=== PATIENT | male | born 1950 | race Caucasian/White ===

== ENCOUNTER → 2024-01-28 | Emergency (ER) | payer OTHER ==
[~2024-01-28] MED LIST: NA CHLORIDE 0.9% 1,000 ML ONE; ONDANSETRON 4 MG/2 ML VIAL ONE
[2024-01-28 07:55] LABS: Absolute Basophils 0.1 K/uL (0-0.5); Absolute Eosinophils 0.1 K/uL (0-0.5); Absolute Lymphocytes (CBC) 1.6 K/uL (0.7-4.9); Absolute Monocytes 0.5 K/uL (0.1-1.3); Absolute Neutrophil 7.7 K/uL (1.8-8.0); Basophils % 0.5 % (0-1.3); Eosinophils % 0.6 % (0-4.4); Hematocrit 38.4 % (39.6-49.0); Hemoglobin 12.9 g/dL (13.6-17.9); Lymphocytes % 16.4 % (15.3-44.8); MCHC 33.5 g/dL (32.0-36.0); MCV 80.6 fL (80-100); MPV 9.4 fL (7.6-11.3); Monocytes % 4.8 % (3.3-12.3); Neutrophils % 77.7 % (41.7-73.7); Nucleated Red Blood Cells % 0.1 % (0-0); Platelets 303 thou/uL (152-406); RBC Red Blood Cell Count 4.77 M/uL (4.33-5.43); Red Cell Distribution Width 14.8 % (12.1-15.2)
[2024-01-28 08:08] LABS: Specific Gravity 1.016 (1.005-1.030); Sqamous Epithelial None Seen /HPF (None Seen); Urine Bacteria None Seen /HPF (<20); Urine Bilirubin NEGATIVE (Negative); Urine Blood Negative (Negative); Urine Clarity Turbid (Clear); Urine Color Light-Yellow (Yellow); Urine Glucose 3+ (Negative); Urine Ketones TRACE (Negative); Urine Microscopic Reflex YN ORDER UMIC; Urine Nitrite NEGATIVE (Negative); Urine Protein NEGATIVE (Negative); Urine Urobilinogen Normal (Normal); Urine WBC <5 /HPF (<5)
[2024-01-28 08:09] LABS: Urine Culture Reflex Order NOT NEEDED; Urine Yeast (Budding) Trace /HPF (None Seen)
[2024-01-28 08:13] LABS: Albumin 3.6 g/dL (3.4-5.0); Albumin/Globulin Ratio 1.1 (1.1-1.8); Anion Gap 8.2 mEq/L (5.0-15.0); Bilirubin Total 0.6 mg/dL (0.2-1.0); Globulin 3.2 g/dL (2.3-3.5); Potassium 4.2 mEq/L (3.5-5.1); Protein, Total 6.8 g/dL (6.4-8.2)
--- NOTE | 2024-01-28 08:21 | EDPHYS ---
Physician Documentation [facility] Name: Aakash Pascual Age: 73 yrs Sex: Male : 1950 Arrival Date: 01/28/2024 Time: 07:14 Bed 16 Private MD: ED Physician Tika Pate HPI: 01/27 07:30 This 73 yrs old Male presents to ER via Unassigned with complaints of Cataract surgery sp3 on 01/27/24, Vomiting, Dizziness. 07:30 73-year-old male who had cataract surgery yesterday now presents to the ED with chief sp3 complaint nausea and vomiting since late last night. He denies any abdominal pain. Last bowel movement was yesterday. Patient also took an edible gummy yesterday about [id number]. He is also on tramadol. He denies any other symptoms including fever, cough, headache, neck pain, chest pain, shortness of breath, diarrhea, rash, syncope, near syncope, focal neurological deficit, or any other signs or symptoms on ROS at this time.. Historical: - Allergies: 07:25 No Known Allergies; ld1 - Immunization history:: Adult Immunizations up to date. - Social history:: Smoking status: Patient denies any tobacco usage or history of. Patient/guardian denies using alcohol. ROS: 07:31 Constitutional: Negative for fever, chills, and weight loss, Eyes: Negative for injury, sp3 pain, redness, and discharge, ENT: Negative for injury, pain, and discharge, Neck: Negative for injury, pain, and swelling, Cardiovascular: Negative for chest pain, palpitations, and edema, Respiratory: Negative for shortness of breath, cough, wheezing, and pleuritic chest pain, Back: Negative for injury and pain, MS/Extremity: Negative for injury and deformity, Skin: Negative for injury, rash, and discoloration, Neuro: Negative for headache, weakness, numbness, tingling, and seizure, Psych: Negative for depression, anxiety, suicide ideation, homicidal ideation, and hallucinations, Allergy/Immunology: Negative for hives, rash, and allergies, Endocrine: Negative for neck swelling, polydipsia, polyuria, polyphagia, and marked weight changes, Hematologic/Lymphatic: Negative for swollen nodes, abnormal bleeding, and unusual bruising, 07:31 All other systems are negative, Exam: 07:31 Constitutional: This is a well developed, well nourished patient who is awake, alert, sp3 and in no acute distress. Head/Face: Normocephalic, atraumatic. Eyes: Pupils equal round and reactive to light, extra-ocular motions intact. Lids and lashes normal. Conjunctiva and sclera are non-icteric and not injected. Cornea within normal limits. Periorbital areas with no swelling, redness, or edema. ENT: Nares patent. No nasal discharge, no septal abnormalities noted. External auditory canals are clear. Oropharynx with no redness, swelling, or masses, exudates, or evidence of obstruction, uvula midline. Mucous membranes moist. Neck: Trachea midline, no thyromegaly or masses palpated, and no cervical lymphadenopathy. Supple, full range of motion without nuchal rigidity, or vertebral point tenderness. No Meningismus. Chest/axilla: Normal chest wall appearance and motion. Nontender with no deformity. No lesions are appreciated. Cardiovascular: Regular rate and rhythm with a normal S1 and S2. No gallops, murmurs, or rubs. Normal PMI, no JVD. No pulse deficits. Respiratory: Lungs have equal breath sounds bilaterally, clear to auscultation and percussion. No rales, rhonchi or wheezes noted. No increased work of breathing, no retractions or nasal flaring. Abdomen/GI: Soft, non-tender, with normal bowel sounds. No distension or tympany. No guarding or rebound. No evidence of tenderness throughout. Back: No spinal tenderness. No costovertebral tenderness. Full range of motion. Skin: Warm, dry with normal turgor. Normal color with no rashes, no lesions, and no evidence of cellulitis. 07:31 Eyes: Eye shield on left eye. No anterior chamber hyphema or any other abnormality.. Vital Signs: 07:28 BP 156 / 96; Pulse 72; Resp 18; Temp 97.9(TE); Pulse Ox 100% on R/A; Weight 86.64 kg; ld1 Height 6 ft. 0 in. ; Pain 0/10; 08:20 BP 167 / 90; Pulse 84; Resp 18; Pulse Ox 100% on R/A; ld1 08:55 BP 156 / 88; Pulse 75; Resp 18; Pulse Ox 100% on R/A; ld1 07:28 Body Mass Index 25.90 (86.64 kg, 182.88 cm) ld1 07:28 Pain Scale: Adult ld1 MDM: 07:21 Patient medically screened. sp3 07:31 Data reviewed: vital signs, nurses notes, lab test result(s). ED course: 73-year-old sp3 male with PMH above now with nausea and vomiting postop day 1 for cataract surgery of the left eye. Differential diagnosis includes vomiting induced by postanesthesia, OTC edible THC gummy, or the tramadol itself. I met highly suspicious for biliary, gallbladder or pancreatic pathology. Patient does have gastritis and is on Nexium. I am not highly suspicious for gastritis, ruptured peptic ulcer, sepsis, shock or any other critical pathology at this time. Vital signs are normal and patient is in no acute distress. Once patient feels better, discharge will probably be his disposition.. 08:18 ED course: Patient is markedly improved. Will attempt p.o. challenge and if he passes, sp3 discharge him home on oral ondansetron. Patient is having no chest pain, shortness of breath or other anginal equivalents. I am not highly suspicious for acute coronary syndrome on reevaluation either.. 01/27 07:29 Order name: CBC with Diff; Complete Time: 08:18 sp3 01/27 07:29 Order name: CMP; Complete Time: 08:18 sp3 01/27 07:29 Order name: Lipase; Complete Time: 08:18 sp3 01/27 07:29 Order name: Urinalysis w/ reflexes; Complete Time: 08:18 sp3 01/27 07:29 Order name: IV Saline Lock; Complete Time: 07:51 sp3 01/27 07:29 Order name: Labs collected and sent; Complete Time: 07:51 sp3 01/27 08:19 Order name: PO challenge; Complete Time: 08:20 sp3 Administered Medications: 07:51 Drug: Ondansetron IVP 4 mg IVP once; over 2 minutes Route: IVP; Site: left antecubital; ld1 07:52 Drug: NS 0.9% IV 1000 ml IV at 1 bolus Per protocol; 1000 mL bolus Route: IV; Rate: 1 ld1 bolus; Site: left antecubital; Disposition Summary: 01/28/24 08:20 Discharge Ordered Notes: Location: Home sp3 Condition: Stable sp3 Diagnosis - Vomiting sp3 Followup: sp3 - With: Private Physician - When: Upon discharge from the Emergency Department - Reason: Continuance of care Discharge Instructions: - Discharge Summary Sheet sp3 - Vomiting, Adult sp3 Forms: - Medication Reconciliation Form sp3 - Thank You Letter sp3 - Antibiotic Education sp3 - Prescription Opioid Use sp3 - Patient Portal Instructions sp3 - Leadership Thank You Letter sp3 Prescriptions: - ondansetron 8 mg Oral Tablet,disintegrating - take 1 tablet ORAL route every 12 hours; 20 tablet; Refills: 0, Product sp3 Selection Permitted Signatures: Dispatcher [employer] Katrina Hernández RN RN ld1 Tika Pate MD MD sp3
--- NOTE | 2024-01-28 08:21 | ER ---
Nurse's Notes [facility] Name: Aakash Pascual Age: 73 yrs Sex: Male : 1950 Arrival Date: 01/28/2024 Time: 07:14 Bed 16 Private MD: Diagnosis: Vomiting Presentation: 01/27 07:28 Chief complaint: Patient states: brought patient in due to N/V since last night. ld1 Pt is post cataract surgery, reports taking edible. Coronavirus screen: At this time, the client does not indicate any symptoms associated with coronavirus-19. Ebola Screen: No symptoms or risks identified at this time. Initial Sepsis Screen: Does the patient meet any 2 criteria? No. Patient's initial sepsis screen is negative. Does the patient have a suspected source of infection? No. Patient's initial sepsis screen is negative. Risk Assessment: Do you want to hurt yourself or someone else? Patient reports no desire to harm self or others. Onset of symptoms was January 28, 2024 at 07:30. 07:28 Method Of Arrival: Ambulatory ld1 07:28 Acuity: ROOSEVELT 3 ld1 Triage Assessment: 07:28 General: Appears in no apparent distress. comfortable, Behavior is calm, cooperative, ld1 appropriate for age. Pain: Denies pain. EENT: No signs and/or symptoms were reported regarding the EENT system. Neuro: Level of Consciousness is awake, alert, obeys commands, Oriented to person, place, time, situation. Cardiovascular: Capillary refill < 3 seconds Patient's skin is warm and dry. Respiratory: Airway is patent Respiratory effort is even, unlabored. GI: Abdomen is round non-distended, Reports nausea, vomiting, Patient currently denies abdominal pain. : No signs and/or symptoms were reported regarding the genitourinary system. Derm: No signs and/or symptoms reported regarding the dermatologic system. Musculoskeletal: No signs and/or symptoms reported regarding the musculoskeletal system. Historical: - Allergies: 07:25 No Known Allergies; ld1 - Immunization history:: Adult Immunizations up to date. - Social history:: Smoking status: Patient denies any tobacco usage or history of. Patient/guardian denies using alcohol. Screenin:31 [facility] ED Fall Risk Assessment (Adult) History of falling in the last 3 months, ld1 including since admission No falls in past 3 months (0 pts). Abuse screen: Denies threats or abuse. Denies injuries from another. Nutritional screening: No deficits noted. Tuberculosis screening: No symptoms or risk factors identified. Assessment: 07:31 Reassessment: See triage assessment. GI: Abdomen is round non-distended. ld1 08:21 Reassessment: Patient appears in no apparent distress at this time. No changes from ld1 previously documented assessment. Patient and/or family updated on plan of care and expected duration. Pain level reassessed. D/C ordered. Pt waiting for fluids to complete. 08:55 Reassessment: Patient appears in no apparent distress at this time. No changes from ld1 previously documented assessment. Patient and/or family updated on plan of care and expected duration. Pain level reassessed. Vital Signs: 07:28 BP 156 / 96; Pulse 72; Resp 18; Temp 97.9(TE); Pulse Ox 100% on R/A; Weight 86.64 kg; ld1 Height 6 ft. 0 in. ; Pain 0/10; 08:20 BP 167 / 90; Pulse 84; Resp 18; Pulse Ox 100% on R/A; ld1 08:55 BP 156 / 88; Pulse 75; Resp 18; Pulse Ox 100% on R/A; ld1 07:28 Body Mass Index 25.90 (86.64 kg, 182.88 cm) ld1 07:28 Pain Scale: Adult ld1 ED Course: 07:18 Patient arrived in ED. im 07:21 Tika Pate MD is Attending Physician. sp3 07:25 Arm band placed on Patient placed in an exam room, on a stretcher. ld1 07:27 Katrina Heart, JASMINA is Primary Nurse. ld1 07:30 Triage completed. ld1 07:31 Patient has correct armband on for positive identification. Placed in gown. Bed in low ld1 position. Call light in reach. Side rails up X2. hall monitor on. Pulse ox on. NIBP on. Door closed. Noise minimized. Warm blanket given. 07:31 No provider procedures requiring assistance completed. ld1 07:51 Urinalysis w/ reflexes Sent. ld1 07:52 CBC with Diff Sent. ld1 07:52 CMP Sent. ld1 07:52 Lipase Sent. ld1 07:52 Inserted saline lock: 20 gauge in left antecubital area, using aseptic technique. Blood ld1 collected. 08:56 Provided Education on: medication usage. ld1 08:56 IV discontinued. ld1 Administered Medications: 07:51 Drug: Ondansetron IVP 4 mg IVP once; over 2 minutes Route: IVP; Site: left antecubital; ld1 07:52 Drug: NS 0.9% IV 1000 ml IV at 1 bolus Per protocol; 1000 mL bolus Route: IV; Rate: 1 ld1 bolus; Site: left antecubital; Medication: 07:31 VIS not applicable for this client. ld1 Outcome: 08:20 Discharge ordered by . sp3 08:55 Discharged to home ambulatory, with family, ld1 08:55 Condition: stable 08:55 Discharge instructions given to patient, Instructed on discharge instructions, follow up and referral plans. medication usage, Demonstrated understanding of instructions, follow-up care, medications, Prescriptions given X 1, 08:56 Patient left the ED. ld1 Signatures: Katrina Heart RN RN ld1 Tika Pate MD MD sp3 Sabine Larkin
[2024-01-28 09:13] VITALS: BP 156/88; TEMP 97.9; O2SAT 100
== END ==
LOC: ER 07:14
DX: R11.10 Vomiting, unspecified (principal); Z98.42 Cataract extraction status, left eye
CPT/HCPCS: 85025; 81001; 36415; 83690; 80053; J2405; J7030

== ENCOUNTER 2024-02-11 22:05 | Emergency (ER) | payer OTHER ==
--- NOTE | 2024-02-11 22:58 | ER ---
Nurse's Notes [facility] Name: Aakash Pascual Age: 73 yrs Sex: Male : 1950 Arrival Date: 02/11/2024 Time: 22:05 Bed IW2 Private MD: Diagnosis: Radiculopathy, cervical region Presentation: 02/10 22:27 Chief complaint: Patient states: Left sided shoulder pain and left sided neck pain that cm10 has been going on for 6 months. Pt states that today he had a massage and when he woke up from a nap the pain was worse. Coronavirus screen: Client denies travel out of the [place] in the last 14 days. At this time, the client does not indicate any symptoms associated with coronavirus-19. Ebola Screen: Patient denies travel to an Ebola-affected area in the 21 days before illness onset. No symptoms or risks identified at this time. Initial Sepsis Screen: Does the patient meet any 2 criteria? No. Patient's initial sepsis screen is negative. Does the patient have a suspected source of infection? No. Patient's initial sepsis screen is negative. Risk Assessment: Do you want to hurt yourself or someone else? Patient reports no desire to harm self or others. Onset of symptoms was February 11, 2024. 22:27 Method Of Arrival: Wheelchair cm10 22:27 Acuity: ROOSEVELT 3 cm10 Triage Assessment: 22:29 General: Appears in no apparent distress. comfortable, Behavior is calm, cooperative. cm10 Pain: Complains of pain in Left side of neck and left shoulder. Neuro: No deficits noted. Level of Consciousness is awake, alert, obeys commands, Oriented to person, place, time, situation. Historical: - Allergies: 22:29 No Known Allergies; cm10 - PMHx: 22:29 Diabetes mellitus; Enlarged Prostate; Scoliosis; cm10 - Immunization history:: Adult Immunizations up to date. - Infectious Disease History:: Denies. - Social history:: Smoking status: Patient denies any tobacco usage or history of. Screenin:09 [facility] ED Fall Risk Assessment (Adult) History of falling in the last 3 months, cm10 including since admission No falls in past 3 months (0 pts) Confusion or Disorientation No (0 pts) Intoxicated or Sedated No (0 pts) Impaired Gait No (0 pts) Mobility Assist Device Used No (0 pt) Altered Elimination No (0 pt) Score/Fall Risk Level 0 - 2 = Low Risk Oriented to surroundings, Maintained a safe environment, Hourly rounding (assess needs \T\ fall precautionary measures) done. Abuse screen: Denies threats or abuse. Denies injuries from another. Nutritional screening: No deficits noted. Tuberculosis screening: No symptoms or risk factors identified. Vital Signs: 22:27 BP 136 / 77; Pulse 70; Resp 18; Temp 98.2; Pulse Ox 100% on R/A; Weight 89.36 kg (R); cm10 Height 6 ft. 5 in. ; Pain 10/10; 22:27 Body Mass Index 23.36 (89.36 kg, 195.58 cm) cm10 22:27 Pain Scale: Adult cm10 ED Course: 22:09 Patient arrived in ED. im 22:29 Triage completed. cm10 22:29 Arm band placed on Patient placed in waiting room. cm10 22:41 Shelby Johnston FNP-C is PHCP. kb 22:41 Roney Chinchilla MD is Attending Physician. kb 23:09 Patient has correct armband on for positive identification. Provided Education on: cm10 Follow-up instructions. 23:09 No provider procedures requiring assistance completed. Patient did not have IV access cm10 during this emergency room visit. Administered Medications: No medications were administered Medication: 23:09 VIS not applicable for this client. cm10 Outcome: 22:58 Discharge ordered by . kb 23:10 Discharged to home cm10 23:10 Condition: good 23:10 Discharge instructions given to Pt left prior to receiving discharge paperwork. 23:10 Patient left the ED. cm10 Signatures: Shelby Johnston FNP-C FNP-Sabine Mathews Clarissa, RN RN cm10
--- NOTE | 2024-02-11 22:58 | EDPHYS ---
Physician Documentation [facility] Name: Aakash Pascual Age: 73 yrs Sex: Male : 1950 Arrival Date: 02/11/2024 Time: 22:05 Bed IW2 Private MD: ED Physician Roney Chinchilla HPI: 02/10 22:59 This 73 yrs old Male presents to ER via Wheelchair with complaints of Neck and Upper kb Back Pain, Shoulder Pain, Back Pain. 22:59 Pt is a 73 year old male who presents for left neck pain that radiates down left arm. kb States pain started 6 months ago and got worse today after a massage. States he has been to his PCP and was given tramadol for the pain but he has been taking it for a month and it isn't working as well as it had at first. 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 States he decided he doesn't want any treatment here. . Historical: - Allergies: 22:29 No Known Allergies; cm10 - PMHx: 22:29 Diabetes mellitus; Enlarged Prostate; Scoliosis; cm10 - Immunization history:: Adult Immunizations up to date. - Infectious Disease History:: Denies. - Social history:: Smoking status: Patient denies any tobacco usage or history of. ROS: 22:58 Constitutional: As per HPI kb Exam: 22:58 Constitutional: This is a well developed, well nourished patient who is awake, alert, kb and in no acute distress. Head/Face: Normocephalic, atraumatic. ENT: Moist Mucous membranes Neck: Trachea midline, no thyromegaly or masses palpated, and no cervical lymphadenopathy. Supple, full range of motion without nuchal rigidity, or vertebral point tenderness. No Meningismus. Cardiovascular: Regular rate Respiratory: Respirations even and unlabored. No increased work of breathing. Talking in full sentences Skin: Warm, dry with normal turgor. Normal color. MS/ Extremity: Pulses equal, no cyanosis. Neurovascular intact. Full, normal range of motion. Neuro: Awake and alert, GCS 15, oriented to person, place, time, and situation. Moves all extremities. Normal gait. Vital Signs: 22:27 BP 136 / 77; Pulse 70; Resp 18; Temp 98.2; Pulse Ox 100% on R/A; Weight 89.36 kg (R); cm10 Height 6 ft. 5 in. ; Pain 10/10; 22:27 Body Mass Index 23.36 (89.36 kg, 195.58 cm) cm10 22:27 Pain Scale: Adult cm10 MDM: 22:47 Patient medically screened. kb 22:58 Differential diagnosis: radiculopathy, muscle strain. Data reviewed: vital signs, kb nurses notes. Counseling: I had a detailed discussion with the patient and/or guardian regarding the historical points, exam findings, and any diagnostic results supporting the discharge/admit diagnosis, the need for outpatient follow up, a family practitioner, to return to the emergency department if symptoms worsen or persist or if there are any questions or concerns that arise at home. Administered Medications: No medications were administered Disposition: 23:43 Co-signature as Attending Physician, Roney Chinchilla MD I agree with the assessment sp4 and plan of care. I reviewed the patient's care provided by the Advanced Practice Provider and agree with the diagnosis and treatment plan. Disposition Summary: 02/11/24 22:58 Discharge Ordered Notes: Location: Home kb Condition: Stable kb Diagnosis - Radiculopathy, cervical region kb Followup: kb - With: Emergency Department - When: As needed - Reason: Worsening of condition Followup: kb - With: Private Physician - When: 2 - 3 days - Reason: Recheck today's complaints, Continuance of care, Re-evaluation by your physician Discharge Instructions: - Discharge Summary Sheet kb - Cervical Radiculopathy, [id number] kb Forms: - Medication Reconciliation Form kb - Thank You Letter kb - Antibiotic Education kb - Prescription Opioid Use kb - Patient Portal Instructions kb - Leadership Thank You Letter kb Signatures: Shelby Johnston, FADI KELLY-Roney Dodge MD MD sp4 Raquel Pak RN RN cm10
[2024-02-11 23:41] VITALS: BP 136/77; TEMP 98.2; O2SAT 100
== END 2024-02-11 23:10 | disposition home or self-care (01) ==
LOC: ER 22:05
DX: M54.12 Radiculopathy, cervical region (principal)

== ENCOUNTER 2025-08-10 17:45 | Inpatient (IN) | payer OTHER ==
--- OUTSIDE RECORDS SUMMARY | 2025-08-10 18:07 | XMS REPORT | Continuity of Care Document ---
Author Name Unknown Address [address] [facility] [place] [address] Organization [facility] [place] Address [address] [facility] [place] [address] Care Team Providers Care Business Consultant Name Role Phone NOLBERTO MORIN Primary Care Physician UnavailBARBARA Edwards Attending Clinician Unavailable NOLBERTO MORIN Attending Clinician Unavailable NOLBERTO MORIN Attending Clinician Unavailable LYLY ROBISON Attending Clinician Unavaila LYLY Cisneros Attending Clinician Unavaila jacinto UNKNOWN, ATTENDING Attending Clinician Unavailab MARIANGEL Mauro Attending Clinician Unavailable Mariangel Canada Attending Clinician [phone] Rosa Isela Lugo Attending Clinician [phone] Isabel Cain LMSW Attending Clinician UnaNolberto Goodman MD Attending Clinician [phone] DINA HARRIS Attending Clinician UnavailJOSEP Dahl Attending Clinician Unavail able JOSEP MENDOZA Attending Clinician Unavail able Lyly Robison MD Attending Clinician Kelly Person MD Attending Clinician [phone] Pcp-Lab Attending Clinician Unavailable Reji MILLER, Josep Weathers Attending Clinician [phone] KELLY PERSON Attending Clinician Unavailable DAISY KAY Attending Clinician Unavailable Daisy Kay MD Attending Clinician [phone] Elías Cuellar Attending Clinician [phone] JERRY ESPINAL Attending Clinician Unavailable ELÍAS FLOYD Attending Clinician Unavailable AMPARO RUDD Attending Clinician Unavailable AMPARO RUDD Attending Clinician Unavailable Nallely Zhang LVN Attending Clinician Unavailmey stoddard Doctor Unassigned, [place] Attending Clinician U navailba BHATT, Miguelina Attending Clinician [phone] MIGUELINA FAUSTIN Attending Clinician Unavailable MIGUELINA FAUSTIN Attending Clinician Unavailable CARIDAD MCDANIEL Attending Clinician Unavailable CARIDAD MCDANIEL Attending Clinician Unavailable Samantha Arellano Attending Clinician [phone] SAMANTHA TINSLEY Attending Clinician Unavailable ROSSY THURMAN Attending Clinician UnavailROSSY Chong Attending Clinician Unavailmey Frey PT, Erendira Attending Clinician UnavailRossy Chong MD Attending Clinician [phone] MARINA PURCELL Attending Clinician Unavailable Magno Gonzalez RN, Britta Attending Clinician Unavailable LINUS MARK Attending Clinician UnaMaricel Florence RN Attending Clinician UnavailRosa Isela Copeland MD Attending Clinician ROSA ISELA CASTAÑEDA Attending Clinician Ines salvatore Soriano, Adc Lab Main Attending Clinician UnavailGisselle Rogers MD Attending Clinician [phone] GISSELLE PATEL Attending Clinician UnavailRosa Isela Copeland MD Attending Clinician Lisset Sarabia MD Attending Clinician [phone] Cris Silva Attending Clinician UnaMINISTERIO Koehler Attending Clinician Unavailable Addie Junior MD Attending Clinician [phone] Garland Romero MD Attending Clinician Carlos Ibraihm DO Attending Clinician [phone] Pacheco MILLER, Linwood Attending Clinician [phone] Ministerio Thompson MD Attending Clinician [phone] Leif MILLER, Sherri Pisano Attending Clinician Ijeoma MILLER, Carlton Attending Clinician [phone] Mateus WHITMORE, Garland Lam Attending Clinician Unavaila jacinto Lab, Ang - Db Attending Clinician Unavailable Nwarufus AGPCDEMI, Elías Attending Clinician [phone] Mohini WHITMORE, Magdalena Small Attending Clinician Unacristina Thurman MD, Rossy Arreola Attending Clinician [phone] Mateus WHITMORE, Garland Lam Attending Clinician Unavaila jacinto Frey PT, Erendira Attending Clinician Unavailmey YADAV, SHERRI PISANO Attending Clinician Ines vaflorinda Jfafe PT, Ruby Attending Clinician Un available Pob, Adc Lab Main Attending Clinician Unavailabl CARLTON Martin Attending Clinician Unavailable Mariangel Canada Attending Clinician [phone] Margie Luna PT Attending Clinician Unavailab Roberto Sotelo DNP Attending Clinician + [phone] Flakita MILLER, Marah Terry Attending Clinician + [phone] MARAH CARSON Attending Clinician Parrish Mitchell RN, Apryl Rabago Attending Clinician Unavailable Doctor Unassigned, [place] Attending Clinician U inez Walters RN, Angie Attending Clinician Unavailabl Samantha Caballero Attending Clinician +[phone] Rahul MILLER, Daisy Attending Clinician [phone] ADDIE JUNIOR Attending Clinician Unavailable Vishal Richards Attending Clinician [phone] ROBERTO COLE Attending Clinician Unavailab LISSET Mckenzie Attending Clinician Unavailable Barbara Miranda MD Attending Clinician [phone] Rm2, Adc Surg Proc Attending Clinician Unavailab Geovani Butler Attending Clinician BRANDIE LOWERY Attending Clinician Unavailable JOSEPH WELDONATOSIN Staci Attending Clinician Unava ilable DEION BELTRAN Attending Clinician Unacristina novoa Nurse, Reyes Surgery Attending Clinician UnavaMARSHA Cash Attending Clinician Unavailable GEOVANI MCINTOSH Attending Clinician UnavailMARYSOL Welch Attending Clinician UnavailMarysol Cheek MD Attending Clinician [phone] Marsha Pulliam Attending Clinician [phone] Boy Salmeron MD Attending Clinician [phone] Omar Miner MD Attending Clinician [phone] KIRIT ALDANA Attending Clinician Unavailable KIRIT ALDANA Attending Clinician Unavailable BOY SALMERON Attending Clinician Unavailab cris 2, Adc Lab Attending Clinician Unavailable OMAR MINER Attending Clinician Unavailable Octaviano Heaton NP Attending Clinician [phone] OCTAVIANO HEATON Attending Clinician Unavailab cris King MD, Dank Attending Clinician [phone] RADIOLOGY Attending Clinician Unavailable Radiology Attending Clinician Unavailable CRISS CABALLERO Attending Clinician UnavailSTACY Cohn Attending Clinician Unavailab Stacy Prado Attending Clinician [phone] ANNA HUANG Attending Clinician Unava ilable Michelle Wilson MD Attending Clinician [phone] MICHELLE WILSON Attending Clinician Unavailable Sherita MILLER, Miguel Terrell Attending Clinician [phone] Only, Mickey Matthews Test Attending Clinician UnavailMurali Villa Attending Clinician [phone] MURALI CEDEÑO Attending Clinician Unavailabl richi Nurse, [facility] Attending Clinician Unava ilable Jeimy FREEDMAN, Christina Duncan Attending Clinician Unavailab cris Gallardo, Mickey [facility] Attending Clinician Unavailable Laura Lee MD Attending Clinician [phone] Ayah Martínez Attending Clinician [phone] Anthony FREEDMAN, Marsha Lyons Attending Clinician Unavailstaci Murphy RN, Fatou Toth Attending Clinician UnavailAYAH Zuluaga Attending Clinician Unavailable Ajibade_O_AH Attending Clinician Unavailable Lore Soliz MD Attending Clinician [phone] LORE SOLIZ Attending Clinician Unavailable Víctor Hahn DO Attending Clinician [phone] VÍCTOR HAHN Attending Clinician Unavailable Ige-Odunuga_J_AH Attending Clinician Unavailable BARBARA MIRANDA Admitting Clinician Unavailable KELLY PERSON Admitting Clinician Unavailable MIGUELINA FAUSTIN Admitting Clinician Unavailable CARLOS IBRAHIM Admitting Clinician Unavailable SHERRI YADAV Admitting Clinician Ines salvatore Yadav MD, Sherri Pisano Admitting Clinician HITESH-BOY LOZADA Admitting Clinician Unavailab MANINDER Devine Admitting Clinician Unavail able STACY URIAS Admitting Clinician Unavailab le Robertoibade_O_AH Admitting Clinician Unavailable LORE SOLIZ Admitting Clinician Unavailable Ige-Odunuga_J_AH Admitting Clinician Unavailable Payers Payer Name Policy Type Policy Number Effective Date Expirati on Date Source [id number] 2021 00:00:00 [employer] MEDICARE ADVANTAGE HMO [id number] 2024 00:00:00 [employer] [place] CLASSIC/VALUE [id number] 2020 00:00:00 2021 00:00:00 [employer] [facility] [place] (MEDICARE REPLACEMENT/ADVAN TAGE - HMO) [id number] 0055-01-01 00:00:00 Problems Condition Name Condition Details Condition Category Status Onset Date Resolution Date Last Treatment Date Treating Clinician Comments Source Discogenic thoracic pain Discogenic thoracic pain Disease Active 08-02 00:00: 00 [facility] Cervical radiculopa thy Cervical radiculopa thy Disease Active 08-02 00:00: 00 [facility] Self-ortiz terizes urinary bladder Self-ortiz terizes urinary bladder Disease Active 9-23 00:00: 00 [facility] Abnormal EKG Abnormal EKG Disease Active 6-13 00:00: 00 [facility] Sinus bradycardi a Sinus bradycardi a Disease Active 6-13 00:00: 00 [facility] Bilateral impacted cerumen Bilateral impacted cerumen Disease Active 1-06 00:00: 00 [facility] Unresponsi ve Unresponsi ve Disease Active 6-16 00:00: 00 [facility] Type 2 diabetes mellitus with hyperglyce robert, with long-term current use of insulin Type 2 diabetes mellitus with hyperglyce robert, with long-term current use of insulin Disease Active 6-04 00:00: 00 [facility] Type 2 diabetes mellitus with hyperglyce robert, with long-term current use of insulin Type 2 diabetes mellitus with hyperglyce robert, with long-term current use of insulin Disease Active 604 00:00: 00 [facility] 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 d cataract of left eye Disease Active 2-21 00:00: 00 [facility] Chronic neck pain Chronic neck pain Disease Active 2-05 00:00: 00 [facility] Degenerati ve spinal arthritis Degenerati ve spinal arthritis Disease Active 2-05 00:00: 00 [facility] Encounter for screening colonoscop y Encounter for screening colonoscop y Disease Active 2022-11 0-02 00:00: 00 [facility] Type 2 diabetes mellitus without complicati on, with long-term current use of insulin Type 2 diabetes mellitus without complicati on, with long-term current use of insulin Disease Active 2021-11 00:00: 00 [facility] Anxiety Anxiety Disease Active 2021-11- 00:00: 00 [facility] Mild major depression Mild major depression Disease Active 2021-11- 00:00: 00 [facility] Primary insomnia Primary insomnia Disease Active 2021-11 00:00: 00 [facility] Schizoaffe ctive disorder, depressive type Schizoaffe ctive disorder, depressive type Disease Active 2021-11 00:00: 00 [facility] Dyslipidem ia Dyslipidem ia Disease Active 2021-11 00:00: 00 [facility] Type 2 diabetes mellitus without complicati on, with long-term current use of insulin Type 2 diabetes mellitus without complicati on, with long-term current use of insulin Disease Active 2021-11 00:00: 00 [facility] 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 Disease Active 2021-11 00:00: 00 [facility] Overactive bladder Overactive bladder Disease Active 2021-11 00:00: 00 [facility] Gastroesop hageal reflux disease without esophagiti s Gastroesop hageal reflux disease without esophagiti s Disease Active 2021-11 00:00: 00 [facility] Essential hypertensi on Essential hypertensi on Disease Active 2021-11 00:00: 00 [facility] Iron deficiency anemia Iron Deficiency Anemia Problem Active 04-04 00:00: 00 [facility] Poor short-term memory Poor Short-term Memory Problem Active 11-30 00:00: 00 [facility] Long-term current use of insulin Long-term Current Use of Insulin Problem Active 11-30 00:00: 00 [facility] Type 2 diabetes mellitus with peripheral angiopathy Type 2 Diabetes Mellitus with Peripheral Angiopathy Problem Active 11-30 00:00: 00 [facility] Schizoaffe ctive disorder Schizoaffe ctive Disorder Problem Active 2019-11 00:00: 00 [facility] Type II diabetes mellitus uncontroll ed Type II Diabetes Mellitus Uncontroll ed Problem Active 07-25 00:00: 00 [facility] Diabetes mellitus Diabetes Mellitus Problem Active 05-25 00:00: 00 [facility] Moderate major depression , single episode Moderate Major Depression , Single Episode Problem Active 05-25 00:00: 00 [facility] Anxiety Anxiety Problem Active 05-25 00:00: 00 [facility] Neuropathy Neuropathy Problem Active 05-25 00:00: 00 [facility] Essential hypertensi on Essential Hypertensi on Problem Active 05-25 00:00: 00 [facility] Gastroesop hageal reflux disease Gastroesop hageal Reflux Disease Problem Active 05-25 00:00: 00 [facility] [id number] Balanitis Problem Commo n [facility] [id number] Acquired penile adhesion Problem [facility] [id number] History of urinary retention Problem [facility] No known active problems No known active problems Disease [facility] [id number] Intermitte nt self-ortiz terization of bladder Problem [facility] [id number] Enlarged prostate Problem [facility] [id number] Benign prostatic hyperplasi a with lower urinary tract symptoms Problem [facility] [id number] Other obstructiv e and reflux uropathy Problem [facility] [id number] Neuropathi c bladder Problem [facility] [id number] Asperger syndrome Problem [facility] Allergies, Adverse Reactions, Alerts Allergy Name Allergy Type Status Severity Reaction(s) Onset Date Inactive Date Treating Clinician Comments Source SUGAR-NC OTEIN-ST ARCH DRUG Active Anxiety 08-02 00:00: 00 [facility] Sugar-Pr otein-St arch Propensi ty to adverse reaction s Active Other - See comments 08-02 00:00: 00 [facility] WHEAT DRUG INGREDI Active SOB 04-28 00:00: 00 [facility] DAIRY DIGESTAN T DRUG Active Unknown-Cmnt 04-28 00:00: 00 [facility] CORN DRUG INGREDI Active Unknown-Cmnt 04-28 00:00: 00 [facility] Crum Propensi ty to adverse reaction s Active Unknown - See comments 04-28 00:00: 00 [facility] Dairy Digestan t Propensi ty to adverse reaction s Active Unknown - See comments 04-28 00:00: 00 [facility] Wheat Propensi ty to adverse reaction s Active Shortness of Breath 04-28 00:00: 00 [facility] NO KNOWN ALLERGIE S Drug Class Active [facility] Social History Social Habit Start Date Stop Date Quantity Comments Source Sex Assigned At [facility] History of Tobacco Use [facility] Gender identity [facility] Sexual orientation U [facility] [place] [place] Alcoholic beverage intake 2025-08-02 00:00:00 2025-08-02 00:00:00 Ex-drinker (finding) [facility] History of Social function 2024-11-15 00:00:00 2024-11-15 00:00:00 [facility] Alcohol intake 2024-02-10 00:00:00 2024-02-10 00:00:00 Ex-drinker (finding) [facility] Tobacco use and exposure 2023-11-14 00:00:00 2023-11-14 00:00:00 Smokeless tobacco non-user [facility] Exposure to SARS-CoV-2 (event) 2023-03-08 00:00:00 2023-03-18 14:58:00 Not sure [facility] Smoking Status Start Date Stop Date Source Ex-smoker 2023-11-14 00:00:00 2023-11-14 00:00:[address] [facility] [place] [place] Never smoked tobacco [facility] Medications Ordered Medication Name Filled Medication Name Start Date Stop Date Current Medication? Ordering Clinician Indication Dosage Frequency Signature (SIG) Comments Components Source FLUoxetine 40 mg capsule 05-09 00:00: 00 Yes [id number] 40mg Take 1 capsule by mouth in the morning. [facility] sulfamethox azole-trime thoprim (BACTRIM DS) 800-160 mg per tablet 04-24 00:00: 00 05-02 04:59 :00 No [id number] 1{tbl} Take 1 tablet by mouth in the morning and 1 tablet in the evening. Do all this for 7 days. [facility] blood sugar diagnostic (FREESTYLE LITE STRIPS) strip 0 - 00:00: 00 Yes [id number] Use to check bs BID E11.8 [facility] blood sugar diagnostic (FREESTYLE LITE STRIPS) strip 0 5-20 00:00: 00 20203-31 00:00 :00 No [id number] Use to check bs [facility] blood sugar diagnostic (ACCU-CHEK GUIDE TEST STRIPS) strip 0 -14 00:00: 00 Yes [id number] 9109 USE TO CHECK BLOOD SUGARS TWO TIMES A DAY FOR DX E11.9 [facility] Blood-Gluco se Meter (ACCU-CHEK GUIDE GLUCOSE METER) [facility] 5-12 00:00: 00 Yes [id number] 9109 Use as directed for dx e11.9 [facility] blood sugar diagnostic (ACCU-CHEK GUIDE TEST STRIPS) strip 0 12 00:00: 00 03-23 00:00 :00 No [id number] 9109 USE TO CHECK BLOOD SUGARS TWO TIMES A DAY FOR DX E11.9 [facility] insulin degludec (TRESIBA FLEXTOUCH U-100) 100 unit/mL (3 mL) InPn 03-01 00:00: 00 Yes [id number] 9109 55U inject 55 Units under the skin at bedtime. Please take HALF dose if blood glucose 80 - 120 mg/dL, HOLD if less than 80. [facility] lancets 33 gauge Misc 5-0 3-10 00:00: 00 Yes [id number] 9109 Use as directed for DX E11.65 [facility] blood sugar diagnostic (ACCU-CHEK GUIDE TEST STRIPS) strip 0 3-10 00:00: 00 Yes [id number] 9109 USE TO CHECK BOLLD SUGARS TWO TIMES A DAY for dx e11.9 [facility] lancets 33 gauge Misc 5-0 3-10 00:00: 00 Yes [id number] 9109 Use as directed for DX E11.65 [facility] Blood-Gluco se Meter (ACCU-CHEK GUIDE GLUCOSE METER) [facility] 01-17 00:00: 00 03-21 00:00 :00 No [id number] 9109 Use as directed for dx e11.9 [facility] blood sugar diagnostic (ACCU-CHEK GUIDE TEST STRIPS) strip 01-17 00:00: 00 03-21 00:00 :00 No [id number] 9109 USE TO CHECK BOLLD SUGARS TWO TIMES A DAY for dx e11.9 [facility] gadoteridol (PROHANCE-2 0 mL) injection 0.2 mL/kg 12-15 22:30: 00 12-15 22:23 :00 No [id number] .2mL/kg 0.2 mL/kg, Intravenou s, ONCE, 1 dose, On Fri12/15/24 at 1630, Routine [facility] Insulin [place], Disposable, (PEN NEEDLE) 31 gauge x 5/16" Ndle 2023-11 00:00: 00 Yes [id number] Use to check blood glucose TID [facility] Blood-Gluco se Meter,Sierra nuous (FREESTYLE KELLIE 3 READER) [facility] 2023-11 00:00: 00 Yes [id number] 9109 Use as directed [facility] Blood-Gluco se Sensor (FREESTYLE KELLIE 3 PLUS SENSOR) Kristie 2023-11 00:00: 00 Yes [id number] 9109 Change Q15 days. Use as directed. [facility] Blood-Gluco se Meter,Sierra nuous (FREESTYLE KELLIE 3 READER) [facility] 2023-11 00:00: 00 Yes [id number] 9109 Use as directed [facility] Blood-Gluco se Sensor (FREESTYLE KELLIE 3 PLUS SENSOR) Kristie 2023-11 00:00: 00 Yes [id number] 9109 Change Q15 days. Use as directed. [facility] insulin degludec (TRESIBA FLEXTOUCH U-100) 100 unit/mL (3 mL) InPn 2023-11 2- 00:00: 00 03-01 00:00 :00 No [id number] 9109 55U inject 55 Units under the skin at bedtime. Please take HALF dose if blood glucose 80 - 120 mg/dL, HOLD if less than 80. [facility] Insulin [place], Disposable, (PEN NEEDLE) 31 gauge x 5/16" Ndle 2023-11 00:00: 00 10-21 00:00 :00 No [id number] Use as directed [facility] lamoTRIgine 100 mg tablet 2023-11 00:00: 00 Yes 100mg Take 1 tablet by mouth. 1.5 tablet in the evening [facility] FLUoxetine 10 mg capsule 2023-11 00:00: 00 05-09 00:00 :00 No 10mg Take 1 capsule by mouth in the morning. [facility] benztropine 0.5 mg tablet 2023-11 0 00:00: 00 Yes .5mg Take 1 tablet by mouth in the morning. [facility] haloperidoL 2 mg tablet 2023-11 0 00:00: 00 Yes 2mg Take 1 tablet by mouth in the morning. [facility] haloperidoL 0.5 mg tablet 2023-11 0 00:00: 00 Yes .5mg Take 1 tablet by mouth in the morning. [facility] traZODone 50 mg tablet 06-17 08:20: 06 Yes 50mg Take 1 tablet by mouth at bedtime as needed for Insomnia. [facility] lamoTRIgine 25 mg tablet 8 08:20: 06 Yes 25mg Take 1 tablet by mouth in the morning. [facility] PROZAC 20 mg capsule 06-17 08:20: 06 05-09 00:00 :00 No 20mg Take 1 capsule by mouth in the morning. [facility] OLANZapine 10 mg tablet 8 00:00: 00 09-24 00:00 :00 No 10mg Take 1 tablet by mouth in the morning. [facility] nystatin-tr iamcinolone ointment 06-09 00:00: 00 Yes 1{appli cation} Apply 1 Applicatio n to area(s) 2 (two) times daily as needed. [facility] Insulin [place], Disposable, (PEN NEEDLE) 31 gauge x 5/16" Ndle 05-27 00:00: 00 10-19 00:00 :00 No [id number] Use as directed [facility] LORazepam (ATIVAN) tablet 0.5 mg 04-28 21:14: 18 Yes .5mg 0.5 mg, Oral, TIDPRN, Starting on Fri04/28/24 at 1614, Until Discontinu ed, Routine, Anxiety, Agitation [facility] acetaminoph en 325 mg Cap 04-28 16:30: 01 Yes 1{tbl} Take 1 tablet by mouth in the morning. [facility] [place]-3 Fatty Acids-Vitam in E 2,000-650-1 2 mg/2.5 gram ElPk 04-28 16:30: 01 Yes 1mg Take 1 mg by mouth in the morning and 1 mg at noon and 1 mg in the evening. [facility] Magnesium 250 mg Tab 04-28 13:41: 29 04-28 00:00 :00 No 2500mg Take 2,500 mg by mouth in the morning and 2,500 mg at noon and 2,500 mg in the evening. [facility] Apple Cider Vinegar 300 mg Tab 04-28 13:41: 28 04-28 00:00 :00 No 3{tbl} Take 3 tablets by mouth in the morning. [facility] HAWTHORN SNYDER ORAL 04-28 13:41: 28 04-28 00:00 :00 No 1{capsu le} Take 1 capsule by mouth in the morning. [facility] Lactobacill us acidophilus (PROBIOTIC) 10 billion cell capsule 04-28 13:41: 28 04-28 00:00 :00 No 1{capsu le} Take 1 capsule by mouth in the morning. [facility] ashwagandha extract 120 mg Cap 04-28 13:41: 28 04-28 00:00 :00 No 480mg Take 480 mg by mouth in the morning. [facility] amoxicillin -clavulanat e (AUGMENTIN) 875-125 mg per tablet 1 tablet 04-28 13:00: 00 05-01 12:59 :00 No 1{tbl} 1 tablet, Oral, Q12H, 6 doses, First dose on Fri04/28/24 at 0800, Last dose on Fri04/30/24 at 1999, Routine, Reason for Anti-Infec tive: Documented Infection, Documented Infection Site: Respirator y, Duration of Therapy: 7 days [facility] hydrOXYzine (ATARAX) tablet 25 mg 04-28 11:00: 00 04-28 10:17 :00 No 25mg 25 mg, Oral, ONCE, 1 dose, On Fri04/28/24 at 0600, Routine [facility] ramelteon (ROZEREM) tablet 8 mg 04-28 06:00: 00 04-28 05:24 :00 No 8mg 8 mg, Oral, ONCE, 1 dose, On Fri04/28/24 at 0100, Routine [facility] pantoprazol e (PROTONIX) injection 40 mg 04-28 01:00: 00 04-28 12:02 :42 No 40mg 40 mg, Slow IV Push, Q24H, First dose (after last modificati on) on Fri04/27/24 at 2000, Until Discontinu ed [facility] amoxicillin -clavulanat e 875-125 mg per tablet 04-28 00:00: 00 09-24 00:00 :00 No [id number] 1{tbl} Take 1 tablet by mouth every 12 (twelve) hours. [facility] enoxaparin (LOVENOX) injection 40 mg 04-27 21:45: 00 Yes 40mg 40 mg, Subcutaneo us, Q24H, First dose on Fri04/27/24 at 1645, Until Discontinu ed, Routine [facility] lactated ringers IV infusion 1,000 mL 04-27 07:15: 00 04-27 07:42 :00 No 1000mL at 999 mL/hr, 1,000 mL, Intravenou s, ONCE, 1 dose, On Fri04/27/24 at 0215, Routine [facility] acetaminoph en (OFIRMEV) IV piggyback 1,000 mg 04-27 04:15: 00 04-27 03:55 :00 No 1000mg 1,000 mg, IV Piggyback, at 400 mL/hr Administer over 15 Minutes, ONCE, 1 dose, On Fri04/26/24 at 2315, Routine, Is the patient strict NPO and unable to tolerate oral medication s? Yes [facility] acetaminoph en (TYLENOL) tablet 500 mg 04-27 03:16: 28 Yes 500mg 500 mg, Oral, Q6HPRN, Starting on Fri04/26/24 at 2216, Until Discontinu ed, Routine, Temp > 38 C [facility] ampicillin- sulbactam (UNASYN) 3 g in NaCl 0.9% (NS) 100 mL VIAL-MATE 04-26 02:30: 00 04-28 12:02 :22 No 3g 3 g, IV Piggyback, Q6H ABX, 20 doses, First dose on Fri04/25/24 at 2130, Last dose on Fri04/30/24 at 1530, Administer over 30 Minutes, 100 mL, Reason for Anti-Infec tive: Empiric Therapy for Suspected Infection, Empiric Therapy Site: Respirator y, Duration of therapy: 5 days [facility] pantoprazol e (PROTONIX) injection 40 mg 04-26 01:00: 00 04-27 05:04 :23 No 40mg 40 mg, Slow IV Push, Q12H, First dose on Fri04/25/24 at 2000, Until Discontinu ed [facility] gadobenate dimeglumine (MULTIHANCE -20 mL) injection 17.42 mL 04-25 22:15: 00 04-25 22:15 :00 No [id number] .2mL/kg 17.42 mL (0.2 mL/kg ?87.1 kg), Intravenou s, ONCE, 1 dose, On Fri04/25/24 at 1715, Routine [facility] dexMEDEtomi dine 200 mcg in 0.9 % NaCl 50 mL (PRECEDEX) RTU IV infusion 04-25 20:30: 36 04-28 12:02 :42 No .2ug/kg /h 0.2-1.5 mcg/kg/hr ?87.1 kg (4.355-32. 6625 mL/hr, rounded to 4.36-32.66 mL/hr), IV Infusion, TITRATE, Sedation-R ASS score (0 to -1), Starting on Fri04/25/24 at 1530, Initiate infusion at 0.2 mcg/kg/hr and titrate by 0.1 mcg/kg/hr every 30 minutes to goal sedation score. Maximum dose = 1.5 mcg/kg/hr. If goal not maintained at maximum allowed dose, contact prescriber . [facility] foLIC acid (FOLATE) 5 mg in NaCl 0.9% (NS) piggyback 04-25 19:30: 00 04-28 12:02 :42 No 5mg IV Piggyback, DAILY, First dose on Fri04/25/24 at 1430, Until Discontinu ed, 50 mL [facility] thiamine (VITAMIN B1) 200 mg in NaCl 0.9% (NS) piggyback 04-25 19:30: 00 04-28 12:02 :42 No 200mg IV Piggyback, TID, 9 doses, First dose on Fri04/25/24 at 1430, Last dose on Fri04/28/24 at 0800, 50 mL [facility] Sliding Scale Insulin - Lispro (HumaLOG) 04-25 17:00: 00 Yes Subcutaneo us, TID MEALS+HS, First dose on Fri04/25/24 at 1200, Until Discontinu ed, Routine [facility] glucagon (GLUCAGEN DIAGNOSTIC KIT) injection 1 mg 04-25 16:08: 01 Yes 1mg 1 mg, Intramuscu lar, PRN, Starting on Fri04/25/24 at 1108, Until Discontinu ed, JERMAINE, Blood Glucose < or = 70 mg/dL and patient is NPO, unable to swallow or has mental changes. [facility] dextrose 50 % in water (D50W) injection 25 mL 04-25 16:08: 00 Yes 25mL 25 mL, Slow IV Push, PRN, Starting on Fri04/25/24 at 1108, Until Discontinu ed, JERMAINE, Blood Glucose < or = 70 mg/dL and patient is NPO, unable to swallow or has mental status changes. [facility] chlorhexidi ne (PERIDEX) 0.12 % mouthwash 15 mL 04-25 13:00: 00 04-28 12:02 :42 No 15mL 15 mL, Oral (Swish And Spit Out), BID, First dose on Fri04/25/24 at 0800, Until Discontinu ed, Routine [facility] pantoprazol e (PROTONIX) 80 mg in NaCl 0.9% (NS) 500 mL infusion 04-25 12:30: 00 04-26 00:46 :41 No 8mg/h 8 mg/hr (50 mL/hr), IV Infusion, CONTINUOUS , Starting on Fri04/25/24 at 0730 [facility] rocuronium (ZEMURON) injection 100 mg 04-25 12:30: 00 04-25 11:32 :00 No 100mg 100 mg, IV Push, ONCE, 1 dose, On Fri04/25/24 at 0730, Routine [facility] midazolam (VERSED) injection 4 mg 04-25 12:30: 00 04-25 11:31 :00 No 4mg 4 mg, IV Push, ONCE, 1 dose, On Fri04/25/24 at 0730, Routine [facility] succinylcho line (QUELICIN) injection 100 mg 04-25 12:30: 00 04-25 11:17 :00 No 100mg 100 mg, IV Push, ONCE, 1 dose, On Fri04/25/24 at 0730, Routine [facility] etomidate (AMIDATE) injection 20 mg 04-25 12:30: 00 04-25 11:17 :00 No 20mg 20 mg, Slow IV Push, ONCE, 1 dose, On Fri04/25/24 at 0730, Routine [facility] ondansetron (ZOFRAN (PF)) injection 4 mg 04-25 12:30: 00 04-25 12:11 :00 No 4mg 4 mg, Slow IV Push, ONCE, 1 dose, On Fri04/25/24 at 0730, JERMAINE [facility] propofoL IV infusion 04-25 12:22: 35 04-27 05:09 :22 No 5ug/kg/ min 5-50 mcg/kg/min ?87.1 kg (2.613-26. 13 mL/hr, rounded to 2.61-26.13 mL/hr), IV Infusion, TITRATE, Sedation-R ASS score (-4 to -5), Starting on Fri04/25/24 at 0722, Initiate infusion at 5 mcg/kg/min and titrate by 5 mcg/kg/min every 30 seconds to 10 minutes to goal sedation score. Maximum dose = 50 mcg/kg/min . If goal not maintained at maximum allowed dose, contact prescriber . Tubing and unused portions of vials should be discarded after 12 hours. [facility] iopamidol (ISOVUE 370-500 mL) injection 120 mL 04-25 12:15: 00 04-25 12:30 :00 No [id number] 120mL 120 mL, Intravenou s, ONCE, 1 dose, On Fri04/25/24 at 0730, Routine [facility] pantoprazol e (PROTONIX) 80 mg in NaCl 0.9% (NS) 20 mL syringe 04-25 12:15: 00 04-25 12:12 :00 No 80mg 80 mg, IV Push, ONCE, 1 dose, On Fri04/25/24 at 0715, Administer over 2 Minutes, 20 mL [facility] NaCl 0.9% (NS) injection 5 mL 04-25 11:17: 47 Yes 5mL 5 mL, Slow IV Push, PRN - SEE INSTRUCTIO NS, Starting on Fri04/25/24 at 0617, Until Discontinu ed, 10 mL [facility] Nitrofurant oin&Nit. Macrocryst (MACROBID) 100 mg capsule 04-23 00:00: 00 04-28 00:00 :00 No 100mg Take 1 capsule by mouth in the morning and 1 capsule in the evening. For UTI, patient self caths at home [facility] sulfamethox azole-trime thoprim (BACTRIM DS) 800-160 mg per tablet 04-16 00:00: 00 04-24 04:59 :00 No [id number] 1{tbl} Take 1 tablet by mouth in the morning and 1 tablet in the evening. Do all this for 7 days. [facility] Insulin Detemir (LEVEMIR FLEXTOUCH U100 INSULIN) 100 unit/mL (3 mL) injection 04-13 15:26: 30 04-13 00:00 :00 No inject under the skin 2 (two) times daily. Sliding scale [facility] insulin degludec (TRESIBA FLEXTOUCH U-100) 100 unit/mL (3 mL) InPn 04-13 00:00: 00 10-19 00:00 :00 No [id number] 55U inject 55 Units under the skin at bedtime. Please take HALF dose if blood glucose 80 - 120 mg/dL, HOLD if less than 80. [facility] blood sugar diagnostic (ACCU-CHEK GUIDE TEST STRIPS) strip 530 00:00: 00 01-17 00:00 :00 No [id number] USE TO CHECK BOLLD SUGARS TWO TIMES A DAY [facility] baclofen 10 mg tablet 03-24 00:00: 00 04-19 00:00 :00 No [id number] 10mg Take 1 tablet by mouth in the morning and 1 tablet at noon and 1 tablet in the evening. [facility] prednisoLON E acetate 1 % ophthalmic suspension drops 03-12 00:00: 00 03-20 04:59 :00 No [id number] 1[drp] Place 1 Drop in right eye 4 (four) times daily for 7 days. [facility] Nitrofurant oin&Nit. Macrocryst (MACROBID) 100 mg capsule 02-26 00:00: 00 03-24 00:00 :00 No [id number] 100mg Take 1 capsule by mouth in the morning and 1 capsule in the evening. [facility] Nitrofurant oin&Nit. Macrocryst (MACROBID) 100 mg capsule 02-25 00:00: 00 02-26 00:00 :00 No [id number] 100mg Take 1 capsule by mouth in the morning and 1 capsule in the evening. Do all this for 7 days. [facility] ondansetron 8 mg disintegrat ing tablet 02-12 00:00: 00 04-19 00:00 :00 No 8mg Take 1 tablet by mouth every 8 hours as needed for Nausea and Vomiting (N/V). [facility] Nitrofurant oin&Nit. Macrocryst 100 mg capsule 02-11 00:00: 00 02-19 04:59 :00 No [id number] 100mg Take 1 capsule by mouth in the morning and 1 capsule in the evening. Do all this for 7 days. [facility] naproxen 500 mg tablet 02-10 00:00: 00 03-24 00:00 :00 No [id number] 500mg Take 1 tablet by mouth in the morning and 1 tablet in the evening. Take with meals. [facility] Magnesium 250 mg Tab 02-09 16:20: 27 Yes 2500mg Take 2,500 mg by mouth in the morning and 2,500 mg at noon and 2,500 mg in the evening. [facility] CBD oil ([employer]) 20:1 with safflower 02-09 16:20: 27 Yes [facility] CBD oil ([facility]) 20:1 with safflower 02-09 16:19: 48 Yes 500mg Take 500 mg by mouth in the morning. [facility] cholecalcif luciana, vitD3,/vit K2 (VITAMIN D3-VITAMIN K2 ORAL) 02-09 16:19: 48 Yes 1{tbl} Take 1 tablet by mouth in the morning. [facility] VALERIAN ORAL 02-09 16:19: 48 Yes 2400mg Take 2,400 mg by mouth in the morning and 2,400 mg at noon and 2,400 mg in the evening. [facility] ubidecareno ne (COQ-10 ORAL) 02-09 16:19: 48 Yes 2{capsu le} Take 2 capsules by mouth in the morning. [facility] Lactobacill us acidophilus (PROBIOTIC) 10 billion cell capsule 02-09 16:15: 59 Yes 1{capsu le} Take 1 capsule by mouth in the morning. [facility] ARIPiprazol e 10 mg tbsp 02-09 16:14: 56 02-09 00:00 :00 No Take by mouth. [facility] Apple Cider Vinegar 300 mg Tab 02-09 16:14: 54 Yes 3{tbl} Take 3 tablets by mouth in the morning. [facility] Magnesium 250 mg Tab 02-04 10:18: 11 Yes 2500mg Take 2,500 mg by mouth in the morning. [facility] ashwagandha extract 120 mg Cap 02-04 10:18: 11 Yes 480mg Take 480 mg by mouth in the morning. [facility] CBD oil ([facility]) 20:1 with safflower 02-04 10:18: 11 Yes [facility] acetaminoph en 325 mg Cap 02-04 10:18: 11 Yes 1{tbl} Take 1 tablet by mouth in the morning. [facility] [place]-3 Fatty Acids-Vitam in E 2,000-650-1 2 mg/2.5 gram ElPk 02-04 10:18: 11 Yes 1mg Take 1 mg by mouth in the morning and 1 mg at noon and 1 mg in the evening. [facility] Insulin Detemir (LEVEMIR FLEXTOUCH U100 INSULIN) 100 unit/mL (3 mL) injection 02-04 10:18: 11 Yes inject under the skin 2 (two) times daily. Sliding scale [facility] ampicillin 500 mg capsule 02-02 00:00: 00 03-24 00:00 :00 No [id number] 1000mg Take 2 capsules by mouth every 12 (twelve) hours. [facility] traMADoL 50 mg tablet 02-02 00:00: 00 03-24 00:00 :00 No [id number] 50mg Take 1 tablet by mouth every 6 (six) hours as needed for Pain (scale 4-6). Indication s: acute pain [facility] methocarbam oL 500 mg tablet 02-02 00:00: 00 02-09 00:00 :00 No [id number] 500mg Take 1 tablet by mouth 4 (four) times daily. [facility] ampicillin 500 mg capsule 01-29 00:00: 00 02-02 00:00 :00 No [id number] 1000mg Take 2 capsules by mouth every 12 (twelve) hours. [facility] Magnesium 250 mg Tab 01-27 14:39: 50 Yes 2500mg Take 2,500 mg by mouth in the morning. [facility] Apple Cider Vinegar 300 mg Tab 01-27 14:39: 50 Yes 3{tbl} Take 3 tablets by mouth in the morning. [facility] pumpkin seed oil/saw palmetto (SAW PALMETTO-PU MPKIN SEED OIL ORAL) 01-27 14:39: 50 Yes 500mg Take 500 mg by mouth in the morning. [facility] Lactobacill us acidophilus (PROBIOTIC) 10 billion cell capsule 01-27 14:39: 50 Yes 1{capsu le} Take 1 capsule by mouth in the morning. [facility] pumpkin seed extract (AZO MEN ORAL) 01-27 14:39: 50 Yes 1{tbl} Take 1 tablet by mouth as needed. [facility] ashwagandha extract 120 mg Cap 01-27 14:39: 50 Yes 480mg Take 480 mg by mouth in the morning. [facility] VALERIAN ORAL 01-27 14:39: 50 Yes 2400mg Take 2,400 mg by mouth in the morning and 2,400 mg at noon and 2,400 mg in the evening. [facility] acetaminoph en 325 mg Cap 01-27 14:39: 50 Yes 1{tbl} Take 1 tablet by mouth in the morning. [facility] NON-FORMULA RY MEDICATION 01-27 14:39: 50 Yes 4{tbl} Take 4 tablets by mouth in the morning. Antronex [facility] [place]-3 Fatty Acids-Vitam in E 2,000-650-1 2 mg/2.5 gram ElPk 01-27 14:39: 50 Yes 1mg Take 1 mg by mouth in the morning and 1 mg at noon and 1 mg in the evening. [facility] Insulin Detemir (LEVEMIR FLEXTOUCH U100 INSULIN) 100 unit/mL (3 mL) injection 01-27 14:39: 50 Yes inject under the skin 2 (two) times daily. Sliding scale [facility] sodium chloride (ROGER 128) 5 % ophthalmic drops 01-27 00:00: 00 04-13 00:00 :00 No [id number] 1[drp] Place 1 Drop in left eye 4 (four) times daily. [facility] HYDROcodone -acetaminop hen (NORCO 5) 5-325 mg tablet 1 tablet 01-26 15:58: 44 Yes 1{tbl} 1 tablet, Oral, PRN, 1 dose, Starting on Fri01/27/24 at 1058, Until Discontinu ed, Routine, Pain (scale 7-10), DSU Recovery [facility] ibuprofen (MOTRIN IB) tablet 200 mg 01-26 15:58: 44 Yes 200mg 200 mg, Oral, PRN, 1 dose, Starting on Fri01/27/24 at 1058, Until Discontinu ed, Routine, Pain (scale 4-6), DSU Recovery [facility] acetaminoph en (TYLENOL) tablet 500 mg 01-26 15:58: 44 Yes 500mg 500 mg, Oral, PRN, 1 dose, Starting on Fri01/27/24 at 1058, Until Discontinu ed, Routine, Pain (scale 1-3), DSU Recovery [facility] timolol (TIMOPTIC) 0.5 % ophthalmic solution 01-26 15:20: 00 01-26 15:46 :16 No PRN, Starting on Fri01/27/24 at 1020, Until Fri01/27/24 at 1046, Routine, Intra-op [facility] tetracaine (PONTOCAINE ) 0.5 % ophthalmic drops 01-26 15:20: 00 01-26 15:46 :16 No PRN, Starting on Fri01/27/24 at 1020, Until Fri01/27/24 at 1046, Routine, Intra-op [facility] prednisoLON E acetate (PRED-FORTE ) 1 % ophthalmic suspension drops 01-26 15:20: 00 01-26 15:46 :16 No PRN, Starting on Fri01/27/24 at 1020, Until Fri01/27/24 at 1046, Routine, Intra-op [facility] povidone-io dine (BETADINE) 5 % ophthalmic drops 01-26 15:20: 00 01-26 15:46 :16 No PRN, Starting on Fri01/27/24 at 1020, Until Fri01/27/24 at 1046, Routine, Intra-op [facility] moxifloxaci n (VIGAMOX) 0.5 % ophthalmic drops 01-26 15:20: 00 01-26 15:46 :16 No PRN, Starting on Fri01/27/24 at 1020, Until Fri01/27/24 at 1046, Routine, Intra-op [facility] lidocaine 1% (PF) (XYLOCAINE) injection 01-26 15:20: 00 01-26 15:46 :16 No PRN, Starting on Fri01/27/24 at 1020, Until Fri01/27/24 at 1046, Routine, Intra-op [facility] lidocaine (XYLOCAINE) 2 % jelly URO-JET 01-26 15:20: 00 01-26 15:46 :16 No PRN, Starting on Fri01/27/24 at 1020, Until Fri01/27/24 at 1046, Routine, Intra-op [facility] EPINEPHrine (PF) 1:1,000 (1 mg/mL) (ADRENALIN (PF)) injection 01-26 15:20: 00 01-26 15:46 :16 No PRN, Starting on Fri01/27/24 at 1020, Until Fri01/27/24 at 1046, Routine, Intra-op [facility] chondroitin sulf-sod hyaluronate (DUOVISC VISCO ELASTIC) intraocular injection 01-26 15:20: 00 01-26 15:46 :16 No PRN, Starting on Fri01/27/24 at 1020, Until Fri01/27/24 at 1046, Routine, Intra-op [facility] balanced salt irrig soln comb1 (BSS PLUS) ophthalmic solution 500 mL bag 01-26 15:20: 00 01-26 15:46 :16 No PRN, Starting on Fri01/27/24 at 1020, Until Fri01/27/24 at 1046, Routine, Intra-op [facility] lactated ringers IV infusion 1,000 mL 01-26 13:45: 00 01-26 14:17 :00 No 1000mL at 42 mL/hr, 1,000 mL, IV Infusion, ONCE, 1 dose, On Fri01/27/24 at 0845, Routine, DSU Pre-op [facility] tetracaine (PONTOCAINE ) 0.5 % ophthalmic drops 1 Drop 01-26 13:41: 28 01-26 15:04 :47 No 1[drp] 1 Drop, Left Eye, PRN - SEE INSTRUCTIO NS, Starting on Fri01/27/24 at 0841, Until Fri01/27/24 at 1004, Routine, Surgery/Pr ocedure, DSU Pre-op [facility] cyclopent 1%-tropic 1%-phenyl 2.5%-ketor 0.5% (MYDRIATIC #5) ophthalmic solution syringe 0.25 mL 01-26 13:41: 28 01-26 14:24 :00 No .25mL 0.25 mL, Left Eye, PRN - SEE INSTRUCTIO NS, 2 doses, Starting on Fri01/27/24 at 0841, Until Discontinu ed, Routine, Surgery/Pr ocedure, DSU Pre-op [facility] Magnesium 250 mg Tab 01-26 11:53: 19 Yes 2500mg Take 2,500 mg by mouth in the morning. [facility] it[facility] Apple Cider Vinegar 300 mg Tab 01-26 11:53: 19 Yes 3{tbl} Take 3 tablets by mouth in the morning. [facility] pumpkin seed oil/saw palmetto (SAW PALMETTO-PU MPKIN SEED OIL ORAL) 01-26 11:53: 19 Yes 500mg Take 500 mg by mouth in the morning. [facility] Lactobacill us acidophilus (PROBIOTIC) 10 billion cell capsule 01-26 11:53: 19 Yes 1{capsu le} Take 1 capsule by mouth in the morning. [facility] pumpkin seed extract (AZO MEN ORAL) 01-26 11:53: 19 Yes 1{tbl} Take 1 tablet by mouth as needed. [facility] ashwagandha extract 120 mg Cap 01-26 11:53: 19 Yes 480mg Take 480 mg by mouth in the morning. [facility] VALERIAN ORAL 01-26 11:53: 19 Yes 2400mg Take 2,400 mg by mouth in the morning and 2,400 mg at noon and 2,400 mg in the evening. [facility] ARIPiprazol e 10 mg tbsp 01-26 11:53: 19 Yes Take by mouth. [facility] acetaminoph en 325 mg Cap 01-26 11:53: 19 Yes 1{tbl} Take 1 tablet by mouth in the morning. [facility] [place]-3 Fatty Acids-Vitam in E 2,000-650-1 2 mg/2.5 gram ElPk 01-26 11:53: 19 Yes 1mg Take 1 mg by mouth in the morning and 1 mg at noon and 1 mg in the evening. [facility] Insulin Detemir (LEVEMIR FLEXTOUCH U100 INSULIN) 100 unit/mL (3 mL) injection 01-26 11:53: 19 Yes inject under the skin 2 (two) times daily. Sliding scale [facility] RAINA SNYDER ORAL 01-26 10:38: 24 01-26 00:00 :00 No 8000mg Take 8,000 mg by mouth in the morning. [facility] [place]-3 Fatty Acids-Vitam in E 2,000-650-1 2 mg/2.5 gram ElPk 01-26 08:34: 11 Yes 1mg Take 1 mg by mouth in the morning and 1 mg at noon and 1 mg in the evening. [facility] Insulin Detemir (LEVEMIR FLEXTOUCH U100 INSULIN) 100 unit/mL (3 mL) injection 01-26 08:34: 11 Yes inject under the skin 2 (two) times daily. Sliding scale [facility] ampicillin 500 mg capsule 01-24 00:00: 00 01-29 00:00 :00 No [id number] 1000mg Take 2 capsules by mouth every 12 (twelve) hours for 5 days. [facility] [place]-3 Fatty Acids-Vitam in E 2,000-650-1 2 mg/2.5 gram ElPk 01-21 13:35: 58 Yes 1mg Take 1 mg by mouth in the morning and 1 mg at noon and 1 mg in the evening. [facility] Insulin Detemir (LEVEMIR FLEXTOUCH U100 INSULIN) 100 unit/mL (3 mL) injection 01-21 13:35: 58 Yes inject under the skin 2 (two) times daily. Sliding scale [facility] Magnesium 250 mg Tab 01-21 13:27: 56 Yes 2500mg Take 2,500 mg by mouth in the morning. [facility] Apple Cider Vinegar 300 mg Tab 01-21 13:27: 56 Yes 3{tbl} Take 3 tablets by mouth in the morning. [facility] pumpkin seed oil/saw palmetto (SAW PALMETTO-PU MPKIN SEED OIL ORAL) 01-21 13:27: 56 Yes 500mg Take 500 mg by mouth in the morning. [facility] Lactobacill us acidophilus (PROBIOTIC) 10 billion cell capsule 01-21 13:27: 56 Yes 1{capsu le} Take 1 capsule by mouth in the morning. [facility] pumpkin seed extract (AZO MEN ORAL) 01-21 13:27: 56 Yes 1{tbl} Take 1 tablet by mouth as needed. [facility] ashwagandha extract 120 mg Cap 01-21 13:27: 56 Yes 480mg Take 480 mg by mouth in the morning. [facility] HAWTHORN SNYDER ORAL 01-21 13:27: 56 Yes 8000mg Take 8,000 mg by mouth in the morning. [facility] VALERIAN ORAL 01-21 13:27: 56 Yes 2400mg Take 2,400 mg by mouth in the morning and 2,400 mg at noon and 2,400 mg in the evening. [facility] acetaminoph en 325 mg Cap 01-21 13:27: 56 Yes 1{tbl} Take 1 tablet by mouth in the morning. [facility] naproxen 500 mg tablet 01-20 00:00: 00 02-10 00:00 :00 No [id number] 500mg Take 1 tablet by mouth in the morning and 1 tablet in the evening. Take with meals. [facility] methocarbam oL 500 mg tablet 01-20 00:00: 00 02-02 00:00 :00 No [id number] 500mg Take 1 tablet by mouth 4 (four) times daily. [facility] traMADoL 50 mg tablet 01-20 00:00: 00 02-02 00:00 :00 No [id number] 50mg Take 1 tablet by mouth every 6 (six) hours as needed for Pain (scale 4-6). Indication s: acute pain [facility] ARIPiprazol e 10 mg tbsp 01-19 13:21: 54 Yes Take by mouth. [facility] traMADoL 50 mg tablet 01-11 00:00: 00 01-20 00:00 :00 No [id number] 50mg Take 1 tablet by mouth every 6 (six) hours as needed for Pain (scale 4-6). Indication s: acute pain [facility] naproxen 500 mg tablet 01-11 00:00: 00 01-20 00:00 :00 No [id number] 500mg Take 1 tablet by mouth in the morning and 1 tablet in the evening. Take with meals. [facility] methocarbam oL 500 mg tablet 01-11 00:00: 00 01-20 00:00 :00 No [id number] 500mg Take 1 tablet by mouth 4 (four) times daily. [facility] sulfamethox azole-trime thoprim (BACTRIM DS) 800-160 mg per tablet 01-10 00:00: 00 01-16 05:59 :00 No [id number] 1{tbl} Take 1 tablet by mouth in the morning and 1 tablet in the evening. Do all this for 5 days. [facility] TRAMADOL 50 mg tablet 01-04 00:00: 00 01-11 00:00 :00 No [id number] 50mg Take 1 tablet by mouth every 6 (six) hours as needed for Pain (scale 4-6). Indication s: acute pain [facility] naproxen 500 mg tablet 01-04 00:00: 00 01-11 00:00 :00 No [id number] 500mg Take 1 tablet by mouth in the morning and 1 tablet in the evening. Take with meals. Do all this for 10 days. [facility] methocarbam oL 500 mg tablet 01-04 00:00: 00 01-11 00:00 :00 No [id number] 500mg Take 1 tablet by mouth 4 (four) times daily. [facility] mirtazapine 15 mg tablet 01-01 00:00: 00 03-24 00:00 :00 No 15mg Take 1 tablet by mouth at bedtime as needed. [facility] ketorolac (ACULAR) 0.5 % ophthalmic solution 12-31 00:00: 00 03-24 00:00 :00 No [id number] 1[drp] Place 1 Drop in left eye 4 (four) times daily. [facility] moxifloxaci n (VIGAMOX) 0.5 % ophthalmic drops 12-31 00:00: 00 03-24 00:00 :00 No [id number] 1[drp] Place 1 Drop in left eye 4 (four) times daily. [facility] prednisoLON E acetate 1 % ophthalmic suspension drops 12-31 00:00: 00 03-12 00:00 :00 No [id number] 1[drp] Place 1 Drop in left eye 4 (four) times daily. [facility] Magnesium 250 mg Tab 12-26 14:30: 28 Yes 2500mg Take 2,500 mg by mouth in the morning. [facility] Apple Cider Vinegar 300 mg Tab 12-26 14:30: 28 Yes 3{tbl} Take 3 tablets by mouth in the morning. [facility] pumpkin seed oil/saw palmetto (SAW PALMETTO-PU MPKIN SEED OIL ORAL) 12-26 14:30: 28 Yes 500mg Take 500 mg by mouth in the morning. [facility] Lactobacill us acidophilus (PROBIOTIC) 10 billion cell capsule 12-26 14:30: 28 Yes 1{capsu le} Take 1 capsule by mouth in the morning. [facility] pumpkin seed extract (AZO MEN ORAL) 12-26 14:30: 28 Yes 1{tbl} Take 1 tablet by mouth as needed. [facility] ashwagandha extract 120 mg Cap 12-26 14:30: 28 Yes 480mg Take 480 mg by mouth in the morning. [facility] HAWTHORN SNYDER ORAL 12-26 14:30: 28 Yes 8000mg Take 8,000 mg by mouth in the morning. [facility] VALERIAN ORAL 12-26 14:30: 28 Yes 2400mg Take 2,400 mg by mouth in the morning and 2,400 mg at noon and 2,400 mg in the evening. [facility] ARIPiprazol e 10 mg tbsp 12-26 14:30: 28 Yes Take by mouth. [facility] acetaminoph en 325 mg Cap 12-26 14:30: 28 Yes 1{tbl} Take 1 tablet by mouth in the morning. [facility] [facility] peg-electro lyte soln 236-22.74-6 .74 -5.86 gram solution 12-26 00:00: 00 04-28 00:00 :00 No [id number] Take as directed before colonoscop y [facility] Nitrofurant oin&Nit. Macrocryst (MACROBID) 100 mg capsule 12-26 00:00: 00 01-03 05:59 :00 No [id number] 100mg Take 1 capsule by mouth in the morning and 1 capsule in the evening. Do all this for 7 days. [facility] lidocaine 5 % (700 mg/patch) patch 12-15 00:00: 00 04-28 00:00 :00 No [id number] 1{patch } Apply 1 Patch to area(s) in the morning. [facility] tiZANidine 2 mg tablet 12-15 00:00: 00 03-24 00:00 :00 No [id number] 07 2mg Take 1 tablet by mouth every 6 (six) hours as needed for Pain (scale 4-6). [facility] NON-FORMULA RY MEDICATION 12-01 12:23: 46 Yes 4{tbl} Take 4 tablets by mouth in the morning. [facility] acetaminoph en 325 mg Cap 12-01 12:13: 46 Yes 1{tbl} Take 1 tablet by mouth in the morning. [facility] Magnesium 250 mg Tab 12-01 12:09: 30 Yes 2500mg Take 2,500 mg by mouth in the morning and 2,500 mg at noon and 2,500 mg in the evening. [facility] ARIPiprazol e 10 mg tbsp 12-01 12:09: 30 Yes Take by mouth. [facility] ARIPiprazol e 10 mg tbsp 11-26 10:17: 19 Yes Take by mouth. [facility] amoxicillin -pot clavulanate 500 mg (AUGMENTIN) 500-125 mg tablet 11-25 00:00: 00 12-01 05:59 :00 No [id number] 500mg Take 1 tablet by mouth in the morning and 1 tablet at noon and 1 tablet in the evening. Do all this for 5 days. [facility] ampicillin 500 mg capsule 11-17 00:00: 00 11-23 05:59 :00 No [id number] 500mg Take 1 capsule by mouth every 6 (six) hours for 5 days. [facility] ubidecareno ne (COQ-10 ORAL) 11-14 15:57: 24 Yes 2{capsu le} Take 2 capsules by mouth in the morning. [facility] Magnesium 250 mg Tab 2022-11 16:19: 28 Yes 500mg Take 500 mg by mouth in the morning and 500 mg at noon and 500 mg in the evening. [facility] Docusate Sodium 100 mg tablet 2022-11 16:15: 56 10-10 00:00 :00 No 200mg Take 2 tablets by mouth in the morning and 2 tablets in the evening. [facility] FLUoxetine (PROZAC) 40 mg capsule 2022-11 16:15: 14 10-10 00:00 :00 No 40mg Take 1 capsule by mouth in the morning. [facility] glipiZIDE 10 mg tablet 2022-11 16:14: 31 10-10 00:00 :00 No 10mg Take 1 tablet by mouth 2 (two) times daily before breakfast and dinner. [facility] glipiZIDE 10 mg tablet 2022-11 00:00: 00 04-13 00:00 :00 No 10mg Take 1 tablet by mouth 2 (two) times daily before breakfast and dinner. [facility] FLUoxetine 40 mg capsule 2022-11 00:00: 00 03-24 00:00 :00 No 40mg Take 1 capsule by mouth weekly. [facility] ampicillin 500 mg capsule 2022-11 00:00: 00 10-12 05:59 :00 No [id number] 500mg Take 1 capsule by mouth every 6 (six) hours for 5 days. [facility] cholecalcif luciana, vitD3,/vit K2 (VITAMIN D3-VITAMIN K2 ORAL) 2022-11 11:21: 58 Yes 1{tbl} Take 1 tablet by mouth in the morning. [facility] ashwagandha extract 120 mg Cap 2022-11 11:21: 58 Yes 480mg Take 480 mg by mouth in the morning. [facility] HAWTHORN SNYDER ORAL 2022-11 11:21: 58 Yes 8000mg Take 8,000 mg by mouth in the morning. [facility] VALERIAN ORAL 2022-11 11:21: 58 Yes 2400mg Take 2,400 mg by mouth in the morning and 2,400 mg at noon and 2,400 mg in the evening. [facility] glipiZIDE 10 mg tablet 2022-11 11:21: 58 Yes 10mg Take 1 tablet by mouth 2 (two) times daily before breakfast and dinner. [facility] Docusate Sodium 100 mg tablet 2022-11 11:21: 58 Yes 200mg Take 2 tablets by mouth in the morning and 2 tablets in the evening. [facility] Lactobacill us acidophilus (PROBIOTIC) 10 billion cell capsule 2022-11 10:41: 39 Yes 1{capsu le} Take 1 capsule by mouth in the morning. [facility] FLUoxetine (PROZAC) 40 mg capsule 2022-11 10:29: 03 Yes 40mg Take 1 capsule by mouth in the morning. [facility] Magnesium 250 mg Tab 2022-11 10:29: 03 Yes 500mg Take 500 mg by mouth in the morning and 500 mg at noon and 500 mg in the evening. [facility] Apple Cider Vinegar 300 mg Tab 2022-11 10:29: 03 Yes 3{tbl} Take 3 tablets by mouth in the morning. [facility] CBD oil (BRIE'S HOPE) 20:1 with safflower 2022-11 10:29: 03 Yes 500mg Take 500 mg by mouth in the morning. [facility] glimepiride 4 mg tablet 2022-11 00:00: 00 10-10 00:00 :00 No [id number] 4mg TAKE ONE TABLET BY MOUTH DAILY WITH BREAKFAST [facility] FLUoxetine (PROZAC) 40 mg capsule 2022-11 15:24: 25 Yes 40mg Take 1 capsule by mouth in the morning. [facility] Magnesium 250 mg Tab 2022-11 15:24: 25 Yes 250mg Take 250 mg by mouth daily. [facility] Apple Cider Vinegar 300 mg Tab 2022-11 15:24: 25 Yes 3{tbl} Take 3 tablets by mouth in the morning. [facility] saw palmetto 160 mg capsule 2022-11 15:24: 25 Yes 160mg Take 1 capsule by mouth in the morning. [facility] oxyBUTYnin chloride 5 mg tablet 2022-11 00:00: 00 11-26 00:00 :00 No [id number] TAKE ONE TABLET BY MOUTH EVERY MORNING AND TAKE ONE TABLET BY MOUTH EVERY EVENING [facility] valsartan 320 mg tablet 2022-11 00:00: 00 11-26 00:00 :00 No [id number] 320mg Take 1 tablet by mouth every morning. [facility] simvastatin 5 mg tablet 2022-11 00:00: 00 10-10 00:00 :00 No [id number] 5mg Take 1 tablet by mouth at bedtime. [facility] ondansetron 4 mg disintegrat ing tablet 2022-11 00:00: 00 10-10 00:00 :00 No [id number] 4mg Take 1 tablet by mouth every 12 (twelve) hours as needed (Nausea). [facility] glipiZIDE 10 mg tablet 2022-11 00:00: 00 09-12 00:00 :00 No [id number] 10mg Take 1 tablet by mouth 2 (two) times daily before breakfast and dinner. [facility] FLUoxetine (PROZAC) 40 mg capsule 2022-11 13:48: 29 Yes 40mg Take 1 capsule by mouth in the morning. [facility] Magnesium 250 mg Tab 2022-11 13:48: 29 Yes 250mg Take 250 mg by mouth daily. [facility] betamethaso ne dipropionat e 0.05 % ointment 2022-11 00:00: 00 11-26 00:00 :00 No [id number] Apply to area(s) 2 (two) times daily. [facility] ofloxacin 0.3 % otic drops 2022-11 0 00:00: 00 03-24 00:00 :00 No 1[drp] Place 1 Drop in right ear in the morning and 1 Drop in the evening. [facility] nystatin 100,000 unit/gram cream 2022-11 0-03 00:00: 00 02-09 00:00 :00 No [id number] Apply to area(s) 2 (two) times daily. [facility] peg-electro lyte soln 236-22.74-6 .74 -5.86 gram solution 2022-11 0- 00:00: 00 08-14 04:59 :00 No 4000mL Take 4,000 mL by mouth in the morning for 2 days. [facility] metFORMIN 1,000 mg tablet 9-11 00:00: 00 04-13 00:00 :00 No TAKE ONE TABLET BY MOUTH EVERY MORNING AND TAKE ONE TABLET BY MOUTH EVERY EVENING WITH MEALS [facility] Insulin Detemir (LEVEMIR FLEXPEN) 100 unit/mL (3 mL) injection 06-30 00:00: 00 10-10 00:00 :00 No [id number] INJECT 58 UNITS UNDER THE SKIN EVERY MORNING AND EVERY EVENING. [facility] loxapine (LOXITANE) 25 mg capsule 06-24 11:01: 38 06-24 00:00 :00 No 25mg Take 25 mg by mouth 2 (two) times daily. [facility] empaglifloz in 10 mg 06-24 11:01: 38 06-24 00:00 :00 No 10mg Take 1 tablet by mouth in the morning. [facility] Magnesium 250 mg Tab 06-24 11:00: 16 Yes 250mg Take 250 mg by mouth daily. [facility] FLUoxetine (PROZAC) 40 mg capsule 06-24 11:00: 05 Yes 40mg Take 40 mg by mouth daily. [facility] loxapine 25 mg capsule 06-24 00:00: 00 11-26 00:00 :00 No 25mg Take 1 capsule by mouth in the morning and 1 capsule at noon and 1 capsule in the evening. [facility] empaglifloz in 10 mg 06-24 00:00: 00 10-10 00:00 :00 No [id number] 10mg Take 1 tablet by mouth in the morning. [facility] Insulin Detemir (LEVEMIR FLEXPEN) 100 unit/mL (3 mL) injection 06-24 00:00: 00 06-30 00:00 :00 No [id number] INJECT 58 UNITS UNDER THE SKIN EVERY MORNING AND EVERY EVENING. [facility] SIMVASTATIN 20 mg tablet 06-03 00:00: 00 08-27 00:00 :00 No [id number] TAKE ONE TABLET BY MOUTH AT BEDTIME [facility] Insulin Detemir (LEVEMIR FLEXPEN) 100 unit/mL (3 mL) injection 05-28 00:00: 00 06-24 00:00 :00 No INJECT 50 UNITS UNDER THE SKIN EVERY MORNING AND INJECT 50 UNITS UNDER THE SKIN EVERY EVENING [facility] ARIPiprazol e 20 mg tablet 05-20 00:00: 00 10-10 00:00 :00 No 20mg Take 1 tablet by mouth in the morning. [facility] BENZTROPINE 0.5 mg tablet 05-12 00:00: 00 11-26 00:00 :00 No [id number] TAKE ONE TABLET BY MOUTH EVERY MORNING AND TAKE ONE TABLET BY MOUTH EVERY EVENING [facility] diclofenac 75 mg EC tablet 14 00:00: 00 11-26 00:00 :00 No [id number] 75mg Take 1 tablet by mouth in the morning and 1 tablet in the evening. Take with meals. [facility] carbamide peroxide (DEBROX) 6.5 % otic solution 04-22 00:00: 00 02-09 00:00 :00 No [id number] 5[drp] Place 5 Drops in both ears in the morning and 5 Drops in the evening. [facility] OXYBUTYNIN CHLORIDE 5 mg tablet 04-21 00:00: 00 08-27 00:00 :00 No [id number] TAKE ONE TABLET BY MOUTH EVERY MORNING AND TAKE ONE TABLET BY MOUTH EVERY EVENING [facility] metFORMIN 1,000 mg tablet 04-21 00:00: 00 07-21 00:00 :00 No TAKE ONE TABLET BY MOUTH EVERY MORNING AND TAKE ONE TABLET BY MOUTH EVERY EVENING WITH MEALS [facility] VALSARTAN 320 mg tablet 04-15 00:00: 00 08-27 00:00 :00 No [id number] TAKE ONE TABLET BY MOUTH EVERY MORNING [facility] Insulin Detemir (LEVEMIR FLEXPEN) 100 unit/mL (3 mL) injection 04-12 00:00: 00 05-28 00:00 :00 No INJECT 50 UNITS UNDER THE SKIN EVERY MORNING AND INJECT 50 UNITS UNDER THE SKIN EVERY EVENING [facility] meclizine 12.5 mg tablet 04-11 00:00: 00 05-12 04:59 :00 No [id number] 25mg Take 2 tablets by mouth 3 (three) times daily as needed for Dizziness for up to 30 days. [facility] carbamide peroxide (DEBROX) 6.5 % otic solution 04-11 00:00: 00 04-22 00:00 :00 No [id number] 5[drp] Place 5 Drops in both ears in the morning and 5 Drops in the evening. [facility] empaglifloz in 10 mg 03-18 15:24: 02 Yes 10mg Take 1 tablet by mouth in the morning. [facility] Insulin Detemir (LEVEMIR FLEXTOUCH U-100 INSULN) 100 unit/mL (3 mL) injection 03-06 00:00: 00 04-12 00:00 :00 No 50U inject 50 Units under the skin in the morning and 50 Units in the evening. [facility] GLIMEPIRIDE 4 mg tablet -18 00:00: 00 06-30 00:00 :00 No [id number] TAKE ONE TABLET BY MOUTH DAILY WITH BREAKFAST [facility] blood sugar diagnostic (ACCU-CHEK GUIDE TEST STRIPS) strip 4-14 00:00: 00 04-08 00:00 :00 No [id number] Check blood sugar twice daily E11.9 [facility] Insulin Detemir (LEVEMIR FLEXTOUCH U-100 INSULN) 100 unit/mL (3 mL) injection 3-28 00:00: 00 03-06 00:00 :00 No 50U inject 50 Units under the skin in the morning and 50 Units in the evening. [facility] pantoprazol e (PROTONIX) 40 mg EC tablet 2021-11 15:: 10-18 00:00 :00 No 40mg Take 40 mg by mouth daily. [facility] simvastatin (ZOCOR) 20 mg tablet 2021-11 15:: 10-18 00:00 :00 No 20mg Take 20 mg by mouth at bedtime. [facility] oxybutynin chloride (DITROPAN) 5 mg tablet 2021-11 15:: 10-18 00:00 :00 No 5mg Take 5 mg by mouth 2 (two) times daily. [facility] lisinopril (PRINIVIL,Z ESTRIL) 20 mg tablet 2021-11 15:01: 16 10-18 00:00 :00 No 20mg Take 20 mg by mouth daily. [facility] hydrOXYzine (ATARAX) 25 mg tablet 2021-11 14:59: 08 10-18 00:00 :00 No 25mg Take 25 mg by mouth every 6 (six) hours. [facility] QUEtiapine (SEROQUEL) 25 mg tablet 2021-11 14:52: 28 10-18 00:00 :00 No 25mg Take 25 mg by mouth 2 (two) times daily. [facility] Magnesium 250 mg Tab 2021-11 14:26: 26 Yes 250mg Take 250 mg by mouth daily. [facility] Magnesium 250 mg Tab 2021-11 14:26: 26 Yes 250mg Take 250 mg by mouth daily. [facility] pantoprazol e 40 mg EC tablet 2021-11 00:00: 00 08-12 00:00 :00 No [id number] 40mg Take 1 tablet by mouth in the morning. [facility] simvastatin 20 mg tablet 2021-11 00:00: 00 06-03 00:00 :00 No [id number] 20mg Take 1 tablet by mouth at bedtime. [facility] benztropine 0.5 mg tablet 2021-11 00:00: 00 05-12 00:00 :00 No [id number] .5mg Take 1 tablet by mouth in the morning and 1 tablet in the evening. [facility] oxybutynin chloride 5 mg tablet 2021-11 00:00: 00 04-21 00:00 :00 No [id number] 5mg Take 1 tablet by mouth in the morning and 1 tablet in the evening. [facility] valsartan 320 mg tablet 2021-11 00:00: 00 04-15 00:00 :00 No [id number] 320mg Take 1 tablet by mouth in the morning. [facility] glimepiride 4 mg tablet 2021-11 00:00: 00 02-25 00:00 :00 No [id number] 4mg Take 1 tablet by mouth daily with breakfast. [facility] lithium 150 mg capsule 2021-11 00:00: 00 03-24 00:00 :00 No 150mg Take 1 capsule by mouth in the morning. [facility] mirtazapine 15 mg tablet 2021-11 00:00: 00 11-26 00:00 :00 No 15mg Take 1 tablet by mouth at bedtime. [facility] benztropine 0.5 mg tablet 2021-11 00:00: 00 10-18 00:00 :00 No [facility] ARIPiprazol e 10 mg tablet 2021-11 00:00: 00 06-24 00:00 :00 No [facility] metFORMIN (GLUCOPHAGE ) 1,000 mg tablet 2021-11 15:39: 23 10-10 00:00 :00 No 1000mg Take 1,000 mg by mouth 2 (two) times daily with meals. [facility] Insulin Detemir (LEVEMIR FLEXTOUCH U100 INSULIN) 100 unit/mL (3 mL) injection 2021-11 00:00: 00 Yes 45U inject under the skin 2 (two) times daily. Sliding scale [facility] glipiZIDE 10 mg tablet 2021-11 00:00: 00 08-27 00:00 :00 No [id number] 10mg Take 1 tablet by mouth 2 (two) times daily before breakfast and dinner. [facility] metFORMIN 1,000 mg tablet 2021-11 00:00: 00 04-21 00:00 :00 No 1000mg Take 1 tablet by mouth in the morning and 1 tablet in the evening. Take with meals. [facility] galantamine 4 mg tablet 2021-11 00:00: 00 11-26 00:00 :00 No [facility] valsartan 320 mg tablet 2021-11 0-31 00:00: 00 10-18 00:00 :00 No [facility] glimepiride (AMARYL) 1 mg tablet 2021-11 030 15:32: 30 09-08 00:00 :00 No 1mg Take 1 mg by mouth daily with breakfast. [facility] glipiZIDE 10 mg tablet 2021-11 030 00:00: 00 10-10 00:00 :00 No [id number] 10mg Take 1 tablet by mouth 2 (two) times daily before breakfast and dinner. [facility] glimepiride 4 mg tablet 915 00:00: 00 10-18 00:00 :00 No [facility] empaglifloz in (JARDIANCE) 10 mg 08 00:00: 00 10-18 00:00 :00 No [id number] 10mg Take 1 tablet by mouth in the morning. [facility] loxapine (LOXITANE) 25 mg capsule 07-11 13:13: 29 Yes 25mg Take 25 mg by mouth 2 (two) times daily. [facility] FLUoxetine (PROZAC) 40 mg capsule 07-11 13:13: 29 Yes 40mg Take 40 mg by mouth daily. [facility] pantoprazol e (PROTONIX) 40 mg EC tablet 07-11 13:13: 29 Yes 40mg Take 40 mg by mouth daily. [facility] lisinopril (PRINIVIL,Z ESTRIL) 20 mg tablet 07-11 13:13: 29 Yes 20mg Take 20 mg by mouth daily. [facility] hydrOXYzine (ATARAX) 25 mg tablet 07-11 13:13: 29 Yes 25mg Take 25 mg by mouth every 6 (six) hours. [facility] simvastatin (ZOCOR) 20 mg tablet 07-11 13:13: 29 Yes 20mg Take 20 mg by mouth at bedtime. [facility] metFORMIN (GLUCOPHAGE ) 1,000 mg tablet 07-11 13:13: 29 Yes 1000mg Take 1,000 mg by mouth 2 (two) times daily with meals. [facility] oxybutynin chloride (DITROPAN) 5 mg tablet 07-11 13:13: 29 Yes 5mg Take 5 mg by mouth 2 (two) times daily. [facility] QUEtiapine (SEROQUEL) 25 mg tablet 07-11 13:13: 29 Yes 25mg Take 25 mg by mouth 2 (two) times daily. [facility] glimepiride (AMARYL) 1 mg tablet 07-11 13:13: 29 Yes 1mg Take 1 mg by mouth daily with breakfast. [facility] Magnesium 250 mg Tab 07-11 13:13: 29 Yes 250mg Take 250 mg by mouth daily. [facility] mupirocin 2 % ointment 06-22 00:00: 00 02-09 00:00 :00 No [id number] Apply to area(s) 3 (three) times daily. [facility] albuterol 90 mcg/actuati on inhaler 06-22 00:00: 00 03-18 00:00 :00 No [id number] 2{puff} Inhale 2 Puffs every 6 (six) hours as needed for Wheezing or Shortness of Breath. [facility] cephALEXin (KEFLEX) 500 mg capsule 04-06 00:00: 00 10-18 00:00 :00 No [id number] 500mg Take 1 capsule by mouth 4 (four) times daily. [facility] traMADoL (ULTRAM) 50 mg tablet 04-06 00:00: 00 10-18 00:00 :00 No [id number] 50mg Take 1 tablet by mouth every 6 (six) hours as needed for Pain (scale 7-10). Indication s: acute pain [facility] meclizine 25 mg tablet 03-11 00:00: 00 10-18 00:00 :00 No [id number] 25mg Take 1 tablet by mouth every 6 (six) hours. [facility] ofloxacin 0.3 % otic drops 08-05 00:00: 00 10-18 00:00 :00 No [id number] 5[drp] Place 5 Drops in left ear 2 (two) times daily. [facility] traMADOL (ULTRAM) 50 mg tablet 2014-11 00:00: 00 10-18 00:00 :00 No 50mg Take 1 Tab by mouth every 6 (six) hours as needed for Pain (scale 4-6). Arnold Finnegan PA-C / Garland Romero MD LOIR# [id number] DPS# [id number] Lic.# [id number] NPI# [id number] [facility] gabapentin 300 mg capsule Take 1 capsule twice a day by oral route for 30 days. gabapentin 300 mg capsule Take 1 capsule twice a day by oral route for 30 days. No gabapentin 300 mg capsule Take 1 capsule twice a day by oral route for 30 days. [facility] metformin 500 mg tablet Take 1 tablet 3 times a day by oral route for 90 days. metformin 500 mg tablet Take 1 tablet 3 times a day by oral route for 90 days. No 1 TID metformin 500 mg tablet Take 1 tablet 3 times a day by oral route for 90 days. [facility] mirtazapine 15 mg disintegrat ing tablet Place 1 tablet every day by translingua l route. mirtazapine 15 mg disintegrat ing tablet Place 1 tablet every day by translingua l route. No 1 Q1D mirtazapin e 15 mg disinte[address] ting tablet Place 1 tablet every day by translingu al route. [facility] OneTouch Verio test strips OneTouch Verio test strips No OneTouch Verio test strips [facility] paliperidon e ER 9 mg tablet,exte nded release 24 hr paliperidon e ER 9 mg tablet,exte nded release 24 hr No paliperido ne ER 9 mg tablet,ext ended release 24 hr [facility] pen needle, diabetic 32 gauge x 5/32" pen needle, diabetic 32 gauge x 5/32" No pen needle, diabetic 32 gauge x 5/32" [facility] pen needle, diabetic 33 gauge x 5/32" pen needle, diabetic 33 gauge x 5/32" No pen needle, diabetic 33 gauge x 5/32" [facility] prazosin 1 mg capsule prazosin 1 mg capsule No prazosin 1 mg capsule [facility] propranolol 10 mg tablet Take 1 tablet twice a day by oral route. propranolol 10 mg tablet Take 1 tablet twice a day by oral route. No propranolo l 10 mg tablet Take 1 tablet twice a day by oral route. [facility] Tresiba FlexTouch U-100 insulin 100 unit/mL (3 mL) subcutaneou s pen Inject 40 units by subcutaneou s route. Tresiba FlexTouch U-100 insulin 100 unit/mL (3 mL) subcutaneou s pen Inject 40 units by subcutaneou s route. No Tresiba FlexTouch U-100 insulin 100 unit/mL (3 mL) subcutaneo us pen Inject 40 units by subcutaneo us route. [facility] [place] Tresiba 100 UNIT/ML Tresiba 100 UNIT/ML No Tresiba 100 UNIT/ML PROzac 20 MG PROzac 20 MG No 1{capsu le} QD PROzac 20 MG lamoTRIgine 25 MG lamoTRIgine 25 MG No 1{table t} lamoTRIgin e 25 MG traZODone HCl 50 MG traZODone HCl 50 MG No 1{table t_at_be dtime_a s_neede d} QD traZODone HCl 50 MG OLANZapine 5 MG OLANZapine 5 MG No 1{table t} BID OLANZapine 5 MG Immunizations Ordered Immunization Name Filled Immunization Name Date Status Comments Source Influenza Virus Vaccine,quad Im,preserve Free 2022-10-18 00:00:00 Completed [facility] Pneumococcal Polysaccharide, PPSV23 (PNEUMOVAX) 2022-10-18 00:00:00 Completed [facility] Influenza Virus Vaccine,quad Im,preserve Free 2022-10-18 00:00:00 Completed [facility] Pneumococcal Polysaccharide, PPSV23 (PNEUMOVAX) 2022-10-18 00:00:00 Completed [facility] Influenza Virus Vaccine,quad Im,preserve Free 2022-10-18 00:00:00 Completed [facility] Pneumococcal Polysaccharide, PPSV23 (PNEUMOVAX) 2022-10-18 00:00:00 Completed [facility] Influenza Virus Vaccine,quad Im,preserve Free + 2022-10-18 00:00:00 Completed [facility] Pneumococcal Polysaccharide, PPSV23 (PNEUMOVAX) 2022-10-18 00:00:00 Completed [facility] Influenza Virus Vaccine,quad Im,preserve Free + 2022-10-18 00:00:00 Completed [facility] Pneumococcal Polysaccharide, PPSV23 (PNEUMOVAX) 2022-10-18 00:00:00 Completed [facility] Influenza Virus Vaccine,quad Im,preserve Free 2022-10-18 00:00:00 Completed [facility] Pneumococcal Polysaccharide, PPSV23 (PNEUMOVAX) 2022-10-18 00:00:00 Completed [facility] Influenza Virus Vaccine,quad Im,preserve Free 2022-10-18 00:00:00 Completed [facility] Pneumococcal Polysaccharide, PPSV23 (PNEUMOVAX) 2022-10-18 00:00:00 Completed [facility] Influenza Virus Vaccine,quad Im,preserve Free 2022-10-18 00:00:00 Completed [facility] Pneumococcal Polysaccharide, PPSV23 (PNEUMOVAX) 2022-10-18 00:00:00 Completed [facility] Influenza Virus Vaccine,quad Im,preserve Free 2022-10-18 00:00:00 Completed [facility] Pneumococcal Polysaccharide, PPSV23 (PNEUMOVAX) 2022-10-18 00:00:00 Completed [facility] Influenza Virus Vaccine,quad Im,preserve Free + 2022-10-18 00:00:00 Completed [facility] Pneumococcal Polysaccharide, PPSV23 (PNEUMOVAX) 2022-10-18 00:00:00 Completed [facility] Influenza Virus Vaccine,quad Im,preserve Free 2022-10-18 00:00:00 Completed [facility] Pneumococcal Polysaccharide, PPSV23 (PNEUMOVAX) 2022-10-18 00:00:00 Completed [facility] Influenza Virus Vaccine,quad Im,preserve Free 2022-10-18 00:00:00 Completed [facility] Pneumococcal Polysaccharide, PPSV23 (PNEUMOVAX) 2022-10-18 00:00:00 Completed [facility] Influenza Virus Vaccine,quad Im,preserve Free + 2022-10-18 00:00:00 Completed [facility] Pneumococcal Polysaccharide, PPSV23 (PNEUMOVAX) 2022-10-18 00:00:00 [facility] [facility] Influenza Virus Vaccine,quad Im,preserve Free 65+ 2022-10-18 00:00:00 Completed [facility] Pneumococcal Polysaccharide, PPSV23 (PNEUMOVAX) 2022-10-18 00:00:00 Completed [facility] Influenza Virus Vaccine,quad Im,preserve Free + 2022-10-18 00:00:00 Completed [facility] Pneumococcal Polysaccharide, PPSV23 (PNEUMOVAX) 2022-10-18 00:00:00 Completed [facility] Influenza Virus Vaccine,quad Im,preserve Free 2022-10-18 00:00:00 Completed [facility] Pneumococcal Polysaccharide, PPSV23 (PNEUMOVAX) 2022-10-18 00:00:00 Completed [facility] Influenza Virus Vaccine,quad Im,preserve Free 2022-10-18 00:00:00 Completed [facility] Pneumococcal Polysaccharide, PPSV23 (PNEUMOVAX) 2022-10-18 00:00:00 Completed [facility] Influenza Virus Vaccine,quad Im,preserve Free 2022-10-18 00:00:00 Completed [facility] Pneumococcal Polysaccharide, PPSV23 (PNEUMOVAX) 2022-10-18 00:00:00 Completed [facility] Influenza Virus Vaccine,quad Im,preserve Free 2022-10-18 00:00:00 Completed [facility] Pneumococcal Polysaccharide, PPSV23 (PNEUMOVAX) 2022-10-18 00:00:00 Completed [facility] Influenza Virus Vaccine,quad Im,preserve Free 2022-10-18 00:00:00 Completed [facility] Pneumococcal Polysaccharide, PPSV23 (PNEUMOVAX) 2022-10-18 00:00:00 Completed [facility] Influenza Virus Vaccine,quad Im,preserve Free 2022-10-18 00:00:00 Completed [facility] Pneumococcal Polysaccharide, PPSV23 (PNEUMOVAX) 2022-10-18 00:00:00 Completed [facility] Influenza Virus Vaccine,quad Im,preserve Free 65+ 2022-10-18 00:00:00 Completed [facility] Pneumococcal Polysaccharide, PPSV23 (PNEUMOVAX) 2022-10-18 00:00:00 Completed [facility] Influenza Virus Vaccine,quad Im,preserve Free 65+ 2022-10-18 00:00:00 Completed [facility] Pneumococcal Polysaccharide, PPSV23 (PNEUMOVAX) 2022-10-18 00:00:00 Completed [facility] Influenza Virus Vaccine,quad Im,preserve Free + 2022-10-18 00:00:00 Completed [facility] Pneumococcal Polysaccharide, PPSV23 (PNEUMOVAX) 2022-10-18 00:00:00 Completed [facility] Influenza Virus Vaccine,quad Im,preserve Free + 2022-10-18 00:00:00 Completed [facility] Pneumococcal Polysaccharide, PPSV23 (PNEUMOVAX) 2022-10-18 00:00:00 Completed [facility] Influenza Virus Vaccine,quad Im,preserve Free 2022-10-18 00:00:00 Completed [facility] Pneumococcal Polysaccharide, PPSV23 (PNEUMOVAX) 2022-10-18 00:00:00 Completed [facility] Influenza Virus Vaccine,quad Im,preserve Free + 2022-10-18 00:00:00 Completed [facility] Pneumococcal Polysaccharide, PPSV23 (PNEUMOVAX) 2022-10-18 00:00:00 Completed [facility] Influenza Virus Vaccine,quad Im,preserve Free 65+ 2022-10-18 00:00:00 Completed [facility] Pneumococcal Polysaccharide, PPSV23 (PNEUMOVAX) 2022-10-18 00:00:00 Completed [facility] Influenza Virus Vaccine,quad Im,preserve Free 65+ 2022-10-18 00:00:00 Completed [facility] Pneumococcal Polysaccharide, PPSV23 (PNEUMOVAX) 2022-10-18 00:00:00 Completed [facility] Influenza Virus Vaccine,quad Im,preserve Free 65+ 2022-10-18 00:00:00 Completed [facility] Pneumococcal Polysaccharide, PPSV23 (PNEUMOVAX) 2022-10-18 00:00:00 Completed [facility] Influenza Virus Vaccine,quad Im,preserve Free 65+ 2022-10-18 00:00:00 Completed [facility] Pneumococcal Polysaccharide, PPSV23 (PNEUMOVAX) 2022-10-18 00:00:00 Completed [facility] Influenza Virus Vaccine,quad Im,preserve Free 65+ 2022-10-18 00:00:00 Completed [facility] Pneumococcal Polysaccharide, PPSV23 (PNEUMOVAX) 2022-10-18 00:00:00 Completed [facility] Influenza Virus Vaccine,quad Im,preserve Free 65+ 2022-10-18 00:00:00 Completed [facility] Pneumococcal Polysaccharide, PPSV23 (PNEUMOVAX) 2022-10-18 00:00:00 Completed [facility] Influenza Virus Vaccine,quad Im,preserve Free 65+ 2022-10-18 00:00:00 Completed [facility] Pneumococcal Polysaccharide, PPSV23 (PNEUMOVAX) 2022-10-18 00:00:00 Completed [facility] Influenza Virus Vaccine,quad Im,preserve Free 65+ (FLUAD) 2022-10-18 00:00:00 Completed [facility] Pneumococcal Polysaccharide, PPSV23 (PNEUMOVAX) 2022-10-18 00:00:00 Completed [facility] Influenza Virus Vaccine,quad Im,preserve Free 65+ (FLUAD) 2022-10-18 00:00:00 Completed [facility] Pneumococcal Polysaccharide, PPSV23 (PNEUMOVAX) 2022-10-18 00:00:00 Completed [facility] Influenza Virus Vaccine,quad Im,preserve Free 65+ (FLUAD) 2022-10-18 00:00:00 Completed [facility] Pneumococcal Polysaccharide, PPSV23 (PNEUMOVAX) 2022-10-18 00:00:00 Completed [facility] Influenza Virus Vaccine,quad Im,preserve Free 65+ (FLUAD) 2022-10-18 00:00:00 Completed Pneumococcal Polysaccharide, PPSV23 (PNEUMOVAX) 2022-10-18 00:00:00 Completed Pneumococcal 20 Conjugate, PCV20 (Prevnar 20) 2022-02-18 00:00:00 Completed [facility] Zoster Vaccine Recombinant 2022-02-18 00:00:00 Completed [facility] Pneumococcal 20 Conjugate, PCV20 (Prevnar 20) 2022-02-18 00:00:00 Completed [facility] Zoster Vaccine Recombinant 2022-02-18 00:00:00 Completed [facility] Pneumococcal 20 Conjugate, PCV20 (Prevnar 20) 2022-02-18 00:00:00 Completed [facility] Zoster Vaccine Recombinant 2022-02-18 00:00:00 Completed [facility] Pneumococcal 20 Conjugate, PCV20 (Prevnar 20) 2022-02-18 00:00:00 Completed [facility] Zoster Vaccine Recombinant 2022-02-18 00:00:00 Completed [facility] Pneumococcal 20 Conjugate, PCV20 (Prevnar 20) 2022-02-18 00:00:00 Completed [facility] Zoster Vaccine Recombinant 2022-02-18 00:00:00 Completed [facility] Pneumococcal 20 Conjugate, PCV20 (Prevnar 20) 2022-02-18 00:00:00 Completed [facility] Zoster Vaccine Recombinant 2022-02-18 00:00:00 Completed [facility] Pneumococcal 20 Conjugate, PCV20 (Prevnar 20) 2022-02-18 00:00:00 Completed [facility] Zoster Vaccine Recombinant 2022-02-18 00:00:00 Completed [facility] Pneumococcal 20 Conjugate, PCV20 (Prevnar 20) 2022-02-18 00:00:00 Completed [facility] Zoster Vaccine Recombinant 2022-02-18 00:00:00 Completed [facility] Pneumococcal 20 Conjugate, PCV20 (Prevnar 20) 2022-02-18 00:00:00 Completed [facility] Zoster Vaccine Recombinant 2022-02-18 00:00:00 Completed [facility] Pneumococcal 20 Conjugate, PCV20 (Prevnar 20) 2022-02-18 00:00:00 Completed [facility] Zoster Vaccine Recombinant 2022-02-18 00:00:00 Completed [facility] Pneumococcal 20 Conjugate, PCV20 (Prevnar 20) 2022-02-18 00:00:00 Completed [facility] Zoster Vaccine Recombinant 2022-02-18 00:00:00 Completed [facility] Pneumococcal 20 Conjugate, PCV20 (Prevnar 20) 2022-02-18 00:00:00 Completed [facility] Zoster Vaccine Recombinant 2022-02-18 00:00:00 Completed [facility] Pneumococcal 20 Conjugate, PCV20 (Prevnar 20) 2022-02-18 00:00:00 Completed [facility] Zoster Vaccine Recombinant 2022-02-18 00:00:00 Completed [facility] Pneumococcal 20 Conjugate, PCV20 (Prevnar 20) 2022-02-18 00:00:00 Completed [facility] Zoster Vaccine Recombinant 2022-02-18 00:00:00 Completed [facility] Pneumococcal 20 Conjugate, PCV20 (Prevnar 20) 2022-02-18 00:00:00 Completed [facility] Zoster Vaccine Recombinant 2022-02-18 00:00:00 Completed [facility] Pneumococcal 20 Conjugate, PCV20 (Prevnar 20) 2022-02-18 00:00:00 Completed [facility] Zoster Vaccine Recombinant 2022-02-18 00:00:00 Completed [facility] Pneumococcal 20 Conjugate, PCV20 (Prevnar 20) 2022-02-18 00:00:00 Completed [facility] Zoster Vaccine Recombinant 2022-02-18 00:00:00 Completed [facility] Pneumococcal 20 Conjugate, PCV20 (Prevnar 20) 2022-02-18 00:00:00 Completed [facility] Zoster Vaccine Recombinant 2022-02-18 00:00:00 Completed [facility] Pneumococcal 20 Conjugate, PCV20 (Prevnar 20) 2022-02-18 00:00:00 Completed [facility] Zoster Vaccine Recombinant 2022-02-18 00:00:00 Completed [facility] Pneumococcal 20 Conjugate, PCV20 (Prevnar 20) 2022-02-18 00:00:00 Completed [facility] Zoster Vaccine Recombinant 2022-02-18 00:00:00 Completed [facility] Pneumococcal 20 Conjugate, PCV20 (Prevnar 20) 2022-02-18 00:00:00 Completed [facility] Zoster Vaccine Recombinant 2022-02-18 00:00:00 Completed [facility] Pneumococcal 20 Conjugate, PCV20 (Prevnar 20) 2022-02-18 00:00:00 Completed [facility] Zoster Vaccine Recombinant 2022-02-18 00:00:00 Completed [facility] Pneumococcal 20 Conjugate, PCV20 (Prevnar 20) 2022-02-18 00:00:00 Completed [facility] Zoster Vaccine Recombinant 2022-02-18 00:00:00 Completed [facility] Pneumococcal 20 Conjugate, PCV20 (Prevnar 20) 2022-02-18 00:00:00 Completed [facility] Zoster Vaccine Recombinant 2022-02-18 00:00:00 Completed [facility] Pneumococcal 20 Conjugate, PCV20 (Prevnar 20) 2022-02-18 00:00:00 Completed [facility] Zoster Vaccine Recombinant 2022-02-18 00:00:00 Completed [facility] Pneumococcal 20 Conjugate, PCV20 (Prevnar 20) 2022-02-18 00:00:00 Completed [facility] Zoster Vaccine Recombinant 2022-02-18 00:00:00 Completed [facility] Pneumococcal 20 Conjugate, PCV20 (Prevnar 20) 2022-02-18 00:00:00 Completed [facility] Zoster Vaccine Recombinant 2022-02-18 00:00:00 Completed [facility] Pneumococcal 20 Conjugate, PCV20 (Prevnar 20) 2022-02-18 00:00:00 Completed [facility] Zoster Vaccine Recombinant 2022-02-18 00:00:00 Completed [facility] Pneumococcal 20 Conjugate, PCV20 (Prevnar 20) 2022-02-18 00:00:00 Completed [facility] Zoster Vaccine Recombinant 2022-02-18 00:00:00 Completed [facility] Pneumococcal 20 Conjugate, PCV20 (Prevnar 20) 2022-02-18 00:00:00 Completed [facility] Zoster Vaccine Recombinant 2022-02-18 00:00:00 Completed [facility] Pneumococcal 20 Conjugate, PCV20 (Prevnar 20) 2022-02-18 00:00:00 Completed [facility] Zoster Vaccine Recombinant 2022-02-18 00:00:00 Completed [facility] Pneumococcal 20 Conjugate, PCV20 (Prevnar 20) 2022-02-18 00:00:00 Completed [facility] Zoster Vaccine Recombinant 2022-02-18 00:00:00 Completed [facility] Pneumococcal 20 Conjugate, PCV20 (Prevnar 20) 2022-02-18 00:00:00 Completed [facility] Zoster Vaccine Recombinant 2022-02-18 00:00:00 Completed [facility] Pneumococcal 20 Conjugate, PCV20 (Prevnar 20) 2022-02-18 00:00:00 Completed [facility] Zoster Vaccine Recombinant 2022-02-18 00:00:00 Completed [facility] Pneumococcal 20 Conjugate, PCV20 (Prevnar 20) 2022-02-18 00:00:00 Completed [facility] Zoster Vaccine Recombinant 2022-02-18 00:00:00 Completed [facility] Pneumococcal 20 Conjugate, PCV20 (Prevnar 20) 2022-02-18 00:00:00 Completed [facility] Zoster Vaccine Recombinant 2022-02-18 00:00:00 Completed [facility] Pneumococcal 20 Conjugate, PCV20 (Prevnar 20) 2022-02-18 00:00:00 Completed [facility] Zoster Vaccine Recombinant 2022-02-18 00:00:00 Completed [facility] Pneumococcal 20 Conjugate, PCV20 (Prevnar 20) 2022-02-18 00:00:00 Completed [facility] Zoster Vaccine Recombinant 2022-02-18 00:00:00 Completed [facility] Pneumococcal 20 Conjugate, PCV20 (Prevnar 20) 2022-02-18 00:00:00 Completed Zoster Vaccine Recombinant 2022-02-18 00:00:00 Completed SARS-COV-2 COVID-19 PFIZER VACCINE 2021-09-07 00:00:00 Completed [facility] SARS-COV-2 COVID-19 PFIZER VACCINE 2021-09-07 00:00:00 Completed [facility] SARS-COV-2 COVID-19 PFIZER VACCINE 2021-09-07 00:00:00 Completed [facility] SARS-COV-2 COVID-19 PFIZER VACCINE 2021-09-07 00:00:00 Completed [facility] SARS-COV-2 COVID-19 PFIZER VACCINE 2021-09-07 00:00:00 Completed [facility] SARS-COV-2 COVID-19 PFIZER VACCINE 2021-09-07 00:00:00 Completed [facility] SARS-COV-2 COVID-19 PFIZER VACCINE 2021-09-07 00:00:00 Completed [facility] SARS-COV-2 COVID-19 PFIZER VACCINE 2021-09-07 00:00:00 Completed [facility] SARS-COV-2 COVID-19 PFIZER VACCINE 2021-09-07 00:00:00 Completed [facility] SARS-COV-2 COVID-19 PFIZER VACCINE 2021-09-07 00:00:00 Completed [facility] SARS-COV-2 COVID-19 PFIZER VACCINE 2021-09-07 00:00:00 Completed [facility] SARS-COV-2 COVID-19 PFIZER VACCINE 2021-09-07 00:00:00 Completed [facility] SARS-COV-2 COVID-19 PFIZER VACCINE 2021-09-07 00:00:00 Completed [facility] SARS-COV-2 COVID-19 PFIZER VACCINE 2021-09-07 00:00:00 Completed [facility] SARS-COV-2 COVID-19 PFIZER VACCINE 2021-09-07 00:00:00 Completed [facility] SARS-COV-2 COVID-19 PFIZER VACCINE 2021-09-07 00:00:00 Completed [facility] SARS-COV-2 COVID-19 PFIZER VACCINE 2021-09-07 00:00:00 Completed [facility] SARS-COV-2 COVID-19 PFIZER VACCINE 2021-09-07 00:00:00 Completed [facility] SARS-COV-2 COVID-19 PFIZER VACCINE 2021-09-07 00:00:00 Completed [facility] SARS-COV-2 COVID-19 PFIZER VACCINE 2021-09-07 00:00:00 Completed [facility] SARS-COV-2 COVID-19 PFIZER VACCINE 2021-09-07 00:00:00 Completed [facility] SARS-COV-2 COVID-19 PFIZER VACCINE 2021-09-07 00:00:00 Completed [facility] SARS-COV-2 COVID-19 PFIZER VACCINE 2021-09-07 00:00:00 Completed [facility] SARS-COV-2 COVID-19 PFIZER VACCINE 2021-09-07 00:00:00 Completed [facility] SARS-COV-2 COVID-19 PFIZER VACCINE 2021-09-07 00:00:00 Completed [facility] SARS-COV-2 COVID-19 PFIZER VACCINE 2021-09-07 00:00:00 Completed [facility] SARS-COV-2 COVID-19 PFIZER VACCINE 2021-09-07 00:00:00 Completed [facility] SARS-COV-2 COVID-19 PFIZER VACCINE 2021-09-07 00:00:00 Completed [facility] SARS-COV-2 COVID-19 PFIZER VACCINE 2021-09-07 00:00:00 Completed [facility] SARS-COV-2 COVID-19 PFIZER VACCINE 2021-09-07 00:00:00 Completed [facility] SARS-COV-2 COVID-19 PFIZER VACCINE 2021-09-07 00:00:00 Completed [facility] SARS-COV-2 COVID-19 PFIZER VACCINE 2021-09-07 00:00:00 Completed [facility] SARS-COV-2 COVID-19 PFIZER VACCINE 2021-09-07 00:00:00 Completed [facility] SARS-COV-2 COVID-19 PFIZER VACCINE 2021-09-07 00:00:00 Completed [facility] SARS-COV-2 COVID-19 PFIZER VACCINE 2021-09-07 00:00:00 Completed [facility] SARS-COV-2 COVID-19 PFIZER VACCINE 2021-09-07 00:00:00 Completed [facility] SARS-COV-2 COVID-19 PFIZER VACCINE 2021-09-07 00:00:00 Completed [facility] SARS-COV-2 COVID-19 PFIZER VACCINE 2021-09-07 00:00:00 Completed [facility] SARS-COV-2 COVID-19 PFIZER VACCINE 2021-09-07 00:00:00 Completed SARS-COV-2 COVID-19 PFIZER VACCINE 2021-02-14 00:00:00 Completed [facility] SARS-COV-2 COVID-19 PFIZER VACCINE 2021-02-14 00:00:00 Completed [facility] SARS-COV-2 COVID-19 PFIZER VACCINE 2021-02-14 00:00:00 Completed [facility] SARS-COV-2 COVID-19 PFIZER VACCINE 2021-02-14 00:00:00 Completed [facility] SARS-COV-2 COVID-19 PFIZER VACCINE 2021-02-14 00:00:00 Completed [facility] SARS-COV-2 COVID-19 PFIZER VACCINE 2021-02-14 00:00:00 Completed [facility] SARS-COV-2 COVID-19 PFIZER VACCINE 2021-02-14 00:00:00 Completed [facility] SARS-COV-2 COVID-19 PFIZER VACCINE 2021-02-14 00:00:00 Completed [facility] SARS-COV-2 COVID-19 PFIZER VACCINE 2021-02-14 00:00:00 Completed [facility] SARS-COV-2 COVID-19 PFIZER VACCINE 2021-02-14 00:00:00 Completed [facility] SARS-COV-2 COVID-19 PFIZER VACCINE 2021-02-14 00:00:00 Completed [facility] SARS-COV-2 COVID-19 PFIZER VACCINE 2021-02-14 00:00:00 Completed [facility] SARS-COV-2 COVID-19 PFIZER VACCINE 2021-02-14 00:00:00 Completed [facility] SARS-COV-2 COVID-19 PFIZER VACCINE 2021-02-14 00:00:00 Completed [facility] SARS-COV-2 COVID-19 PFIZER VACCINE 2021-02-14 00:00:00 Completed [facility] SARS-COV-2 COVID-19 PFIZER VACCINE 2021-02-14 00:00:00 Completed [facility] SARS-COV-2 COVID-19 PFIZER VACCINE 2021-02-14 00:00:00 Completed [facility] SARS-COV-2 COVID-19 PFIZER VACCINE 2021-02-14 00:00:00 Completed [facility] SARS-COV-2 COVID-19 PFIZER VACCINE 2021-02-14 00:00:00 Completed [facility] SARS-COV-2 COVID-19 PFIZER VACCINE 2021-02-14 00:00:00 Completed [facility] SARS-COV-2 COVID-19 PFIZER VACCINE 2021-02-14 00:00:00 Completed [facility] SARS-COV-2 COVID-19 PFIZER VACCINE 2021-02-14 00:00:00 Completed [facility] SARS-COV-2 COVID-19 PFIZER VACCINE 2021-02-14 00:00:00 Completed [facility] SARS-COV-2 COVID-19 PFIZER VACCINE 2021-02-14 00:00:00 Completed [facility] SARS-COV-2 COVID-19 PFIZER VACCINE 2021-02-14 00:00:00 Completed [facility] SARS-COV-2 COVID-19 PFIZER VACCINE 2021-02-14 00:00:00 Completed [facility] SARS-COV-2 COVID-19 PFIZER VACCINE 2021-02-14 00:00:00 Completed [facility] SARS-COV-2 COVID-19 PFIZER VACCINE 2021-02-14 00:00:00 Completed [facility] SARS-COV-2 COVID-19 PFIZER VACCINE 2021-02-14 00:00:00 Completed [facility] SARS-COV-2 COVID-19 PFIZER VACCINE 2021-02-14 00:00:00 Completed [facility] SARS-COV-2 COVID-19 PFIZER VACCINE 2021-02-14 00:00:00 Completed [facility] SARS-COV-2 COVID-19 PFIZER VACCINE 2021-02-14 00:00:00 Completed [facility] SARS-COV-2 COVID-19 PFIZER VACCINE 2021-02-14 00:00:00 Completed [facility] SARS-COV-2 COVID-19 PFIZER VACCINE 2021-02-14 00:00:00 Completed [facility] SARS-COV-2 COVID-19 PFIZER VACCINE 2021-02-14 00:00:00 Completed [facility] SARS-COV-2 COVID-19 PFIZER VACCINE 2021-02-14 00:00:00 Completed [facility] SARS-COV-2 COVID-19 PFIZER VACCINE 2021-02-14 00:00:00 Completed [facility] SARS-COV-2 COVID-19 PFIZER VACCINE 2021-02-14 00:00:00 Completed [facility] SARS-COV-2 COVID-19 PFIZER VACCINE 2021-02-14 00:00:00 Completed [facility] SARS-COV-2 COVID-19 PFIZER VACCINE 2021-01-23 00:00:00 Completed [facility] SARS-COV-2 COVID-19 PFIZER VACCINE 2021-01-23 00:00:00 Completed [facility] SARS-COV-2 COVID-19 PFIZER VACCINE 2021-01-23 00:00:00 Completed [facility] SARS-COV-2 COVID-19 PFIZER VACCINE 2021-01-23 00:00:00 Completed [facility] SARS-COV-2 COVID-19 PFIZER VACCINE 2021-01-23 00:00:00 Completed [facility] SARS-COV-2 COVID-19 PFIZER VACCINE 2021-01-23 00:00:00 Completed [facility] SARS-COV-2 COVID-19 PFIZER VACCINE 2021-01-23 00:00:00 Completed [facility] SARS-COV-2 COVID-19 PFIZER VACCINE 2021-01-23 00:00:00 Completed [facility] SARS-COV-2 COVID-19 PFIZER VACCINE 2021-01-23 00:00:00 Completed [facility] SARS-COV-2 COVID-19 PFIZER VACCINE 2021-01-23 00:00:00 Completed [facility] SARS-COV-2 COVID-19 PFIZER VACCINE 2021-01-23 00:00:00 Completed [facility] SARS-COV-2 COVID-19 PFIZER VACCINE 2021-01-23 00:00:00 Completed [facility] SARS-COV-2 COVID-19 PFIZER VACCINE 2021-01-23 00:00:00 Completed [facility] SARS-COV-2 COVID-19 PFIZER VACCINE 2021-01-23 00:00:00 Completed [facility] SARS-COV-2 COVID-19 PFIZER VACCINE 2021-01-23 00:00:00 Completed [facility] SARS-COV-2 COVID-19 PFIZER VACCINE 2021-01-23 00:00:00 Completed [facility] SARS-COV-2 COVID-19 PFIZER VACCINE 2021-01-23 00:00:00 Completed [facility] SARS-COV-2 COVID-19 PFIZER VACCINE 2021-01-23 00:00:00 Completed [facility] SARS-COV-2 COVID-19 PFIZER VACCINE 2021-01-23 00:00:00 Completed [facility] SARS-COV-2 COVID-19 PFIZER VACCINE 2021-01-23 00:00:00 Completed [facility] SARS-COV-2 COVID-19 PFIZER VACCINE 2021-01-23 00:00:00 Completed [facility] SARS-COV-2 COVID-19 PFIZER VACCINE 2021-01-23 00:00:00 Completed [facility] SARS-COV-2 COVID-19 PFIZER VACCINE 2021-01-23 00:00:00 Completed [facility] SARS-COV-2 COVID-19 PFIZER VACCINE 2021-01-23 00:00:00 Completed [facility] SARS-COV-2 COVID-19 PFIZER VACCINE 2021-01-23 00:00:00 Completed [facility] SARS-COV-2 COVID-19 PFIZER VACCINE 2021-01-23 00:00:00 Completed [facility] SARS-COV-2 COVID-19 PFIZER VACCINE 2021-01-23 00:00:00 Completed [facility] SARS-COV-2 COVID-19 PFIZER VACCINE 2021-01-23 00:00:00 Completed [facility] SARS-COV-2 COVID-19 PFIZER VACCINE 2021-01-23 00:00:00 Completed [facility] SARS-COV-2 COVID-19 PFIZER VACCINE 2021-01-23 00:00:00 Completed [facility] SARS-COV-2 COVID-19 PFIZER VACCINE 2021-01-23 00:00:00 Completed [facility] SARS-COV-2 COVID-19 PFIZER VACCINE 2021-01-23 00:00:00 Completed [facility] SARS-COV-2 COVID-19 PFIZER VACCINE 2021-01-23 00:00:00 Completed [facility] SARS-COV-2 COVID-19 PFIZER VACCINE 2021-01-23 00:00:00 Completed [facility] SARS-COV-2 COVID-19 PFIZER VACCINE 2021-01-23 00:00:00 Completed [facility] SARS-COV-2 COVID-19 PFIZER VACCINE 2021-01-23 00:00:00 Completed [facility] SARS-COV-2 COVID-19 PFIZER VACCINE 2021-01-23 00:00:00 Completed [facility] SARS-COV-2 COVID-19 PFIZER VACCINE 2021-01-23 00:00:00 Completed [facility] SARS-COV-2 COVID-19 PFIZER VACCINE 2021-01-23 00:00:00 Completed influenza, injectable, quadrivalent influenza, injectable, quadrivalent 2020-09-10 00:00:00 Completed [facility] SARS-COV-2 COVID-19 PFIZER VACCINE Unknown Completed [facility] Pneumococcal 20 Conjugate, PCV20 (Prevnar 20) Unknown Completed [facility] Zoster Vaccine Recombinant Unknown Completed [facility] Influenza Virus Vaccine,quad Im,preserve Free 65+ (FLUAD) Unknown Completed [facility] Pneumococcal Polysaccharide, PPSV23 (PNEUMOVAX) Unknown Completed [facility] SARS-COV-2 COVID-19 PFIZER VACCINE Unknown Completed [facility] Pneumococcal 20 Conjugate, PCV20 (Prevnar 20) Unknown Completed [facility] Zoster Vaccine Recombinant Unknown Completed [facility] Influenza Virus Vaccine,quad Im,preserve Free 65+ (FLUAD) Unknown Completed [facility] Pneumococcal Polysaccharide, PPSV23 (PNEUMOVAX) Unknown Completed [facility] SARS-COV-2 COVID-19 PFIZER VACCINE Unknown Completed [facility] Pneumococcal 20 Conjugate, PCV20 (Prevnar 20) Unknown Completed [facility] Zoster Vaccine Recombinant Unknown Completed [facility] Influenza Virus Vaccine,quad Im,preserve Free 65+ (FLUAD) Unknown Completed [facility] Pneumococcal Polysaccharide, PPSV23 (PNEUMOVAX) Unknown Completed [facility] SARS-COV-2 COVID-19 PFIZER VACCINE Unknown Completed [facility] Pneumococcal 20 Conjugate, PCV20 (Prevnar 20) Unknown Completed [facility] Zoster Vaccine Recombinant Unknown Completed [facility] Influenza Virus Vaccine,quad Im,preserve Free 65+ (FLUAD) Unknown Completed [facility] Pneumococcal Polysaccharide, PPSV23 (PNEUMOVAX) Unknown Completed [facility] SARS-COV-2 COVID-19 PFIZER VACCINE Unknown Completed [facility] Pneumococcal 20 Conjugate, PCV20 (Prevnar 20) Unknown Completed [facility] Zoster Vaccine Recombinant Unknown Completed [facility] Influenza Virus Vaccine,quad Im,preserve Free 65+ (FLUAD) Unknown Completed [facility] Pneumococcal Polysaccharide, PPSV23 (PNEUMOVAX) Unknown Completed [facility] SARS-COV-2 COVID-19 PFIZER VACCINE Unknown Completed [facility] Pneumococcal 20 Conjugate, PCV20 (Prevnar 20) Unknown Completed [facility] Zoster Vaccine Recombinant Unknown Completed [facility] Influenza Virus Vaccine,quad Im,preserve Free 65+ (FLUAD) Unknown Completed [facility] Pneumococcal Polysaccharide, PPSV23 (PNEUMOVAX) Unknown Completed [facility] SARS-COV-2 COVID-19 PFIZER VACCINE Unknown Completed [facility] Pneumococcal 20 Conjugate, PCV20 (Prevnar 20) Unknown Completed [facility] Zoster Vaccine Recombinant Unknown Completed [facility] Influenza Virus Vaccine,quad Im,preserve Free 65+ (FLUAD) Unknown Completed [facility] Pneumococcal Polysaccharide, PPSV23 (PNEUMOVAX) Unknown Completed [facility] SARS-COV-2 COVID-19 PFIZER VACCINE Unknown Completed [facility] Pneumococcal 20 Conjugate, PCV20 (Prevnar 20) Unknown Completed [facility] Zoster Vaccine Recombinant Unknown Completed [facility] Influenza Virus Vaccine,quad Im,preserve Free 65+ (FLUAD) Unknown Completed [facility] Pneumococcal Polysaccharide, PPSV23 (PNEUMOVAX) Unknown Completed [facility] SARS-COV-2 COVID-19 PFIZER VACCINE Unknown Completed [facility] Pneumococcal 20 Conjugate, PCV20 (Prevnar 20) Unknown Completed [facility] Zoster Vaccine Recombinant Unknown Completed [facility] Influenza Virus Vaccine,quad Im,preserve Free 65+ (FLUAD) Unknown Completed [facility] Pneumococcal Polysaccharide, PPSV23 (PNEUMOVAX) Unknown Completed [facility] SARS-COV-2 COVID-19 PFIZER VACCINE Unknown Completed [facility] Pneumococcal 20 Conjugate, PCV20 (Prevnar 20) Unknown Completed [facility] Zoster Vaccine Recombinant Unknown Completed [facility] Influenza Virus Vaccine,quad Im,preserve Free 65+ (FLUAD) Unknown Completed [facility] Pneumococcal Polysaccharide, PPSV23 (PNEUMOVAX) Unknown Completed [facility] SARS-COV-2 COVID-19 PFIZER VACCINE Unknown Completed [facility] Pneumococcal 20 Conjugate, PCV20 (Prevnar 20) Unknown Completed [facility] Zoster Vaccine Recombinant Unknown Completed [facility] Influenza Virus Vaccine,quad Im,preserve Free 65+ (FLUAD) Unknown Completed [facility] Pneumococcal Polysaccharide, PPSV23 (PNEUMOVAX) Unknown Completed [facility] SARS-COV-2 COVID-19 PFIZER VACCINE Unknown Completed [facility] Pneumococcal 20 Conjugate, PCV20 (Prevnar 20) Unknown Completed [facility] Zoster Vaccine Recombinant Unknown Completed [facility] Influenza Virus Vaccine,quad Im,preserve Free 65+ (FLUAD) Unknown Completed [facility] Pneumococcal Polysaccharide, PPSV23 (PNEUMOVAX) Unknown Completed [facility] SARS-COV-2 COVID-19 PFIZER VACCINE Unknown Completed [facility] Pneumococcal 20 Conjugate, PCV20 (Prevnar 20) Unknown Completed [facility] Zoster Vaccine Recombinant Unknown Completed [facility] Influenza Virus Vaccine,quad Im,preserve Free 65+ (FLUAD) Unknown Completed [facility] Pneumococcal Polysaccharide, PPSV23 (PNEUMOVAX) Unknown Completed [facility] SARS-COV-2 COVID-19 PFIZER VACCINE Unknown Completed [facility] Pneumococcal 20 Conjugate, PCV20 (Prevnar 20) Unknown Completed [facility] Zoster Vaccine Recombinant Unknown Completed [facility] Influenza Virus Vaccine,quad Im,preserve Free 65+ (FLUAD) Unknown Completed [facility] Pneumococcal Polysaccharide, PPSV23 (PNEUMOVAX) Unknown Completed [facility] Pneumococcal 20 Conjugate, PCV20 (Prevnar 20) Unknown Completed [facility] Zoster Vaccine Recombinant Unknown Completed [facility] Influenza Virus Vaccine,quad Im,preserve Free 65+ (FLUAD) Unknown Completed [facility] Pneumococcal Polysaccharide, PPSV23 (PNEUMOVAX) Unknown Completed [facility] SARS-COV-2 COVID-19 PFIZER VACCINE Unknown Completed [facility] SARS-COV-2 COVID-19 PFIZER VACCINE Unknown Completed [facility] Pneumococcal 20 Conjugate, PCV20 (Prevnar 20) Unknown Completed [facility] Zoster Vaccine Recombinant Unknown Completed [facility] Influenza Virus Vaccine,quad Im,preserve Free 65+ (FLUAD) Unknown Completed [facility] Pneumococcal Polysaccharide, PPSV23 (PNEUMOVAX) Unknown Completed [facility] SARS-COV-2 COVID-19 PFIZER VACCINE Unknown Completed [facility] Pneumococcal 20 Conjugate, PCV20 (Prevnar 20) Unknown Completed [facility] Zoster Vaccine Recombinant Unknown Completed [facility] Influenza Virus Vaccine,quad Im,preserve Free 65+ (FLUAD) Unknown Completed [facility] Pneumococcal Polysaccharide, PPSV23 (PNEUMOVAX) Unknown Completed [facility] SARS-COV-2 COVID-19 PFIZER VACCINE Unknown Completed [facility] Pneumococcal 20 Conjugate, PCV20 (Prevnar 20) Unknown Completed [facility] Zoster Vaccine Recombinant Unknown Completed [facility] Influenza Virus Vaccine,quad Im,preserve Free 65+ (FLUAD) Unknown Completed [facility] Pneumococcal Polysaccharide, PPSV23 (PNEUMOVAX) Unknown Completed [facility] SARS-COV-2 COVID-19 PFIZER VACCINE Unknown Completed [facility] Pneumococcal 20 Conjugate, PCV20 (Prevnar 20) Unknown Completed [facility] Zoster Vaccine Recombinant Unknown Completed [facility] Influenza Virus Vaccine,quad Im,preserve Free 65+ (FLUAD) Unknown Completed [facility] Pneumococcal Polysaccharide, PPSV23 (PNEUMOVAX) Unknown Completed [facility] SARS-COV-2 COVID-19 PFIZER VACCINE Unknown Completed [facility] Pneumococcal 20 Conjugate, PCV20 (Prevnar 20) Unknown Completed [facility] Zoster Vaccine Recombinant Unknown Completed [facility] Influenza Virus Vaccine,quad Im,preserve Free 65+ (FLUAD) Unknown Completed [facility] Pneumococcal Polysaccharide, PPSV23 (PNEUMOVAX) Unknown Completed [facility] SARS-COV-2 COVID-19 PFIZER VACCINE Unknown Completed [facility] Pneumococcal 20 Conjugate, PCV20 (Prevnar 20) Unknown Completed [facility] Zoster Vaccine Recombinant Unknown Completed [facility] Influenza Virus Vaccine,quad Im,preserve Free 65+ (FLUAD) Unknown Completed [facility] Pneumococcal Polysaccharide, PPSV23 (PNEUMOVAX) Unknown Completed [facility] SARS-COV-2 COVID-19 PFIZER VACCINE Unknown Completed [facility] Pneumococcal 20 Conjugate, PCV20 (Prevnar 20) Unknown Completed [facility] Zoster Vaccine Recombinant Unknown Completed [facility] Influenza Virus Vaccine,quad Im,preserve Free 65+ (FLUAD) Unknown Completed [facility] Pneumococcal Polysaccharide, PPSV23 (PNEUMOVAX) Unknown Completed [facility] Pneumococcal 20 Conjugate, PCV20 (Prevnar 20) Unknown Completed [facility] Zoster Vaccine Recombinant Unknown Completed [facility] Influenza Virus Vaccine,quad Im,preserve Free 65+ (FLUAD) Unknown Completed [facility] Pneumococcal Polysaccharide, PPSV23 (PNEUMOVAX) Unknown Completed [facility] SARS-COV-2 COVID-19 PFIZER VACCINE Unknown Completed [facility] SARS-COV-2 COVID-19 PFIZER VACCINE Unknown Completed [facility] Pneumococcal 20 Conjugate, PCV20 (Prevnar 20) Unknown Completed [facility] Zoster Vaccine Recombinant Unknown Completed [facility] Influenza Virus Vaccine,quad Im,preserve Free 65+ (FLUAD) Unknown Completed [facility] Pneumococcal Polysaccharide, PPSV23 (PNEUMOVAX) Unknown Completed [facility] SARS-COV-2 COVID-19 PFIZER VACCINE Unknown Completed [facility] Pneumococcal 20 Conjugate, PCV20 (Prevnar 20) Unknown Completed [facility] Zoster Vaccine Recombinant Unknown Completed [facility] Influenza Virus Vaccine,quad Im,preserve Free 65+ (FLUAD) Unknown Completed [facility] Pneumococcal Polysaccharide, PPSV23 (PNEUMOVAX) Unknown Completed [facility] SARS-COV-2 COVID-19 PFIZER VACCINE Unknown Completed [facility] Pneumococcal 20 Conjugate, PCV20 (Prevnar 20) Unknown Completed [facility] Zoster Vaccine Recombinant Unknown Completed [facility] Influenza Virus Vaccine,quad Im,preserve Free 65+ (FLUAD) Unknown Completed [facility] Pneumococcal Polysaccharide, PPSV23 (PNEUMOVAX) Unknown Completed [facility] Pneumococcal 20 Conjugate, PCV20 (Prevnar 20) Unknown Completed [facility] Zoster Vaccine Recombinant Unknown Completed [facility] Influenza Virus Vaccine,quad Im,preserve Free 65+ (FLUAD) Unknown Completed [facility] Pneumococcal Polysaccharide, PPSV23 (PNEUMOVAX) Unknown Completed [facility] SARS-COV-2 COVID-19 PFIZER VACCINE Unknown Completed [facility] SARS-COV-2 COVID-19 PFIZER VACCINE Unknown Completed [facility] Pneumococcal 20 Conjugate, PCV20 (Prevnar 20) Unknown Completed [facility] Zoster Vaccine Recombinant Unknown Completed [facility] Influenza Virus Vaccine,quad Im,preserve Free 65+ (FLUAD) Unknown Completed [facility] Pneumococcal Polysaccharide, PPSV23 (PNEUMOVAX) Unknown Completed [facility] SARS-COV-2 COVID-19 PFIZER VACCINE Unknown Completed [facility] Pneumococcal 20 Conjugate, PCV20 (Prevnar 20) Unknown Completed [facility] Zoster Vaccine Recombinant Unknown Completed [facility] Influenza Virus Vaccine,quad Im,preserve Free 65+ (FLUAD) Unknown Completed [facility] Pneumococcal Polysaccharide, PPSV23 (PNEUMOVAX) Unknown Completed [facility] SARS-COV-2 COVID-19 PFIZER VACCINE Unknown Completed [facility] Pneumococcal 20 Conjugate, PCV20 (Prevnar 20) Unknown Completed [facility] Zoster Vaccine Recombinant Unknown Completed [facility] Influenza Virus Vaccine,quad Im,preserve Free 65+ (FLUAD) Unknown Completed [facility] Pneumococcal Polysaccharide, PPSV23 (PNEUMOVAX) Unknown Completed [facility] SARS-COV-2 COVID-19 PFIZER VACCINE Unknown Completed [facility] Pneumococcal 20 Conjugate, PCV20 (Prevnar 20) Unknown Completed [facility] Zoster Vaccine Recombinant Unknown Completed [facility] Influenza Virus Vaccine,quad Im,preserve Free 65+ (FLUAD) Unknown Completed [facility] Pneumococcal Polysaccharide, PPSV23 (PNEUMOVAX) Unknown Completed [facility] Pneumococcal 20 Conjugate, PCV20 (Prevnar 20) Unknown Completed [facility] Zoster Vaccine Recombinant Unknown Completed [facility] Influenza Virus Vaccine,quad Im,preserve Free 65+ (FLUAD) Unknown Completed [facility] Pneumococcal Polysaccharide, PPSV23 (PNEUMOVAX) Unknown Completed [facility] SARS-COV-2 COVID-19 PFIZER VACCINE Unknown Completed [facility] Pneumococcal 20 Conjugate, PCV20 (Prevnar 20) Unknown Completed [facility] Zoster Vaccine Recombinant Unknown Completed [facility] Influenza Virus Vaccine,quad Im,preserve Free 65+ (FLUAD) Unknown Completed [facility] Pneumococcal Polysaccharide, PPSV23 (PNEUMOVAX) Unknown Completed [facility] SARS-COV-2 COVID-19 PFIZER VACCINE Unknown Completed [facility] SARS-COV-2 COVID-19 PFIZER VACCINE Unknown Completed [facility] Pneumococcal 20 Conjugate, PCV20 (Prevnar 20) Unknown Completed [facility] Zoster Vaccine Recombinant Unknown Completed [facility] Influenza Virus Vaccine,quad Im,preserve Free 65+ (FLUAD) Unknown Completed [facility] Pneumococcal Polysaccharide, PPSV23 (PNEUMOVAX) Unknown Completed [facility] SARS-COV-2 COVID-19 PFIZER VACCINE Unknown Completed [facility] Pneumococcal 20 Conjugate, PCV20 (Prevnar 20) Unknown Completed [facility] Zoster Vaccine Recombinant Unknown Completed [facility] Influenza Virus Vaccine,quad Im,preserve Free 65+ (FLUAD) Unknown Completed [facility] Pneumococcal Polysaccharide, PPSV23 (PNEUMOVAX) Unknown Completed [facility] SARS-COV-2 COVID-19 PFIZER VACCINE Unknown Completed [facility] Pneumococcal 20 Conjugate, PCV20 (Prevnar 20) Unknown Completed [facility] Zoster Vaccine Recombinant Unknown Completed [facility] Influenza Virus Vaccine,quad Im,preserve Free 65+ (FLUAD) Unknown Completed [facility] Pneumococcal Polysaccharide, PPSV23 (PNEUMOVAX) Unknown Completed [facility] Pneumococcal 20 Conjugate, PCV20 (Prevnar 20) Unknown Completed [facility] Zoster Vaccine Recombinant Unknown Completed [facility] Influenza Virus Vaccine,quad Im,preserve Free 65+ (FLUAD) Unknown Completed [facility] Pneumococcal Polysaccharide, PPSV23 (PNEUMOVAX) Unknown Completed [facility] SARS-COV-2 COVID-19 PFIZER VACCINE Unknown Completed [facility] SARS-COV-2 COVID-19 PFIZER VACCINE Unknown Completed [facility] Pneumococcal 20 Conjugate, PCV20 (Prevnar 20) Unknown Completed [facility] Zoster Vaccine Recombinant Unknown Completed [facility] Influenza Virus Vaccine,quad Im,preserve Free 65+ (FLUAD) Unknown Completed [facility] Pneumococcal Polysaccharide, PPSV23 (PNEUMOVAX) Unknown Completed [facility] SARS-COV-2 COVID-19 PFIZER VACCINE Unknown Completed [facility] Pneumococcal 20 Conjugate, PCV20 (Prevnar 20) Unknown Completed [facility] Zoster Vaccine Recombinant Unknown Completed [facility] Influenza Virus Vaccine,quad Im,preserve Free 65+ (FLUAD) Unknown Completed [facility] Pneumococcal Polysaccharide, PPSV23 (PNEUMOVAX) Unknown Completed [facility] Pneumococcal 20 Conjugate, PCV20 (Prevnar 20) Unknown Completed [facility] Zoster Vaccine Recombinant Unknown Completed [facility] Influenza Virus Vaccine,quad Im,preserve Free 65+ (FLUAD) Unknown Completed [facility] Pneumococcal Polysaccharide, PPSV23 (PNEUMOVAX) Unknown Completed [facility] SARS-COV-2 COVID-19 PFIZER VACCINE Unknown Completed [facility] Pneumococcal 20 Conjugate, PCV20 (Prevnar 20) Unknown Completed [facility] Zoster Vaccine Recombinant Unknown Completed [facility] Influenza Virus Vaccine,quad Im,preserve Free 65+ (FLUAD) Unknown Completed [facility] Pneumococcal Polysaccharide, PPSV23 (PNEUMOVAX) Unknown Completed [facility] SARS-COV-2 COVID-19 PFIZER VACCINE Unknown Completed [facility] Pneumococcal 20 Conjugate, PCV20 (Prevnar 20) Unknown Completed [facility] Zoster Vaccine Recombinant Unknown Completed [facility] Influenza Virus Vaccine,quad Im,preserve Free 65+ (FLUAD) Unknown Completed [facility] Pneumococcal Polysaccharide, PPSV23 (PNEUMOVAX) Unknown Completed [facility] Pneumococcal 20 Conjugate, PCV20 (Prevnar 20) Unknown Completed [facility] Zoster Vaccine Recombinant Unknown Completed [facility] Influenza Virus Vaccine,quad Im,preserve Free 65+ (FLUAD) Unknown Completed [facility] Pneumococcal Polysaccharide, PPSV23 (PNEUMOVAX) Unknown Completed [facility] SARS-COV-2 COVID-19 PFIZER VACCINE Unknown Completed [facility] SARS-COV-2 COVID-19 PFIZER VACCINE Unknown Completed [facility] SARS-COV-2 COVID-19 PFIZER VACCINE Unknown Completed [facility] Pneumococcal 20 Conjugate, PCV20 (Prevnar 20) Unknown Completed [facility] Zoster Vaccine Recombinant Unknown Completed [facility] Influenza Virus Vaccine,quad Im,preserve Free 65+ (FLUAD) Unknown Completed [facility] Pneumococcal Polysaccharide, PPSV23 (PNEUMOVAX) Unknown Completed [facility] Pneumococcal 20 Conjugate, PCV20 (Prevnar 20) Unknown Completed [facility] Zoster Vaccine Recombinant Unknown Completed [facility] Influenza Virus Vaccine,quad Im,preserve Free 65+ (FLUAD) Unknown Completed [facility] Pneumococcal Polysaccharide, PPSV23 (PNEUMOVAX) Unknown Completed [facility] SARS-COV-2 COVID-19 PFIZER VACCINE Unknown Completed [facility] SARS-COV-2 COVID-19 PFIZER VACCINE Unknown Completed [facility] Pneumococcal 20 Conjugate, PCV20 (Prevnar 20) Unknown Completed [facility] Zoster Vaccine Recombinant Unknown Completed [facility] Influenza Virus Vaccine,quad Im,preserve Free 65+ (FLUAD) Unknown Completed [facility] Pneumococcal Polysaccharide, PPSV23 (PNEUMOVAX) Unknown Completed [facility] SARS-COV-2 COVID-19 PFIZER VACCINE Unknown Completed [facility] Pneumococcal 20 Conjugate, PCV20 (Prevnar 20) Unknown Completed [facility] Zoster Vaccine Recombinant Unknown Completed [facility] Influenza Virus Vaccine,quad Im,preserve Free 65+ (FLUAD) Unknown Completed [facility] Pneumococcal Polysaccharide, PPSV23 (PNEUMOVAX) Unknown Completed [facility] Pneumococcal 20 Conjugate, PCV20 (Prevnar 20) Unknown Completed [facility] Zoster Vaccine Recombinant Unknown Completed [facility] Influenza Virus Vaccine,quad Im,preserve Free 65+ (FLUAD) Unknown Completed [facility] Pneumococcal Polysaccharide, PPSV23 (PNEUMOVAX) Unknown Completed [facility] SARS-COV-2 COVID-19 PFIZER VACCINE Unknown Completed [facility] SARS-COV-2 COVID-19 PFIZER VACCINE Unknown Completed [facility] Pneumococcal 20 Conjugate, PCV20 (Prevnar 20) Unknown Completed [facility] Zoster Vaccine Recombinant Unknown Completed [facility] Influenza Virus Vaccine,quad Im,preserve Free 65+ (FLUAD) Unknown Completed [facility] Pneumococcal Polysaccharide, PPSV23 (PNEUMOVAX) Unknown Completed [facility] SARS-COV-2 COVID-19 PFIZER VACCINE Unknown Completed [facility] Pneumococcal 20 Conjugate, PCV20 (Prevnar 20) Unknown Completed [facility] Zoster Vaccine Recombinant Unknown Completed [facility] Influenza Virus Vaccine,quad Im,preserve Free 65+ (FLUAD) Unknown Completed [facility] Pneumococcal Polysaccharide, PPSV23 (PNEUMOVAX) Unknown Completed [facility] SARS-COV-2 COVID-19 PFIZER VACCINE Unknown Completed [facility] Pneumococcal 20 Conjugate, PCV20 (Prevnar 20) Unknown Completed [facility] Zoster Vaccine Recombinant Unknown Completed [facility] Influenza Virus Vaccine,quad Im,preserve Free 65+ (FLUAD) Unknown Completed [facility] Pneumococcal Polysaccharide, PPSV23 (PNEUMOVAX) Unknown Completed [facility] Pneumococcal 20 Conjugate, PCV20 (Prevnar 20) Unknown Completed [facility] Zoster Vaccine Recombinant Unknown Completed [facility] Influenza Virus Vaccine,quad Im,preserve Free 65+ (FLUAD) Unknown Completed [facility] Pneumococcal Polysaccharide, PPSV23 (PNEUMOVAX) Unknown Completed [facility] SARS-COV-2 COVID-19 PFIZER VACCINE Unknown Completed [facility] Pneumococcal 20 Conjugate, PCV20 (Prevnar 20) Unknown Completed [facility] Zoster Vaccine Recombinant Unknown Completed [facility] Influenza Virus Vaccine,quad Im,preserve Free 65+ (FLUAD) Unknown Completed [facility] Pneumococcal Polysaccharide, PPSV23 (PNEUMOVAX) Unknown Completed [facility] SARS-COV-2 COVID-19 PFIZER VACCINE Unknown Completed [facility] Pneumococcal 20 Conjugate, PCV20 (Prevnar 20) Unknown Completed [facility] Zoster Vaccine Recombinant Unknown Completed [facility] Influenza Virus Vaccine,quad Im,preserve Free 65+ (FLUAD) Unknown Completed [facility] Pneumococcal Polysaccharide, PPSV23 (PNEUMOVAX) Unknown Completed [facility] SARS-COV-2 COVID-19 PFIZER VACCINE Unknown Completed [facility] Pneumococcal 20 Conjugate, PCV20 (Prevnar 20) Unknown Completed [facility] Zoster Vaccine Recombinant Unknown Completed [facility] Influenza Virus Vaccine,quad Im,preserve Free 65+ (FLUAD) Unknown Completed [facility] Pneumococcal Polysaccharide, PPSV23 (PNEUMOVAX) Unknown Completed [facility] SARS-COV-2 COVID-19 PFIZER VACCINE Unknown Completed [facility] Pneumococcal 20 Conjugate, PCV20 (Prevnar 20) Unknown Completed [facility] Zoster Vaccine Recombinant Unknown Completed [facility] Influenza Virus Vaccine,quad Im,preserve Free 65+ (FLUAD) Unknown Completed [facility] Pneumococcal Polysaccharide, PPSV23 (PNEUMOVAX) Unknown Completed [facility] SARS-COV-2 COVID-19 PFIZER VACCINE Unknown Completed [facility] SARS-COV-2 COVID-19 PFIZER VACCINE Unknown Completed [facility] Pneumococcal 20 Conjugate, PCV20 (Prevnar 20) Unknown Completed [facility] Zoster Vaccine Recombinant Unknown Completed [facility] Influenza Virus Vaccine,quad Im,preserve Free 65+ (FLUAD) Unknown Completed [facility] Pneumococcal Polysaccharide, PPSV23 (PNEUMOVAX) Unknown Completed [facility] SARS-COV-2 COVID-19 PFIZER VACCINE Unknown Completed [facility] Pneumococcal 20 Conjugate, PCV20 (Prevnar 20) Unknown Completed [facility] Zoster Vaccine Recombinant Unknown Completed [facility] Influenza Virus Vaccine,quad Im,preserve Free 65+ (FLUAD) Unknown Completed [facility] Pneumococcal Polysaccharide, PPSV23 (PNEUMOVAX) Unknown Completed [facility] SARS-COV-2 COVID-19 PFIZER VACCINE Unknown Completed [facility] Pneumococcal 20 Conjugate, PCV20 (Prevnar 20) Unknown Completed [facility] Zoster Vaccine Recombinant Unknown Completed [facility] Influenza Virus Vaccine,quad Im,preserve Free 65+ (FLUAD) Unknown Completed [facility] Pneumococcal Polysaccharide, PPSV23 (PNEUMOVAX) Unknown Completed [facility] SARS-COV-2 COVID-19 PFIZER VACCINE Unknown Completed [facility] Pneumococcal 20 Conjugate, PCV20 (Prevnar 20) Unknown Completed [facility] Zoster Vaccine Recombinant Unknown Completed [facility] Influenza Virus Vaccine,quad Im,preserve Free 65+ (FLUAD) Unknown Completed [facility] Pneumococcal Polysaccharide, PPSV23 (PNEUMOVAX) Unknown Completed [facility] SARS-COV-2 COVID-19 PFIZER VACCINE Unknown Completed [facility] Pneumococcal 20 Conjugate, PCV20 (Prevnar 20) Unknown Completed [facility] Zoster Vaccine Recombinant Unknown Completed [facility] Influenza Virus Vaccine,quad Im,preserve Free 65+ (FLUAD) Unknown Completed [facility] Pneumococcal Polysaccharide, PPSV23 (PNEUMOVAX) Unknown Completed [facility] SARS-COV-2 COVID-19 PFIZER VACCINE Unknown Completed [facility] Pneumococcal 20 Conjugate, PCV20 (Prevnar 20) Unknown Completed [facility] Zoster Vaccine Recombinant Unknown Completed [facility] Influenza Virus Vaccine,quad Im,preserve Free 65+ (FLUAD) Unknown Completed [facility] Pneumococcal Polysaccharide, PPSV23 (PNEUMOVAX) Unknown Completed [facility] Pneumococcal 20 Conjugate, PCV20 (Prevnar 20) Unknown Completed [facility] Zoster Vaccine Recombinant Unknown Completed [facility] Influenza Virus Vaccine,quad Im,preserve Free 65+ (FLUAD) Unknown Completed [facility] Pneumococcal Polysaccharide, PPSV23 (PNEUMOVAX) Unknown Completed [facility] SARS-COV-2 COVID-19 PFIZER VACCINE Unknown Completed [facility] SARS-COV-2 COVID-19 PFIZER VACCINE Unknown Completed [facility] Pneumococcal 20 Conjugate, PCV20 (Prevnar 20) Unknown Completed [facility] Zoster Vaccine Recombinant Unknown Completed [facility] Influenza Virus Vaccine,quad Im,preserve Free 65+ (FLUAD) Unknown Completed [facility] Pneumococcal Polysaccharide, PPSV23 (PNEUMOVAX) Unknown Completed [facility] SARS-COV-2 COVID-19 PFIZER VACCINE Unknown Completed [facility] Pneumococcal 20 Conjugate, PCV20 (Prevnar 20) Unknown Completed [facility] Zoster Vaccine Recombinant Unknown Completed [facility] Influenza Virus Vaccine,quad Im,preserve Free 65+ (FLUAD) Unknown Completed [facility] Pneumococcal Polysaccharide, PPSV23 (PNEUMOVAX) Unknown Completed [facility] SARS-COV-2 COVID-19 PFIZER VACCINE Unknown Completed [facility] Pneumococcal 20 Conjugate, PCV20 (Prevnar 20) Unknown Completed [facility] Zoster Vaccine Recombinant Unknown Completed [facility] Influenza Virus Vaccine,quad Im,preserve Free 65+ (FLUAD) Unknown Completed [facility] Pneumococcal Polysaccharide, PPSV23 (PNEUMOVAX) Unknown Completed [facility] SARS-COV-2 COVID-19 PFIZER VACCINE Unknown Completed [facility] Pneumococcal 20 Conjugate, PCV20 (Prevnar 20) Unknown Completed [facility] Zoster Vaccine Recombinant Unknown Completed [facility] Influenza Virus Vaccine,quad Im,preserve Free 65+ (FLUAD) Unknown Completed [facility] Pneumococcal Polysaccharide, PPSV23 (PNEUMOVAX) Unknown Completed [facility] SARS-COV-2 COVID-19 PFIZER VACCINE Unknown Completed [facility] Pneumococcal 20 Conjugate, PCV20 (Prevnar 20) Unknown Completed [facility] Zoster Vaccine Recombinant Unknown Completed [facility] Influenza Virus Vaccine,quad Im,preserve Free 65+ (FLUAD) Unknown Completed [facility] Pneumococcal Polysaccharide, PPSV23 (PNEUMOVAX) Unknown Completed [facility] SARS-COV-2 COVID-19 PFIZER VACCINE Unknown Completed [facility] Pneumococcal 20 Conjugate, PCV20 (Prevnar 20) Unknown Completed [facility] Zoster Vaccine Recombinant Unknown Completed [facility] Influenza Virus Vaccine,quad Im,preserve Free 65+ (FLUAD) Unknown Completed [facility] Pneumococcal Polysaccharide, PPSV23 (PNEUMOVAX) Unknown Completed [facility] Pneumococcal 20 Conjugate, PCV20 (Prevnar 20) Unknown Completed [facility] Zoster Vaccine Recombinant Unknown Completed [facility] Influenza Virus Vaccine,quad Im,preserve Free 65+ (FLUAD) Unknown Completed [facility] Pneumococcal Polysaccharide, PPSV23 (PNEUMOVAX) Unknown Completed [facility] SARS-COV-2 COVID-19 PFIZER VACCINE Unknown Completed [facility] SARS-COV-2 COVID-19 PFIZER VACCINE Unknown Completed [facility] Pneumococcal 20 Conjugate, PCV20 (Prevnar 20) Unknown Completed [facility] Zoster Vaccine Recombinant Unknown Completed [facility] Influenza Virus Vaccine,quad Im,preserve Free 65+ (FLUAD) Unknown Completed [facility] Pneumococcal Polysaccharide, PPSV23 (PNEUMOVAX) Unknown Completed [facility] SARS-COV-2 COVID-19 PFIZER VACCINE Unknown Completed [facility] Pneumococcal 20 Conjugate, PCV20 (Prevnar 20) Unknown Completed [facility] Zoster Vaccine Recombinant Unknown Completed [facility] Influenza Virus Vaccine,quad Im,preserve Free 65+ (FLUAD) Unknown Completed [facility] Pneumococcal Polysaccharide, PPSV23 (PNEUMOVAX) Unknown Completed [facility] SARS-COV-2 COVID-19 PFIZER VACCINE Unknown Completed [facility] Pneumococcal 20 Conjugate, PCV20 (Prevnar 20) Unknown Completed [facility] Zoster Vaccine Recombinant Unknown Completed [facility] Influenza Virus Vaccine,quad Im,preserve Free 65+ (FLUAD) Unknown Completed [facility] Pneumococcal Polysaccharide, PPSV23 (PNEUMOVAX) Unknown Completed [facility] Pneumococcal 20 Conjugate, PCV20 (Prevnar 20) Unknown Completed [facility] Zoster Vaccine Recombinant Unknown Completed [facility] Influenza Virus Vaccine,quad Im,preserve Free 65+ (FLUAD) Unknown Completed [facility] Pneumococcal Polysaccharide, PPSV23 (PNEUMOVAX) Unknown Completed [facility] SARS-COV-2 COVID-19 PFIZER VACCINE Unknown Completed [facility] SARS-COV-2 COVID-19 PFIZER VACCINE Unknown Completed [facility] Pneumococcal 20 Conjugate, PCV20 (Prevnar 20) Unknown Completed [facility] Zoster Vaccine Recombinant Unknown Completed [facility] Influenza Virus Vaccine,quad Im,preserve Free 65+ (FLUAD) Unknown Completed [facility] Pneumococcal Polysaccharide, PPSV23 (PNEUMOVAX) Unknown Completed [facility] Pneumococcal 20 Conjugate, PCV20 (Prevnar 20) Unknown Completed [facility] Zoster Vaccine Recombinant Unknown Completed [facility] Influenza Virus Vaccine,quad Im,preserve Free 65+ (FLUAD) Unknown Completed [facility] Pneumococcal Polysaccharide, PPSV23 (PNEUMOVAX) Unknown Completed [facility] SARS-COV-2 COVID-19 PFIZER VACCINE Unknown Completed [facility] SARS-COV-2 COVID-19 PFIZER VACCINE Unknown Completed [facility] Pneumococcal 20 Conjugate, PCV20 (Prevnar 20) Unknown Completed [facility] Zoster Vaccine Recombinant Unknown Completed [facility] Influenza Virus Vaccine,quad Im,preserve Free 65+ (FLUAD) Unknown Completed [facility] Pneumococcal Polysaccharide, PPSV23 (PNEUMOVAX) Unknown Completed [facility] SARS-COV-2 COVID-19 PFIZER VACCINE Unknown Completed [facility] Pneumococcal 20 Conjugate, PCV20 (Prevnar 20) Unknown Completed [facility] Zoster Vaccine Recombinant Unknown Completed [facility] Influenza Virus Vaccine,quad Im,preserve Free 65+ (FLUAD) Unknown Completed [facility] Pneumococcal Polysaccharide, PPSV23 (PNEUMOVAX) Unknown Completed [facility] SARS-COV-2 COVID-19 PFIZER VACCINE Unknown Completed [facility] Pneumococcal 20 Conjugate, PCV20 (Prevnar 20) Unknown Completed [facility] Zoster Vaccine Recombinant Unknown Completed [facility] Influenza Virus Vaccine,quad Im,preserve Free 65+ (FLUAD) Unknown Completed [facility] Pneumococcal Polysaccharide, PPSV23 (PNEUMOVAX) Unknown Completed [facility] SARS-COV-2 COVID-19 PFIZER VACCINE Unknown Completed [facility] Pneumococcal 20 Conjugate, PCV20 (Prevnar 20) Unknown Completed [facility] Zoster Vaccine Recombinant Unknown Completed [facility] Influenza Virus Vaccine,quad Im,preserve Free 65+ (FLUAD) Unknown Completed [facility] Pneumococcal Polysaccharide, PPSV23 (PNEUMOVAX) Unknown Completed [facility] Pneumococcal 20 Conjugate, PCV20 (Prevnar 20) Unknown Completed [facility] Zoster Vaccine Recombinant Unknown Completed [facility] Influenza Virus Vaccine,quad Im,preserve Free 65+ (FLUAD) Unknown Completed [facility] Pneumococcal Polysaccharide, PPSV23 (PNEUMOVAX) Unknown Completed [facility] SARS-COV-2 COVID-19 PFIZER VACCINE Unknown Completed [facility] SARS-COV-2 COVID-19 PFIZER VACCINE Unknown Completed [facility] Pneumococcal 20 Conjugate, PCV20 (Prevnar 20) Unknown Completed [facility] Zoster Vaccine Recombinant Unknown Completed [facility] Influenza Virus Vaccine,quad Im,preserve Free 65+ (FLUAD) Unknown Completed [facility] Pneumococcal Polysaccharide, PPSV23 (PNEUMOVAX) Unknown Completed [facility] SARS-COV-2 COVID-19 PFIZER VACCINE Unknown Completed [facility] Pneumococcal 20 Conjugate, PCV20 (Prevnar 20) Unknown Completed [facility] Zoster Vaccine Recombinant Unknown Completed [facility] Influenza Virus Vaccine,quad Im,preserve Free 65+ (FLUAD) Unknown Completed [facility] Pneumococcal Polysaccharide, PPSV23 (PNEUMOVAX) Unknown Completed [facility] SARS-COV-2 COVID-19 PFIZER VACCINE Unknown Completed [facility] Pneumococcal 20 Conjugate, PCV20 (Prevnar 20) Unknown Completed [facility] Zoster Vaccine Recombinant Unknown Completed [facility] Influenza Virus Vaccine,quad Im,preserve Free 65+ (FLUAD) Unknown Completed [facility] Pneumococcal Polysaccharide, PPSV23 (PNEUMOVAX) Unknown Completed [facility] SARS-COV-2 COVID-19 PFIZER VACCINE Unknown Completed [facility] Pneumococcal 20 Conjugate, PCV20 (Prevnar 20) Unknown Completed [facility] Zoster Vaccine Recombinant Unknown Completed [facility] Influenza Virus Vaccine,quad Im,preserve Free 65+ (FLUAD) Unknown Completed [facility] Pneumococcal Polysaccharide, PPSV23 (PNEUMOVAX) Unknown Completed [facility] SARS-COV-2 COVID-19 PFIZER VACCINE Unknown Completed [facility] Pneumococcal 20 Conjugate, PCV20 (Prevnar 20) Unknown Completed [facility] Zoster Vaccine Recombinant Unknown Completed [facility] Influenza Virus Vaccine,quad Im,preserve Free 65+ (FLUAD) Unknown Completed [facility] Pneumococcal Polysaccharide, PPSV23 (PNEUMOVAX) Unknown Completed [facility] SARS-COV-2 COVID-19 PFIZER VACCINE Unknown Completed [facility] Pneumococcal 20 Conjugate, PCV20 (Prevnar 20) Unknown Completed [facility] Zoster Vaccine Recombinant Unknown Completed [facility] Influenza Virus Vaccine,quad Im,preserve Free 65+ (FLUAD) Unknown Completed [facility] Pneumococcal Polysaccharide, PPSV23 (PNEUMOVAX) Unknown Completed [facility] SARS-COV-2 COVID-19 PFIZER VACCINE Unknown Completed [facility] Pneumococcal 20 Conjugate, PCV20 (Prevnar 20) Unknown Completed [facility] Zoster Vaccine Recombinant Unknown Completed [facility] Influenza Virus Vaccine,quad Im,preserve Free 65+ (FLUAD) Unknown Completed [facility] Pneumococcal Polysaccharide, PPSV23 (PNEUMOVAX) Unknown Completed [facility] SARS-COV-2 COVID-19 PFIZER VACCINE Unknown Completed [facility] Pneumococcal 20 Conjugate, PCV20 (Prevnar 20) Unknown Completed [facility] Zoster Vaccine Recombinant Unknown Completed [facility] Influenza Virus Vaccine,quad Im,preserve Free 65+ (FLUAD) Unknown Completed [facility] Pneumococcal Polysaccharide, PPSV23 (PNEUMOVAX) Unknown Completed [facility] SARS-COV-2 COVID-19 PFIZER VACCINE Unknown Completed [facility] Pneumococcal 20 Conjugate, PCV20 (Prevnar 20) Unknown Completed [facility] Zoster Vaccine Recombinant Unknown Completed [facility] Influenza Virus Vaccine,quad Im,preserve Free 65+ (FLUAD) Unknown Completed [facility] Pneumococcal Polysaccharide, PPSV23 (PNEUMOVAX) Unknown Completed [facility] SARS-COV-2 COVID-19 PFIZER VACCINE Unknown Completed [facility] Pneumococcal 20 Conjugate, PCV20 (Prevnar 20) Unknown Completed [facility] Zoster Vaccine Recombinant Unknown Completed [facility] Influenza Virus Vaccine,quad Im,preserve Free 65+ (FLUAD) Unknown Completed [facility] Pneumococcal Polysaccharide, PPSV23 (PNEUMOVAX) Unknown Completed [facility] SARS-COV-2 COVID-19 PFIZER VACCINE Unknown Completed [facility] Pneumococcal 20 Conjugate, PCV20 (Prevnar 20) Unknown Completed [facility] Zoster Vaccine Recombinant Unknown Completed [facility] Influenza Virus Vaccine,quad Im,preserve Free 65+ (FLUAD) Unknown Completed [facility] Pneumococcal Polysaccharide, PPSV23 (PNEUMOVAX) Unknown Completed [facility] SARS-COV-2 COVID-19 PFIZER VACCINE Unknown Completed [facility] Pneumococcal 20 Conjugate, PCV20 (Prevnar 20) Unknown Completed [facility] Zoster Vaccine Recombinant Unknown Completed [facility] Influenza Virus Vaccine,quad Im,preserve Free 65+ (FLUAD) Unknown Completed [facility] Pneumococcal Polysaccharide, PPSV23 (PNEUMOVAX) Unknown Completed [facility] SARS-COV-2 COVID-19 PFIZER VACCINE Unknown Completed [facility] Pneumococcal 20 Conjugate, PCV20 (Prevnar 20) Unknown Completed [facility] Zoster Vaccine Recombinant Unknown Completed [facility] Influenza Virus Vaccine,quad Im,preserve Free 65+ (FLUAD) Unknown Completed [facility] Pneumococcal Polysaccharide, PPSV23 (PNEUMOVAX) Unknown Completed [facility] SARS-COV-2 COVID-19 PFIZER VACCINE Unknown Completed [facility] Pneumococcal 20 Conjugate, PCV20 (Prevnar 20) Unknown Completed [facility] Zoster Vaccine Recombinant Unknown Completed [facility] Influenza Virus Vaccine,quad Im,preserve Free 65+ (FLUAD) Unknown Completed [facility] Pneumococcal Polysaccharide, PPSV23 (PNEUMOVAX) Unknown Completed [facility] SARS-COV-2 COVID-19 PFIZER VACCINE Unknown Completed [facility] Pneumococcal 20 Conjugate, PCV20 (Prevnar 20) Unknown Completed [facility] Zoster Vaccine Recombinant Unknown Completed [facility] Influenza Virus Vaccine,quad Im,preserve Free 65+ (FLUAD) Unknown Completed [facility] Pneumococcal Polysaccharide, PPSV23 (PNEUMOVAX) Unknown Completed [facility] SARS-COV-2 COVID-19 PFIZER VACCINE Unknown Completed [facility] Pneumococcal 20 Conjugate, PCV20 (Prevnar 20) Unknown Completed [facility] Zoster Vaccine Recombinant Unknown Completed [facility] Influenza Virus Vaccine,quad Im,preserve Free 65+ (FLUAD) Unknown Completed [facility] Pneumococcal Polysaccharide, PPSV23 (PNEUMOVAX) Unknown Completed [facility] SARS-COV-2 COVID-19 PFIZER VACCINE Unknown Completed [facility] Pneumococcal 20 Conjugate, PCV20 (Prevnar 20) Unknown Completed [facility] Zoster Vaccine Recombinant Unknown Completed [facility] Influenza Virus Vaccine,quad Im,preserve Free 65+ (FLUAD) Unknown Completed [facility] Pneumococcal Polysaccharide, PPSV23 (PNEUMOVAX) Unknown Completed [facility] Pneumococcal 20 Conjugate, PCV20 (Prevnar 20) Unknown Completed [facility] Zoster Vaccine Recombinant Unknown Completed [facility] Influenza Virus Vaccine,quad Im,preserve Free 65+ (FLUAD) Unknown Completed [facility] Pneumococcal Polysaccharide, PPSV23 (PNEUMOVAX) Unknown Completed [facility] SARS-COV-2 COVID-19 PFIZER VACCINE Unknown Completed [facility] Pneumococcal 20 Conjugate, PCV20 (Prevnar 20) Unknown Completed [facility] Zoster Vaccine Recombinant Unknown Completed [facility] Influenza Virus Vaccine,quad Im,preserve Free 65+ (FLUAD) Unknown Completed [facility] Pneumococcal Polysaccharide, PPSV23 (PNEUMOVAX) Unknown Completed [facility] SARS-COV-2 COVID-19 PFIZER VACCINE Unknown Completed [facility] Pneumococcal 20 Conjugate, PCV20 (Prevnar 20) Unknown Completed [facility] Zoster Vaccine Recombinant Unknown Completed [facility] Influenza Virus Vaccine,quad Im,preserve Free 65+ (FLUAD) Unknown Completed [facility] Pneumococcal Polysaccharide, PPSV23 (PNEUMOVAX) Unknown Completed [facility] SARS-COV-2 COVID-19 PFIZER VACCINE Unknown Completed [facility] Pneumococcal 20 Conjugate, PCV20 (Prevnar 20) Unknown Completed [facility] Zoster Vaccine Recombinant Unknown Completed [facility] Influenza Virus Vaccine,quad Im,preserve Free 65+ (FLUAD) Unknown Completed [facility] Pneumococcal Polysaccharide, PPSV23 (PNEUMOVAX) Unknown Completed [facility] SARS-COV-2 COVID-19 PFIZER VACCINE Unknown Completed [facility] SARS-COV-2 COVID-19 PFIZER VACCINE Unknown Completed [facility] Pneumococcal 20 Conjugate, PCV20 (Prevnar 20) Unknown Completed [facility] Zoster Vaccine Recombinant Unknown Completed [facility] Influenza Virus Vaccine,quad Im,preserve Free 65+ (FLUAD) Unknown Completed [facility] Pneumococcal Polysaccharide, PPSV23 (PNEUMOVAX) Unknown Completed [facility] SARS-COV-2 COVID-19 PFIZER VACCINE Unknown Completed [facility] Pneumococcal 20 Conjugate, PCV20 (Prevnar 20) Unknown Completed [facility] Zoster Vaccine Recombinant Unknown Completed [facility] Influenza Virus Vaccine,quad Im,preserve Free 65+ (FLUAD) Unknown Completed [facility] Pneumococcal Polysaccharide, PPSV23 (PNEUMOVAX) Unknown Completed [facility] SARS-COV-2 COVID-19 PFIZER VACCINE Unknown Completed [facility] Pneumococcal 20 Conjugate, PCV20 (Prevnar 20) Unknown Completed [facility] Zoster Vaccine Recombinant Unknown Completed [facility] Influenza Virus Vaccine,quad Im,preserve Free 65+ (FLUAD) Unknown Completed [facility] Pneumococcal Polysaccharide, PPSV23 (PNEUMOVAX) Unknown Completed [facility] SARS-COV-2 COVID-19 PFIZER VACCINE Unknown Completed [facility] Pneumococcal 20 Conjugate, PCV20 (Prevnar 20) Unknown Completed [facility] Zoster Vaccine Recombinant Unknown Completed [facility] Influenza Virus Vaccine,quad Im,preserve Free 65+ (FLUAD) Unknown Completed [facility] Pneumococcal Polysaccharide, PPSV23 (PNEUMOVAX) Unknown Completed [facility] SARS-COV-2 COVID-19 PFIZER VACCINE Unknown Completed [facility] Pneumococcal 20 Conjugate, PCV20 (Prevnar 20) Unknown Completed [facility] Zoster Vaccine Recombinant Unknown Completed [facility] Influenza Virus Vaccine,quad Im,preserve Free 65+ (FLUAD) Unknown Completed [facility] Pneumococcal Polysaccharide, PPSV23 (PNEUMOVAX) Unknown Completed [facility] SARS-COV-2 COVID-19 PFIZER VACCINE Unknown Completed [facility] Pneumococcal 20 Conjugate, PCV20 (Prevnar 20) Unknown Completed [facility] Zoster Vaccine Recombinant Unknown Completed [facility] Influenza Virus Vaccine,quad Im,preserve Free 65+ (FLUAD) Unknown Completed [facility] Pneumococcal Polysaccharide, PPSV23 (PNEUMOVAX) Unknown Completed [facility] SARS-COV-2 COVID-19 PFIZER VACCINE Unknown Completed [facility] Pneumococcal 20 Conjugate, PCV20 (Prevnar 20) Unknown Completed [facility] Zoster Vaccine Recombinant Unknown Completed [facility] Influenza Virus Vaccine,quad Im,preserve Free 65+ (FLUAD) Unknown Completed [facility] Pneumococcal Polysaccharide, PPSV23 (PNEUMOVAX) Unknown Completed [facility] Pneumococcal 20 Conjugate, PCV20 (Prevnar 20) Unknown Completed [facility] Zoster Vaccine Recombinant Unknown Completed [facility] Influenza Virus Vaccine,quad Im,preserve Free 65+ (FLUAD) Unknown Completed [facility] Pneumococcal Polysaccharide, PPSV23 (PNEUMOVAX) Unknown Completed [facility] SARS-COV-2 COVID-19 PFIZER VACCINE Unknown Completed [facility] SARS-COV-2 COVID-19 PFIZER VACCINE Unknown Completed [facility] Pneumococcal 20 Conjugate, PCV20 (Prevnar 20) Unknown Completed [facility] Zoster Vaccine Recombinant Unknown Completed [facility] Influenza Virus Vaccine,quad Im,preserve Free 65+ (FLUAD) Unknown Completed [facility] Pneumococcal Polysaccharide, PPSV23 (PNEUMOVAX) Unknown Completed [facility] SARS-COV-2 COVID-19 PFIZER VACCINE Unknown Completed [facility] Pneumococcal 20 Conjugate, PCV20 (Prevnar 20) Unknown Completed [facility] Zoster Vaccine Recombinant Unknown Completed [facility] Influenza Virus Vaccine,quad Im,preserve Free 65+ (FLUAD) Unknown Completed [facility] Pneumococcal Polysaccharide, PPSV23 (PNEUMOVAX) Unknown Completed [facility] SARS-COV-2 COVID-19 PFIZER VACCINE Unknown Completed [facility] Pneumococcal 20 Conjugate, PCV20 (Prevnar 20) Unknown Completed [facility] Zoster Vaccine Recombinant Unknown Completed [facility] Influenza Virus Vaccine,quad Im,preserve Free 65+ (FLUAD) Unknown Completed [facility] Pneumococcal Polysaccharide, PPSV23 (PNEUMOVAX) Unknown Completed [facility] SARS-COV-2 COVID-19 PFIZER VACCINE Unknown Completed [facility] Pneumococcal 20 Conjugate, PCV20 (Prevnar 20) Unknown Completed [facility] Zoster Vaccine Recombinant Unknown Completed [facility] Influenza Virus Vaccine,quad Im,preserve Free 65+ (FLUAD) Unknown Completed [facility] Pneumococcal Polysaccharide, PPSV23 (PNEUMOVAX) Unknown Completed [facility] SARS-COV-2 COVID-19 PFIZER VACCINE Unknown Completed [facility] Pneumococcal 20 Conjugate, PCV20 (Prevnar 20) Unknown Completed [facility] Zoster Vaccine Recombinant Unknown Completed [facility] Influenza Virus Vaccine,quad Im,preserve Free 65+ (FLUAD) Unknown Completed [facility] Pneumococcal Polysaccharide, PPSV23 (PNEUMOVAX) Unknown Completed [facility] SARS-COV-2 COVID-19 PFIZER VACCINE Unknown Completed [facility] Pneumococcal 20 Conjugate, PCV20 (Prevnar 20) Unknown Completed [facility] Zoster Vaccine Recombinant Unknown Completed [facility] Influenza Virus Vaccine,quad Im,preserve Free 65+ (FLUAD) Unknown Completed [facility] Pneumococcal Polysaccharide, PPSV23 (PNEUMOVAX) Unknown Completed [facility] SARS-COV-2 COVID-19 PFIZER VACCINE Unknown Completed [facility] Pneumococcal 20 Conjugate, PCV20 (Prevnar 20) Unknown Completed [facility] Zoster Vaccine Recombinant Unknown Completed [facility] Influenza Virus Vaccine,quad Im,preserve Free 65+ (FLUAD) Unknown Completed [facility] Pneumococcal Polysaccharide, PPSV23 (PNEUMOVAX) Unknown Completed [facility] SARS-COV-2 COVID-19 PFIZER VACCINE Unknown Completed [facility] Pneumococcal 20 Conjugate, PCV20 (Prevnar 20) Unknown Completed [facility] Zoster Vaccine Recombinant Unknown Completed [facility] Influenza Virus Vaccine,quad Im,preserve Free 65+ (FLUAD) Unknown Completed [facility] Pneumococcal Polysaccharide, PPSV23 (PNEUMOVAX) Unknown Completed [facility] SARS-COV-2 COVID-19 PFIZER VACCINE Unknown Completed [facility] Pneumococcal 20 Conjugate, PCV20 (Prevnar 20) Unknown Completed [facility] Zoster Vaccine Recombinant Unknown Completed [facility] Influenza Virus Vaccine,quad Im,preserve Free 65+ (FLUAD) Unknown Completed [facility] Pneumococcal Polysaccharide, PPSV23 (PNEUMOVAX) Unknown Completed [facility] SARS-COV-2 COVID-19 PFIZER VACCINE Unknown Completed [facility] Pneumococcal 20 Conjugate, PCV20 (Prevnar 20) Unknown Completed [facility] Zoster Vaccine Recombinant Unknown Completed [facility] Influenza Virus Vaccine,quad Im,preserve Free 65+ (FLUAD) Unknown Completed [facility] Pneumococcal Polysaccharide, PPSV23 (PNEUMOVAX) Unknown Completed [facility] SARS-COV-2 COVID-19 PFIZER VACCINE Unknown Completed [facility] Pneumococcal 20 Conjugate, PCV20 (Prevnar 20) Unknown Completed [facility] Zoster Vaccine Recombinant Unknown Completed [facility] Influenza Virus Vaccine,quad Im,preserve Free 65+ (FLUAD) Unknown Completed [facility] Pneumococcal Polysaccharide, PPSV23 (PNEUMOVAX) Unknown Completed [facility] SARS-COV-2 COVID-19 PFIZER VACCINE Unknown Completed [facility] Pneumococcal 20 Conjugate, PCV20 (Prevnar 20) Unknown Completed [facility] Zoster Vaccine Recombinant Unknown Completed [facility] Influenza Virus Vaccine,quad Im,preserve Free 65+ (FLUAD) Unknown Completed [facility] Pneumococcal Polysaccharide, PPSV23 (PNEUMOVAX) Unknown Completed [facility] SARS-COV-2 COVID-19 PFIZER VACCINE Unknown Completed [facility] Pneumococcal 20 Conjugate, PCV20 (Prevnar 20) Unknown Completed [facility] Zoster Vaccine Recombinant Unknown Completed [facility] Influenza Virus Vaccine,quad Im,preserve Free 65+ (FLUAD) Unknown Completed [facility] Pneumococcal Polysaccharide, PPSV23 (PNEUMOVAX) Unknown Completed [facility] SARS-COV-2 COVID-19 PFIZER VACCINE Unknown Completed [facility] Pneumococcal 20 Conjugate, PCV20 (Prevnar 20) Unknown Completed [facility] Zoster Vaccine Recombinant Unknown Completed [facility] Influenza Virus Vaccine,quad Im,preserve Free 65+ (FLUAD) Unknown Completed [facility] Pneumococcal Polysaccharide, PPSV23 (PNEUMOVAX) Unknown Completed [facility] SARS-COV-2 COVID-19 PFIZER VACCINE Unknown Completed [facility] Pneumococcal 20 Conjugate, PCV20 (Prevnar 20) Unknown Completed [facility] Zoster Vaccine Recombinant Unknown Completed [facility] Influenza Virus Vaccine,quad Im,preserve Free 65+ (FLUAD) Unknown Completed [facility] Pneumococcal Polysaccharide, PPSV23 (PNEUMOVAX) Unknown Completed [facility] SARS-COV-2 COVID-19 PFIZER VACCINE Unknown Completed [facility] Pneumococcal 20 Conjugate, PCV20 (Prevnar 20) Unknown Completed [facility] Zoster Vaccine Recombinant Unknown Completed [facility] Influenza Virus Vaccine,quad Im,preserve Free 65+ (FLUAD) Unknown Completed [facility] Pneumococcal Polysaccharide, PPSV23 (PNEUMOVAX) Unknown Completed [facility] SARS-COV-2 COVID-19 PFIZER VACCINE Unknown Completed [facility] Pneumococcal 20 Conjugate, PCV20 (Prevnar 20) Unknown Completed [facility] Zoster Vaccine Recombinant Unknown Completed [facility] Influenza Virus Vaccine,quad Im,preserve Free 65+ (FLUAD) Unknown Completed [facility] Pneumococcal Polysaccharide, PPSV23 (PNEUMOVAX) Unknown Completed [facility] SARS-COV-2 COVID-19 PFIZER VACCINE Unknown Completed [facility] Pneumococcal 20 Conjugate, PCV20 (Prevnar 20) Unknown Completed [facility] Zoster Vaccine Recombinant Unknown Completed [facility] Influenza Virus Vaccine,quad Im,preserve Free 65+ (FLUAD) Unknown Completed [facility] Pneumococcal Polysaccharide, PPSV23 (PNEUMOVAX) Unknown Completed [facility] SARS-COV-2 COVID-19 PFIZER VACCINE Unknown Completed [facility] Pneumococcal 20 Conjugate, PCV20 (Prevnar 20) Unknown Completed [facility] Zoster Vaccine Recombinant Unknown Completed [facility] Influenza Virus Vaccine,quad Im,preserve Free 65+ (FLUAD) Unknown Completed [facility] Pneumococcal Polysaccharide, PPSV23 (PNEUMOVAX) Unknown Completed [facility] SARS-COV-2 COVID-19 PFIZER VACCINE Unknown Completed [facility] Pneumococcal 20 Conjugate, PCV20 (Prevnar 20) Unknown Completed [facility] Zoster Vaccine Recombinant Unknown Completed [facility] Influenza Virus Vaccine,quad Im,preserve Free 65+ (FLUAD) Unknown Completed [facility] Pneumococcal Polysaccharide, PPSV23 (PNEUMOVAX) Unknown Completed [facility] SARS-COV-2 COVID-19 PFIZER VACCINE Unknown Completed [facility] Pneumococcal 20 Conjugate, PCV20 (Prevnar 20) Unknown Completed [facility] Zoster Vaccine Recombinant Unknown Completed [facility] Influenza Virus Vaccine,quad Im,preserve Free 65+ (FLUAD) Unknown Completed [facility] Pneumococcal Polysaccharide, PPSV23 (PNEUMOVAX) Unknown Completed [facility] SARS-COV-2 COVID-19 PFIZER VACCINE Unknown Completed [facility] Pneumococcal 20 Conjugate, PCV20 (Prevnar 20) Unknown Completed [facility] Zoster Vaccine Recombinant Unknown Completed [facility] Influenza Virus Vaccine,quad Im,preserve Free 65+ (FLUAD) Unknown Completed [facility] Pneumococcal Polysaccharide, PPSV23 (PNEUMOVAX) Unknown Completed [facility] SARS-COV-2 COVID-19 PFIZER VACCINE Unknown Completed [facility] Pneumococcal 20 Conjugate, PCV20 (Prevnar 20) Unknown Completed [facility] Zoster Vaccine Recombinant Unknown Completed [facility] Influenza Virus Vaccine,quad Im,preserve Free 65+ (FLUAD) Unknown Completed [facility] Pneumococcal Polysaccharide, PPSV23 (PNEUMOVAX) Unknown Completed [facility] SARS-COV-2 COVID-19 PFIZER VACCINE Unknown Completed [facility] Pneumococcal 20 Conjugate, PCV20 (Prevnar 20) Unknown Completed [facility] Zoster Vaccine Recombinant Unknown Completed [facility] Influenza Virus Vaccine,quad Im,preserve Free 65+ (FLUAD) Unknown Completed [facility] Pneumococcal Polysaccharide, PPSV23 (PNEUMOVAX) Unknown Completed [facility] SARS-COV-2 COVID-19 PFIZER VACCINE Unknown Completed [facility] Pneumococcal 20 Conjugate, PCV20 (Prevnar 20) Unknown Completed [facility] Zoster Vaccine Recombinant Unknown Completed [facility] Influenza Virus Vaccine,quad Im,preserve Free 65+ (FLUAD) Unknown Completed [facility] Pneumococcal Polysaccharide, PPSV23 (PNEUMOVAX) Unknown Completed [facility] SARS-COV-2 COVID-19 PFIZER VACCINE Unknown Completed [facility] Pneumococcal 20 Conjugate, PCV20 (Prevnar 20) Unknown Completed [facility] Zoster Vaccine Recombinant Unknown Completed [facility] Influenza Virus Vaccine,quad Im,preserve Free 65+ (FLUAD) Unknown Completed [facility] Pneumococcal Polysaccharide, PPSV23 (PNEUMOVAX) Unknown Completed [facility] Vital Signs Vital Name Observation Time Observation Value Comments S ource Systolic blood pressure 2025-08-02 13:38:00 134 mm[Hg] [facility] Diastolic blood pressure 2025-08-02 13:38:00 58 mm[Hg] [facility] Heart rate 2025-08-02 13:38:00 56 /min [facility] Body temperature 2025-08-02 13:38:00 36.5 Mayda [facility] Body height 2025-08-02 13:38:00 195.6 cm [facility] Body weight 2025-08-02 13:38:00 93.849 kg [facility] BMI 2025-08-02 13:38:00 24.53 kg/m2 [facility] Oxygen saturation in Arterial blood by Pulse oximetry 2025-08-02 13:38:00 96 /min [facility] Systolic blood pressure 2025-05-12 20:09:00 143 mm[Hg] [facility] Diastolic blood pressure 2025-05-12 20:09:00 88 mm[Hg] [facility] Heart rate 2025-05-12 20:08:00 72 /min [facility] Body temperature 2025-05-12 20:08:00 37.11 Mayda [facility] Respiratory rate 2025-05-12 20:08:00 24 /min [facility] Body height 2025-05-12 20:08:00 190.5 cm [facility] Body weight 2025-05-12 20:08:00 88.27 kg [facility] BMI 2025-05-12 20:08:00 24.32 kg/m2 [facility] Oxygen saturation in Arterial blood by Pulse oximetry 2025-05-12 20:08:00 98 /min [facility] Systolic blood pressure 2025-05-09 15:01:00 124 mm[Hg] [facility] Diastolic blood pressure 2025-05-09 15:01:00 96 mm[Hg] [facility] Heart rate 2025-05-09 15:01:00 64 /min [facility] Body height 2025-05-09 15:01:00 195.6 cm [facility] Body weight 2025-05-09 15:01:00 90.266 kg [facility] BMI 2025-05-09 15:01:00 23.60 kg/m2 [facility] Oxygen saturation in Arterial blood by Pulse oximetry 2025-05-09 15:01:00 99 /min [facility] Systolic blood pressure 2025-04-22 20:54:00 146 mm[Hg] [facility] Diastolic blood pressure 2025-04-22 20:54:00 85 mm[Hg] [facility] Heart rate 2025-04-22 20:54:00 56 /min [facility] Oxygen saturation in Arterial blood by Pulse oximetry 2025-04-22 20:54:00 97 /min [facility] Respiratory rate 2025-04-22 20:50:00 18 /min [facility] Body height 2025-04-22 20:50:00 195.6 cm [facility] Body weight 2025-04-22 20:50:00 92.443 kg [facility] BMI 2025-04-22 20:50:00 24.17 kg/m2 [facility] Systolic blood pressure 2025-04-19 13:34:00 155 mm[Hg] [facility] Diastolic blood pressure 2025-04-19 13:34:00 77 mm[Hg] [facility] Heart rate 2025-04-19 13:33:00 55 /min [facility] Body temperature 2025-04-19 13:33:00 36.78 Mayda [facility] Body height 2025-04-19 13:33:00 198.1 cm [facility] Body weight 2025-04-19 13:33:00 91.173 kg [facility] BMI 2025-04-19 13:33:00 23.23 kg/m2 [facility] Oxygen saturation in Arterial blood by Pulse oximetry 2025-04-19 13:33:00 99 /min [facility] Systolic blood pressure 2025-03-08 15:10:00 130 mm[Hg] [facility] Diastolic blood pressure 2025-03-08 15:10:00 80 mm[Hg] [facility] Heart rate 2025-03-08 15:10:00 75 /min [facility] Body height 2025-03-08 15:10:00 195.6 cm [facility] Body weight 2025-03-08 15:10:00 97.977 kg [facility] BMI 2025-03-08 15:10:00 25.61 kg/m2 [facility] Oxygen saturation in Arterial blood by Pulse oximetry 2025-03-08 15:10:00 98 /min [facility] Body height 2024-12-07 19:25:00 195.6 cm [facility] Body weight 2024-12-07 19:25:00 98.249 kg [facility] BMI 2024-12-07 19:25:00 25.69 kg/m2 [facility] Systolic blood pressure 2024-11-15 19:57:00 159 mm[Hg] [facility] Diastolic blood pressure 2024-11-15 19:57:00 72 mm[Hg] [facility] Heart rate 2024-11-15 19:56:00 61 /min [facility] Body height 2024-11-15 19:56:00 195.6 cm [facility] Body weight 2024-11-15 19:56:00 98.249 kg [facility] BMI 2024-11-15 19:56:00 25.69 kg/m2 [facility] Oxygen saturation in Arterial blood by Pulse oximetry 2024-11-15 19:56:00 99 /min [facility] height 2024-11-01 16:00:00 75 [in_i] Commo n [facility] weight 2024-11-01 16:00:00 214 [lb_av] Comm on [facility] temperature 2024-11-01 16:00:00 98.6 [degF] Com mon [facility] bmi 2024-11-01 16:00:00 26.75 kg/m2 Comm on [facility] oximetry 2024-11-01 16:00:00 99 % Commo n [facility] respiratory rate 2024-11-01 16:00:00 18 /min [facility] blood pressure systolic 2024-11-01 16:00:00 128 mm[Hg] [facility] blood pressure diastolic 2024-11-01 16:00:00 58 mm[Hg] [facility] Systolic blood pressure 2024 20:44:00 152 mm[Hg] [facility] Diastolic blood pressure 2024 20:44:00 80 mm[Hg] [facility] Heart rate 2024 20:44:00 65 /min [facility] 2024 20:44:00 18 /min [facility] Body height 2024 20:44:00 195.6 cm [facility] Body weight 2024 20:44:00 97.07 kg [facility] BMI 2024 20:44:00 25.38 kg/m2 [facility] Oxygen saturation in Arterial blood by Pulse oximetry 2024 20:44:00 98 /min [facility] Systolic blood pressure 2024-09-24 18:55:00 150 mm[Hg] [facility] Diastolic blood pressure 2024-09-24 18:55:00 69 mm[Hg] [facility] Heart rate 2024-09-24 18:54:00 55 /min [facility] Respiratory rate 2024-09-24 18:54:00 18 /min [facility] Body height 2024-09-24 18:54:00 195.6 cm [facility] Body weight 2024-09-24 18:54:00 94.666 kg [facility] BMI 2024-09-24 18:54:00 24.75 kg/m2 [facility] Oxygen saturation in Arterial blood by Pulse oximetry 2024-09-24 18:54:00 100 /min [facility] height 2024-08-25 14:30:00 75 [in_i] Commo n [facility] weight 2024-08-25 14:30:00 210 [lb_av] Comm on [facility] temperature 2024-08-25 14:30:00 97.6 [degF] Com mon [facility] bmi 2024-08-25 14:30:00 26.25 kg/m2 Comm on [facility] oximetry 2024-08-25 14:30:00 99 % Commo n [facility] respiratory rate 2024-08-25 14:30:00 18 /min [facility] blood pressure systolic 2024-08-25 14:30:00 178 mm[Hg] [facility] blood pressure diastolic 2024-08-25 14:30:00 81 mm[Hg] [facility] Systolic blood pressure 2024-06-24 20:49:00 128 mm[Hg] [facility] Diastolic blood pressure 2024-06-24 20:49:00 82 mm[Hg] [facility] Heart rate 2024-06-24 20:49:00 74 /min [facility] Body height 2024-06-24 20:49:00 195.6 cm [facility] Body weight 2024-06-24 20:49:00 90.311 kg [facility] BMI 2024-06-24 20:49:00 23.61 kg/m2 [facility] Oxygen saturation in Arterial blood by Pulse oximetry 2024-06-24 20:49:00 98 /min [facility] Systolic blood pressure 2024-04-28 15:56:00 145 mm[Hg] [facility] Diastolic blood pressure 2024-04-28 15:56:00 80 mm[Hg] [facility] Heart rate 2024-04-28 15:56:00 86 /min [facility] Body temperature 2024-04-28 15:56:00 36.28 Mayda [facility] Respiratory rate 2024-04-28 15:56:00 16 /min [facility] Oxygen saturation in Arterial blood by Pulse oximetry 2024-04-28 15:56:00 99 /min [facility] Body height 2024-04-25 12:30:55 193 cm [facility] Body weight 2024-04-25 11:22:00 87.091 kg [facility] BMI 2024-04-25 11:22:00 23.37 kg/m2 [facility] Systolic blood pressure 2024-04-13 19:55:00 156 mm[Hg] [facility] Diastolic blood pressure 2024-04-13 19:55:00 81 mm[Hg] [facility] Heart rate 2024-04-13 19:47:00 73 /min [facility] height 2024-04-13 19:47:00 195.6 cm [facility] Body weight 2024-04-13 19:47:00 87.091 kg [facility] BMI 2024-04-13 19:47:00 22.77 kg/m2 [facility] Oxygen saturation in Arterial blood by Pulse oximetry 2024-04-13 19:47:00 97 /min [facility] Systolic blood pressure 2024-03-24 21:08:00 163 mm[Hg] [facility] Diastolic blood pressure 2024-03-24 21:08:00 74 mm[Hg] [facility] Heart rate 2024-03-24 20:55:00 80 /min [facility] 2024-03-24 20:55:00 18 /min [facility] Body height 2024-03-24 20:55:00 195.6 cm [facility] Body weight 2024-03-24 20:55:00 89.449 kg [facility] BMI 2024-03-24 20:55:00 23.38 kg/m2 [facility] Oxygen saturation in Arterial blood by Pulse oximetry 2024-03-24 20:55:00 100 /min [facility] Body weight 2024-03-12 14:56:00 88.905 kg [facility] BMI 2024-03-12 14:56:00 23.24 kg/m2 [facility] Systolic blood pressure 2024-02-10 21:14:00 166 mm[Hg] [facility] Diastolic blood pressure 2024-02-10 21:14:00 84 mm[Hg] [facility] Heart rate 2024-02-10 21:13:00 57 /min [facility] 2024-02-10 21:13:00 18 /min [facility] Body height 2024-02-10 21:13:00 195.6 cm [facility] Body weight 2024-02-10 21:13:00 89.313 kg [facility] BMI 2024-02-10 21:13:00 23.35 kg/m2 [facility] Oxygen saturation in Arterial blood by Pulse oximetry 2024-02-10 21:13:00 99 /min [facility] Body weight 2024-02-05 15:18:00 92.08 kg [facility] BMI 2024-02-05 15:18:00 24.07 kg/m2 [facility] Systolic blood pressure 2024-02-03 21:25:00 150 mm[Hg] [facility] Diastolic blood pressure 2024-02-03 21:25:00 84 mm[Hg] [facility] Heart rate 2024-02-03 21:24:00 69 /min [facility] Body temperature 2024-02-03 21:24:00 36.56 Mayda [facility] Body height 2024-02-03 21:24:00 195.6 cm [facility] Body weight 2024-02-03 21:24:00 92.08 kg [facility] BMI 2024-02-03 21:24:00 24.07 kg/m2 [facility] Body weight 2024-01-28 19:39:00 92.987 kg [facility] BMI 2024-01-28 19:39:00 25.62 kg/m2 [facility] Heart rate 2024-01-27 16:05:00 76 /min [facility] Respiratory rate 2024-01-27 16:05:00 15 /min [facility] Oxygen saturation in Arterial blood by Pulse oximetry 2024-01-27 16:05:00 100 /min [facility] Systolic blood pressure 2024-01-27 16:00:00 134 mm[Hg] [facility] Diastolic blood pressure 2024-01-27 16:00:00 83 mm[Hg] [facility] Body temperature 2024-01-27 15:42:00 36.11 Mayda [facility] Body height 2024-01-27 13:54:00 190.5 cm [facility] Body weight 2024-01-27 13:54:00 92.987 kg [facility] BMI 2024-01-27 13:54:00 25.62 kg/m2 [facility] Systolic blood pressure 2024-01-27 13:54:00 147 mm[Hg] [facility] Diastolic blood pressure 2024-01-27 13:54:00 90 mm[Hg] [facility] Heart rate 2024-01-27 13:54:00 79 /min [facility] Body temperature 2024-01-27 13:54:00 36.83 Mayda [facility] Respiratory rate 2024-01-27 13:54:00 16 /min [facility] Body height 2024-01-27 13:54:00 190.5 cm [facility] Body weight 2024-01-27 13:54:00 92.987 kg [facility] BMI 2024-01-27 13:54:00 25.62 kg/m2 [facility] Oxygen saturation in Arterial blood by Pulse oximetry 2024-01-27 13:54:00 100 /min [facility] Systolic blood pressure 2024-01-04 15:34:00 158 mm[Hg] [facility] Diastolic blood pressure 2024-01-04 15:34:00 90 mm[Hg] [facility] Heart rate 2024-01-04 15:34:00 68 /min [facility] Body temperature 2024-01-04 15:34:00 36.39 Mayda [facility] Respiratory rate 2024-01-04 15:34:00 15 /min [facility] Oxygen saturation in Arterial blood by Pulse oximetry 2024-01-04 15:34:00 100 /min [facility] Systolic blood pressure 2023-12-31 20:31:00 157 mm[Hg] [facility] Diastolic blood pressure 2023-12-31 20:31:00 99 mm[Hg] [facility] Heart rate 2023-12-31 20:31:00 81 /min [facility] Body weight 2023-12-31 20:31:00 93.441 kg [facility] BMI 2023-12-31 20:31:00 24.43 kg/m2 [facility] Systolic blood pressure 2023-12-26 20:23:00 136 mm[Hg] [facility] Diastolic blood pressure 2023-12-26 20:23:00 76 mm[Hg] [facility] Heart rate 2023-12-26 20:23:00 53 /min [facility] Body temperature 2023-12-26 20:23:00 36.5 Mayda [facility] Body height 2023-12-26 20:23:00 195.6 cm [facility] Body weight 2023-12-26 20:23:00 93.441 kg [facility] BMI 2023-12-26 20:23:00 24.43 kg/m2 [facility] Oxygen saturation in Arterial blood by Pulse oximetry 2023-12-26 20:23:00 99 /min [facility] Body temperature 2023-12-22 21:53:00 36.06 Mayda [facility] Body weight 2023-12-22 21:53:00 93.214 kg [facility] BMI 2023-12-22 21:53:00 24.37 kg/m2 [facility] Systolic blood pressure 2023-12-15 21:14:00 133 mm[Hg] [facility] Diastolic blood pressure 2023-12-15 21:14:00 85 mm[Hg] [facility] Heart rate 2023-12-15 20:46:00 71 /min [facility] Body temperature 2023-12-15 20:46:00 36.83 Mayda [facility] Respiratory rate 2023-12-15 20:46:00 18 /min [facility] Body height 2023-12-15 20:46:00 195.6 cm [facility] Body weight 2023-12-15 20:46:00 91.445 kg [facility] BMI 2023-12-15 20:46:00 23.91 kg/m2 [facility] Oxygen saturation in Arterial blood by Pulse oximetry 2023-12-15 20:46:00 99 /min [facility] Respiratory rate 2023-11-26 22:13:00 18 /min [facility] Body height 2023-11-26 22:13:00 195.6 cm [facility] Systolic blood pressure 2023-11-26 15:59:00 127 mm[Hg] [facility] Diastolic blood pressure 2023-11-26 15:59:00 72 mm[Hg] [facility] Heart rate 2023-11-26 15:59:00 76 /min [facility] Body temperature 2023-11-26 15:59:00 36.78 Mayda [facility] Body height 2023-11-26 15:59:00 195.6 cm [facility] Body weight 2023-11-26 15:59:00 94.076 kg [facility] 2023-11-26 15:59:00 24.59 kg/m2 [facility] Oxygen saturation in Arterial blood by Pulse oximetry 2023-11-26 15:59:00 100 /min [facility] Body weight 2023-10-30 19:12:00 95.709 kg [facility] 2023-10-30 19:12:00 24.38 kg/m2 [facility] Systolic blood pressure 2023-10-10 21:20:00 157 mm[Hg] [facility] Diastolic blood pressure 2023-10-10 21:20:00 92 mm[Hg] [facility] Body height 2023-10-10 21:14:00 198.1 cm [facility] Body weight 2023-10-10 21:14:00 95.936 kg [facility] BMI 2023-10-10 21:14:00 24.44 kg/m2 [facility] Body temperature 2023-10-01 21:28:00 36.94 Mayda [facility] Systolic blood pressure 2023-09-05 20:24:00 130 mm[Hg] [facility] Diastolic blood pressure 2023-09-05 20:24:00 64 mm[Hg] [facility] Heart rate 2023-09-05 20:24:00 103 /min [facility] Body temperature 2023-09-05 20:24:00 36.28 Mayda [facility] Oxygen saturation in Arterial blood by Pulse oximetry 2023-09-05 20:24:00 98 /min [facility] Body weight 2023-09-05 20:24:00 100.699 kg [facility] BMI 2023-09-05 20:24:00 25.65 kg/m2 [facility] Systolic blood pressure 2023-09-05 20:24:00 130 mm[Hg] [facility] Diastolic blood pressure 2023-09-05 20:24:00 64 mm[Hg] [facility] Heart rate 2023-09-05 20:24:00 103 /min [facility] Body temperature 2023-09-05 20:24:00 36.28 Mayda [facility] Body weight 2023-09-05 20:24:00 100.699 kg [facility] BMI 2023-09-05 20:24:00 25.65 kg/m2 [facility] Oxygen saturation in Arterial blood by Pulse oximetry 2023-09-05 20:24:00 98 /min [facility] Systolic blood pressure 2023-08-27 14:31:00 132 mm[Hg] [facility] Diastolic blood pressure 2023-08-27 14:31:00 81 mm[Hg] [facility] Heart rate 2023-08-27 14:31:00 92 /min [facility] Body temperature 2023-08-27 14:31:00 36.56 Mayda [facility] Respiratory rate 2023-08-27 14:31:00 18 /min [facility] Body weight 2023-08-27 14:31:00 100.699 kg [facility] BMI 2023-08-27 14:31:00 25.65 kg/m2 [facility] Oxygen saturation in Arterial blood by Pulse oximetry 2023-08-27 14:31:00 99 /min [facility] Systolic blood pressure 2023-08-27 13:12:00 132 mm[Hg] [facility] Diastolic blood pressure 2023-08-27 13:12:00 81 mm[Hg] [facility] Heart rate 2023-08-27 13:12:00 92 /min [facility] Body temperature 2023-08-27 13:12:00 35.39 Mayda [facility] Respiratory rate 2023-08-27 13:12:00 18 /min [facility] Body weight 2023-08-27 13:12:00 100.971 kg [facility] BMI 2023-08-27 13:12:00 25.72 kg/m2 [facility] Oxygen saturation in Arterial blood by Pulse oximetry 2023-08-27 13:12:00 99 /min [facility] Systolic blood pressure 2023-08-26 18:49:00 126 mm[Hg] [facility] Diastolic blood pressure 2023-08-26 18:49:00 83 mm[Hg] [facility] Heart rate 2023-08-26 18:49:00 97 /min [facility] Body temperature 2023-08-26 18:49:00 36.94 Mayda [facility] Respiratory rate 2023-08-26 18:49:00 18 /min [facility] Body height 2023-08-26 18:49:00 198.1 cm [facility] Body weight 2023-08-26 18:49:00 102.059 kg [facility] BMI 2023-08-26 18:49:00 26.00 kg/m2 [facility] Oxygen saturation in Arterial blood by Pulse oximetry 2023-08-26 18:49:00 98 /min [facility] Systolic blood pressure 2023-08-25 19:38:00 139 mm[Hg] [facility] Diastolic blood pressure 2023-08-25 19:38:00 89 mm[Hg] [facility] Heart rate 2023-08-25 19:38:00 101 /min [facility] Body temperature 2023-08-25 19:38:00 36.72 Mayda [facility] Respiratory rate 2023-08-25 19:38:00 18 /min [facility] Body height 2023-08-25 19:38:00 195.6 cm [facility] Body weight 2023-08-25 19:38:00 101.016 kg [facility] BMI 2023-08-25 19:38:00 26.41 kg/m2 [facility] Oxygen saturation in Arterial blood by Pulse oximetry 2023-08-25 19:38:00 100 /min [facility] Systolic blood pressure 2023-08-12 20:52:00 127 mm[Hg] [facility] Diastolic blood pressure 2023-08-12 20:52:00 65 mm[Hg] [facility] Heart rate 2023-08-12 20:50:00 68 /min [facility] Body temperature 2023-08-12 20:50:00 36.67 Mayda [facility] Respiratory rate 2023-08-12 20:50:00 18 /min [facility] Body height 2023-08-12 20:50:00 198.1 cm [facility] Body weight 2023-08-12 20:50:00 105.461 kg [facility] BMI 2023-08-12 20:50:00 26.87 kg/m2 [facility] Oxygen saturation in Arterial blood by Pulse oximetry 2023-08-12 20:50:00 100 /min [facility] Systolic blood pressure 2023-06-30 18:44:00 124 mm[Hg] [facility] Diastolic blood pressure 2023-06-30 18:44:00 86 mm[Hg] [facility] Heart rate 2023-06-30 18:40:00 77 /min [facility] Body temperature 2023-06-30 18:40:00 36.39 Mayda [facility] Respiratory rate 2023-06-30 18:40:00 20 /min [facility] Body height 2023-06-30 18:40:00 195.6 cm [facility] Body weight 2023-06-30 18:40:00 104.01 kg [facility] BMI 2023-06-30 18:40:00 27.19 kg/m2 [facility] Oxygen saturation in Arterial blood by Pulse oximetry 2023-06-30 18:40:00 97 /min [facility] Systolic blood pressure 2023-06-24 15:37:00 113 mm[Hg] [facility] Diastolic blood pressure 2023-06-24 15:37:00 69 mm[Hg] [facility] Heart rate 2023-06-24 15:37:00 89 /min [facility] Body height 2023-06-24 15:37:00 195.6 cm [facility] Body weight 2023-06-24 15:37:00 105.325 kg [facility] BMI 2023-06-24 15:37:00 27.53 kg/m2 [facility] in Arterial blood by Pulse oximetry 2023-06-24 15:37:00 94 /min [facility] Systolic blood pressure 2023-04-23 20:11:00 136 mm[Hg] [facility] Diastolic blood pressure 2023-04-23 20:11:00 82 mm[Hg] [facility] Heart rate 2023-04-23 20:11:00 87 /min [facility] Body height 2023-04-23 20:11:00 195.6 cm [facility] Body weight 2023-04-23 20:11:00 104.509 kg [facility] BMI 2023-04-23 20:11:00 27.32 kg/m2 [facility] Systolic blood pressure 2023-04-11 20:46:00 112 mm[Hg] [facility] Diastolic blood pressure 2023-04-11 20:46:00 74 mm[Hg] [facility] Heart rate 2023-04-11 20:46:00 103 /min [facility] Body temperature 2023-04-11 20:46:00 36.72 Mayda [facility] Body height 2023-04-11 20:46:00 195.6 cm [facility] Body weight 2023-04-11 20:46:00 104.055 kg [facility] BMI 2023-04-11 20:46:00 27.20 kg/m2 [facility] Oxygen saturation in Arterial blood by Pulse oximetry 2023-04-11 20:46:00 96 /min [facility] Systolic blood pressure 2023-03-18 20:17:00 139 mm[Hg] [facility] Diastolic blood pressure 2023-03-18 20:17:00 79 mm[Hg] [facility] Heart rate 2023-03-18 20:17:00 95 /min [facility] Respiratory rate 2023-03-18 20:17:00 18 /min [facility] Body height 2023-03-18 20:17:00 188 cm [facility] Body weight 2023-03-18 20:17:00 102.967 kg [facility] BMI 2023-03-18 20:17:00 29.15 kg/m2 [facility] Oxygen saturation in Arterial blood by Pulse oximetry 2023-03-18 20:17:00 97 /min [facility] Systolic blood pressure 2022-10-18 20:27:00 116 mm[Hg] [facility] Diastolic blood pressure 2022-10-18 20:27:00 74 mm[Hg] [facility] Heart rate 2022-10-18 20:27:00 90 /min [facility] Body temperature 2022-10-18 20:27:00 36.94 Mayda [facility] Respiratory rate 2022-10-18 20:27:00 18 /min [facility] Body height 2022-10-18 20:27:00 188 cm [facility] Body weight 2022-10-18 20:27:00 105.643 kg [facility] BMI 2022-10-18 20:27:00 29.90 kg/m2 [facility] Oxygen saturation in Arterial blood by Pulse oximetry 2022-10-18 20:27:00 97 /min [facility] Systolic blood pressure 2022-06-17 19:47:00 142 mm[Hg] [facility] Diastolic blood pressure 2022-06-17 19:47:00 93 mm[Hg] [facility] Heart rate 2022-06-17 19:47:00 74 /min [facility] Body height 2022-06-17 19:47:00 195.6 cm [facility] Body weight 2022-06-17 19:47:00 105.643 kg [facility] BMI 2022-06-17 19:47:00 27.62 kg/m2 [facility] Oxygen saturation in Arterial blood by Pulse oximetry 2022-06-17 19:47:00 98 /min [facility] Height 2021-04-03 00:00:00 66 [facility]in_i[facility] 2020-11-30 00:00:00 66 [in_i] [facility] BMI (Body Mass Index) 2020-11-30 00:00:00 30.7 kg/m2 [facility] Body Weight 2020-11-30 00:00:00 190 [lb_av] Rina buddy [facility] Procedures Procedure Date / Time Performed Performing Clinician Source CBC WITH DIFF 2025-04-19 15:07:00 Nolberto Morin [facility] MR INTERNAL AUDITORY CANALS W WO CONTRAST 2024-12-15 22:47:00 Miguelina Faustin [facility] DIABETES TESTING REPORTS 2024-11-22 16:09:40 Doctor Unassigned, [place] [facility] POCT HEMOGLOBIN A1C TEST 2024 20:51:00 Elías Floyd [facility] PHYSICIAN ORDERS 2024-06-24 17:10:31 Doctor Unassigned, [place] [facility] DME/SUPPLY JUSTIFICATION 2024-06-01 13:15:13 Doctor Unassigned, [place] [facility] POCT GLUCOSE (AUTOMATED) 2024-04-28 17:39:00 Ministerio Thompson [facility] POCT GLUCOSE (AUTOMATED) 2024-04-28 13:02:00 Ministerio Thompson [facility] MAGNESIUM 2024-04-28 11:01:00 Bjorn Ferguson [facility] BASIC METABOLIC PANEL (NA, K , CL, CO2, GLUCOSE, BUN, CREATININE, CA) 2024-04-28 11:01:00 Bjorn Ferguson [facility] CBC WITH DIFF 2024-04-28 08:10:00 Bjorn Ferguson [facility] POCT GLUCOSE (AUTOMATED) 2024-04-28 02:42:00 Ministerio Thompson [facility] POCT GLUCOSE (AUTOMATED) 2024-04-27 20:48:00 Garland Romero [facility] POCT GLUCOSE (AUTOMATED) 2024-04-27 17:00:00 Heather [facility] URINALYSIS 2024-04-27 12:55:00 Geraldo Birmingham [facility] POCT GLUCOSE (AUTOMATED) 2024-04-27 12:23:00 Heather [facility] XR CHEST 1 VW 2024-04-27 12:15:00 Evangelina Lindsay [facility] BLOOD CULTURE SCREEN 2024-04-27 06:53:00 Surya [facility] BLOOD CULTURE SCREEN 2024-04-27 06:51:00 Surya [facility] MAGNESIUM 2024-04-27 06:49:00 Surya [facility] HEPATIC FUNCTION PANEL (76119) (ALB,T.PRO,BILI T,BU/BC,ALT,AST,ALK PHOS) 2024-04-27 06:49:00 [facility] BASIC METABOLIC PANEL (NA, K , CL, CO2, GLUCOSE, BUN, CREATININE, CA) 2024-04-27 06:49:00 Surya [facility] CBC WITH DIFF 2024-04-27 06:49:00 Surya [facility] N-TERMINAL PRO-BNP 2024-04-27 06:49:00 Surya [facility] POCT GLUCOSE (AUTOMATED) 2024-04-27 02:45:00 Heather [facility] POCT GLUCOSE (AUTOMATED) 2024-04-26 21:09:00 Heather [facility] POCT GLUCOSE (AUTOMATED) 2024-04-26 16:38:00 Heather [facility] HB ECG ROUTINE & RHYTHM STRIP 2024-04-26 16:07:25 Neftali [facility] CBC WITHOUT DIFF 2024-04-26 13:47:00 Mita Lim [facility] POCT GLUCOSE (AUTOMATED) 2024-04-26 12:44:00 Heather [facility] CREATINE KINASE 2024-04-26 11:35:00 AllynnehaCarolina [facility] CBC WITHOUT DIFF 2024-04-26 11:35:00 Mita Lim Mormon [facility] POCT GLUCOSE (AUTOMATED) 2024-04-26 01:52:00 Heather [facility] XR KUB 2024-04-25 23:53:00 [facility]) 2024-04-25 22:49:00 Heather [facility] CBC WITHOUT DIFF 2024-04-25 22:45:00 Mita Lim Mormon [facility] MR BRAIN W WO CONTRAST 2024-04-25 22:30:00 Mita Lim Mormon [facility] POCT GLUCOSE (AUTOMATED) 2024-04-25 17:20:00 Heather [facility] CBC WITH DIFF 2024-04-25 16:39:00 Neftali [facility] ABORH CONFIRMATION (LAB ONLY) 2024-04-25 16:39:00 Carlos Ibrahim [facility] MAGNESIUM 2024-04-25 16:32:00 Neftali [facility] THYROID STIMULATING HORMONE 2024-04-25 16:32:00 Neftali [facility] HEPATIC FUNCTION PANEL (11616) (ALB,T.PRO,BILI T,BU/BC,ALT,AST,ALK PHOS) 2024-04-25 16:32:00 Neftali [facility] BASIC METABOLIC PANEL (NA, K , CL, CO2, GLUCOSE, BUN, CREATININE, CA) 2024-04-25 16:32:00 Neftali [facility] PROCALCITONIN 2024-04-25 16:32:00 Mita Lim Mormon [facility] MRSA / MSSA SCREEN BY GIOVANNI AMBROSE 2024-04-25 16:32:00 Neftali [facility] AC PANEL 20 + LACTIC ACID 2024-04-25 16:16:00 Neftali [facility] CBC WITH DIFF 2024-04-25 16:12:00 Neftali [facility] HB ABO GROUPING 2024-04-25 16:12:00 [facility] WO CONTRAST 2024-04-25 12:37:59 Addie Junior [facility] CT STROKE ANGIOGRAM HEAD 2024-04-25 12:29:31 Addie Junior [facility] CT STROKE ANGIOGRAM NECK 2024-04-25 12:29:31 Addie Junior [facility] AMMONIA, PLASMA 2024-04-25 12:29:00 Addie Junior [facility] [place] INTUBATION ENDOTRACHEAL EMERGENCY PROCEDURE 2024-04-25 12:26:[facility] 2024-04-25 12:24:[facility] ABDOMEN/PELVIS 2024-04-25 12:24:37 [facility] AC PANEL 20 + LACTIC ACID 2024-04-25 12:08:00 Addie Juniro [facility] CT STROKE HEAD WO CONTRAST 2024-04-25 11:45:47 Addie Junior [facility] XR STROKE CHEST 1 VW 2024-04-25 11:45:20 [facility] 2024-04-25 11:25:00 [facility] URINE DRUG (IMMUNOASSAY) - COMPREHENSIVE DRUG SCREEN W/O REFLEX 2024-04-25 11:25:00 Addie Junior [facility] POCT GLUCOSE(AGE >30DAYS) 2024-04-25 11:24:00 Addie Junior [facility] TROPONIN I 2024-04-25 11:23:00 [facility] BASIC METABOLIC PANEL (NA, K , CL, CO2, GLUCOSE, BUN, CREATININE, CA) 2024-04-25 11:23:00 Addie Junior [facility] ETHANOL 2024-04-25 11:23:00 [facility] WITHOUT DIFF 2024-04-25 11:23:00 [facility] PR[facility] / INR 2024-04-25 11:23:00 Addie Junior [facility] ACTIVATED PARTIAL THRMPLAS GRACE 2024-04-25 11:23:00 Addie Junior [facility] POCT GLUCOSE (AUTOMATED) 2024-04-25 11:13:00 Doctor Unassigned, [place] [facility] HB ECG ROUTINE & RHYTHM STRIP 2024-04-25 11:11:33 Addie Junior [facility] CRITICAL CARE 2024-04-25 11:09:00 Addie Junior [facility] MICROALBUMIN URINE 2024-04-13 21:20:00 [facility] COMP. METABOLIC PANEL (15907) 2024-04-13 21:20:00 [facility] LIPID PANEL (13859)(TOTAL CHOLESTEROL, TRIGLYCERIDES, HDL) 2024-04-13 21:20:00 [facility] URINE CULTURE 2024-04-13 21:20:00 [facility]C [facility] 2024-04-13 19:57:00 [facility] YAG CAPSULOTOMY - OD - RIGHT EYE 2024-03-12 16:12:24 [facility] PHACOEMULSIFICATION OF CATARACT WITH INTRAOCULAR LENS IMPLANT 2024-01-27 14:59:00 Sherri Yadav [facility] POCT GLUCOSE (AUTOMATED) 2024-01-27 14:22:00 Sherri Yadav [facility] POCT GLUCOSE (AUTOMATED) 2024-01-27 14:22:00 Sherri Yadav [facility] ASSIGNMENT OF BENEFITS 2024-01-27 13:34:00 Doctor Unassigned, [place] [facility] URINE CULTURE 2024-01-08 22:02:00 Ijeoma [facility] CONSENT/REFUSAL FOR DIAGNOSI S AND TREATMENT 2024-01-04 15:34:19 Doctor Unassigned, [place] [facility] IOL BIOMETRY - OS - LEFT EYE 2023-12-31 21:26:02 Sherri Yadav [facility] DISCLOSURE AND CONSENT, MEDICAL AND SURGICAL PROCEDURES 2023-12-26 06:01:00 Doctor Unassigned, [place] [facility] XR CERVICAL SPINE 3 VW 2023-11-26 16:43:00 Samantha Tinsley [facility] POCT URINALYSIS AUTO 2023-11-26 00:00:00 Carlton Raphael [facility] OCT, OPTIC NERVE - OU - BOTH EYES 2023-10-30 20:23:19 Brandie Lowery [facility] CONSENT/REFUSAL FOR DIAGNOSI S AND TREATMENT 2023-10-13 15:06:12 Doctor Unassigned, [place] [facility] URINE CULTURE 2023-09-05 21:10:00 Carlton Raphael [facility] POCT URINALYSIS AUTO 2023-09-05 20:22:00 Geovani Mcintosh [facility] POCT URINALYSIS AUTO 2023-09-05 20:22:00 Geovani Mcintosh [facility] PATIENT QUESTIONNAIRE 2023-08-26 05:01:00 Doctor Unassigned, [place] [facility] POCT HEMOGLOBIN A1C TEST 2023-06-24 15:39:00 Elías Floyd [facility] OP CORRESPONDENCE 2023-06-04 05:01:00 Doctor Unassigned, [place] [facility] PATIENT FINANCIAL POLICY 2023-03-18 20:00:06 Doctor Unassigned, [place] [facility] PNEUMOCOCCAL VACCINE, 23-VALENT (PNEUMOVAX) 2022-10-18 21:16:19 Lisset Sarabia [facility] FLU VACC(),65+YR,0. 5 ML,IM,ADJUVANTED,QUAD(FLUAD) 2022-10-18 21:16:05 Lisset Sarabia [facility] ASSIGNMENT OF BENEFITS 2022-10-18 19:57:06 Doctor Unassigned, [place] [facility] POCT HEMOGLOBIN A1C TEST 2022-06-17 19:59:00 Omar Miner [facility] Encounters Start Date/Time End Date/Time Encounter Type Admission Type Attending Clinicians Care Facility Care Department Encounter ID Source 2024-09-23 10:50:00 [facility] [id number] 2024-06-09 17:22:[address] [facility] [id number] [facility] 2023-08-27 14:17:30 Outpatient BARBARA GONZALEZ [facility] [id number] [facility] 2025-08-10 17:35:00 2025-08-10 17:35:00 Outpatient R UNKNOWN, ATTENDING [facility] [id number] [facility] 2025-08-10 11:26:08 2025-08-10 11:26:08 Outpatient [facility] [id number] Dennis Luu 2025-08-09 09:31:11 2025-08-09 09:31:11 Outpatient [facility] [id number] Dennis Luu 2025-08-06 10:25:26 2025-08-06 10:25:26 Outpatient [facility] [id number] Dennis Lam Luke 2025-08-03 11:29:17 2025-08-03 11:29:17 Outpatient [facility] [id number] Dennis Luu 2025-08-02 09:12:46 2025-08-02 23:59:00 Hospital Encounter Mariangel Keys [facility] 1..840.114 350.1.13.10 4.2.7.2.686 [id number] [facility] 2025-08-02 00:00:00 2025-08-02 15:32:37 Patient Outreach Rosa Isela Cruz Katherine [address] 1..840.114 350.1.13.10 [id number] [id number] [facility] 2025-08-02 08:30:00 2025-08-02 09:10:49 [facility] 1.2.840.114 350.1.13.10 4.2.7.2.686 [id number] [facility] 2025-08-01 00:00:00 2025-08-01 15:19:20 Patient Outreach Anthony Rosa Isela Cruz Rosa Isela KAVITABruce DOTTIE PALOMO 1.2.840.114 350.1.13.10 4.2.7.2.686 [id number] [facility] 2025-07-28 00:00:00 2025-07-28 16:36:41 Telephone Isabel Cain Sheri [facility] 1..840.114 350.1.13.10 4.2.7.2.686 [id number] [facility] 2025-07-27 11:22:49 2025-07-27 11:22:49 Outpatient [facility] [id number] Dennis Luu 2025-07-27 00:00:00 2025-07-27 10:57:54 Patient Outreach Isabel Cain Sheri R [facility] 1..840.114 350.1.13.10 4.2.7.2.686 [id number] [facility] 2025-07-22 00:00:00 2025-07-26 11:29:15 Telephone Nolberto Morin [facility] 1..840.114 350.1.13.10 4.2.7.2.686 [id number] [facility] 2025-07-26 09:45:41 2025-07-26 09:45:41 Outpatient [facility] [id number] Dennis Luu 2025-07-21 11:06:28 2025-07-21 11:06:28 Outpatient [facility] [id number] Dennis Luu 2025-07-20 15:39:32 2025-07-20 15:39:32 Outpatient [facility] [id number] Dennis Luu 2025-07-13 11:17:50 2025-07-13 11:17:50 Outpatient [facility] [id number] Dennis Luu 2025-07-12 09:28:33 2025-07-12 09:28:33 Outpatient [facility] [id number] Dennis Luu 2025-07-11 16:17:59 2025-07-11 16:17:59 Outpatient [facility] [id number] Dennis Luu 2025-06-30 09:05:51 2025-06-30 09:05:51 Outpatient [facility] [id number] Dennis Luu 2025-06-29 11:22:33 2025-06-29 11:22:33 Outpatient [facility] [id number] Dennis Luu 2025-06-27 16:38:55 2025-06-27 16:38:55 Outpatient [facility] [id number] Dennis Lam Jus 2025-06-23 13:00:00 2025-06-23 13:00:00 Outpatient R LYLY ROBISON DHANYA [facility] [id number] [facility] 2025-06-20 12:48:12 2025-06-20 12:48:12 Outpatient [facility] [id number] Dennis Lam Jus 2025-06-17 15:00:00 2025-06-17 15:00:00 Outpatient R DINA HARRIS [facility] [id number] [facility] 2025-06-16 16:59:39 2025-06-16 16:59:39 Outpatient [facility] [id number] Dennis Luu 2025-06-15 10:39:14 2025-06-15 10:39:14 Outpatient [facility] [id number] Dennis Lam Jus 2025-06-13 16:06:50 2025-06-13 16:06:50 Outpatient [facility] [id number] Dennis Luu 2025-06-08 14:30:00 2025-06-08 14:30:00 Outpatient JOSEP QURESHI HOWARD [facility] [id number] [facility] 2025-06-07 14:27:14 2025-06-07 14:27:14 Outpatient [facility] [id number] Dennis Luu 2025-06-03 13:07:53 2025-06-03 13:07:53 Outpatient [facility] [id number] Dennis Luu 2025-05-13 00:00:00 2025-05-27 09:41:50 Telephone Lyly Robison [facility] .2.840.114 350.1.13.10 4.2.7.2.686 [id number] [facility] 2025-05-26 17:55:39 2025-05-26 17:55:39 Outpatient [facility] [id number] Dennis Luu 2025-05-22 14:09:26 2025-05-22 14:09:26 Outpatient [facility] [id number] Dennis Luu 2025-05-18 14:00:00 2025-05-18 14:00:00 Outpatient JOSEP QURESHI HOWARD [facility] [id number] [facility] 2025-05-16 11:53:07 2025-05-16 11:53:07 Outpatient [facility] [id number] Dennis Luu 2025-05-13 00:00:00 2025-05-14 10:02:58 Telephone Kelly Person [facility] ADEEL MORSEIO [facility] ..840.114 350.1.13.10 4.2.7.2.686 [id number] [facility] 2025-05-12 17:15:00 2025-05-12 17:30:00 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 R Pcp-Lab Ricki Lyly Pcp-Lab [facility] 1.2840.114 350.1.13.10 4.2.7.2.686 [id number] [facility] 2025-05-12 15:30:00 2025-05-12 16:21:19 Office Visit R RICKI LYLYERYN HOLLINSNYA [facility] 1.2.840.114 350.1.13.10 4.2.7.2.686 [id number] [facility] 2025-05-11 00:00:00 2025-05-12 12:26:09 Telephone Josep Mendoza [facility] 1.2.840.114 350.1.13.10 4.2.7.2.686 [id number] [facility] 2025-05-10 16:00:00 2025-05-10 23:59:00 Hospital Encounter R KELLY PERSON [facility] NAL BUILD[facility] 1.2.840.114 350.1.13.10 4.2.7.2.686 [id number] [facility] 2025-05-10 13:17:17 2025-05-10 13:17:17 Outpatient [facility] [id number] Dennis Luu 2025-05-09 09:40:00 2025-05-09 11:34:24 Office Visit Nolberto Rios [facility] KEIKOGRETCHEN [facility] 1.2.840.114 350.1.13.10 4.2.7.2.686 [id number] [facility] 2025-05-03 15:00:00 2025-05-03 15:00:00 Outpatient NOLBERTO RIOS FAKEHA [facility] [id number] [facility] 2025-04-28 08:05:00 2025-04-28 08:05:00 Outpatient [facility] [id number] Dennis Luu 2025-04-27 17:09:16 2025-04-27 17:09:16 Outpatient [facility] [id number] Dennis Luu 2025-04-27 12:30:00 2025-04-27 12:30:00 Outpatient JOSEP QURESHI HOWARD [facility] [id number] [facility] 2025-04-24 00:00:00 2025-04-24 14:40:06 [facility] ADENGRETCHEN [facility] 1.2.840.114 350.1.13.10 4.2.7.2.686 [id number] [facility] 2025-04-22 15:40:00 2025-04-22 16:05:12 Office Visit KELLY TAYLOR [facility] NAL BUILDING 1.2.840.114 350.1.13.10 4.2.7.2.686 [id number] [facility] 2025-04-19 00:00:00 2025-04-22 14:24:[address] [facility] NAL BUILDING 1.2.840.114 350.1.13.10 4.2.7.2.686 [id number] [facility] 2025-04-21 00:00:00 2025-04-21 16:20:18 Telephone Patience [facility] BRIAN?SHIRLENE JEFFERSON [facility] 1.2.840.114 350.1.13.10 4.2.7.2.686 [id number] [id number] [facility] 2025-04-19 11:15:20 2025-04-19 23:59:00 Hospital Encounter R NOLBERTO MORIN [facility] B[facility]AN?[facility] 1.2840.114 350.1.13.10 4.2.7.2.686 [id number] [facility] 2025-04-18 00:00:00 2025-04-19 17:04:45 Telephone Nolberto Morin [facility] 1.2840.114 350.1.13.10 4.2.7.2.686 [id number] [facility] 2025-04-19 12:00:00 2025-04-19 11:01:53 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 R [facility] 1.2840.114 350.1.13.10 4.2.7.2.686 [id number] [facility] 2025-04-19 08:20:00 2025-04-19 09:42:15 Office Visit R NOLBERTO MORIN, [facility] BRIAN?[facility] 1.284.114 350.1.13.10 4.2.7.2.686 [id number] [facility] 2025-04-15 08:07:24 2025-04-15 08:07:24 Outpatient SFA [facility] [id number] Dennis Genaro Jus 2025-04-14 14:00:00 2025-04-14 14:00:00 Outpatient R DAISY KAY [facility] [id number] [facility] 2025-04-14 00:00:00 2025-04-14 11:36:34 Telephone Daisy Kay [facility] 1.284.114 350.1.13.10 4.2.7.2.686 [id number] [facility] 2025-04-14 10:17:46 2025-04-14 10:17:46 Outpatient SFA SFA [id number] Dennis Luu 2025-04-13 17:19:28 2025-04-13 17:19:28 Outpatient SFA SFA [id number] Dennis Luu 2025-04-05 00:00:00 2025-04-13 09:34:41 Telephone Morin, [facility] 1.2.840.114 350.1.13.10 4.2.7.2.686 [id number] [facility] 2025-04-11 00:00:00 2025-04-11 16:20:20 Telephone [employer] [facility] 1.2.840.114 350.1.13.10 4.2.7.2.686 [id number] [facility] 2025-04-08 18:35:16 2025-04-08 18:35:16 Outpatient SFA SFA [id number] Dennis Luu 2025-04-07 00:00:00 2025-04-07 15:24:02 Letter (Out) [facility] 1.2.840.114 350.1.13.10 4.2.7.2.686 [id number] [facility] 2025-04-07 13:57:37 2025-04-07 13:57:37 Outpatient SFA SFA [id number] Dennis Luu 2025-04-05 11:08:05 2025-04-05 11:08:05 Outpatient SFA SFA [id number] Dennis Luu 2025-04-01 08:29:41 2025-04-01 08:29:41 Outpatient SFA SFA [id number] Dennis Luu 2025-03-31 11:34:32 2025-03-31 11:34:32 Outpatient SFA SFA [id number] Dennis Luu 2025-03-31 00:00:00 2025-03-31 10:23:53 Telephone [facility] BRIAN?SHIRLENE [facility] 1.2.840.114 350.1.13.10 4.2.7.2.686 [id number] [facility] 2025-03-24 10:14:08 2025-03-24 10:14:08 Outpatient SFA SFA [id number] Dennis Luu 2025-03-23 00:00:00 2025-03-23 13:38:53 Telephone [facility] 1.2.840.114 350.1.13.10 4.2.7.2.686 [id number] [facility] 2025-03-23 11:35:52 2025-03-23 11:35:52 Outpatient SFA SFA [id number] Dennis Luu 2025-03-21 00:00:00 2025-03-21 13:10:15 Telephone [facility] 1.2.840.114 350.1.13.10 4.2.7.2.686 [id number] [facility] 2025-03-21 00:00:00 2025-03-21 10:47:39 Refill [facility] BRIAN?SHIRLENE [facility] 1.2.840.114 350.1.13.10 4.2.7.2.686 [id number] [facility] 2025-03-18 09:15:53 2025-03-18 09:15:53 Outpatient SFA SFA [id number] Dennis Luu 2025-03-17 10:07:02 2025-03-17 10:07:02 Outpatient SFA SFA [id number] Dennis Luu 2025-03-16 11:29:40 2025-03-16 11:29:40 Outpatient [facility] [id number] Dennis Luu 2025-03-14 15:40:00 2025-03-14 15:40:00 Outpatient R NOLBERTO MORIN FAKEHA [facility] [id number] [facility] 2025-03-10 00:00:00 2025-03-11 12:28:49 Telephone Patience [facility] 1.2840.114 350.1.13.10 4.2.7.2.686 [id number] [facility] 2025-03-10 00:00:00 2025-03-10 11:00:33 Patient Outreach Rosa Isela Cruz Katherine [place] 1.840.114 350.1.13.10 4.2.7.2.686 [id number] [facility] 2025-03-09 00:00:00 2025-03-09 14:27:42 Patient Outreach Rosa Isela Cruz Katherine [place] 1.284.114 350.1.13.10 4.2.7.2.686 [id number] [facility] 2025-03-09 13:06:07 2025-03-09 13:06:07 Outpatient [facility] [id number] Dennis Luu 2025-03-08 10:00:00 2025-03-08 10:41:38 Outpatient R [facility] [id number] [facility] 2025-03-08 10:00:00 2025-03-08 10:41:38 [facility] 1.2.840.114 350.1.13.10 4.2.7.2.686 [id number] [facility] 2025-03-04 11:09:24 2025-03-04 11:09:24 Outpatient SFA SFA [id number] Dennis Luu 2025-03-01 00:00:00 2025-03-01 15:09:05 Telephone Elías Floyd [facility] 1.840.114 350.1.13.10 4.2.7.2.686 [id number] [facility] 2025-03-01 15:00:00 2025-03-01 15:00:00 Outpatient R NOLBERTO MORIN [facility] [id number] [facility] 2025-03-01 15:00:00 2025-03-01 15:00:00 Outpatient R NOLBERTO MORIN [facility] [id number] [facility] 2025-03-01 10:28:00 2025-03-01 10:28:00 Outpatient SFA SFA [id number] Dennis Luu 2025-02-26 15:31:21 2025-02-26 15:31:21 Outpatient SFA SFA [id number] Dennis Luu 2025-02-25 16:41:29 2025-02-25 16:41:29 Outpatient SFA [facility] [id number] Dennis Luu 2025-02-16 00:00:00 2025-02-18 09:40:29 Telephone Patience [facility] 1.840.114 350.1.13.10 4.2.7.2.686 [id number] [facility] 2025-02-16 00:00:00 2025-02-18 08:48:08 [facility] 1.840.114 350.1.13.10 4.2.7.2.686 [id number] [facility] 2025-02-16 00:00:00 2025-02-16 11:12:36 Letter (Out) [facility] 1.2.840.114 350.1.13.10 4.2.7.2.686 [id number] [facility] 2025-02-15 15:15:00 2025-02-15 15:15:00 Outpatient R [facility] [id number] [facility] 2025-02-15 15:15:00 2025-02-15 15:15:00 Outpatient R [facility] [id number] [facility] 2025-02-14 00:00:00 2025-02-14 15:13:52 Telephone Patience [facility] 1..840.114 350.1.13.10 4.2.7.2.686 [id number] [facility] 2025-02-14 15:00:00 2025-02-14 15:00:00 Outpatient R MORIN, FAKEHA MORIN, [facility] [id number] [facility] 2025-02-14 15:00:00 2025-02-14 15:00:00 Outpatient R MORIN, FAKEHA MORIN, FAKA [facility] [id number] [facility] 2025-02-10 00:00:00 2025-02-13 19:23:12 Telephone Patience [facility] 1.2.840.114 350.1.13.10 4.2.7.2.686 [id number] [facility] 2025-02-09 00:00:00 2025-02-10 06:41:43 Telephone Morin [facility]SH[facility]LENE PAULINO [facility] 1.2.840.114 350.1.13.10 4.2.7.2.686 [id number] [facility] 2025-02-09 10:25:50 2025-02-09 10:25:50 Outpatient SFA SFA [id number] Dnenis Luu 2025-02-08 20:00:11 2025-02-08 20:00:11 Outpatient SFA SFA [id number] Dennis Luu 2025-02-04 10:33:09 2025-02-04 10:33:09 Outpatient SFA SFA [id number] Dennis Luu 2025-02-03 19:17:18 2025-02-03 19:17:18 Outpatient SFA SFA [id number] Dennis Luu 2025-02-02 10:41:49 2025-02-02 10:41:49 Outpatient SFA SFA [id number] Dennis Luu 2025-01-26 10:05:03 2025-01-26 10:05:03 Outpatient SFA SFA [id number] Dennis Luu 2025-01-25 14:00:00 2025-01-25 14:00:00 Outpatient R CHAMPStaciELÍAS ENCISO [facility] [id number] [facility] 2025-01-25 14:00:00 2025-01-25 14:00:00 Outpatient R ELÍAS FLOYD [facility] [id number] [facility] 2025-01-25 13:10:14 2025-01-25 13:10:14 Outpatient SFA SFA [id number] Dennis Luu 2025-01-20 15:06:27 2025-01-20 15:06:27 Outpatient SFA SFA [id number] Dennis Luu 2025-01-18 11:07:37 2025-01-18 11:07:37 Outpatient SFA SFA [id number] Dennis Luu 2025-01-17 13:00:00 2025-01-17 13:00:00 Outpatient Nayana ESPINALIRAJT [facility] [id number] [facility] 2025-01-13 09:27:41 2025-01-13 09:27:41 Outpatient [facility] [id number] Dennis Luu 2025-01-11 11:31:31 2025-01-11 11:31:31 Outpatient [facility] [id number] Dennis Lam Jus 2025-01-06 15:06:13 2025-01-06 15:06:13 Outpatient [facility] [id number] Dennis Luu 2025-01-03 11:20:00 2025-01-03 11:20:00 Outpatient AMPARO DOUGLASS CHRISTINE [facility] [id number] [facility] 2024-12-30 11:02:03 2024-12-30 11:02:03 Outpatient [facility] [id number] Dennis Lam Jus 2024-12-29 11:30:34 2024-12-29 11:30:34 Outpatient [facility] [id number] Dennis Lam Luke 2024-12-28 11:12:08 2024-12-28 11:12:08 Outpatient [facility] [id number] Dennis Lam Jus 2024-03-23 00:00:00 2024-12-25 07:47:15 Orders Only Nallely Zhang Perla [facility] 1..840.114 350.1.13.10 4.2.7.2.686 [id number] [facility] 2024-06-01 00:00:00 2024-12-25 07:15:22 Orders Only Doctor Unassigned, [place] Doctor Unassigned, [place] [facility] 1..840.114 350.1.13.10 4.2.7.2.686 [id number] [facility] 2024-06-17 00:00:00 2024-12-25 07:10:29 Orders Only Leatha, Nallely Zhang, Nallely [facility] 1.284.114 350.1.13.10 4.2.7.2.686 [id number] [facility] 2024-06-24 00:00:00 2024-12-25 07:06:47 Orders Only Doctor Unassigned, [place] Doctor Unassigned, [place] [facility] 1.20.114 350.1.13.10 4.2.7.2.686 [id number] [facility] 2024-11-22 00:00:00 2024-12-25 06:20:12 Orders Only Doctor Unassigned, [place] Doctor Unassigned, [place] [facility] 1.114 350.1.13.10 4.2.7.2.686 [id number] [facility] 2024-12-16 00:00:00 2024-12-22 12:24:49 Telephone Miguelina Faustin [facility] 1..114 350.1.13.10 4.2.7.2.686 [id number] [facility] 2024-12-22 11:43:28 2024-12-22 11:43:28 Outpatient [facility] [id number] Dennis Luu 2024-12-21 00:00:00 2024-12-21 16:12:01 [facility] 1.84.114 350.1.13.10 4.2.7.2.686 [id number] [facility] 2024-12-20 00:00:00 2024-12-21 08:30:30 Telephone Nolberto Morin [facility] 1.284.114 350.1.13.10 4.2.7.2.686 [id number] [facility] 2024-12-15 15:02:03 2024-12-15 23:59:00 Outpatient R RAMIN MIGUELINA FAUSTINMIGUELINA [facility] [id number] [facility] 2024-12-15 15:02:03 2024-12-15 23:59:00 Hospital Encounter RaminMiguelina [facility] 1.2.840.114 350.1.13.10 4.2.7.2.686 [id number] [facility] 2024-12-07 14:20:00 2024-12-07 14:30:12 Office Visit Ramin [facility] 1.2840.114 350.1.13.10 4.2.7.2.686 [id number] [facility] 2024-12-07 13:00:00 2024-12-07 14:26:58 Outpatient R CARIDAD MCDANIEL [facility] [id number] [facility] 2024-12-07 13:00:00 2024-12-07 14:26:58 Ancillary Visit R CARIDAD MCDANIEL [facility] 1.2840.114 350.1.13.10 4.2.7.2.686 [id number] [facility] 2024-12-06 00:00:00 2024-12-07 12:34:25 Telephone Nolberto Morin [facility]?SHIRLENE PA[facility] 1.2840.114 350.1.13.10 4.2.7.2.686 [id number] [facility] 2024-11-30 10:26:53 2024-11-30 10:26:53 Outpatient [facility] [id number] Dennis Luu 2024-11-23 10:10:25 2024-11-23 10:10:25 Outpatient SFA SFA [id number] Dennis Luu 2024-11-22 10:35:58 2024-11-22 10:35:58 Outpatient SFA SFA [id number] Dennis Luu 2024-11-16 00:00:00 2024-11-16 16:53:37 Letter (Out) [facility] 1.2.840.114 350.1.13.10 4.2.7.2.686 [id number] [facility] 2024-11-15 14:00:00 2024-11-15 15:06:16 Outpatient R PATIENCE FAKEHA MORIN, FAKEHA [facility] [id number] [facility] 2024-11-15 14:00:00 2024-11-15 15:06:16 [facility] 1.2.840.114 350.1.13.10 4.2.7.2.686 [id number] [facility] 2024-11-12 13:00:00 2024-11-12 13:00:00 Outpatient R MORIN, FAKEHA MORIN, FAKEHA [facility] [id number] [facility] 2024-11-12 10:43:38 2024-11-12 10:43:38 Outpatient SFA SFA [id number] Dennis Luu 2024-11-09 10:26:44 2024-11-09 10:26:44 Outpatient SFA SFA [id number] Dennis Luu 2024-11-01 00:00:00 2024-11-01 00:00:00 OFFICE VISIT ESTAB PT LEVEL 4 STLMLC STLMLC [id number] [facility] 2024-10-27 08:31:12 2024-10-27 08:31:12 Outpatient SFA SFA [id number] Dennis Luu 2024-10-26 11:06:24 2024-10-26 11:06:24 Outpatient SFA SFA [id number] Dennis Luu 2024-10-22 09:49:18 2024-10-22 09:49:18 Outpatient SFA SFA [id number] Dennis Luu 2024-10-21 00:00:00 2024-10-21 09:27:54 [facility] 1.2.840.114 350.1.13.10 4.2.7.2.686 [id number] [facility] 2024 00:00:00 2024 16:52:31 [facility] 1.2.840.114 350.1.13.10 4.2.7.2.686 [id number] [facility] 2024 14:30:00 2024 15:28:17 Outpatient R [facility] [id number] [facility] 2024 14:30:00 2024 15:28:17 Office Visit [facility] 1.2.840.114 350.1.13.10 4.2.7.2.686 [id number] [facility] 2024-10-14 10:03:49 2024-10-14 10:03:49 Outpatient SFA SFA [id number] Dennis Luu 2024-10-01 12:33:31 2024-10-01 12:33:31 Outpatient SFA SFA [id number] Dennis Luu 2024-09-29 09:50:56 2024-09-29 09:50:56 Outpatient SFA SFA [id number] Dennis Luu 2024-09-24 12:30:00 2024-09-24 13:00:00 Office Visit Samantha Tinsley [facility] DEL[facility]IN [facility] 1.2.840.114 350.1.13.10 4.2.7.2.686 [id number] [facility] 2024-09-24 12:30:00 2024-09-24 12:30:00 Outpatient R SAMANTHA TINSLEY [facility] [id number] [facility] 2024-09-23 00:00:00 2024-09-23 00:00:00 (PROC) Procedure STLMLC STLMLC [id number] [facility] 2024-09-22 12:03:16 2024-09-22 12:03:16 Outpatient [facility] [id number] Dennis Luu 2024-09-16 11:55:02 2024-09-16 11:55:02 Outpatient SFA [facility] [id number] Dennis Luu 2024-09-09 13:52:54 2024-09-09 13:52:54 Outpatient SFA [facility] [id number] Dennis Luu 2024-09-02 13:43:23 2024-09-02 13:43:23 Outpatient SFA SFA [id number] Dennis Luu 2024-09-01 10:48:13 2024-09-01 10:48:13 Outpatient SFA [facility] [id number] Dennis Luu 2024-08-26 10:17:09 2024-08-26 10:17:09 Outpatient SFA [facility] [id number] Dennis Luu 2024-08-25 11:32:39 2024-08-25 11:32:39 Outpatient SFA SFA [id number] Dennis Luu 2024-08-25 00:00:00 2024-08-25 00:00:00 OFFICE VISIT ESTAB PT LEVEL 4 STLMLC STLMLC [id number] [facility] 2024-08-20 13:40:00 2024-08-20 13:40:00 Outpatient NOLBERTO RIOS FAKEHA [facility] [id number] [facility] 2024-08-19 00:00:00 2024-08-19 15:30:54 Telephone Samantha Tinsley [facility] .840.114 350.1.13.10 4.2.7.2.686 [id number] [facility] 2024-08-19 13:49:55 2024-08-19 13:49:55 Outpatient SFA SFA 10 Dennis Lam Jus 2024-08-18 11:55:15 2024-08-18 11:55:15 Outpatient SFA SFA [id number] Dennis Luu 2024-08-12 14:51:03 2024-08-12 14:51:03 Outpatient SFA SFA [id number] Dennis Lam Jus 2024-08-05 13:38:57 2024-08-05 13:38:57 Outpatient SFA SFA [id number] Dennis Lam Jus 2024-08-03 09:50:59 2024-08-03 09:50:59 Outpatient SFA SFA [id number] Dennis Lam Jus 2024-07-28 12:15:14 2024-07-28 12:15:14 Outpatient SFA SFA [id number] Dennis Luu 2024-07-26 15:25:28 2024-07-26 15:25:28 Outpatient SFA SFA [id number] Dennis Luu 2024-07-23 09:30:00 2024-07-23 10:26:07 Outpatient R ROSSY THURMAN CRAIG [facility] [id number] [facility] 2024-07-23 09:30:00 2024-07-23 10:26:07 Ancillary Visit Erendira Frey Craig L Johanson, Dara [facility] ..840.114 350.1.13.10 4.2.7.2.686 [id number] [facility] 2024-07-22 11:05:26 2024-07-22 11:05:26 Outpatient [facility] [id number] Dennis Luu 2024-07-16 13:45:00 2024-07-16 13:45:00 Outpatient MARINA VIDAL [facility] [id number] [facility] 2024-07-16 11:32:01 2024-07-16 11:32:01 Outpatient [facility] [id number] Dennis Luu 2024-07-14 13:02:05 2024-07-14 13:02:05 Outpatient [facility] [id number] Dennis Lam Jus 2024-07-10 00:00:00 2024-07-11 00:20:11 Nurse Triage Britta Brannon Nancy [facility] 1.2.840.114 350.1.13.10 4.2.7.2.686 [id number] [facility] 2024-07-08 11:19:26 2024-07-08 11:19:26 Outpatient [facility] [id number] Dennis Luu 2024-07-07 12:16:57 2024-07-07 12:16:57 Outpatient [facility] [id number] Dennis Lam Jus 2024-07-06 14:40:00 2024-07-06 14:40:00 Outpatient LINUS PIPER [facility] [id number] [facility] 2024-07-06 08:48:02 2024-07-06 08:48:02 Outpatient [facility] [id number] Dennis Lam Luke 2024-07-06 08:00:00 2024-07-06 08:00:00 Outpatient ROSSY COELHO CRAIG [facility] [id number] [facility] 2024-07-03 00:00:00 2024-07-03 12:55:39 Nurse Triage Maricel Randall Wendy [facility] 1..840.114 350.1.13.10 4.2.7.2.686 [id number] [facility] 2024-06-29 00:00:00 2024-06-30 10:13:09 Telephone Samantha Tinsley [facility] 1.2840.114 350.1.13.10 4.2.7.2.686 [id number] [facility] 2024-06-29 13:09:44 2024-06-29 13:09:44 Outpatient [facility] [id number] Dennis Luu 2024-06-25 00:00:00 2024-06-25 09:43:02 Letter (Out) [facility] 1.2840.114 350.1.13.10 4.2.7.2.686 [id number] [facility] 2024-06-24 00:00:00 2024-06-25 08:42:11 Telephone Rosa Isela Castañeda [facility] 1.0.114 350.1.13.10 4.2.7.2.686 [id number] [facility] 2024-06-24 15:30:00 2024-06-24 16:06:10 Outpatient R SAMANTHA TINSLEY [facility] [id number] [facility] 2024-06-24 15:30:00 2024-06-24 16:06:10 Office Visit Samantha Tinsley [facility] 1.20.114 350.1.13.10 4.2.7.2.686 [id number] [facility] 2024-06-23 00:00:00 2024-06-23 13:53:01 Telephone Rosa Isela Castañeda [facility] 1.2840.114 350.1.13.10 4.2.7.2.686 [id number] [facility] 2024-06-22 13:20:00 2024-06-22 13:20:00 Outpatient R MADDY ROSA ISELA [facility] [id number] [facility] 2024-06-22 10:44:59 2024-06-22 10:44:59 Outpatient [facility] [id number] Dennis Luu 2024-06-21 09:30:00 2024-06-21 09:30:00 Outpatient R MARINA PURCELL [facility] [id number] [facility] 2024-06-18 16:20:00 2024-06-18 16:20:00 Outpatient R ROSA ISELA CASTAÑEDA [facility] [id number] [facility] 2024-06-15 15:15:00 2024-06-15 15:30:00 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 Pob, [facility] Main Gisselle Patel, Adc Lab Main [facility] 1.2.840.114 350.1.13.10 4.2.7.2.686 [id number] [facility] 2024-06-15 15:15:00 2024-06-15 15:15:00 Outpatient GISSELLE ROMO [facility] [id number] [facility] 2024-06-15 09:48:04 2024-06-15 09:48:04 Outpatient [facility] [id number] Dennis Luu 2024-06-14 09:00:00 2024-06-14 09:00:00 Outpatient R MARINA PURCELL [facility] [id number] [facility] 2024-06-11 09:00:26 2024-06-11 09:00:26 Outpatient [facility] [id number] Dennis Luu 2024-06-09 00:00:00 2024-06-09 00:00:00 OFFICE VISIT NEW PT LEVEL 5 STLMLC STLMLC [id number] [facility] 2024-05-26 00:00:00 2024-05-27 08:34:21 Telephone Maddy Rosa Isela Gem [facility] 1.2.840.114 350.1.13.10 4.2.7.2.686 [id number] [id number] [facility] 2024-05-26 00:00:00 2024-05-26 10:10:16 Telephone Lisset Sarabia [facility] 1.2.840.114 350.1.13.10 4.2.7.2.686 [id number] 044 [id number] [facility] 2024-05-11 00:00:00 2024-05-11 13:30:03 Patient Outreach Cris Mendoza [facility] 1.2.840.114 350.1.13.10 4.2.7.2.686 [id number] [id number] [facility] 2024-05-10 00:00:00 2024-05-11 11:43:45 Telephone Maddy , Rosa Isela Gem [facility] 1.2.840.114 350.1.13.10 4.2.7.2.686 [id number] [id number] [facility] 2024-04-25 06:16:00 2024-04-28 16:20:00 Inpatient X MINISTERIO [facility] [id number] [facility] 2024-04-25 06:16:00 2024-04-28 16:20:00 Hospital Encounter Addie Junior, Garland Ibrahim, Carlos Bergman, Ministerio Peres [facility] 1.2.840.114 350.1.13.10 4.2.7.2.686 [id number] [id number] [facility] 2024-04-21 00:00:00 2024-04-21 16:49:29 Telephone Sherri Yadav Arvind [facility]. 1.2.840.114 350.1.13.10 4.2.7.2.686 [id number] [facility] 2024-04-21 00:00:00 2024-04-21 15:01:43 Letter (Out) [facility] 1.2.840.114 350.1.13.10 4.2.7.2.686 [id number] [id number] [facility] 2024-04-21 00:00:00 2024-04-21 15:01:43 Letter (Out) [facility] 1.2.840.114 350.1.13.10 4.2.7.2.686 [id number] 019 [id number] [facility] 2024-04-21 00:00:00 2024-04-21 12:09:50 Letter (Out) [facility] 1.2.840.114 350.1.13.10 4.2.7.2.686 [id number] 019 [id number] [facility] 2024-04-16 00:00:00 2024-04-16 12:15:16 Telephone Ijeoma Carlton [facility] 1.2.840.114 350.1.13.10 4.2.7.2.686 [id number] [facility] 2024-04-14 11:00:00 2024-04-14 11:52:31 Outpatient R ROSSY THURMAN CRAIG [facility] [id number] [facility] 2024-04-14 11:00:00 2024-04-14 11:52:31 Ancillary Visit Garland Ignacio Craig L Brown, Robert F [facility] 1.2840.114 350.1.13.10 4.2.7.2.686 [id number] 179 [id number] [facility] 2024-04-13 15:45:00 2024-04-13 16:56:10 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 Lab, Mickey Matthews [facility] 1..840.114 350.1.13.10 4.2.7.2.686 [id number] [facility] 2024-04-13 15:00:00 2024-04-13 15:52:01 Outpatient R EVERETT [facility] [id number] [facility] 2024-04-13 15:00:00 2024-04-13 15:52:01 Office Visit [facility] 1..840.114 350.1.13.10 4.2.7.2.686 [id number] [facility] 2024-04-09 11:00:00 2024-04-09 11:45:00 Ancillary Visit Magdalena Rajan Craig [facility] 1..840.114 350.1.13.10 4.2.7.2.686 [id number] 179 [id number] [facility] 2024-04-09 11:00:00 2024-04-09 11:00:00 Outpatient R ROSSY THURMAN CRAIG [facility] [id number] [facility] 2024-04-07 00:00:00 2024-04-08 12:31:28 Lisset Dodge [facility] 1..840.114 350.1.13.10 4.2.7.2.686 [id number] [facility] 2024-04-07 11:00:00 2024-04-07 11:45:00 Ancillary Visit Garland Ignacio Craig L [facility] 1.2.840.114 350.1.13.10 4.2.7.2.686 [id number] 179 [id number] [facility] 2024-03-31 14:41:32 2024-03-31 14:41:32 Outpatient [facility] [id number] Dennis Luu 2024-03-30 08:45:00 2024-03-30 09:30:00 Ancillary Visit Garland Ignacio Craig L [facility] 1.2.840.114 350.1.13.10 4.2.7.2.686 [id number] 179 [id number] [facility] 2024-03-24 15:40:00 2024-03-24 16:24:24 Outpatient R ROSA ISELA CASTAÑEDA [facility] [id number] [facility] 2024-03-24 15:40:00 2024-03-24 16:24:24 Office Visit Rosa Isela Castañeda COUNTS INCLUDE 234 BEDS AT THE [facility] 1.2.840.114 350.1.13.10 4.2.7.2.686 [id number] [id number] [facility] 2024-03-24 13:54:29 2024-03-24 13:54:29 Outpatient [facility] [id number] Dennis Luu 2024-03-23 15:15:00 2024-03-23 16:00:00 Ancillary Visit Garland Ignacio Craig L [facility] 1.2.840.114 350.1.13.10 4.2.7.2.686 [id number] 179 [id number] [facility] 2024-03-15 00:00:00 2024-03-19 16:33:30 Telephone Garland Ignacio [facility] 1.2.840.114 350.1.13.10 4.2.7.2.686 [id number] 179 [id number] [facility] 2024-03-18 15:15:00 2024-03-18 16:08:10 Ancillary Visit Erendira Frey Craig L [facility] 1.2.840.114 350.1.13.10 4.2.7.2.686 [id number] 179 [id number] [facility] 2024-03-17 00:00:00 2024-03-17 12:55:21 Telephone Rosa Isela Castañeda COUNTS INCLUDE 234 BEDS AT THE [facility] 1.2.840.114 350.1.13.10 4.2.7.2.686 [id number] 044 [id number] [facility] 2024-03-15 16:00:00 2024-03-15 16:45:00 Ancillary Visit Garland Ignacio Craig L [facility] 1.2.840.114 350.1.13.10 4.2.7.2.686 [id number] 179 [id number] [facility] 2024-03-12 10:00:00 2024-03-12 11:34:27 Outpatient R SHERRI YADAV [facility] [id number] [facility] 2024-03-12 10:00:00 2024-03-12 11:34:27 Office Visit Sherri Yadav [facility] BLDG. 1..840.114 350.1.13.10 4.2.7.2.686 [id number] [facility] 2024-03-05 00:00:00 2024-03-05 00:00:00 Letter (Out) [facility] 1.2.840.114 350.1.13.10 4.2.7.2.686 [id number] 019 [id number] [facility] 2024-03-03 10:15:00 2024-03-03 11:20:46 Ancillary Visit Garland Ignacio Craig L [facility] 1.2.840.114 350.1.13.10 4.2.7.2.686 [id number] [facility] 2024-03-02 00:00:00 2024-03-02 00:00:00 Letter (Out) [facility] 1.2.840.114 350.1.13.10 4.2.7.2.686 [id number] 019 [id number] [facility] 2024-03-01 11:00:00 2024-03-01 11:35:21 Outpatient R ROSSY THURMAN CRAIG [facility] [id number] [facility] 2024-03-01 11:00:00 2024-03-01 11:35:21 Ancillary Visit Garland Ignacio Craig L [facility] 1.2840.114 350.1.13.10 4.2.7.2.686 [id number] [facility] 2024-03-01 00:00:00 2024-03-01 00:00:00 Case Management Ruby Granados [facility] 1.2.840.114 350.1.13.10 4.2.7.2.686 [id number] 179 [id number] [facility] 2024-02-27 00:00:00 2024-02-27 00:00:00 [facility] 1.2.840.114 350.1.13.10 4.2.7.2.686 [id number] 204 [id number] [facility] 2024-02-26 00:00:00 2024-02-26 00:00:00 Telephone [facility] 1.2840.114 350.1.13.10 4.2.7.2.686 [id number] [id number] [facility] 2024-02-25 15:15:00 2024-02-25 16:00:00 Ancillary Visit Magdalena Rajan Craig L [facility] 1.2.840.114 350.1.13.10 4.2.7.2.686 [id number] [facility] 2024-02-23 17:00:00 2024-02-23 17:15:00 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 Pob, Adc Lab Main Ijeoma [facility] 1.2840.114 350.1.13.10 4.2.7.2.686 [id number] 353 [id number] [facility] 2024-02-23 17:00:00 2024-02-23 17:00:00 Outpatient R [facility] [id number] [facility] 2024-02-23 16:00:00 2024-02-23 16:45:00 Ancillary Visit Magdalena Rajan Katie [facility] 1.2.840.114 350.1.13.10 4.2.7.2.686 [id number] 179 [id number] [facility] 2024-02-23 00:00:00 2024-02-23 00:00:00 Telephone Ijeoma [facility] 1.2.840.114 350.1.13.10 4.2.7.2.686 [id number] 204 [id number] [facility] 2024-02-20 00:00:00 2024-02-20 00:00:00 Letter (Out) [facility] 1.2840.114 350.1.13.10 4.2.7.2.686 [id number] 019 [id number] [facility] 2024-02-18 10:15:00 2024-02-18 11:00:00 Ancillary Visit Magdalena Rajan Craig L [facility] 1.2840.114 350.1.13.10 4.2.7.2.686 [id number] 179 [id number] [facility] 2024-02-17 14:00:00 2024-02-17 15:26:55 Ancillary Visit Margie Luna Craig L [facility] 1.2840.114 350.1.13.10 4.2.7.2.686 [id number] 179 [id number] [facility] 2024-02-17 00:00:00 2024-02-17 00:00:00 Telephone Roberto Cole [facility] 1.2840.114 350.1.13.10 4.2.7.2.686 [id number] [facility] 2024-02-13 00:00:00 2024-02-13 00:00:00 Refill Rosa Isela [facility] 1.2840.114 350.1.13.10 4.2.7.2.686 [id number] 044 [id number] [facility] 2024-02-13 00:00:00 2024-02-13 00:00:00 Telephone Carlton Raphael [facility] 1.2840.114 350.1.13.10 4.2.7.2.686 [id number] [facility] 2024-02-11 00:00:00 2024-02-11 00:00:00 Refill Rosa Isela Castañ[facility] 1.2840.114 350.1.13.10 4.2.7.2.686 [id number] 044 [id number] [facility] 2024-02-11 00:00:00 2024-02-11 00:00:00 Telephone Marah Carson [facility] 1.2.840.114 350.1.13.10 4.2.7.2.686 [id number] 044 [id number] [facility] 2024-02-10 16:00:00 2024-02-10 16:46:46 Outpatient R ROSA ISELA CASTAÑEDA [facility] [id number] [facility] 2024-02-10 16:00:00 2024-02-10 16:46:46 Office Visit Rosa Isela Castañeda [facility] 1.2.840.114 350.1.13.10 4.2.7.2.686 [id number] 044 [id number] [facility] 2024-02-10 00:00:00 2024-02-10 00:00:00 Telephone VerenaJoseAmparo [facility] 1.2.840.114 350.1.13.10 4.2.7.2.686 [id number] [id number] [facility] 2024-02-09 14:30:00 2024-02-09 15:16:12 Ancillary Visit Magdalena Rajan Craig L [facility] 1.2.840.114 350.1.13.10 4.2.7.2.686 [id number] [facility] 2024-02-09 08:45:00 2024-02-09 09:00:00 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 Bo, Jessy Lab Main Carlton Raphael [facility] 1.284.114 350.1.13.10 4.2.7.2.686 [id number] [facility] 2024-02-09 08:45:00 2024-02-09 08:45:00 Outpatient R CARLTON RAPHAEL [facility] [id number] [facility] 2024-02-06 15:30:00 2024-02-06 15:30:00 Outpatient R ELÍAS FLOYD [facility] [id number] [facility] 2024-02-06 08:15:00 2024-02-06 08:15:00 [facility] [id number] [facility] 2024-02-06 00:00:00 2024-02-06 00:00:00 Telephone [facility] [employer] BLD[employer]. 1.2.840.114 350.1.13.10 4.2.7.2.686 [id number] [facility] 2024-02-05 10:15:00 2024-02-05 10:30:00 Office Visit Leif [facility] [employer] BLD[facility]. 1.2.840.114 350.1.13.10 4.2.7.2.686 [id number] [facility] 2024-02-05 10:15:00 2024-02-05 10:15:00 Outpatient R [facility] [id number] [facility] 2024-02-05 10:15:00 2024-02-05 10:15:00 Outpatient R [facility] [id number] [facility] 2024-02-05 00:00:00 2024-02-05 00:00:00 Telephone [facility] [employer] BLDG. 1.2.840.114 350.1.13.10 4.2.7.2.686 [id number] [facility] 2024-02-04 14:00:00 2024-02-04 14:00:00 Outpatient R CARLTON RAPHAEL [facility] [id number] [facility] 2024-02-04 00:00:00 2024-02-04 00:00:00 Telephone Amparo Rudd [facility] 1.2.840.114 350.1.13.10 4.2.7.2.686 [id number] [id number] [facility] 2024-02-04 00:00:00 2024-02-04 00:00:00 Telephone Carlton Raphael [facility] 1.2.840.114 350.1.13.10 4.2.7.2.686 [id number] [facility] 2024-02-03 16:15:00 2024-02-03 16:30:00 Office Visit Marah Carson [facility] 1.2.840.114 350.1.13.10 4.2.7.2.686 [id number] 044 [id number] [facility] 2024-02-03 16:15:00 2024-02-03 16:15:00 Outpatient R MARAH CARSON [facility] [id number] [facility] 2024-02-02 13:45:00 2024-02-02 13:45:00 Outpatient R [facility] [id number] [facility] 2024-02-02 08:45:00 2024-02-02 09:54:29 Outpatient R ROSSY THURMAN CRAIG [facility] [id number] [facility] 2024-02-02 00:00:00 2024-02-02 00:00:00 Telephone Roberto Cole [facility] 1.2.840.114 350.1.13.10 4.2.7.2.686 [id number] [facility] 2024-01-28 14:45:00 2024-01-28 15:11:03 Outpatient R SHERRI YADAV [facility] [id number] [facility] 2024-01-28 14:45:00 2024-01-28 15:00:00 Office Visit Sherri Yadav [facility] 1.2840.114 350.1.13.10 4.2.7.2.686 [id number] 136 [id number] [facility] 2024-01-28 00:00:00 2024-01-28 00:00:00 Nurse Triage Apryl Mitchell [facility] 1.2840.114 350.1.13.10 4.2.7.2.686 [id number] [facility] 2024-01-28 00:00:00 2024-01-28 00:00:00 Telephone Carlton Raphael [facility] 1.20.114 350.1.13.10 4.2.7.2.686 [id number] [facility] 2024-01-27 08:34:00 2024-01-27 11:22:00 Outpatient R SHERRI YADAV [facility] [id number] [facility] 2024-01-27 08:34:00 2024-01-27 11:22:00 Hospital Encounter Sherri Yadav [facility] ([facility]) 1.2840.114 350.1.13.10 4.2.7.2.686 [id number] [id number] [facility] 2024-01-27 09:45:00 2024-01-27 10:16:00 Surgery Chauncey Yadavandrew [facility] ([facility]) 1.2.840.114 350.1.13.10 4.2.7.2.686 [id number] [id number] [facility] 2024-01-27 00:00:2024-01-27 00:00:00 Orders Only Doctor Unassigned, [place] [facility] 1.2840.114 350.1.13.10 4.2.7.2.686 [id number] [facility] 2024-01-27 00:00:00 2024-01-27 00:00:00 Nurse Triage Romeo Angie [facility] 1.2840.114 350.1.13.10 4.2.7.2.686 [id number] 019 [id number] [facility] 2024-01-26 00:00:00 2024-01-26 00:00:00 Telephone Amparo Rudd [facility] 1.2840.114 350.1.13.10 4.2.7.2.686 [id number] 044 [id number] [facility] 2024-01-26 00:00:00 2024-01-26 00:00:00 Telephone Sherri Yadav [facility] 1.0.114 350.1.13.10 4.2.7.2.686 [id number] [facility] 2024-01-25 00:00:00 2024-01-25 00:00:00 [facility].114 350.1.13.10 4.2.7.2.686 [id number] [id number] [facility] 2024-01-23 08:45:00 2024-01-23 09:00:00 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 Pob, Adc Lab Main Carlton Raphael [facility] 1.2840.114 350.1.13.10 4.2.7.2.686 [id number] [facility] 2024-01-23 08:45:00 2024-01-23 08:45:00 Outpatient R CARLTON RAPHAEL [facility] [id number] [facility] 2024-01-21 11:00:00 2024-01-21 11:30:00 Office Visit Samantha Tins[facility] 1..840.114 350.1.13.10 4.2.7.2.686 [id number] [id number] [facility] 2024-01-21 11:00:00 2024-01-21 11:00:00 Outpatient R MAURILIO, SAMANTHA [facility] [id number] [facility] 2024-01-21 00:00:00 2024-01-21 00:00:00 Telephone Verena [facility] 1..840.114 350.1.13.10 4.2.7.2.686 [id number] 044 [id number] [facility] 2024-01-21 00:00:00 2024-01-21 00:00:00 Telephone Verena [facility] 1..840.114 350.1.13.10 4.2.7.2.686 [id number] [id number] [facility] 2024-01-21 00:00:00 2024-01-21 00:00:00 Telephone Samantha Tinsley [facility] 1..840.114 350.1.13.10 4.2.7.2.686 [id number] [id number] [facility] 2024-01-14 14:30:00 2024-01-14 14:30:00 Outpatient MARAH RAINES [facility] [id number] [facility] 2024-01-12 13:45:00 2024-01-12 16:48:22 [facility] 1.840.114 350.1.13.10 4.2.7.2.686 [id number] [facility] 2024-01-12 00:00:00 2024-01-12 00:00:00 Telephone Marah Carson [facility] 1.84.114 350.1.13.10 4.2.7.2.686 [id number] 044 [id number] [facility] 2024-01-12 00:00:00 2024-01-12 00:00:00 Case Management Ruby Granados [facility] 1.840.114 350.1.13.10 4.2.7.2.686 [id number] [facility] 2024-01-11 00:00:00 2024-01-11 00:00:00 Telephone Ijeoma [facility] 1.84.114 350.1.13.10 4.2.7.2.686 [id number] [facility] 2024-01-09 00:00:00 2024-01-09 00:00:00 Telephone Rahul Daisy [facility] 1.84.114 350.1.13.10 4.2.7.2.686 [id number] [facility] 2024-01-08 15:30:00 2024-01-08 15:45:00 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 Pob, Adc Lab Main Ijeoma [facility] BUILDING 1.84.114 350.1.13.10 4.2.7.2.686 [id number] [facility] 2024-01-08 15:30:00 2024-01-08 15:30:00 Outpatient R IJEOMA [facility] [id number] [facility] 2024-01-07 00:00:00 2024-01-07 00:00:00 Telephone Ijeoma [facility] 1.2840.114 350.1.13.10 4.2.7.2.686 [id number] [facility] 2024-01-04 09:44:00 2024-01-04 10:33:00 Emergency X ADDIE [facility] E[facility] [id number] [facility] 2024-01-04 09:44:00 2024-01-04 10:33:00 Emergency Addie Junior [facility] 1.840.114 350.1.13.10 4.2.7.2.686 [id number] [facility] 2023-12-31 14:00:00 2023-12-31 15:37:52 Outpatient R SHERRI YADAV [facility] [id number] [facility] 2023-12-31 14:00:00 2023-12-31 15:37:52 Office Visit Sher[facility]adav [facility] 1.84.114 350.1.13.10 4.2.7.2.686 [id number] [facility] 2023-12-26 13:15:00 2023-12-26 13:45:00 Office Visit Vishal Servin [facility] 1.84.114 350.1.13.10 4.2.7.2.686 [id number] [facility] 2023-12-26 13:15:00 2023-12-26 13:15:00 [id number] 2023-12-26 00:00:00 2023-12-26 00:00:00 Telephone Ijeoma Carlton [facility] 1.840.114 350.1.13.10 4.2.7.2.686 [id number] [facility] 2023-12-26 00:00:00 2023-12-26 00:00:00 Orders Only Doctor Unassigned, [place] [facility] 1.2840.114 350.1.13.10 4.2.7.2.686 [id number] [facility] 2023-12-23 12:00:00 2023-12-23 12:15:00 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 Pob, Adc Lab Main Ijeoma [facility] 1.0.114 350.1.13.10 4.2.7.2.686 [id number] [facility] 2023-12-23 12:00:00 2023-12-23 12:00:00 [id number] 2023-12-22 15:20:00 2023-12-22 16:23:48 Outpatient R DOUGLAS [facility] [id number] [facility] 2023-12-22 15:20:00 2023-12-22 15:40:00 Office Visit Douglas [facility] 1.84.114 350.1.13.10 4.2.7.2.686 [id number] [facility] 2023-12-22 09:40:00 2023-12-22 09:40:00 Outpatient R DOUGLAS [facility] [id number] [facility] 2023-12-18 10:40:00 2023-12-18 10:40:00 Outpatient R DOUGLAS [facility] [id number] [facility] 2023-12-15 14:30:00 2023-12-15 15:13:29 Outpatient R MARIANGEL RUIZ [facility] [id number] [facility] 2023-12-15 14:30:00 2023-12-15 15:13:29 Office Visit Mariangel Ruiz [facility] 1.2.840.114 350.1.13.10 4.2.7.2.686 [id number] [facility] 2023-12-12 00:00:00 2023-12-12 00:00:00 Nurse Triage Rolando Mitchella [facility] 1.2.840.114 350.1.13.10 4.2.7.2.686 [id number] [facility] 2023-12-12 00:00:00 2023-12-12 00:00:[address] [facility] 1.2840.114 350.1.13.10 4.2.7.2.686 [id number] [facility] 2023-12-11 00:00:00 2023-12-11 00:00:00 Telephone Ijeoma [facility] 1.2840.114 350.1.13.10 4.2.7.2.686 [id number] [facility] 2023-12-10 00:00:00 2023-12-10 00:00:00 Telephone [facility] BRIAN?[facility] 1.2840.114 350.1.13.10 4.2.7.2.686 [id number] 044 [id number] [facility] 2023-12-09 00:00:00 2023-12-09 00:00:00 Telephone [facility] BRIAN?[facility]E [facility] 1.2.840.114 350.1.13.10 4.2.7.2.686 [id number] [id number] [facility] 2023-12-02 08:40:00 2023-12-02 08:40:00 Outpatient R AMPARO RUDD CHRISTINE [facility] [id number] [facility] 2023-12-01 00:00:00 2023-12-01 00:00:00 Telephone Barbara Miranda [facility] 1.84.114 350.1.13.10 4.2.7.2.686 [id number] [facility] 2023-11-26 10:29:41 2023-11-26 23:59:00 Hospital Encounter Samantha Tins[facility]AN?JACINTOStaci [facility] 1.114 350.1.13.10 4.2.7.2.686 [id number] [facility] 2023-11-26 16:00:00 2023-11-26 17:10:40 Outpatient R CARLTON RAPHAEL [facility] [id number] [facility] 2023-11-26 16:00:00 2023-11-26 17:10:40 Office Visit Carlton Raphael Rm2, Adc Surg Proc [facility] 1.84.114 350.1.13.10 4.2.7.2.686 [id number] 204 [id number] [facility] 2023-11-26 10:00:00 2023-11-26 10:29:46 [facility] 1.84.114 350.1.13.10 4.2.7.2.686 [id number] [id number] [facility] 2023-11-26 00:00:00 2023-11-26 00:00:00 Telephone Samantha Tins[facility] 1.84.114 350.1.13.10 4.2.7.2.686 [id number] 044 [id number] [facility] 2023-11-25 00:00:00 2023-11-25 00:00:00 Telephone Carlton Raphael [facility] 1.2.840.114 350.1.13.10 4.2.7.2.686 [id number] [facility] 2023-11-19 09:55:00 2023-11-19 09:55:00 Outpatient BARBARA GONZALEZ [facility] [id number] [facility] 2023-11-18 09:00:00 2023-11-18 09:00:00 Outpatient MARIANGEL KEYS [facility] [id number] [facility] 2023-11-17 00:00:00 2023-11-17 00:00:00 Case Management Geovani Mcintosh [facility] 1.2.840.114 350.1.13.10 4.2.7.2.686 [id number] 204 [id number] [facility] 2023-11-17 00:00:00 2023-11-17 00:00:00 Telephone Ruth Barbara [facility] 1.2.840.114 350.1.13.10 4.2.7.2.686 [id number] [facility] 2023-11-14 08:30:00 2023-11-14 08:30:00 Outpatient SAMANTHA GAINES [facility] [id number] [facility] 2023-11-13 09:00:00 2023-11-13 09:15:00 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 Pob, Adc Lab Main Carlton Raphael [facility] 1.2.840.114 350.1.13.10 4.2.7.2.686 [id number] [facility] 2023-11-13 09:00:00 2023-11-13 09:00:00 Outpatient R [facility] [id number] [facility] 2023-11-13 09:00:00 2023-11-13 09:00:00 [id number] 2023-11-11 09:20:00 2023-11-11 09:20:00 Outpatient R LISSET SARABIA [facility] [id number] [facility] 2023-11-06 00:00:00 2023-11-06 00:00:00 Telephone Lexieulysses [facility] 1.840.114 350.1.13.10 4.2.7.2.686 [id number] [facility] [id number] [facility] 2023-10-30 13:00:00 2023-10-30 14:37:05 Outpatient BRANDIE RIVERA [facility] [id number] [facility] 2023-10-30 13:00:00 2023-10-30 14:37:05 Office Visit Brandie Lowery [facility] 1..114 350.1.13.10 4.2.7.2.686 [id number] [facility] [id number] [facility] 2023-10-24 09:30:00 2023-10-24 09:30:00 Outpatient R BRANDIE LOWERY [facility] [id number] [facility] 2023-10-14 13:45:00 2023-10-14 13:45:00 Outpatient R ROSSY WELDON [facility] [id number] [facility] 2023-10-13 10:30:00 2023-10-13 10:45:00 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 Pob, Adc Lab Main Ijeoma [facility] BUILDING 1..840.114 350.1.13.10 4.2.7.2.686 [id number] [facility] 2023-10-13 10:30:00 2023-10-13 10:30:00 Outpatient R CARLTON RAPHAEL [facility] [id number] [facility] 2023-10-13 00:00:00 2023-10-13 00:00:00 Orders Only Doctor Unassigned, [place] [facility] 1.0.114 350.1.13.10 4.2.7.2.686 [id number] [facility] 2023-10-13 00:00:00 2023-10-13 00:00:00 Telephone Lisset Sarabia [facility] 1..114 350.1.13.10 4.2.7.2.686 [id number] 044 [id number] [facility] 2023-10-11 00:00:00 2023-10-11 00:00:00 Patient Secure Msg Doctor Unassigned, [place] [facility] 1..114 350.1.13.10 4.2.7.2.686 [id number] [facility] 2023-10-10 15:00:00 2023-10-10 16:27:44 Outpatient R ELÍAS FLOYD [facility] [id number] [facility] 2023-10-10 15:00:00 2023-10-10 16:27:44 [facility] Elías [facility] 1..114 350.1.13.10 4.2.7.2.686 [id number] [facility] 2023-10-06 00:00:00 2023-10-06 00:00:00 Case Management Geovani Mcintosh [facility] 1..114 350.1.13.10 4.2.7.2.686 [id number] 204 [id number] [facility] 2023-10-06 00:00:00 2023-10-06 00:00:00 Telephone Barbara Miranda [facility] 1.2840.114 350.1.13.10 4.2.7.2.686 [id number] 204 [id number] [facility] 2023-10-01 15:00:00 2023-10-01 15:30:00 Nurse Visit [facility], [facility] 1.20.114 350.1.13.10 4.2.7.2.686 [id number] [facility] 2023-10-01 15:00:00 2023-10-01 15:00:00 Outpatient R IJ[facility] [id number] [facility] 2023-10-01 11:00:00 2023-10-01 11:00:00 Outpatient R [facility] [id number] [facility] 2023-09-24 00:00:00 2023-09-24 00:00:00 Telephone Ijeoma [facility] BUILD[facility] 1.2840.114 350.1.13.10 4.2.7.2.686 [id number] [facility] 2023-09-23 00:00:00 2023-09-23 00:00:00 Telephone Ijeoma [facility] BU[facility] 1.2840.114 350.1.13.10 4.2.7.2.686 [id number] [facility] 2023-09-22 09:00:00 2023-09-22 09:15:00 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 Pob, Adc Lab Main Lisset Sarabia [facility] 1.2840.114 350.1.13.10 4.2.7.2.686 [id number] [facility] 2023-09-22 09:00:00 2023-09-22 09:00:00 Outpatient R BRIANNAJOSESHANIKAROCHELLELISSET [facility] [id number] [facility] 2023-09-16 09:45:00 2023-09-16 09:45:00 Outpatient R ROSSY WELDON [facility] [id number] [facility] 2023-09-12 00:00:00 2023-09-12 00:00:00 Refill Lisset Sarabia [facility] 1..114 350.1.13.10 4.2.7.2.686 [id number] [id number] [facility] 2023-09-05 14:00:00 2023-09-05 15:51:44 Outpatient R MCINTOSH GEOVANI [facility] [id number] [facility] 2023-09-05 15:30:00 2023-09-05 15:50:33 Office Visit Mcintosh, Geovani [facility] 1..114 350.1.13.10 4.2.7.2.686 [id number] [facility] 2023-09-05 00:00:00 2023-09-05 00:00:00 Patient Secure Msg Doctor Unassigned, [place] [facility] 1..114 350.1.13.10 4.2.7.2.686 [id number] [facility] 2023-09-02 00:00:00 2023-09-02 00:00:00 Patient Secure Msg Doctor Unassigned, [place] [facility] 1.0.114 350.1.13.10 4.2.7.2.686 [id number] [id number] [facility] 2023-08-27 09:00:00 2023-08-27 09:43:50 Outpatient R LISSET SARABIA [facility] [id number] [facility] 2023-08-27 09:00:00 2023-08-27 09:43:50 Office Visit Lisset Sarabia [facility] 1.2.840.114 350.1.13.10 4.2.7.2.686 [id number] [id number] [facility] 2023-08-27 08:20:00 2023-08-27 09:43:38 Office Visit Lisset Sarabia [facility] 1.2.840.114 350.1.13.10 4.2.7.2.686 [id number] 044 [id number] [facility] 2023-08-27 00:00:00 2023-08-27 00:00:00 Patient Secure Msg Doctor Unassigned, [place] [facility] 1.2840.114 350.1.13.10 4.2.7.2.686 [id number] 019 [id number] [facility] 2023-08-26 14:00:00 2023-08-26 15:15:56 Outpatient [facility] [id number] [facility] 2023-08-26 14:00:00 2023-08-26 15:15:56 [facility] 1.2840.114 350.1.13.10 4.2.7.2.686 [id number] 204 [id number] [facility] 2023-08-26 00:00:00 2023-08-26 00:00:00 Orders Only Doctor Unassigned, [place] [facility] 1.2.840.114 350.1.13.10 4.2.7.2.686 [id number] [facility] 2023-08-25 14:30:00 2023-08-25 15:04:05 Outpatient R MARYSOL STARK [facility] [id number] [facility] 2023-08-25 14:30:00 2023-08-25 15:04:05 Office Visit Marysol Stark [facility] 1.2840.114 350.1.13.10 4.2.7.2.686 [id number] [facility] 2023-08-18 00:00:00 2023-08-18 00:00:00 Telephone Marysol Stark [facility] [place] [facility] 1.284.114 350.1.13.10 4.2.7.2.686 [id number] [facility] 2023-08-12 16:00:00 2023-08-12 16:12:45 Outpatient R ERIC MARSHA [facility] [id number] [facility] 2023-08-12 16:00:00 2023-08-12 16:12:45 Office Visit Marsha Bustillos [facility] 1.2.840.114 350.1.13.10 4.2.7.2.686 [id number] [facility] 2023-08-12 13:00:00 2023-08-12 13:00:00 Outpatient R BRITTANIE BUSTILLOSSSICA [facility] [id number] [facility] 2023-08-11 14:45:00 2023-08-11 14:45:00 Outpatient R [facility] [id number] [facility] 2023-08-11 00:00:00 2023-08-11 00:00:00 Telephone Barbara Miranda [facility] 1.2.840.114 350.1.13.10 4.2.7.2.686 [id number] [facility] 2023-08-11 00:00:00 2023-08-11 00:00:00 Telephone Lisset Sarabia [facility] 1.2.840.114 350.1.13.10 4.2.7.2.686 [id number] 044 [id number] [facility] 2023-08-11 00:00:00 2023-08-11 00:00:00 Telephone Ruth Barbara [facility] 1.2.840.114 350.1.13.10 4.2.7.2.686 [id number] [facility] 2023-08-06 00:00:00 2023-08-06 00:00:00 Telephone Lisset Sarabia [facility] 1.2.840.114 350.1.13.10 4.2.7.2.686 [id number] [id number] [facility] 2023-07-29 00:00:00 2023-07-29 00:00:00 Telephone JeffyInogenNeville [facility] 1.2.840.114 350.1.13.10 4.2.7.2.686 [id number] [id number] [facility] 2023-07-25 14:30:00 2023-07-25 14:30:00 Outpatient BRANDIE RIVERA [facility] [id number] [facility] 2023-07-20 00:00:00 2023-07-20 00:00:00 [facility] 1.2.840.114 350.1.13.10 4.2.7.2.686 [id number] [facility] 2023-07-16 00:00:00 2023-07-16 00:00:00 Telephone ownCloudNeville [facility] 1.2.840.114 350.1.13.10 4.2.7.2.686 [id number] [id number] [facility] 2023-07-07 15:07:08 2023-07-07 23:59:00 Outpatient R [place] , [place] [facility] [id number] [facility] 2023-07-07 15:05:00 2023-07-07 23:59:00 Hospital En[facility] [facility] 1.2.840.114 350.1.13.10 4.2.7.2.686 [id number] [facility] 2023-07-04 09:45:00 2023-07-04 09:56:50 Outpatient R [place] , [place] [facility] [id number] [facility] 2023-07-04 09:45:00 2023-07-04 09:56:50 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 2, Adc Lab Hitesh-[place] [facility] 1..840.114 350.1.13.10 4.2.7.2.686 [id number] [facility] 2023-06-30 13:20:00 2023-06-30 14:16:23 Outpatient R [place] , [place] [facility] [id number] [facility] 2023-06-30 13:20:00 2023-06-30 14:16:23 Office [facility] [facility] 1.2.840.114 350.1.13.10 4.2.7.2.686 [id number] [id number] [facility] 2023-06-30 00:00:00 2023-06-30 00:00:00 Telephone Everett [facility] BRIAN?SHIRLENE PA[facility]INO [facility] 1.840.114 350.1.13.10 4.2.7.2.686 [id number] [facility] 2023-06-28 00:00:00 2023-06-28 00:00:00 Refill Isidra Omar [facility]E ADEN [facility] 1.84.114 350.1.13.10 4.2.7.2.686 [id number] 220 [id number] [facility] 2023-06-24 10:30:00 2023-06-24 11:15:18 Outpatient R [facility]T [facility] [id number] [facility] 2023-06-24 10:30:00 2023-06-24 11:15:18 Office Visit Everett [facility] KE[facility]KO [facility] 1.840.114 350.1.13.10 4.2.7.2.686 [id number] [facility] 2023-06-04 00:00:00 2023-06-04 00:00:00 Orders Only Doctor Unassigned, [place] [facility] 1.84.114 350.1.13.10 4.2.7.2.686 [id number] [facility] 2023-06-03 00:00:00 2023-06-03 00:00:00 Refill Lisset Sarabia [facility] A[facility]EL M[facility]SE[facility] NAL BUILD[facility] 1.84.114 350.1.13.10 4.2.7.2.686 [id number] [id number] [facility] 2023-06-01 00:00:00 2023-06-01 00:00:00 Refill Isidra Wilkes [facility] 1.2.840.114 350.1.13.10 4.2.7.2.686 [id number] [facility] 2023-05-28 11:30:00 2023-05-28 11:30:00 Outpatient OMAR ROSALES YU [facility] [id number] [facility] 2023-05-28 00:00:00 2023-05-28 00:00:00 Telephone Octaviano Heaton [facility] 1.2.840.114 350.1.13.10 4.2.7.2.686 [id number] [id number] [facility] 2023-05-27 00:00:00 2023-05-27 00:00:00 Refill Omar Miner [facility]?SHIRLENE PA[facility]INO [facility] 1.2.840.114 350.1.13.10 4.2.7.2.686 [id number] [facility] 2023-05-26 00:00:00 2023-05-26 00:00:00 Telephone Lisset Sarabia [facility] 1.2.840.114 350.1.13.10 4.2.7.2.686 [id number] 044 [id number] [facility] 2023-05-26 00:00:00 2023-05-26 00:00:00 Telephone Octaviano Heaton [facility] 1.2.840.114 350.1.13.10 4.2.7.2.686 [id number] 044 [id number] [facility] 2023-05-16 15:00:00 2023-05-16 15:00:00 Outpatient ELÍAS ZHOU [facility] [id number] [facility] 2023-05-11 00:00:00 2023-05-11 00:00:00 Refill Lisset Sarabia [facility]ILD[facility] 1.2.840.114 350.1.13.10 4.2.7.2.686 [id number] [id number] [facility] 2023-04-23 15:00:00 2023-04-23 17:01:56 Outpatient R ROSSY THURMAN [facility] [id number] [facility] 2023-04-23 15:00:00 2023-04-23 17:01:56 Office Visit Rossy Thurman [facility]?SHIRLENE PA[facility]INO [facility] 1.2840.114 350.1.13.10 4.2.7.2.686 [id number] [facility] 2023-04-21 00:00:00 2023-04-21 00:00:00 Refill Omar Miner [facility] 1.2840.114 350.1.13.10 4.2.7.2.686 [id number] [facility] 2023-04-21 00:00:00 2023-04-21 00:00:00 Refill Lisset Sarabia [facility] N[facility] 1.2840.114 350.1.13.10 4.2.7.2.686 [id number] [id number] [facility] 2023-04-18 00:00:00 2023-04-18 00:00:00 Telephone Otcaviano Heaton [facility] N[facility] BUILD[facility] 1.2.840.114 350.1.13.10 4.2.7.2.686 [id number] [id number] [facility] 2023-04-14 00:00:00 2023-04-14 00:00:00 Refill Lisset Sarabia [facility] 1.2840.114 350.1.13.10 4.2.7.2.686 [id number] 044 [id number] [facility] 2023-04-11 16:00:00 2023-04-11 16:09:26 Outpatient R OCTAVIANO HEAOTN OGECHUKWU [facility] [id number] [facility] 2023-04-11 16:00:00 2023-04-11 16:09:26 Office Visit Octaviano Heaton [facility] 1.2.840.114 350.1.13.10 4.2.7.2.686 [id number] [id number] [facility] 2023-04-10 00:00:00 2023-04-10 00:00:00 Refill Omar Miner [facility]?SHIRLENE KEIKOGRETCHEN [facility] 1.2.840.114 350.1.13.10 4.2.7.2.686 [id number] [facility] 2023-04-02 00:00:00 2023-04-02 00:00:00 Telephone Marsha Bustillos [facility] 1.2.840.114 350.1.13.10 4.2.7.2.686 [id number] [facility] 2023-03-18 15:54:25 2023-03-18 23:59:00 Hospital Encounter Marsha Bustillos [facility] 1.2.840.114 350.1.13.10 4.2.7.2.686 [id number] [facility] 2023-03-18 15:00:00 2023-03-18 15:31:00 Outpatient R BUSTILLOSMARSHA [facility] [id number] [facility] 2023-03-18 15:00:00 2023-03-18 15:31:00 Office Visit Marsha Bustillos [facility] 1.2.840.114 350.1.13.10 4.2.7.2.686 [id number] [id number] [facility] 2023-03-18 00:00:00 2023-03-18 00:00:00 Orders Only Doctor Unassigned, [place] [facility] 1.2.840.114 350.1.13.10 4.2.7.2.686 [id number] [facility] 2023-03-14 00:00:00 2023-03-14 00:00:00 Telephone Lisset Sarabia [facility] 1.2.840.114 350.1.13.10 4.2.7.2.686 [id number] [facility] 2023-03-06 00:00:00 2023-03-06 00:00:00 Refill [facility] 1.2840.114 350.1.13.10 4.2.7.2.686 [id number] [facility] 2023-02-25 00:00:00 2023-02-25 00:00:00 Refill BriannajoseLisset wyatt [facility] 1.2.840.114 350.1.13.10 4.2.7.2.686 [id number] 044 [id number] [facility] 2023-02-20 14:40:00 2023-02-20 14:40:00 Outpatient R LISSET SARABIA [facility] [id number] [facility] 2023-02-19 00:00:00 2023-02-19 00:00:00 Telephone [facility]idra Wilkes [facility] 1.2.840.114 350.1.13.10 4.2.7.2.686 [id number] 220 [id number] [facility] 2023-02-03 00:00:00 2023-02-03 00:00:00 Telephone Omar Min[facility] 1.2.840.114 350.1.13.10 4.2.7.2.686 [id number] 220 [id number] [facility] 2023-01-06 14:30:00 2023-01-06 14:30:00 Outpatient R OMAR MINER ISIDRAOMAR [facility] [id number] [facility] 2023-01-03 00:00:00 2023-01-03 00:00:00 Telephone Luanne [facility] BUILDING 1.2.840.114 350.1.13.10 4.2.7.2.686 [id number] [facility] 2022-11-19 00:00:00 2022-11-19 00:00:00 Telephone Omar Miner [facility] 1.2.840.114 350.1.13.10 4.2.7.2.686 [id number] 220 [id number] [facility] 2022 10:00:00 2022 10:15:00 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 Pob, Adc Lab Main Lisset Sarabia [facility] BUILDING 1.2.840.114 350.1.13.10 4.2.7.2.686 [id number] [facility] 2022 10:00:00 2022 10:00:00 Outpatient R LISSET SARABIA [facility] [id number] [facility] 2022-10-18 14:00:00 2022-10-18 15:21:49 Outpatient R LISSET SARABIA [facility] [id number] [facility] 2022-10-18 14:00:00 2022-10-18 15:21:49 Office Visit Lisset Sarabia [facility] BUILDING 1.2.840.114 350.1.13.10 4.2.7.2.686 [id number] [facility] 2022-10-18 00:00:00 2022-10-18 00:00:00 Orders Only Doctor Unassigned, [place] [facility] 1.2.840.114 350.1.13.10 4.2.7.2.686 [id number] [facility] 2022-10-17 00:00:00 2022-10-17 00:00:00 Telephone Lisset Sarabia [facility] 1.2.840.114 350.1.13.10 4.2.7.2.686 [id number] [id number] [facility] 2022-10-09 00:00:00 2022-10-09 00:00:00 [facility] 1.2.840.114 350.1.13.10 4.2.7.2.686 [id number] 220 [id number] [facility] 2022-09-27 00:00:00 2022-09-27 00:00:00 Telephone Isidra, [facility] 1.2.840.114 350.1.13.10 4.2.7.2.686 [id number] 220 [id number] [facility] 2022-09-27 00:00:00 2022-09-27 00:00:[address] [facility] 1.2840.114 350.1.13.10 4.2.7.2.686 [id number] [facility] 2022-09-25 14:15:00 2022-09-25 14:15:00 [id number] Jackie Daniels 2022-09-03 00:00:00 2022-09-03 00:00:00 Telephone Dank [facility] 1.2.840.114 350.1.13.10 4.2.7.2.686 [id number] [facility] 2022-06-25 14:30:00 2022-06-25 14:30:00 Outpatient CHAKAIE MARIA ISABEL [id number] Jackie Daniels 2022-06-17 15:00:00 2022-06-17 16:08:38 Outpatient R OMAR MINER [facility] [id number] [facility] 2022-06-17 15:00:00 2022-06-17 16:08:38 Office Visit Omar Miner [facility] 1..840.114 350.1.13.10 4.2.7.2.686 [id number] [facility] 2022-06-10 16:07:48 2022-06-10 23:59:00 Outpatient R RADIOLOGY [facility] [id number] [facility] 2022-06-10 16:00:00 2022-06-10 23:59:00 Hospital Encounter Radiology [facility] 1.2.840.114 350.1.13.10 4.2.7.2.686 [id number] [facility] 2022-04-26 16:00:00 2022-04-26 16:00:00 Outpatient R CRISS CABALLERO [facility] [id number] [facility] 2022-03-29 15:18:33 2022-03-29 23:59:00 Outpatient R STACY URIAS [facility] [id number] [facility] 2022-03-29 15:18:33 2022-03-29 23:59:00 Hospital Encounter Stacy Urias [facility] 1.2840.114 350.1.13.10 4.2.7.2.686 [id number] [facility] 2022-03-29 00:00:00 2022-03-29 00:00:00 Orders Only Doctor Unassigned, [place] [facility] 1.2.840.114 350.1.13.10 4.2.7.2.686 [id number] [facility] 2022-03-14 13:30:00 2022-03-14 13:30:00 Outpatient R RADIOLOGY [facility] [id number] [facility] 2022-02-25 00:00:00 2022-02-25 00:00:00 Outpatient R RADIOLOGY [facility] [id number] [facility] 2022-01-17 10:00:00 2022-01-17 10:00:00 Outpatient R ANNA HUANG [facility] [id number] [facility] 2021-12-18 00:00:00 2021-12-18 00:00:00 Telephone Katie [facility] 1.2840.114 350.1.13.10 4.2.7.2.686 [id number] [facility] 2021-12-17 14:00:00 2021-12-17 14:00:00 Outpatient R KATIE [facility] [id number] [facility] 2021-10-08 09:30:00 2021-10-08 09:30:00 Outpatient R MARAH CARSON [facility] [id number] [facility] 2021-09-22 00:00:00 2021-09-22 00:00:00 Telephone Miguel Magallon [facility] 1.2.840.114 350.1.13.10 4.2.7.2.686 [id number] [facility] 2021-09-21 15:52:19 2021-09-21 16:07:19 Laboratory Only Only, Mickey Matthews Test Iris Cedeñotany [facility] 1..114 350.1.13.10 4.2.7.2.686 [id number] [facility] 2021-09-21 15:45:00 2021-09-21 15:45:00 Outpatient R MURALI CEDEÑO [facility] [id number] [facility] 2021-07-13 00:00:00 2021-07-13 00:00:00 Telephone Nurse, [facility] Office Building 1.114 350.1.13.10 4.2.7.2.686 [id number] [facility] 2021-07-13 00:00:00 2021-07-13 00:00:00 Letter (Out) Christina Munson [facility] 1.114 350.1.13.10 4.2.7.2.686 [id number] [facility] 2021-07-11 11:55:00 2021-07-11 11:55:00 Outpatient R [facility] [id number] [facility] 2021-07-11 11:04:14 2021-07-11 11:14:14 Urgent Care Provider, Mickey [facility] Laura Lee [facility] Office Building 1.114 350.1.13.10 4.2.7.2.686 [id number] [facility] 2021-07-04 00:00:00 2021-07-04 00:00:00 Refill Ayah Hernandez [facility] Office Building One 1.114 350.1.13.10 4.2.7.2.686 [id number] [facility] 2021-06-25 00:00:00 2021-06-25 00:00:00 Letter (Out) Christina Munson [facility] 1.2.840.114 350.1.13.10 4.2.7.2.686 [id number] [facility] 2021-06-25 00:00:00 2021-06-25 00:00:00 Nurse Triage Marsha Cruz [facility] 1.2.840.114 350.1.13.10 4.2.7.2.686 [id number] [facility] 2021-06-24 00:00:00 2021-06-24 00:00:00 Telephone Fatou Murphy [facility] 1.2.840.114 350.1.13.10 4.2.7.2.686 [id number] [facility] 2021-06-22 17:14:39 2021-06-22 23:59:00 Hospital Encounter CashAyah vigil [facility] 1.2.840.114 350.1.13.10 4.2.7.2.686 [id number] [facility] 2021-06-22 16:21:40 2021-06-22 17:23:08 Urgent Care Ayah Hernandez [facility] Office Building One 1.2.840.114 350.1.13.10 4.2.7.2.686 [id number] [facility] 2021-06-22 15:40:00 2021-06-22 15:40:00 [facility] [id number] 2021-06-22 00:00:00 2021-06-22 00:00:00 Orders Only Doctor Unassigned, [place] [facility] 1.2.840.114 350.1.13.10 4.2.7.2.686 [id number] [facility] 2021-04-05 22:34:00 2021-04-06 02:52:00 Emergency Lore Soliz [facility] 1.2.840.114 350.1.13.10 4.2.7.2.686 [id number] [facility] 2021-04-05 22:34:00 2021-04-06 02:52:00 Emergency [facility] [id number] [facility] 2021-04-05 22:34:00 2021-04-05 22:34:00 Emergency X LORE SOLIZ [facility] ERT [id number] [facility] 2021-04-03 00:00:00 2021-04-03 00:00:00 Silvia Wooten, CUSTOM SHOEMAKER: [address] [facility], [address], [place] [address] , Ph. P [facility] - [email or web address] Direct [id number] [facility] 2021-03-11 21:21:00 2021-03-11 23:59:00 Emergency Maria Del Rosario [facility] 1.2.840.114 350.1.13.10 4.2.7.2.686 [id number] [facility] 2021-03-11 21:21:00 2021-03-11 23:59:00 Emergency X LORE SOLIZ [facility] ERT [id number] [facility] 2021-03-11 21:18:00 2021-03-11 21:18:00 Emergency X [facility] ERT [id number] [facility] 2021-02-14 21:53:00 2021-02-15 02:18:00 Emergency Maria Del Rosario [facility] 1.2.840.114 350.1.13.10 4.2.7.2.686 [id number] [facility] 2021-02-14 21:53:00 2021-02-14 21:53:00 Emergency X LORE SOLIZ [facility] ERT [id number] [facility] 2020-11-30 00:00:00 2020-11-30 00:00:00 Silvia Wooten, CUSTOM SHOEMAKER: [address] [facility], [address], [place] [id number] , Ph. P [facility] - [email or web address] Direct [id number] [facility] Practic e 2020-08-05 22:30:00 2020-08-05 22:57:00 Emergency Víctor Hahn [facility] 1.2.840.114 350.1.13.10 4.2.7.2.686 [id number] [facility] 2020-08-05 22:22:00 2020-08-05 22:22:00 Emergency X SINGER VÍCTOR [facility] ERT [id number] [facility] 2020-02-08 00:00:00 2020-02-08 00:00:00 Shakira small CUSTOM SHOEMAKER: [address] [facility], [address], [place] [address] , Ph. [facility] - [email or web address] [id number] [facility] Practic e Results Test Description Test Time Test Comments Results Result Co mments Source [facility] Internal auditory canals w wo contrast 2024-12-15 23:12:35EXAM: MR INTERNAL AUDITORY CANALS W WO CONTRAST TECHNIQUE: Multiplanar multisequence MRI of the brain was performed withand without IV gadolinium. Dedicated thin section sequences of the internalauditory canals were also performed. HISTORY: Bilateral SNHL, asymmetric. COMPARISON: MRI brain and CT head on 04/25/2024 FINDINGS: The ventricles and cerebral sulci are normal in caliber and configuration.No midline shift, hydrocephalus or pathological extra- axial fluidcollection is present. The basal cisterns are unremarkable. Scattered foci of T2/FLAIR hyperintense signal are noted in theperiventricular and deep white matter, non-specific but likely representmild microvascular ischemic disease. Noabnormal enhancement is seen in thebrain. No restricted diffusion is present. The hippocampi demonstrate normal morphology and signal intensity. Noabnormal signal or enhancement of mesial temporal lobes. No evidence ofcortical dysplasia or migrational disorders. The T2 flow voids for the major intracranial vessels are unremarkable. Noabnormal gradient blooming. The internal auditory canals are patent without filling defects. No focallesion or abnormal enhancement of the internal auditory canals orcerebellopontine angles. The cisternal and intracanalicular segments of the vestibulocochlear nervesare unremarkable bilaterally. The cochlear apertures appear patent. NormalT2 hyperintense signalof the inner ear structures. Visualized mastoids are unremarkable.[facility]ennialDIABETES TESTING REPORTS 2024-11-22 16:09:40Ordered by an unspecified provider.[facility] Hemoglobin A1C [id number] 20:51:00* Test Item Value Reference Range Interpretation Comme [facility] POCT HBA1C (test code = 4548-4) 6.9 % 4-6 A Lab Interpretation (test cod e = 66783-6) Abnormal [facility]ennialPHYSICIAN [id number] 17:10:31Ordered by an unspecified provider.[facility]ennialDME/SUPPLY [id number] 13:15:13Ordered by an unspecified provider.[facility] GLUCOSE (AUTOMATED)2024-04-28 17:41:01* Test Item Value Reference Range Interpretation Comme [facility] POCT GLU (test code = 9492881472) 168 mg/dL 70-110 H Lab Interpretation (test cod e = 65871-4) Abnormal [facility] GLUCOSE (AUTOMATED)2024-04-28 13:04:10* Test Item Value Reference Range Interpretation Comme [facility] POCT GLU (test code = 1910009513) 167 mg/dL 70-110 H Lab Interpretation (test cod e = 08655-3) Abnormal [facility] GLUCOSE (AUTOMATED)2024-04-28 02:45:12* Test Item Value Reference Range Interpretation Comme nts POCT GLU (test code = 6832754549) 129 mg/dL 70-110 H Lab Interpretation (test cod e = 14787-4) Abnormal [facility] GLUCOSE (AUTOMATED)2024-04-27 20:54:05* Test Item Value Reference Range Interpretation Comme nts POCT GLU (test code = 0434240191) 147 mg/dL 70-110 H Lab Interpretation (test cod e = 12493-5) Abnormal [facility] GLUCOSE (AUTOMATED)2024-04-27 17:01:48* Test Item Value Reference Range Interpretation Comme nts POCT GLU (test code = 6971194571) 92 mg/dL 70-110 Lab Interpretation (test cod e = 05978-3) Normal [facility]ennialXR CHEST 1 [id number] 16:49:37EXAM: XR CHEST 1 VW COMPARISON: 03/29/2022 HISTORY: sob FINDINGS: Lungs: Stable relatively large lung volumes, peribronchial cuffing andinterstitial prominence, compatible with smoking related changes. No newfocal opacities. Heart/Mediastinum: The cardiac silhouette appears normal accounting fortechnique and degree of inspiration. Bones and soft tissues: No osseous abnormality is visualized. Calcifiedcostochondral junctions.[facility] GLUCOSE (AUTOMATED)2024-04-27 12:25:08* Test Item Value Reference Range Interpretation Comme nts POCT GLU (test code = 9157178498) 95 mg/dL 70-110 Lab Interpretation (test cod e = 26051-6) Normal [facility] CentennialN-Terminal Mkn-[id number] 07:28:48* Test Item Value Reference Range Interpretation Comme nts NT-proBNP (test code = 45853-8) 151 pg/mL <=125 MARY (test code = MARY) Result Indeterminate-Consid er causes of NT-proBNP elevation other than Heart failure such as acute coronary syndrome, pulmonary embolism, pulmonary hypertension, sepsis, stroke, and renal dysfunction. Lab Interpretation (test code = 67059-2) Abnormal [facility] CentennialMagnesium2024-06-18 07:23:46* Test Item Value Reference Range Interpretation Comme nts MAGNESIUM (test code = 1076482258) 1.8 mg/dL 1.7-2.4 Lab Interpretation (test cod e = 39760-7) Normal [facility] CentennialHepatic Function Panel (65882) (ALB,T.PRO,BILI T,BU/BC,ALT,AST,ALK PHOS)2024-04-27 07:23:46* Test Item Value Reference Range Interpretation Comme nts TOTAL BILI (test code = 1848582019) 1.5 mg/dL 0.1-1.1 H BILI UNCON (test code = 6481686925) 1.2 mg/dL 0.1-1.1 H BILI CONJ (test code = 6486187709) 0.0 mg/dL 0.0-0.3 T PROTEIN (test code = 2776377040) 6.3 g/dL 6.3-8.2 ALBUMIN (test code = 7852476918) 3.8 g/dL 3.5-5.0 ALK PHOS (test code = 1017806565) 84 U/L 34-122 ALTv (test code = 1742-6) 12 U/L 5-50 AST(SGOT) (test code = 1096673166) 27 U/L 13-40 Lab Interpretation (test cod e = 02512-5) Abnormal [facility] CentennialBasi Metabolic Panel (NA, K, CL, CO2, GLUCOSE, BUN, CREATININE, CA)2024-04-27 07:23:45* Test Item Value Reference Range Interpretation Comme nts NA (test code = 9876261614) 134 mmol/L 135-145 L K (test code = 7876410678) 3.7 mmol/L 3.5-5.0 CL (test code = 0823071145) 104 mmol/L 98-108 CO2 TOTAL (test code = 3679754786) 23 mmol/L 23-31 AGAP (test code = 1831054353) 7 2-16 BUN (test code = 4562046770) 19 mg/dL 7-23 GLUCOSE (test code = 5423096776) 125 mg/dL 70-110 H CREATININE (test code = 2160-0) 0.85 mg/dL 0.60-1.25 CALCIUM (test code = 2944937776) 8.8 mg/dL 8.6-10.6 eGFR (test code = 46722-8) 91.8 mL/min/1.73m2 CKD-EPI eGFR (2020). Assuming creatinine has been stable day-to-day for at least three months, the eGFR indicates Category G1 (>= 90 mL/min/1.73 m2) Lab Interpretation (test code = 19472-2) Abnormal [facility] with [id number] 07:13:07* Test Item Value Reference Range Interpretation Comme nts WBC (test code = 6690-2) 11.05 4.20-10.70 H RBC (test code = 789-8) 4.48 4.26-5.52 HGB (test code = 718-7) 12.3 g/dL 12.2-16.4 HCT (test code = 4544-3) 36.4 % 38.4-49.3 L MCV (test code = 787-2) 81.3 fL 81.7-95.6 L MCH (test code = 785-6) 27.5 pg 26.1-32.7 MCHC (test code = 786-4) 33.8 g/dL 31.2-35.0 RDW-SD (test code = 30593-7) 40.4 fL 38.5-51.6 RDW-CV (test code = 788-0) 13.8 % 12.1-15.4 PLT (test code = 777-3) 254 150-328 MPV (test code = 36600-7) 10.7 fL 9.8-13.0 NRBC/100 WBC (test code = 4733755302) 0.0 0.0-10.0 NRBC x10^3 (test code = 7882238163) See_Comment [Automated messa ge] The system which generated this result transmitted reference range: 10*3/?L. The reference range was not used to interpret this result as normal/abnormal. GRAN MAT (NEUT) % (test code = 770-8) 74.8 % IMM GRAN % (test code = 3952542060) 0.50 % LYMPH % (test code = 736-9) 14.7 % MONO % (test code = 5905-5) 8.3 % EOS % (test code = 713-8) 0.9 % BASO % (test code = 706-2) 0.8 % GRAN MAT x10^3(ANC) (test code = 8889361090) 8.27 10*3/uL 1.99-6.95 H IMM GRAN x10^3 (test code = 0066811358) 0.05 10*3/uL 0.00-0.06 LYMPH x10^3 (test code = 731-0) 1.62 10*3/uL 1.09-3.23 MONO x10^3 (test code = 742-7) 0.92 10*3/uL 0.36-1.02 EOS x10^3 (test code = 711-2) 0.10 10*3/uL 0.06-0.53 BASO x10^3 (test code = 704-7) 0.09 10*3/uL 0.01-0.09 Lab Interpretation (test code = 35295-4) Abnormal [facility] GLUCOSE (AUTOMATED)2024-04-27 02:54:37* Test Item Value Reference Range Interpretation Comme nts POCT GLU (test code = 8279488631) 110 mg/dL 70-110 Lab Interpretation (test cod e = 91627-6) Normal [facility] GLUCOSE (AUTOMATED)2024-04-26 21:11:32* Test Item Value Reference Range Interpretation Comme nts POCT GLU (test code = 3557365227) 100 mg/dL 70-110 Lab Interpretation (test cod e = 98865-4) Normal [facility] GLUCOSE (AUTOMATED)2024-04-26 16:42:11* Test Item Value Reference Range Interpretation Comme nts POCT GLU (test code = 2174469304) 96 mg/dL 70-110 Lab Interpretation (test cod e = 66118-1) Normal [facility]ennialMR BRAIN W WO [id number] 16:21:37EXAM: MR BRAIN W WO CONTRAST HISTORY: 73 years-old Male presented with coffee-ground emesis, left-sidedweakness and mental status change, unknown cause . TECHNIQUE: Multiplanar and multisequence MRI imaging of the brain wasobtained with and without contrast. COMPARISON: ?CT head and CT angiogram 04/25/2024 FINDINGS: The ventricles and cerebral sulci are normal in caliber and configuration.No midline shift or pathological extra-axial fluid collection is present.The basal cisterns are unremarkable. No restricted diffusion is present. Scattered foci of T2/FLAIRhyperintensity in the deep white matter are nonspecific, favored to bemicrovascular ischemic changes and are likely unremarkable for age. ?Noabnormal gradient blooming is visualized. No abnormal enhancement. The T2 flow voids for the major intracranial vessels are unremarkable. Noabnormal fluid signal is present in the mastoid air cells or paranasal airsinuses.[facility] CentennialXR [id number] 14:40:36EXAM: XR KUB HISTORY: 73 years-old Male; ogt TECHNIQUE: Frontal view of the abdomen and pelvis COMPARISON: None FINDINGS: The gastric tube projects over stomach with its sidehole just distal to thegastroesophageal junction. Moderate stool burden seen at the proximal colon. The visualized bowel gaspattern is overall nonobstructive. No acute osseous abnormality is detected.[facility] CentennialCbc without [id number] 14:03:15* Test Item Value Reference Range Interpretation Comme nts WBC (test code = 6690-2) 10.49 4.20-10.70 RBC (test code = 789-8) 4.53 4.26-5.52 HGB (test code = 718-7) 12.6 g/dL 12.2-16.4 HCT (test code = 4544-3) 37.3 % 38.4-49.3 L MCH (test code = 785-6) 27.8 pg 26.1-32.7 MCV (test code = 787-2) 82.3 fL 81.7-95.6 MCHC (test code = 786-4) 33.8 g/dL 31.2-35.0 PLT (test code = 777-3) 256 150-328 MPV (test code = 50930-2) 10.7 fL 9.8-13.0 RDW-CV (test code = 788-0) 14.2 % 12.1-15.4 RDW-SD (test code = 35825-1) 42.4 fL 38.5-51.6 NRBC x10^3 (test code = 2129853156) See_Comment [Automated Nu[employer] ge] The system which generated this result transmitted reference range: 10*3/?L. The reference range was not used to interpret this result as normal/abnormal. NRBC/100 WBC (test code = 6327867722) 0.0 0.0-10.0 IPF % (test code = 1150784799) Lab Interpretation (test code = 29693-0) Abnormal [facility] GLUCOSE (AUTOMATED)2024-04-26 12:46:24* Test Item Value Reference Range Interpretation Comme nts POCT GLU (test code = 6946292780) 96 mg/dL 70-110 Lab Interpretation (test cod e = 79566-2) Normal [facility] GLUCOSE (AUTOMATED)2024-04-26 01:54:07* Test Item Value Reference Range Interpretation Comme nts POCT GLU (test code = 4937216786) 107 mg/dL 70-110 Lab Interpretation (test cod e = 63748-7) Normal [facility] without [id number] 23:16:54* Test Item Value Reference Range Interpretation Comme nts WBC (test code = 6690-2) 11.07 4.20-10.70 H RBC (test code = 789-8) 4.02 4.26-5.52 L HGB (test code = 718-7) 11.3 g/dL 12.2-16.4 L HCT (test code = 4544-3) 33.0 % 38.4-49.3 L MCH (test code = 785-6) 28.1 pg 26.1-32.7 MCV (test code = 787-2) 82.1 fL 81.7-95.6 MCHC (test code = 786-4) 34.2 g/dL 31.2-35.0 PLT (test code = 777-3) 245 150-328 MPV (test code = 10145-2) 10.5 fL 9.8-13.0 RDW-CV (test code = 788-0) 13.8 % 12.1-15.4 RDW-SD (test code = 00919-6) 41.1 fL 38.5-51.6 NRBC x10^3 (test code = 8764950014) See_Comment [Automated messa ge] The system which generated this result transmitted reference range: 10*3/?L. The reference range was not used to interpret this result as normal/abnormal. NRBC/100 WBC (test code = 2304130546) 0.0 0.0-10.0 IPF % (test code = 2079435686) Lab Interpretation (test code = 32477-4) Abnormal [facility]ennialPOCT GLUCOSE (AUTOMATED)2024-04-25 22:50:46* Test Item Value Reference Range Interpretation Comme nts POCT GLU (test code = 7530083549) 101 mg/dL 70-110 Lab Interpretation (test cod e = 36098-1) Normal [facility] CentennialCT ANGIOGRAM [id number] 18:25:42CT ANGIOGRAM CHEST, CT ANGIOGRAM ABDOMEN/PELVIS HISTORY: 73 years-old; Male; Acute aortic syndrome (AAS) suspected COMPARISON: CT abdomen 07/07/2023 TECHNIQUE: CT of the chest, abdomen and pelvis without contrast. ?CTangiogram of the chest, abdomen and pelvis following IV contrast. Arterialphase imaging was performed. Precontrast right images were obtained for theabdomen and pelvis. FINDINGS: AORTA: Thoracic aorta and great vessels: Normal three vessel branching pattern isidentified off of the aortic arch. Mild atherosclerotic calcification ofthe aortic arch, ascending and descending aorta without significantstenosis. Severe coronary artery atherosclerotic calcifications are noted.No aneurysmal dilatation or dissection are identified in the thoracicaorta. No significant atherosclerotic disease affecting the aorta and its primarybranches. The abdominal aorta is patent. No evidence of dissection. Theceliac artery is Patent. SMA and renal arteries are patent. CHEST:Lower neck/thyroid: Unremarkable. Lungs: Bilateral dependent atelectasis, right more than left. Trace pleuraleffusion on the left Central airway: ET tube terminates above the syed. Pleura: No pleural effusion, thickening or pneumothorax. Pulmonary arteries: Normal in caliber. Heart and pericardium: Moderate sclerotic calcifications of the coronaryarteries. Unremarkable cardiac morphology and per icardium. Lymph nodes: No enlarged thoracic lymph nodes. Mediastinum: Unremarkable. Thoracic spine and chest wall: No suspicious lytic or sclerotic bonylesions. ABDOMEN AND PELVIS: LIVER: No focal hepatic lesions. Normal contour. GALLBLADDER AND BILIARY TREE: 1.2 cm cholelithiasis. No intra orextrahepatic biliary ductal dilation. No gallbladder wall thickening. SPLEEN: Unremarkable. PANCREAS: No ductal dilation or masses. ADRENAL GLANDS: Redemonstrated nodularity of the left adrenal gland. KIDNEYS: No hydronephrosis, stones, or masses. Homogeneous and symmetricalenhancement. PERITONEUM AND RETROPERITONEUM: No free air or fluid collection. LYMPH NODES: No intra-abdominal or pelvic lymph node enlargement. GI TRACT: Hyperdense material suggesting blood products at the precontrastand arterial phase images within the stomach, duodenum and the smallintestines. Similar finding at the gastric fundus ?(series 25 image 17). PELVIS/BLADDER: The tip ofa Leal catheter is visualized within thebladder. Visualized gas within the bladder most likely secondary to theFoley catheter. VESSELS: Moderate atherosclerotic calcification of the aorta is patentwithout stenosis. BONES AND SOFT TISSUES: No suspicious lytic or sclerotic bony lesions.There is a small fat containing hernia. [facility]ennialCT ANGIOGRAM ABDOMEN/[id number] 18:25:42CT ANGIOGRAM CHEST, CT ANGIOGRAM ABDOMEN/PELVIS HISTORY: 73 years-old; Male; Acute aortic syndrome ( AAS) suspected COMPARISON: CT abdomen 07/07/2023 TECHNIQUE: CT of the chest, abdomen and pelvis without contrast. ?CTangiogram of the chest, abdomen and pelvis following IV contrast. Arterialphase imaging was performed. Precontrast right images were obtained for theabdomen and pelvis. FINDINGS: AORTA: Thoracic aorta and great vessels: Normal three vessel branching pattern isidentified off of the aortic arch. Mild atherosclerotic calcification ofthe aortic arch, ascending and descending aorta without significantstenosis. Severe coronary artery atherosclerotic calcifications are noted.No aneurysmal dilatation or dissection are identified in the thoracicaorta. No significant atherosclerotic disease affecting the aorta and its primarybranches. The abdominal aorta is patent. No evidence of dissection. Theceliac artery is Patent. SMA and renal arteries are patent. CHEST:Lower neck/thyroid: Unremarkable. Lungs: Bilateral dependent atelectasis, right more than left. Trac e pleuraleffusion on the left Central airway: ET tube terminates above the syed. Pleura: No pleural effusion, thickening or pneumothorax. Pulmonary arteries: Normal in caliber. Heart and pericardium: Moderate sclerotic calcifications of the coronaryarteries. Unremarkable cardiac morphology and per icardium. Lymph nodes: No enlarged thoracic lymph nodes. Mediastinum: Unremarkable. Thoracic spine and chest wall: No suspicious lytic or sclerotic bonylesions. ABDOMEN AND PELVIS: LIVER: No focal hepatic lesions. Normal contour. GALLBLADDER AND BILIARY TREE: 1.2 cm cholelithiasis. No intra orextrahepatic biliary ductal dilation. No gallbladder wall thickening. SPLEEN: Unremarkable. PANCREAS: No ductal dilation or masses. ADRENAL GLANDS: Redemonstrated nodularity of the left adrenal gland. KIDNEYS: No hydronephrosis, stones, or masses. Homogeneous and symmetricalenhancement. PERITONEUM AND RETROPERITONEUM: No free air or fluid collection. LYMPH NODES: No intra-abdominal or pelvic lymph node enlargement. GI TRACT: Hyperdense material suggesting blood products at the precontrastand arterial phase images within the stomach, duodenum and the smallintestines. Similar finding at the gastric fundus ?(series 25 image 17). PELVIS/BLADDER: The tip ofa Leal catheter is visualized within thebladder. Visualized gas within the bladder most likely secondary to theFoley catheter. VESSELS: Moderate atherosclerotic calcification of the aorta is patentwithout stenosis. BONES AND SOFT TISSUES: No suspicious lytic or sclerotic bony lesions.There is a small fat containing hernia. [facility]2024-04-25 17:21:24* Test Item Value Reference Range Interpretation Comme nts POCT GLU (test code = 3703871167) 170 mg/dL 70-110 H Lab Interpretation (test cod e = 96027-6) Abnormal [facility]ennialCb with [id number] 16:46:35* Test Item Value Reference Range Interpretation Comme nts WBC (test code = 6690-2) 11.45 4.20-10.70 H RBC (test code = 789-8) 4.10 4.26-5.52 L HGB (test code = 718-7) 11.2 g/dL 12.2-16.4 L HCT (test code = 4544-3) 34.2 % 38.4-49.3 L MCV (test code = 787-2) 83.4 fL 81.7-95.6 MCH (test code = 785-6) 27.3 pg 26.1-32.7 MCHC (test code = 786-4) 32.7 g/dL 31.2-35.0 RDW-SD (test code = 03732-8) 42.3 fL 38.5-51.6 RDW-CV (test code = 788-0) 13.8 % 12.1-15.4 PLT (test code = 777-3) 249 150-328 MPV (test code = 39287-1) 10.9 fL 9.8-13.0 NRBC/100 WBC (test code = 3827404942) 0.0 0.0-10.0 NRBC x10^3 (test code = 5588534325) See_Comment [Automated messa ge] The system which generated this result transmitted reference range: 10*3/?L. The reference range was not used to interpret this result as normal/abnormal. GRAN MAT (NEUT) % (test code = 770-8) 84.5 % IMM GRAN % (test code = 7787623996) 0.30 % LYMPH % (test code = 736-9) 9.7 % MONO % (test code = 5905-5) 5.1 % EOS % (test code = 713-8) 0.1 % BASO % (test code = 706-2) 0.3 % GRAN MAT x10^3(ANC) (test code = 7120133721) 9.68 10*3/uL 1.99-6.95 H IMM GRAN x10^3 (test code = 0808787141) 0.04 10*3/uL 0.00-0.06 LYMPH x10^3 (test code = 731-0) 1.11 10*3/uL 1.09-3.23 MONO x10^3 (test code = 742-7) 0.58 10*3/uL 0.36-1.02 EOS x10^3 (test code = 711-2) 0.06-0.53 L BASO x10^3 (test code = 704-7) 0.03 10*3/uL 0.01-0.09 Lab Interpretation (test code = 57838-0) Abnormal [facility] Panel 20 + Lactic [id number] 16:25:22* Test Item Value Reference Range Interpretation Comme nts PH (test code = 2) 7.38 7.35-7.45 PCO2 (test code = 8710441345) 42 35-45 PO2 (test code = 6215489966) 248 80-100 H HCO3 (test code = 6018705073) 24 22-26 BE (test code = 9418753448) -0.7 -3.0-3.0 THB (test code = 0653081003) 13.2 g/dL 13.5-18.0 L %O2HB (test code = 5507325166) 99.2 % 94.0-99.0 H %COHB ART (test code = 4403137356) 0.0 % 0.0-1.5 %METHB ART (test code = 8587308232) 0.3 % 0.4-1.5 L VOL%O2 ART (test code = 6933707334) 19.0 % 15.0-23.0 NA (test code = 4932680168) 130 mmol/L 135-145 L K+ (test code = 7731739985) 4.7 mmol/L 3.5-5.0 AC CA IONZ (test code = 4999224569) 4.90 mg/dL 4.50-5.30 GLUCOSE (test code = 0350456814) 192 mg/dL 70-110 H LACTIC ACID (test code = 3186948213) 0.92 mmol/L 0.50-2.20 QUES Lab Interpretation (test cod e = 52674-3) Abnormal [facility]ennialType and Screen - ONCE [id number] 16:22:00* Test Item Value Reference Range Interpretation Comme nts ABO & RH (test code = 20) O POSITIVE IAT (test code = 1185) Negative [facility] CentennialCT ACUTE STROKE ANGIOGRAM [id number] 15:33:43CT STROKE ANGIOGRAM HEAD, CT STROKE ANGIOGRAM NECK HISTORY: 73 years- old; Male; Neuro deficit, acute, stroke suspected TECHNIQUE: CTA of the head and neck with coronal, sagittal reformats, andMIPS reconstruction was performed. COMPARISON: ?03/11/2021 FINDINGS: CTA NECK: Aortic arch and arch vessel origins: Standard three- vessel aortic arch. The ostia of the great neck vessels are free of significant stenosis. Innominate and subclavian arteries: Innominate and subclavian arteries arepatent with normal course. Common and internal cervical carotids: The common carotid arteries, carotidbulbs and cervical internal carotid arteries are patent. Vertebral arteries: Vertebral arteries originate normally from thesubclavian arteries and are patent along their course. There isatherosclerotic calcification at the origin of the right vertebral arterywithout significant stenosis. Cervical soft tissues:Unremarkable. The gastric tube is partially imaged. Lung apices: Unremarkable. An ET tube is visualized terminating between thethoracic inlet and the syed. Cervical spine: No acute bony abnormality. CTA HEAD: Right PICA origin is visualized. 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 Thebasilar artery is normal in caliber. The superior cerebellar arteries areunremarkable. The posterior cerebral arteries are unremarkable. Fetalorigin of the left RECRUITMENT SPECIALIST. A right P-comm is not definitively visualized. The distal cervical, petrous, cavernous and supraclinoid internal carotidarteries are unremarkable. The anterior and middle cerebral arteries areunremarkable. An anterior communicating artery is not visualized. The dural venous sinuses are grossly patent.[facility]ennialCT ACUTE STROKE ANGIOGRAM [id number] 15:33:43CT STROKE ANGIOGRAM HEAD, CT STROKE ANGIOGRAM NECK HISTORY: 73 years-old; Male; Neuro deficit, acute, stroke suspected TECHNIQUE: CTA of the head and neck with coronal, sagittal reformats, andMIPS reconstruction was performed. COMPARISON: ?03/11/2021 FINDINGS: CTA NECK: Aortic arch and arch vessel origins: Standard three- vessel aortic arch. The ostia of the great neck vessels are free of significant stenosis. Innominate and subclavian arteries: Innominate and subclavian arteries arepatent with normal course. Common and internal cervical carotids: The common carotid arteries, carotidbulbs and cervical internal carotid arteries are patent. Vertebral arteries: Vertebral arteries originate normally from thesubclavian arteries and are patent along their course. There isatherosclerotic calcification at the origin of the right vertebral arterywithout significant stenosis. Cervical soft tissues:Unremarkable. The gastric tube is partially imaged. Lung apices: Unremarkable. An ET tube is visualized terminating between thethoracic inlet and the syed. Cervical spine: No acute bony abnormality. CTA HEAD: Right PICA origin is visualized. Left AICA-PICA variant is suspected. Thebasilar artery is normal in caliber. The superior cerebellar arteries areunremarkable. The posterior cerebral arteries are unremarkable. Fetalorigin of the left RECRUITMENT SPECIALIST. A right P-comm is not definitively visualized. The distal cervical, petrous, cavernous and supraclinoid internal carotidarteries are unremarkable. The anterior and middle cerebral arteries areunremarkable. An anterior communicating artery is not visualized. The dural venous sinuses are grossly patent.[facility]ennialCT CERVICAL SPINE WO [id number] 13:05:30EXAM: CT CERVICAL SPINE WO CONTRAST HISTORY: 73 years-old Male; Provided indication: No indication is provided.History [facility] from [facility]: Patient found unconscious and covered incoffee-ground emesis. TECHNIQUE: Routine unenhanced CT of the cervical spine was performed.Coronal and sagittal reformats were obtained. COMPARISON: 03/11/2021. FINDINGS: No acute fracture or traumatic dislocation is visualized. Thecraniocervical junction is intact. Kyphotic reversal of cervical lordosisis centered at . The vertebral bodies are normal in height and in normalalignment. Multiple level loss of disc space.Moderate degenerative changes of the cervical spine seen which is morepronounced around C4-C6. The prevertebral soft tissues appear unremarkable. An ET tube and nasogastric tube are partially imaged. [facility] CentennialIntubation2024-06-16 12:26:55Addie Junior MD ? ? 04/25/2024 ?7:28 AMIntubation Date/Time: 04/25/2024 7:26 AM Performed by: Addie Junior MDAuthorized by: Addie Junior MD ?Consent: ?Consent obtained: ?Emergent situationUniversal protocol: ?Patient identity confirmed: ?Arm band and hospital-assigned identification numberPre-procedure details: ?Patient status: ?Altered mental status ?Obstruction: none ? ?Pharmacologic s trategy: RSI ? ?Induction agents: ?Etomidate ?Paralytics: ?RocuroniumProcedure details: ?Number of attempts: ?1Successful intubation attempt details: ?Intubation method: ?Oral ?Intubation technique: direct ? ?Tube size (mm): ?7.5Placement assessment: ?Tube secured with: ?ETT solis ?Placement verifi cation: chest rise, colorimetric ETCO2, CXR verification, direct visualization, equal breath soundsand tube exhalation ?Post-procedure details: ?Procedure completion: ?ToleratedUnMethodist Midlothian Medical CenterCT ACUTE STROKE HEAD WO [id number] 12:06:39CT HEAD WITHOUT ORDERING PHYSICIAN: ADDIE JUINOR HISTORY: Neurological deficit COMPARISON: none TECHNIQUE: CT of the head without contrast The Technique was utilized with ALARA (as low as reasonably achievable)protocol. FINDINGS: There is no acute intracranial hemorrhage. No extra axial fluidcollections.No midline shift. ?Ventricles are normal in size and symmetric.The escalante-white matter differentiation is preserved. The visualizedparanasal sinuses and mastoid air cells are clear. ?Osseous structures areunremarkable. ? Aspects score 10. Findings were discussed with Dr. Bui 7:05 AM.[facility] CentennialXR STROKE CHEST 1 [id number] 12:02:51ORDERING PHYSICIAN: MAHNAZ JUNIOR CLINICAL HISTORY: Neurological deficit TECHNIQUE: Frontal view of chest COMPARISON: 03/29/2022 FINDINGS: The cardiac silhouette is mildly enlarged, stable. ?Endotracheal tube iswell- positioned, with the tip 4 cm on the syed. There are no pulmonaryinfiltrates or pleural effusions. Osseous structures are normal.[facility] CentennialTroponin I - Code [id number] 11:56:48* Test Item Value Reference Range Interpretation Comme nts TROPONIN I (test code = 3937104145) 0.004 ng/mL <=0.034 MARY (test code = MARY) Reference (Normal) Range (defined by the 99th percentile reference limit): <= 0.034 ng/mL Note: Cardiac troponin begins to rise 3-4 hours after the onset of ischemia. Repeat in 4-6 hours if the sample was drawn within 3-4 hours of the onset of the symptom and found normal. Diagnosis of myocardial injury is made with acute changes in cTn concentrations with at least one serial sample above the 99th percentile upper reference limit (URL), taken together with the patient's clinical presentation. Biotin has been reported to cause a negative bias, interpret results relative to patient's use of biotin. Lab Interpretation (test code = 73771-2) Normal [facility] CentennialBasi Metabolic Panel (NA, K, CL, CO2, Glucose, BUN, Creatinine, CA) - Code [id number] 11:45:26* Test Item Value Reference Range Interpretation Comme nts NA (test code = 0253407062) 129 mmol/L 135-145 L K (test code = 3869053621) 4.4 mmol/L 3.5-5.0 CL (test code = 4943101151) 93 mmol/L 98-108 L CO2 TOTAL (test code = 8038357810) 29 mmol/L 23-31 AGAP (test code = 9528306614) 7 2-16 BUN (test code = 3251216648) 20 mg/dL 7-23 GLUCOSE (test code = 5849332305) 223 mg/dL 70-110 H CREATININE (test code = 2160-0) 0.87 mg/dL 0.60-1.25 CALCIUM (test code = 5660729142) 9.5 mg/dL 8.6-10.6 eGFR (test code = 74660-4) 91.1 mL/min/1.73m2 CKD-EPI eGFR (2020). Assuming creatinine has been stable day-to-day for at least three months, the eGFR indicates Category G1 (>= 90 mL/min/1.73 m2) Lab Interpretation (test code = 84682-2) Abnormal [facility] CentennialEthanol2024-06-16 11:45:21 ALCOHOL<10mg/dL04/25/2024 6:45 AM CDTANYALE [facility]<10 Kveamhxb62-715 Toxic>100 Depression of MULTIPLE DRILL OPERATOR>400 Fatalities ReportedUnMethodist Midlothian Medical CenterProthrombin Time / INR - Code [id number] 11:42:43* Test Item Value Reference Range Interpretation Comme [facility] PROTIME PATIENT (test code = 5964-2) 12.1 10.1-12.6 INR (test code = 6301-6) 1.0 Normal INR <1.1; Warfarin Therapeutic range 2.0 to 3.0 or 2.5 to 3.5, depending upon the indications. Lab Interpretation (test code = 56552-9) Normal [facility] CentennialaPTT - Code Sgrypo7291-73-98 11:42:43* Test Item Value Reference Range Interpretation Comme [facility] APTT Patient (test code = 3173-2) 41 26-36 H MARY (test code = MARY) The [facility] patient population mean normal value for aPTT is 30 seconds. Lab Interpretation (test code = 85661-7) Abnormal [facility] CentennialCB without Diff - Code [id number] 11:33:22* Test Item Value Reference Range Interpretation Comme [facility] WBC (test code = 6690-2) 7.44 4.20-10.70 RBC (test code = 789-8) 4.27 4.26-5.52 HGB (test code = 718-7) 12.1 g/dL 12.2-16.4 L HCT (test code = 4544-3) 36.5 % 38.4-49.3 L MCH (test code = 785-6) 28.3 pg 26.1-32.7 MCV (test code = 787-2) 85.5 fL 81.7-95.6 MCHC (test code = 786-4) 33.2 g/dL 31.2-35.0 PLT (test code = 777-3) 262 150-328 MPV (test code = 99951-7) 10.5 fL 9.8-13.0 RDW-CV (test code = 788-0) 13.8 % 12.1-15.4 RDW-SD (test code = 25832-2) 42.8 fL 38.5-51.6 NRBC x10^3 (test code = 2480694282) See_Comment [Automated messa ge] The system which generated this result transmitted reference range: 10*3/?L. The reference range was not used to interpret this result as normal/abnormal. NRBC/100 WBC (test code = 0082066039) 0.0 0.0-10.0 IPF % (test code = 3736675282) Lab Interpretation (test code = 10374-9) Abnormal [facility] GLUCOSE (AUTOMATED)2024-04-25 11:24:28* Test Item Value Reference Range Interpretation Comme nts POCT GLU (test code = 7636372088) 214 mg/dL 70-110 H Lab Interpretation (test cod e = 64917-6) Abnormal [facility] Glucose (Age >30 Days) - Code Stroke 2024-04-25 11:24:00* Test Item Value Reference Range Interpretation Comme nts POCT Glu (age>30days) (test code = 3342) 214 mg/dL 70-110 A Lab Interpretation (test cod e = 22039-0) Abnormal [facility] [id number] 11:09:00Addie Junior MD ? ? 04/25/2024 ?7:26 AMCritical Care Performed by: Addie Junior MDAuthorizedby: Addie Junior MD ?Critical care provider statement: ?Critical care time was exclusive of: ?Separately billable procedures and treating other patients and teaching time ?Critical care was time spent personally by me on the following activities: ?Development of treatment plan with patient or surrogate, evaluation of patient's response to treatment, examination of patient, obtaining history from patient or surrogate, ordering and performing treatments and interventions, ordering and review of laboratory studies, ordering and review of radiographic studies, pulse oximetry, re-evaluation ofpatient's condition, review of old charts, ventilator management and discussions with consultants ?C are discussed with: admitting provider ?Comments: ? Due to a high probability of clinically significant, life threatening deterioration, the patient required my highest level of preparedness to intervene emergently and I personally spent this critical care time directly and personally managing the patient. This critical care time included obtaining a history; examining the patient; pulse oximetry; ordering and review of studies; arranging urgent treatment with development of a management plan; evaluation of patient's response to treatment; frequent reassessment; and, discussions with other providers.This critical care time was performed to assess and manage the high probability of imminent,life- threatening deterioration that could result in multi-organ failure. It was exclusive of separately billable procedures and treating other patients. [facility] CentennialLipid Panel (14787)(Total Cholesterol, Triglycerides, HDL)2024-04-14 03:05:22* Test Item Value Reference Range Interpretation Comme nts CHOL (test code = 3260820165) 110 mg/dL 120-200 L HDL (test code = 0734213782) 46 mg/dL >=40 HDLC RATIO (test code = 0880894447) 2.4 <=5.0 TRIG (test code = 1520239489) 62 mg/dL 30-170 LDL CHOL (test code = 88276-4) 52 mg/dL <=160 VLDL (test code = 1864485411) 12 mg/dL 5-60 Lab Interpretation (test cod e = 67306-9) Abnormal [facility] CentennialLipid Panel (28274)(Total Cholesterol, Triglycerides, HDL)2024-04-14 03:05:22* Test Item Value Reference Range Interpretation Comme nts CHOL (test code = 6996453532) 110 mg/dL 120-200 L HDL (test code = 8722149004) 46 mg/dL >=40 HDLC RATIO (test code = 1451546257) 2.4 <=5.0 TRIG (test code = 6343212706) 62 mg/dL 30-170 LDL CHOL (test code = 10560-7) 52 mg/dL <=160 VLDL (test code = 2998245129) 12 mg/dL 5-60 Lab Interpretation (test cod e = 66531-7) Abnormal [facility] CentennialComp. Metabolic Panel (79164)2024-04-14 03:05:02* Test Item Value Reference Range Interpretation Comme nts NA (test code = 8691940561) 135 mmol/L 135-145 K (test code = 5877698712) 4.5 mmol/L 3.5-5.0 CL (test code = 9187359406) 99 mmol/L 98-108 CO2 TOTAL (test code = 3758434187) 28 mmol/L 23-31 AGAP (test code = 6627702727) 8 2-16 BUN (test code = 1832992585) 19 mg/dL 7-23 GLUCOSE (test code = 9843851893) 119 mg/dL 70-110 H CREATININE (test code = 2160-0) 0.74 mg/dL 0.60-1.25 TOTAL BILI (test code = 3638464406) 1.0 mg/dL 0.1-1.1 CALCIUM (test code = 4368173527) 9.8 mg/dL 8.6-10.6 T PROTEIN (test code = 8764445722) 7.2 g/dL 6.3-8.2 ALBUMIN (test code = 2576607698) 4.3 g/dL 3.5-5.0 ALK PHOS (test code = 0607552805) 91 U/L 34-122 ALTv (test code = 1742-6) 13 U/L 5-50 AST(SGOT) (test code = 2498000984) 51 U/L 13-40 H eGFR (test code = 38192-6) 95.7 mL/min/1.73m2 CKD-EPI eGFR (2020). Assuming creatinine has been stable day-to-day for at least three months, the eGFR indicates Category G1 (>= 90 mL/min/1.73 m2) Lab Interpretation (test code = 42855-1) Abnormal [facility]. Metabolic Panel (86148)2024-04-14 03:05:02* Test Item Value Reference Range Interpretation Comme nts NA (test code = 9251045504) 135 mmol/L 135-145 K (test code = 1265715017) 4.5 mmol/L 3.5-5.0 CL (test code = 1215031039) 99 mmol/L 98-108 CO2 TOTAL (test code = 3552332645) 28 mmol/L 23-31 AGAP (test code = 2881315947) 8 2-16 BUN (test code = 7378086645) 19 mg/dL 7-23 GLUCOSE (test code = 2353814252) 119 mg/dL 70-110 H CREATININE (test code = 2160-0) 0.74 mg/dL 0.60-1.25 TOTAL BILI (test code = 1474393197) 1.0 mg/dL 0.1-1.1 CALCIUM (test code = 5177029272) 9.8 mg/dL 8.6-10.6 T PROTEIN (test code = 1964339070) 7.2 g/dL 6.3-8.2 ALBUMIN (test code = 3754671919) 4.3 g/dL 3.5-5.0 ALK PHOS (test code = 6143661959) 91 U/L 34-122 ALTv (test code = 1742-6) 13 U/L 5-50 AST(SGOT) (test code = 7768098173) 51 U/L 13-40 H eGFR (test code = 31960-3) 95.7 mL/min/1.73m2 CKD-EPI eGFR (2020). Assuming creatinine has been stable day-to-day for at least three months, the eGFR indicates Category G1 (>= 90 mL/min/1.73 m2) Lab Interpretation (test code = 55817-1) Abnormal [facility] Hemoglobin A1C [id number] 20:00:00* Test Item Value Reference Range Interpretation Comme [facility] POCT HBA1C (test code = 4548-4) 7.3 % 4-6 A Lab Interpretation (test cod e = 41138-3) Abnormal [facility] Hemoglobin A1C [id number] 20:00:00* Test Item Value Reference Range Interpretation Comme [facility] POCT HBA1C (test code = 4548-4) 7.3 % 4-6 A Lab Interpretation (test cod e = 93525-7) Abnormal [facility] Hemoglobin A1C [id number] 20:00:00* Test Item Value Reference Range Interpretation Comme [facility] POCT HBA1C (test code = 4548-4) 7.3 % 4-6 A Lab Interpretation (test cod e = 89775-2) Abnormal [facility] Capsulotomy - OD - Right [id number] 16:12:24Time OutConfirmed correct patient, procedure, site, and patient consented. AnesthesiaTopical anesthesia was used. Anesthesia medications included Apraclonidine 0.5%, Proparacaine. Post-opThe patient tolerated the procedure well. There were no complications. The patient received written and verbal post procedure care education. NotesPROCEDURE NOTE LASER CAPSULOTOMY Pre- op Diagnosis: Cloudy posterior capsule, right eye Procedure: Nd:YAG Laser Capsulotomy, right eye Post-op Diagnosis: Same Indications: ?Mark Pascual is a 73 year old male with a cloudy posterior capsule that is causing decreased vision. ?The patient is having difficulty with Driving, Reading, Watching TV. ? It was discussed that a Nd:YAG laser capsulotomy would allow for best potential vision. ?The R/B/A d/w pt concerning Yag capsulotomy and the patient would like to proceed. Consent: ?A discussion of the indications,risks, benefits and alternatives of the procedure were carried out with the patient. ?Additionally, the following was discussed: 1) the risk of IOP elevation shortly after the procedure; 2) the possibility of worsening of vision or even blindness due to inflammation, bleeding or retinal detachment;3) the modest risk of visual disturbances such as seeing floaters 4) the possible need for additional treatment and/or surgery if the current procedure fails to adequately control the situation or ifthe IOL is damaged or dislocated. ?The patient had an opportunity to have all her questions answered. ?Written consent was obtained from patient. Time out completed: yes Allergies: No Known AllergiesProcedure: A drop of proparacaine followed by Mydriacyl 1.0% and Phenylephrine 2.5% were instilled into the surgical eye for dilation. ?A drop of Iopodine was placed prior to the laser procedure and after. ?The patient was then brought to the laser suite and positioned in front of the Nd:YAG laser.?The correct eye was again confirmed verbally by both the patient and the surgeon. ?Topical anesthes ia was applied to the eye followed by an Alex Contact Lens specifically designed for this procedure. ?Using a cruciate shape capsulotomy , the laser procedure was carried out with the following parameters: Laser: Nd:YAGSpot Size: FixedBurst Mode: IPower Settin.0 mJ/burstNumber of shots: 12Total Energy 24 The patient tolerated the procedure without difficulty. ?No complications were encountered. ?The eye was irrigated/cleaned. ?Approximately 45 minutes later the IOP was measured and foundto be WNL/not increasing significantly. The patient was discharged home with the instructions to begin topical corticosteroid (prednisolone acetate 1%), QID for 7 days then stop and to continue all her current glaucoma medications, if any. Retinal detachment symptoms were discussed with the patientand patient knows to RTC immediately if any occur. ?The patients knows to RTC if signs of inflammation occur including pain, decreased vision, photophobia. ? RTC 2 week WITH dfe Aishat Leif, MDUnBrown [facility] ([facility]OM[facility])2024-01-27 14:23:15* Test Item Value Reference Range Interpretation Comme nts POCT GLU (test code = 2706382724) 182 mg/dL 70-110 H Lab Interpretation (test cod e = 29062-8) Abnormal [facility] GLUCOSE (AUTOMATED)2024-01-27 14:23:15* Test Item Value Reference Range Interpretation Comme nts POCT GLU (test code = [id number]) 182 mg/dL 70-110 H Lab Interpretation (test cod e = 60558-4) Abnormal [facility] Urinalysis, [id number] 22:22:00 * Test Item Value Reference Range Interpretation Comme nts POCT U SP GRAV (test code = 3255) 1.005 mg/dl 1.005-1.025 POCT PH U (test code = 3254) 5 0 5-8 POCT U LEUK EST (test code = 3263) trace Negative - Negative POCT U NIT (test code = 3262) neg Negative - Negati ve POCT U PROT (test code = 3259) neg Negative - Negative POCT U GLU (test code = 3256) neg Negative - Negati ve POCT U KETONE (test code = 3258) neg Negative - Negative POCT U UROBILI (test code = 3260) neg 0.2-1 POCT U BILI (test code = 3261) neg Negative - Negative POCT U BLD (test code = 3257) neg Negative - Negati ve POCT U COLOR (test code = 3266) yellow POCT U APPEAR (test code = 3267) clear [facility] Urinalysis, [id number] 22:22:00 * Test Item Value Reference Range Interpretation Comme nts POCT U SP GRAV (test code = 3255) 1.005 mg/dl 1.005-1.025 POCT PH U (test code = 3254) 5 0 5-8 POCT U LEUK EST (test code = 3263) trace Negative - Negative POCT U NIT (test code = 3262) neg Negative - Negati ve POCT U PROT (test code = 3259) neg Negative - Negative POCT U GLU (test code = 3256) neg Negative - Negati ve POCT U KETONE (test code = 3258) neg Negative - Negative POCT U UROBILI (test code = 3260) neg 0.2-1 POCT U BILI (test code = 3261) neg Negative - Negative POCT U BLD (test code = 3257) neg Negative - Negati ve POCT U COLOR (test code = 3266) yellow POCT U APPEAR (test code = 3267) clear [facility] CERVICAL SPINE 3 [id number] 18:19:51 HISTORY:chronic neck pain TECHNIQUE: Frontal and lateral views of the cervical spine were obtained.COMPARISON:None. FINDINGS: There is reversal the normal cervical lordosis with mild anterolisthesisofC3 on C4. The vertebral body heights are preserved. The craniocervicaljunction is unremarkable. Multilevel degenerative changes are noted in the form of disc spacenarrowing, anterior osteophytes and facet arthropathy, which are mostconspicuous at C5-C6, where they are severe.[facility] URINALYSIS, INSTRUMENT 2023-09-05 20:23:00* Test Item Value Reference Range Interpretation Comme nts POCT U SP GRAV (test code = 3255) 1.010 mg/dl 1.005-1.025 POCT PH U (test code = 3254) 7.0 mg/dl 5-8 POCT U LEUK EST (test code = 3263) Small Negative - Negative POCT U NIT (test code = 3262) Negative Negative - Negative POCT U PROT (test code = 3259) Negative Negative - Negative POCT U GLU (test code = 3256) >=1000 mg Negative - Negative POCT U KETONE (test code = 3258) Negative Negative - Negative POCT U UROBILI (test code = 3260) 0.2 mg/dl 0.2-1 POCT U BILI (test code = 3261) Negative Negative - Negative POCT U BLD (test code = 3257) Trace-Intact Negative - Negative POCT U COLOR (test code = 3266) Yellow POCT U APPEAR (test code = 3267) Clear [facility] URINALYSIS, [id number] 20:23:00 * Test Item Value Reference Range Interpretation Comme nts POCT U SP GRAV (test code = 3255) 1.010 mg/dl 1.005-1.025 POCT PH U (test code = 3254) 7.0 mg/dl 5-8 POCT U LEUK EST (test code = 3263) Small Negative - Negative POCT U NIT (test code = 3262) Negative Negative - Negative POCT U PROT (test code = 3259) Negative Negative - Negative POCT U GLU (test code = 3256) >=1000 mg Negative - Negative POCT U KETONE (test code = 3258) Negative Negative - Negative POCT U UROBILI (test code = 3260) 0.2 mg/dl 0.2-1 POCT U BILI (test code = 3261) Negative Negative - Negative POCT U BLD (test code = 3257) Trace-Intact Negative - Negative POCT U COLOR (test code = 3266) Yellow POCT U APPEAR (test code = 3267) Clear [facility] URINALYSIS, [id number] 20:23:00 * Test Item Value Reference Range Interpretation Comme nts POCT U SP GRAV (test code = 3255) 1.010 mg/dl 1.005-1.025 POCT PH U (test code = 3254) 7.0 mg/dl 5-8 POCT U LEUK EST (test code = 3263) Small Negative - Negative POCT U NIT (test code = 3262) Negative Negative - Negative POCT U PROT (test code = 3259) Negative Negative - Negative POCT U GLU (test code = 3256) >=1000 mg Negative - Negative POCT U KETONE (test code = 3258) Negative Negative - Negative POCT U UROBILI (test code = 3260) 0.2 mg/dl 0.2-1 POCT U BILI (test code = 3261) Negative Negative - Negative POCT U BLD (test code = 3257) Trace-Intact Negative - Negative POCT U COLOR (test code = 3266) Yellow POCT U APPEAR (test code = 3267) Clear [facility] URINALYSIS, [id number] 20:23:00 * Test Item Value Reference Range Interpretation Comme nts POCT U SP GRAV (test code = 3255) 1.010 mg/dl 1.005-1.025 POCT PH U (test code = 3254) 7.0 mg/dl 5-8 POCT U LEUK EST (test code = 3263) Small Negative - Negative POCT U NIT (test code = 3262) Negative Negative - Negative POCT U PROT (test code = 3259) Negative Negative - Negative POCT U GLU (test code = 3256) >=1000 mg Negative - Negative POCT U KETONE (test code = 3258) Negative Negative - Negative POCT U UROBILI (test code = 3260) 0.2 mg/dl 0.2-1 POCT U BILI (test code = 3261) Negative Negative - Negative POCT U BLD (test code = 3257) Trace-Intact Negative - Negative POCT U COLOR (test code = 3266) Yellow POCT U APPEAR (test code = 3267) Clear [facility] HEMOGLOBIN A1C [id number] 15:39:00* Test Item Value Reference Range Interpretation Comme nts POCT HBA1C (test code = 4548-4) 8.1 % 4-6 A Lab Interpretation (test cod e = 77748-9) Abnormal [facility]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 (ACCU-CHEK GUIDE TEST STRIPS) strip USE TO CHECK BOLLD SUGARS TWO TIMES A DAY 200 Strip 5 baclofen 10 mg tablet Take 1 tablet by mouth in the morning and 1 tablet at noon and 1 tablet in the evening. 90 tablet 3 Taking ondansetron 8 mg disintegrating tablet Take 1 tablet by mouth every 8 (eight) hours as needed for Nausea and Vomiting (N/V). Taking cholecalciferol, vitD3,/vit K2 (VITAMIN D3-VITAMIN K2 ORAL) Take 1 tablet by mouth in the morning. Taking ubidecarenone (COQ-10 ORAL) Take 2 capsules by mouth in the morning. not taking [place]-3 Fatty Acids-Vitamin E 2,000-650-12 mg/2.5 gram ElPk Take 1 mg by mouth in the morning and 1 mg at noon and 1 mg in the evening. Taking peg-electrolyte soln 236-22.74-6.74 -5.86 gram solution Take as directed before colonoscopy 8000 mL 0 Not Taking lidocaine 5 % (700 mg/patch) patch Apply 1 Patch to area(s) in the morning. 28 Patch 0 Taking acetaminophen 325 mg Cap Take 1 tablet by mouth in the morning. Taking NON-FORMULARY MEDICATION Take 4 tablets by mouth in the morning. Antronex Not taking CBD oil (BRIE'S HOPE) 20:1 with safflower Not Taking ashwagandha extract 120 mg Cap Take 480 mg by mouth in the morning. Taking Lactobacillus acidophilus (PROBIOTIC) 10 billion cell capsule Take 1 capsule by mouth in the morning. Taking pumpkin seed extract (AZO MEN ORAL) Take 1 tablet by mouth as needed. Taking VALERIAN ORAL Take 2,400 mg by mouth in the morning and 2,400 mg at noon and 2,400 mg in the evening. Taking vit A/vit C/vit E/zinc/copper (PRESERVISION AREDS ORAL) Take 1 tablet by mouth in the morning. not taking Apple Cider Vinegar 300 mg Tab Take 3 tablets by mouth in the morning. Taking pumpkin seed oil/saw palmetto (SAW PALMETTO-PUMPKIN SEED OIL ORAL) Take 500 mg by mouth in the morning. Taking Magnesium 250 mg Tab Take 2,500 mg by mouth in the morning and 2,500 mg at noon and 2,500 mg in the evening. Taking HOSPITAL MEDICATIONS Current Facility-Administered Medications Medication Dose Route Frequency Last Rate Last Admin chlorhexidine (PERIDEX) 0.12 % mouthwash 15 mL 15 mL Oral (Swish And Spit Out) BID 15 mL at 04/25/24 0821 dextrose 50 % in water (D50W) injection 25 mL 25 mL Slow IV Push PRN glucagon (GLUCAGEN DIAGNOSTIC KIT) injection 1 mg 1 mg Intramuscular PRN NaCl 0.9% (NS) bolus infusion 1,000 mL 1,000 mL IV Infusion ONCE Held at 04/25/24 1000 NaCl 0.9% (NS) injection 5 mL 5 mL Slow IV Push PRN - SEE INSTRUCTIONS Nitrofurantoin&Nit. Macrocryst (MACROBID) 100 mg capsule 100 mg 100 mg Oral BID pantoprazole (PROTONIX) 80 mg in NaCl 0.9% (NS) 500 mL infusion 8 mg/hr IV Infusion CONTINUOUS 50 mL/hr at 04/25/24 0712 8 mg/hr at 04/25/24 0712 propofoL IV infusion 5-50 mcg/kg/min IV Infusion TITRATE 13.07 mL/hr at 04/25/24 0854 25 mcg/kg/min at 04/25/24 0854 Sliding Scale Insulin - Lispro (HumaLOG) Subcutaneous TID MEALS+HS 1 Units at 04/25/24 1231 ALLERGY No Known Allergies REVIEW OF SYSTEMS As per HPI PHYSICAL EXAM Vitals: 04/25/24 0837 04/25/24 0850 04/25/24 0900 04/25/24 1110 BP: (!) 191/106 (!) 164/102 (!) 150/94 122/87 Pulse: 86 81 79 68 Resp: 17 15 18 15 Temp: 35.9 ?C (96.6 ?F) 35.9 ?C (96.6 ?F) 35.9 ?C (96.7 ?F) TempSrc: SpO2: 99% 98% 98% 100% Weight: Height: Neurological examination is limited due to patient being on propofol drip. NEUROLOGICAL EXAM Mental status: -level of consciousness - unreactive -no receptive or expressive language FOUR (Full Outline of UnResponsiveness) Score Eye Response 0 Eyelids open or opened, tracking or blinking to command 4 Eyelids open but not tracking 3 Eyelids closed but opens to loud voice 2 Eyelids closed but opens to pain 1 Eyelids remain closed with pain 0 Motor Response Minimal withdrawal to pain in bilateral extremities Thumbs up, fist, or peace sign to command 4 Localizing to pain 3 Flexion response to pain 2 Extensor posturing 1 No response to pain or generalized myoclonus status epilepticus 0 Brainstem Reflexes 4 Pupil and corneal reflexes present 4 One pupil wide and fixed 3 Pupil or corneal reflexes absent 2 Pupil and corneal reflexes absent 1 Absent pupil, corneal, and cough reflex 0 Respiration 1 Not intubated, regular breathing pattern 4 Not intubated, Miguel-Garcia breathing pattern 3 Not intubated, irregular breathing pattern 2 Breathes above ventilator rate 1 Breathes at ventilator rate or apnea 0 Cranial nerves: II - visual threat -no blinks to threat III, IV, - does not track. Oculocephalic reflexes reveal intact motor movements. V - corneal reflex intact VII - supraorbital nerve compression yields no facial grimace VIII -not assessed IX/X - gag/cough reflex intact XI/XII - not possible to reliably examine Motor: -muscle tone normal, not atonic, not increased -not following motor commands Sensory: -Minimal withdrawal to pain in all 4 extremities(no focality of weakness observed) Reflexes: -DTRs symmetrical -Babinski bilateral mute LABS Recent Results (from the past 24 hour(s)) POCT GLUCOSE (AUTOMATED) Collection Time: 04/25/24 6:13 AM Result Value Ref Range POCT GLU 214 (H) 70 - 110 mg/dL Prothrombin Time / INR - Code Stroke Collection Time: 04/25/24 6:23 AM Result Value Ref Range PROTIME PATIENT 12.1 10.1 - 12.6 Seconds INR 1.0 aPTT - Code Stroke Collection Time: 04/25/24 6:23 AM Result Value Ref Range APTT Patient 41 (H) 26 - 36 Seconds CBC without Diff - Code Stroke Collection Time: 04/25/24 6:23 AM Result Value Ref Range WBC 7.44 4.20 - 10.70 10*3/?L RBC 4.27 4.26 - 5.52 10*6/?L HGB 12.1 (L) 12.2 - 16.4 g/dL HCT 36.5 (L) 38.4 - 49.3 % MCH 28.3 26.1 - 32.7 pg MCV 85.5 81.7 - 95.6 fL MCHC 33.2 31.2 - 35.0 g/dL PLT 262 150 - 328 10*3/?L MPV 10.5 9.8 - 13.0 fL RDW-CV 13.8 12.1 - 15.4 % RDW-SD 42.8 38.5 - 51.6 fL NRBC x10 3 <0.01 10*3/?L NRBC/100 WBC 0.0 0.0 - 10.0 /100 WBCs IPF % Troponin I - Code Stroke Collection Time: 04/25/24 6:23 AM Result Value Ref Range TROPONIN I 0.004 <=0.034 ng/mL Basic Metabolic Panel (NA, K, CL, CO2, Glucose, BUN, Creatinine, CA) - Code Stroke Collection Time: 04/25/24 6:23 AM Result Value Ref Range NA 129 (L) 135 - 145 mmol/L K 4.4 3.5 - 5.0 mmol/L CL 93 (L) 98 - 108 mmol/L CO2 TOTAL 29 23 - 31 mmol/L AGAP 7 2 - 16 BUN 20 7 - 23 mg/dL GLUCOSE 223 (H) 70 - 110 mg/dL CREATININE 0.87 0.60 - 1.25 mg/dL CALCIUM 9.5 8.6 - 10.6 mg/dL eGFR 91.1 mL/min/1.73m2 Ethanol Collection Time: 04/25/24 6:23 AM Result Value Ref Range ALCOHOL <10 mg/dL POCT Glucose (Age >30 Days) - Code Stroke Collection Time: 04/25/24 6:24 AM Result Value Ref Range POCT Glu (age>30days) 214 (A) 70 - 110 mg/dL Urinalysis Collection Time: 04/25/24 6:25 AM Result Value Ref Range APPEARANCE Hazy (A) Clear COLOR Yellow Yellow PH 5.0 4.8 - 8.0 SP GRAVITY 1.021 1.003 - 1.030 GLU U QUAL Normal Normal BLOOD Negative Negative KETONES 5 mg/dL (A) Negative PROTEIN 30 mg/dL (A) Negative UROBILIN Normal Normal BILIRUBIN 2 mg/dL (A) Negative NITRITE Negative Negative LEUK REBECCA Negative Negative RBC/HPF 4 (H) 0 - 3 HPF WBC/HPF 2 0 - 5 HPF BACTERIA Few (A) Negative MUCOUS Slight (A) Negative LPF URINE DRUG (IMMUNOASSAY) - COMPREHENSIVE DRUG SCREEN W/O REFLEX Collection Time: 04/25/24 6:25 AM Result Value Ref Range AMPHET Negative Negative CHRIS U Negative Negative BENZO U Negative Negative Cocaine Metabolite Negative Negative METHADONE Negative Negative OPIATES Negative Negative PCP Negative Negative THC Negative Negative AC Panel 20 + Lactic Acid Collection Time: 04/25/24 7:08 AM Result Value Ref Range PH 7.34 (L) 7.35 - 7.45 PCO2 45 35 - 45 mmHg PO2 368 (H) 80 - 100 mmHg HCO3 24 22 - 26 mEq/L BE -2.0 -3.0 - 3.0 mEq/L THB 12.4 (L) 13.5 - 18.0 g/dL %O2HB 98.8 94.0 - 99.0 % %COHB ART 0.3 0.0 - 1.5 % %METHB ART 0.3 (L) 0.4 - 1.5 % VOL%O2 ART 18.2 15.0 - 23.0 % NA 127 (L) 135 - 145 mmol/L K+ 4.2 3.5 - 5.0 mmol/L AC CA IONZ 4.80 4.50 - 5.30 mg/dL GLUCOSE 207 (H) 70 - 110 mg/dL LACTIC ACID 1.70 0.50 - 2.20 mmol/L Ammonia, Plasma Collection Time: 04/25/24 7:29 AM Result Value Ref Range AMMONIA <9 (L) 9 - 33 umol/L Type and Screen - ONCE Routine Collection Time: 04/25/24 11:12 AM Result Value Ref Range ABO & RH O POSITIVE IAT Negative Cbc with Diff Collection Time: 04/25/24 11:12 AM Result Value Ref Range WBC 11.45 (H) 4.20 - 10.70 10*3/?L RBC 4.10 (L) 4.26 - 5.52 10*6/?L HGB 11.2 (L) 12.2 - 16.4 g/dL HCT 34.2 (L) 38.4 - 49.3 % MCV 83.4 81.7 - 95.6 fL MCH 27.3 26.1 - 32.7 pg MCHC 32.7 31.2 - 35.0 g/dL RDW-SD 42.3 38.5 - 51.6 fL RDW-CV 13.8 12.1 - 15.4 % PLT 249 150 - 328 10*3/?L MPV 10.9 9.8 - 13.0 fL NRBC/100 WBC 0.0 0.0 - 10.0 /100 WBCs NRBC x10 3 <0.01 10*3/?L GRAN MAT (NEUT) % 84.5 % IMM GRAN % 0.30 % LYMPH % 9.7 % MONO % 5.1 % EOS % 0.1 % BASO % 0.3 % GRAN MAT x10 3 (ANC) 9.68 (H) 1.99 - 6.95 10*3/uL IMM GRAN x10 3 0.04 0.00 - 0.06 10*3/uL LYMPH x10 3 1.11 1.09 - 3.23 10*3/uL MONO x10 3 0.58 0.36 - 1.02 10*3/uL EOS x10 3 <0.03 (L) 0.06 - 0.53 10*3/uL BASO x10 3 0.03 0.01 - 0.09 10*3/uL AC Panel 20 + Lactic Acid Collection Time: 04/25/24 11:16 AM Result Value Ref Range PH 7.38 7.35 - 7.45 PCO2 42 35 - 45 mmHg PO2 248 (H) 80 - 100 mmHg HCO3 24 22 - 26 mEq/L BE -0.7 -3.0 - 3.0 mEq/L THB 13.2 (L) 13.5 - 18.0 g/dL %O2HB 99.2 (H) 94.0 - 99.0 % %COHB ART 0.0 0.0 - 1.5 % %METHB ART 0.3 (L) 0.4 - 1.5 % VOL%O2 ART 19.0 15.0 - 23.0 % NA 130 (L) 135 - 145 mmol/L K+ 4.7 3.5 - 5.0 mmol/L AC CA IONZ 4.90 4.50 - 5.30 mg/dL GLUCOSE 192 (H) 70 - 110 mg/dL LACTIC ACID 0.92 0.50 - 2.20 mmol/L Basic Metabolic Panel (NA, K, CL, CO2, GLUCOSE, BUN, CREATININE, CA) Collection Time: 04/25/24 11:32 AM Result Value Ref Range NA 131 (L) 135 - 145 mmol/L K 4.6 3.5 - 5.0 mmol/L CL 98 98 - 108 mmol/L CO2 TOTAL 26 23 - 31 mmol/L AGAP 7 2 - 16 BUN 19 7 - 23 mg/dL GLUCOSE 169 (H) 70 - 110 mg/dL CREATININE 0.70 0.60 - 1.25 mg/dL CALCIUM 8.8 8.6 - 10.6 mg/dL eGFR 97.3 mL/min/1.73m2 Magnesium Collection Time: 04/25/24 11:32 AM Result Value Ref Range MAGNESIUM 1.8 1.7 - 2.4 mg/dL Hepatic Function Panel (60093) (ALB,T.PRO,BILI T,BU/BC,ALT,AST,ALK PHOS) Collection Time: 04/25/24 11:32 AM Result Value Ref Range TOTAL BILI 0.7 0.1 - 1.1 mg/dL BILI UNCON 0.5 0.1 - 1.1 mg/dL BILI CONJ 0.0 0.0 - 0.3 mg/dL T PROTEIN 6.2 (L) 6.3 - 8.2 g/dL ALBUMIN 3.9 3.5 - 5.0 g/dL ALK PHOS 92 34 - 122 U/L ALTv 13 5 - 50 U/L AST(SGOT) 35 13 - 40 U/L ABORH Confirmation (Lab Only) Collection Time: 04/25/24 11:39 AM Result Value Ref Range ABO & RH O Positive Cbc with Diff Collection Time: 04/25/24 11:39 AM Result Value Ref Range WBC 11.12 (H) 4.20 - 10.70 10*3/?L RBC 4.44 4.26 - 5.52 10*6/?L HGB 12.0 (L) 12.2 - 16.4 g/dL HCT 36.7 (L) 38.4 - 49.3 % MCV 82.7 81.7 - 95.6 fL MCH 27.0 26.1 - 32.7 pg MCHC 32.7 31.2 - 35.0 g/dL RDW-SD 41.3 38.5 - 51.6 fL RDW-CV 13.7 12.1 - 15.4 % PLT 257 150 - 328 10*3/?L MPV 10.7 9.8 - 13.0 fL NRBC/100 WBC 0.0 0.0 - 10.0 /100 WBCs NRBC x10 3 <0.01 10*3/?L GRAN MAT (NEUT) % 85.1 % IMM GRAN % 0.40 % LYMPH % 9.3 % MONO % 4.9 % EOS % 0.1 % BASO % 0.2 % GRAN MAT x10 3 (ANC) 9.47 (H) 1.99 - 6.95 10*3/uL IMM GRAN x10 3 0.04 0.00 - 0.06 10*3/uL LYMPH x10 3 1.03 (L) 1.09 - 3.23 10*3/uL MONO x10 3 0.55 0.36 - 1.02 10*3/uL EOS x10 3 <0.03 (L) 0.06 - 0.53 10*3/uL BASO x10 3 <0.03 0.01 - 0.09 10*3/uL POCT GLUCOSE (AUTOMATED) Collection Time: 04/25/24 12:20 PM Result Value Ref Range POCT GLU 170 (H) 70 - 110 mg/dL RADIOLOGY CT ANGIOGRAM CHEST Result Date: 04/25/2024 Normal caliber aorta without signs of dissection or aneurysm. Limited evaluation of GI bleeding in the absence of venous and delayed phases. No signs of active extravasation to suggest acute bleeding. Hyperdense material within the stomach and a small bowel suggesting recent blood products. Right lower lobe dependent groundglass opacities may be seen in infection or aspiration. Cholelithiasis without cholecystitis. Severe coronary arterial calcifications. The findings of this study, including concern for possible gastric extravasation, have been discussed by Dr. Sai Mullins with and acknowledged by Dr. Romero, over the phone on 04/25/2024 at 8:30 AM with readback. Preliminary Report Dictated by Resident: Anette Sue MD., have reviewed this study and agree with the above report. CT ANGIOGRAM ABDOMEN/PELVIS Result Date: 04/25/2024 Normal caliber aorta without signs of dissection or aneurysm. Limited evaluation of GI bleeding in the absence of venous and delayed phases. No signs of active extravasation to suggest acute bleeding. Hyperdense material within the stomach and a small bowel suggesting recent blood products. Right lower lobe dependent groundglass opacities may be seen in infection or aspiration. Cholelithiasis without cholecystitis. Severe coronary arterial calcifications. The findings of this study, including concern for possible gastric extravasation, have been discussed by Dr. Sai Mullins with and acknowledged by Dr. Romero, over the phone on 04/25/2024 at 8:30 AM with readback. Preliminary Report Dictated by Resident: Anette Sue MD., have reviewed this study and agree with the above report. CT ACUTE STROKE ANGIOGRAM HEAD Result Date: 04/25/2024 No aneurysm or high-grade, flow-limiting stenosis of the intracranial or extracranial vessels. Preliminary Report Dictated by Resident: Derek Sue MD., have reviewed this study and agree with the above report. CT ACUTE STROKE ANGIOGRAM NECK Result Date: 04/25/2024 No aneurysm or high-grade, flow-limiting stenosis of the intracranial or extracranial vessels. Preliminary Report Dictated by Resident: Derek Sue MD., have reviewed this study and agree with the above report. CT CERVICAL SPINE WO CONTRAST Result Date: 04/25/2024 No acute osseous abnormality. Preliminary Report Dictated by Resident: Sai Mullins I, Derek Mendoza MD., have reviewed this study and agree with the above report. CT ACUTE STROKE HEAD WO CONTRAST Result Date: 04/25/2024 No acute intracranial abnormality. RL: [id number] STROKE CHEST 1 VW Result Date: 04/25/2024 Endotracheal tube is well-positioned, with the tip 4 cm on the syed. There are no pulmonary infiltrates or pleural effusions. RL: [id number] SSMENT AND RECOMMENDATIONS Mark Pascual is a 73 year old male with , past medical history of type 2 diabetes, Asperger syndrome, hypertension, who is transferred to [facility] from [facility] for higher level of care for unresponsiveness with coffee-ground vomitus and concern for right-sided weakness(slumped down on right side). Neuro examination is limited as patient being on propofol, however brainstem examination is intact with bilateral weak withdrawal present in all extremities on painful stimulus. Peripheral labs including BMP, LFT, CBC, UA, ammonia, UDS, EtOH, troponin wnl. CT head/CTA head and neck unremarkable. CT angiogram showed hyperdense material in stomach ? GI bleed. Acute global cerebral dysfunction Acute hypoxic respiratory failure s/p mechanical ventilation for airway protection Concern for upper GI bleeding - Please try to wean off sedation as possible for better neuro examination - MRI brain with and without contrast - Please put the patient on continuous EEG - Will not recommend any antiseizure medication for now, considering no tongue bite and no previous seizure history with Asperger's syndrome. - Start IV thiamine 200 mg 3 times daily for 3 to 5 days with folate supplementation - Please send CK levels. Lactic acid (wnl) and TTE with continuous telemetry monitoring. - GI and IR on board Discussed with primary team, Neurology will: Continue to follow Case was discussed and seen with Dr. Wong, neurology faculty. Dr. Racquel Ness MD. Resident | PGY-3 Department of Neurology [facility] Associated attestation - Celia Guerra MD - 04/26/2024 9:27 PM CDT I discussed the case on 04/25/2024 and agree with Racquel Terrazas's note as written . I actively participated in the decision-making process. Please see the resident's note for additional details. Celia Guerra MD, PhD, FAES Professor, Department of Neurology, [facility]. Epileptologist PN-NEUROLOGY [facility] 2024-04-25 12:56:21 BRIEF IR CONSULT NOTE: Mark Pascual is a 73-year-old patient who presented with coffee-ground emesis. CT angiogram with possible active bleeding the distal stomach. IR consulted for recommendations. Patient currently hemodynamically stable. Labs (last 24 hours): Chemistry CBC LFTs Coags, other 131 (L) 98 19 169 (H) 11.12 (H) 12.0 (L) 257 AST: 35 ALT: 13 PT: 12.1 INR: 1.0 4.6 26 0.70 36.7 (L) AP: 92 T Isrrael: 0.7 PTT: 41 (H) eGFR: 97.3 Ca: 8.8 % Raji: 85.1 Prot: 6.2 (L) Alb: 3.9 Lact: 0.92 Procal: - M.8 PO4: - ANC: 9.47 (H) pBNP: - Trop I: 0.004 PLAN: CT angiogram done was not a GI bleed protocol and based on the review of imaging, no active extravasation noted. No indication for IR intervention at this time. Follow-up with GI recommendations. If continues to have down-trending H&H +/- bleeding, consider repeat CT - GI bleed protocol. Please call IR with any questions. Marty Corona MD Staff VIR RAD-VASCULAR & INTERVENTIONAL RADIOLOGY STAFF [facility] 2024-04-25 12:38:50 Associated Order(s): CONSULT GASTROENTEROLOGY Department of Gastroenterology & Hepatology Consult Note Requesting Physician: Carlos Ibrahim DO Service: ICU Reason for Consultation: Coffee-ground emesis Date of Service: 04/25/2024 History of Present Illness Mark Pascual is a 73 year old /White male with past medical history as below who presents with complaints of coffee-ground emesis. Patient was reportedly found down on the field. Transferred from [place]. History of diabetes, hypertension hyper lipidemia. Patient last seen normal 5 hours prior to presentation. Was responsive only to painful stimuli and code stroke activated. Patient was intubated for airway protection. CT angiogram with hyperdense material in the stomach. Full GI protocol was not completed. PAST MEDICAL HISTORY Past Medical History: Diagnosis Date Asperger syndrome Essential (primary) hypertension History of hypercholesterolemia Hypogonadism in male Schizoaffective disorder, bipolar type Type 2 diabetes mellitus without complications PAST SURGICAL HISTORY Past Surgical History: Procedure Laterality Date HAND/FINGER SURGERY UNLISTED PHACOEMULSIFICATION OF CATARACT WITH INTRAOCULAR LENS IMPLANT Left 01/27/2024 Surgeon: Sherri Yadav MD; Location: [facility] 2ND FLOOR OR LOCATION FAMILY HISTORY Family History Problem Relation Age of Onset Hypertension Mother Hypertension Father Prostate Cancer Father ALLERGIES No Known Allergies MEDICATIONS Current Facility-Administered Medications Medication Dose Route Frequency Last Rate Last Admin chlorhexidine (PERIDEX) 0.12 % mouthwash 15 mL 15 mL Oral (Swish And Spit Out) BID 15 mL at 04/25/24 0821 dextrose 50 % in water (D50W) injection 25 mL 25 mL Slow IV Push PRN glucagon (GLUCAGEN DIAGNOSTIC KIT) injection 1 mg 1 mg Intramuscular PRN NaCl 0.9% (NS) bolus infusion 1,000 mL 1,000 mL IV Infusion ONCE Held at 04/25/24 1000 NaCl 0.9% (NS) injection 5 mL 5 mL Slow IV Push PRN - SEE INSTRUCTIONS pantoprazole (PROTONIX) 80 mg in NaCl 0.9% (NS) 500 mL infusion 8 mg/hr IV Infusion CONTINUOUS 50 mL/hr at 04/25/24 0712 8 mg/hr at 04/25/24 0712 propofoL IV infusion 5-50 mcg/kg/min IV Infusion TITRATE 13.07 mL/hr at 04/25/24 0854 25 mcg/kg/min at 04/25/24 0854 Sliding Scale Insulin - Lispro (HumaLOG) Subcutaneous TID MEALS+HS 1 Units at 04/25/24 1231 SOCIAL HISTORY Social History Socioeconomic History Marital status: Spouse name: Not on file Number of children: Not on file Years of education: Not on file Highest education level: Not on file Occupational History Not on file Tobacco Use Smoking status: Former Types: Cigarettes Smokeless tobacco: Never Substance and Sexual Activity Alcohol use: Not Currently Drug use: Not on file Comment: uses THC Sexual activity: Not on file Other Topics Concern Not on file Social History Narrative Not on file Social Determinants of Health Financial Resource Strain: Not on file Food Insecurity: Not on file Transportation Needs: Not on file Physical Activity: Not on file Stress: Not on file Social Connections: Not on file Intimate Partner Violence: Not on file Housing Stability: Not on file ROS: 10 point review of systems was negative except for the above mentioned PE: BP 122/87 | Pulse 68 | Temp 35.9 ?C (96.7 ?F) | Resp 15 | Ht 1.93 m (6' 4") | Wt 87.1 kg (192 lb) | SpO2 100% | BMI 23.37 kg/m? General: alert, in no apparent distress HEENT: EOMI, no scleral icterus Lungs: clear to auscultation bilaterally Cardio: regular rate and rhythm Abdomen: soft, non-tender, non-distended, no ascites, no hepatosplenomegaly Extremities: no edema, no clubbing or cyanosis Skin: no jaundice Neuro: no focal deficits, no asterixis LABORATORY HGB (g/dL) Date Value 04/25/2024 12.0 (L) 04/25/2024 11.2 (L) 04/25/2024 12.1 (L) PLT (10*3/?L) Date Value 04/25/2024 257 04/25/2024 249 04/25/2024 262 INR (no units) Date Value 04/25/2024 1.0 Hepatic Function Panel ALBUMIN (g/dL) Date Value 04/25/2024 3.9 T PROTEIN (g/dL) Date Value 04/25/2024 6.2 (L) TOTAL BILI (mg/dL) Date Value 04/25/2024 0.7 BILI UNCON (mg/dL) Date Value 04/25/2024 0.5 BILI CONJ (mg/dL) Date Value 04/25/2024 0.0 ALT(SGPT) (U/L) Date Value 03/28/2018 30 ALTv (U/L) Date Value 04/25/2024 13 AST(SGOT) (U/L) Date Value 04/25/2024 35 ALK PHOS (U/L) Date Value 04/25/2024 92 BMP NA (mmol/L) Date Value 04/25/2024 131 (L) K (mmol/L) Date Value 04/25/2024 4.6 CALCIUM (mg/dL) Date Value 04/25/2024 8.8 CL (mmol/L) Date Value 04/25/2024 98 BUN (mg/dL) Date Value 04/25/2024 19 CREATININE (mg/dL) Date Value 04/25/2024 0.70 GLUCOSE (mg/dL) Date Value 04/25/2024 169 (H) CO2 TOTAL (mmol/L) Date Value 04/25/2024 26 RADIOLOGY: CT ACUTE STROKE ANGIOGRAM HEAD Result Date: 04/25/2024 No aneurysm or high-grade, flow-limiting stenosis of the intracranial or extracranial vessels. Preliminary Report Dictated by Resident: Derek Sue MD., have reviewed this study and agree with the above report. CT ACUTE STROKE ANGIOGRAM NECK Result Date: 04/25/2024 No aneurysm or high-grade, flow-limiting stenosis of the intracranial or extracranial vessels. Preliminary Report Dictated by Resident: Derek Sue MD., have reviewed this study and agree with the above report. CT CERVICAL SPINE WO CONTRAST Result Date: 04/25/2024 No acute osseous abnormality. Preliminary Report Dictated by Resident: Derek Sue MD., have reviewed this study and agree with the above report. CT ACUTE STROKE HEAD WO CONTRAST Result Date: 04/25/2024 No acute intracranial abnormality. RL: 5252 STROKE CHEST 1 VW Result Date: 04/25/2024 Endotracheal tube is well-positioned, with the tip 4 cm on the syed. There are no pulmonary infiltrates or pleural effusions. RL: 5252 T REVIEW: Previous Endoscopy: n/a ASSESSMENT and PLAN Mark Pascual is a 73 year old male with PMH as listed above, consulted Gastroenterology for Coffee-ground emesis Altered mentation Patient found down in the field. Concern for coffee-ground emesis. Altered, intubated for airway protection. Code stroke ordered. Hemoglobin 11-12. Otherwise hemodynamically stable without elevation of BUN. Old coffee-ground material noted near nares/mouth. CT angiogram of the abdomen performed without venous or delayed phase. Hyperdense contents in the stomach noted which may represent old ingested material. No active extravasation commented on pending read. OG tube contents suctioned at baseline upon arrival without output. Hemodynamically stable with hemoglobin stable on recheck at 12. Given overall stability, will recommend further workup of altered mentation and further collateral at this time. Will continue to monitor for timing and utility of upper endoscopy. -2 large-bore access, transfuse greater than 7, H&H every 8 -Monitor all stool output -Hold feeds -PPI IV twice daily -Further workup of mentation change -Will continue to assess for utility and timing of endoscopy Patient was seen and discussed with Dr. Pereira , please call with any questions. Dung Garg, DO Gastroenterology & Hepatology PGY 5 Associated attestation - Ben Pereira MD - 04/25/2024 2:38 PM CDT I personally interviewed/examined the patient on 04/25/[address] Garg's resident/fellow note as written . I actively participated in the decision-making process. Please see the resident's note for additional details. IM-GASTROENTEROLOGY [facility] - Health History and Physical Notes Date/Time Note Provider Source 2024-04-25 11:58:44 Medicine Intensive Care History and Physical Date of Service: 04/25/2024 11:59 ICU day: 1 Intubation Day: 1 CHIEF COMPLAINT: Upper GI bleed HISTORY OF PRESENT ILLNESS Mark Pascual is a 73 year old male PMH of T2DM, HLD, HTN who was transferred from [facility] after being found down unresponsive and covered in coffee ground emesis. He was last seen normal 5 hours prior, was responsive to painful stimuli only, subsequently code stroke was activated. The patient was intubated for airway protection, CT angiogram was done which showed active extravasation from the stomach, vital signs were stable and Hb was 12. He was subsequently transferred to [facility]. Patient arrived to the MICU and was HDS, GI and IR were made aware of the patient, given the loss of consciousness and a reported left sided weakness we engaged neurology, imaging was negative so far. Labs upon arrival were unchanged, Cr, LFT's were within normal limits. He is Hds and still intubated. PAST MEDICAL HISTORY Past Medical History: Diagnosis Date Asperger syndrome Essential (primary) hypertension History of hypercholesterolemia Hypogonadism in male Schizoaffective disorder, bipolar type Type 2 diabetes mellitus without complications PAST SURGICAL HISTORY Past Surgical History: Procedure Laterality Date HAND/FINGER SURGERY UNLISTED PHACOEMULSIFICATION OF CATARACT WITH INTRAOCULAR LENS IMPLANT Left 01/27/2024 Surgeon: Sherri Yadav MD; Location: [facility] 2ND FLOOR OR LOCATION FAMILY HISTORY Family History Problem Relation Age of Onset Hypertension Mother Hypertension Father Prostate Cancer Father SOCIAL HISTORY Social History Socioeconomic History Marital status: Tobacco Use Smoking status: Former Types: Cigarettes Smokeless tobacco: Never Substance and Sexual Activity Alcohol use: Not Currently ALLERGIES No Known Allergies REVIEW OF SYSTEMS (-)=Negative,(+)=Positive General: negative Skin: negative HEENT: negative Neck: negative Heme: negative Resp: negative Cardio: negative GI: negative : negative Endo: negative Neuro: negative Back: negative JN: negative Psych: negative PHYSICAL EXAMINATION Vitals: 04/25/24 0837 04/25/24 0850 04/25/24 0900 04/25/24 1110 BP: (!) 191/106 (!) 164/102 (!) 150/94 122/87 Pulse: 86 81 79 68 Resp: 17 15 18 15 Temp: 35.9 ?C (96.6 ?F) 35.9 ?C (96.6 ?F) 35.9 ?C (96.7 ?F) TempSrc: SpO2: 99% 98% 98% 100% Weight: Height: Constitutional: intubated and sedated Resp: clear to auscultation bilaterally Cardio: regular rate and rhythm GI: soft; non-tender; non-distended; normoactive bowel sounds : B descended testes, no masses, normal phallus Rectal: not examined MSK: no clubbing, cyanosis, or edema Integ: no rashes Neuro: Patient intubated and sedated Labs (pertinent only)/Imaging: CT ACUTE STROKE ANGIOGRAM HEAD Result Date: 04/25/2024 No aneurysm or high-grade, flow-limiting stenosis of the intracranial or extracranial vessels. Preliminary Report Dictated by Resident: Derek Sue MD., have reviewed this study and agree with the above report. CT ACUTE STROKE ANGIOGRAM NECK Result Date: 04/25/2024 No aneurysm or high-grade, flow-limiting stenosis of the intracranial or extracranial vessels. Preliminary Report Dictated by Resident: Derek Sue MD., have reviewed this study and agree with the above report. CT CERVICAL SPINE WO CONTRAST Result Date: 04/25/2024 No acute osseous abnormality. Preliminary Report Dictated by Resident: Derek Sue MD., have reviewed this study and agree with the above report. CT ACUTE STROKE HEAD WO CONTRAST Result Date: 04/25/2024 No acute intracranial abnormality. RL: 5252 STROKE CHEST 1 VW Result Date: 04/25/2024 Endotracheal tube is well-positioned, with the tip 4 cm on the syed. There are no pulmonary infiltrates or pleural effusions. RL: 5252 Microbiology: Assessment/Plan: Mark Pascual is a 73 year old male admitted with upper GI bleed Neuro Loss of consciousness due to unknown etiology LOC requiring intubation for airway protection Patient is currently intubated and sedated, he was found down with reported left sided weakness, imaging was negative, will engage neurology. - Neurology on board, appreciate recs - Will obtain brain MRI - F/u CK for concern of rhabdo Resp Patient is currently intubated for airway protection, vital signs are stable, will wean off sedation as tolerated and potentially extubate. - Planning on extubation if the patient continues to be HDS. Cardiovascular Not an active issue FEN/GI Coffee ground emesis 2/2 upper GI bleeding Upper GI bleed? Mild leukocytosis Mild hyponatremia Patient was found down covered with coffee ground emesis, his Hb is currently 11, CTA showed active extravasation from the stomach region, GI and IR were consulted and are following, was started on PPI, has 2 large bore canulas in place, type and cross are available. Will keep the patient NPO past midnight for potential EGD tomorrow. - C/w PPI - GI were consulted, appreciate recs - IR were consulted, appreciate recs - Maintain 2 18g canulas - Monitor CBC Q12 - BMP daily - Transfuse if Hb <7 - NPO past midnight for potential EGD tomorrow - Keep Type and cross match available at all times and notify GI fellow if patient starts bleeding or becomes HDS. ID Not an active issue Renal Not an active issue Endo Not an active issue Other DVT prophylaxis: contraindicated Stress ulcer prophylaxis: PPI Dispo: Prognosis: Optimistic Code Status: Presumed Full Mita Lim MD Internal Medicine PGY-1 Associated attestation - Linwood Bergman MD - 04/26/2024 10:52 AM CDT I personally examined the patient on 04/26/[address] Lim's resident note with the following addition(s): Patient with altered mentation of indeterminate etiology, acute hypoxic respiratory failure, suspected gi bleeding. Labs, imaging studies and ventilatory parameters personally reviewed. Appreciate neurology input. Continue eeg. Attempt changing sedation to precedex and see if he can tolerate weaning trial . I actively participated in the decision-making process. Please see the resident's note for additional details. I spent 32 minute(s) on date 04/26/24 personally caring for this critically ill patient on the unit/floor. The patient was critically ill due to central nervous system failure and respiratory failure. I performed the following services: reviewed imaging studies and reviewed test results. Examined patient, reviewed ventilatory parameters and actively participated in decision making process. . Linwood Bergman MD MICU Attending [facility] 2024-01-27 08:41:50 Outpatient Surgery History & Physical Mark Pascual 1950, 73 year old, /White, male [id number] Admit type: DSU Attending Surgeon: Sherri Yadav Resident Surgeon: Boris Beeper/Cell: None Chief Complaint: Blurry vision: OS with glare History of Present Illness: Causing difficulty Driving, Reading, Watching TV Past Medical History: Diagnosis Date Asperger syndrome Essential (primary) hypertension History of hypercholesterolemia Hypogonadism in male Schizoaffective disorder, bipolar type Type 2 diabetes mellitus without complications Past Surgical History: Procedure Laterality Date HAND/FINGER SURGERY UNLISTED Family History Problem Relation Age of Onset Hypertension Mother Hypertension Father Prostate Cancer Father Social History Socioeconomic History Marital status: Single Tobacco Use Smoking status: Former Types: Cigarettes Smokeless tobacco: Never Substance and Sexual Activity Alcohol use: Not Currently Current Facility-Administered Medications Medication Dose Route Frequency Last Rate Last Admin cyclopent 1%-tropic 1%-phenyl 2.5%-ketor 0.5% (MYDRIATIC #5) ophthalmic solution syringe 0.25 mL 0.25 mL Left Eye PRN - SEE INSTRUCTIONS lactated ringers IV infusion 1,000 mL 1,000 mL IV Infusion ONCE tetracaine (PONTOCAINE) 0.5 % ophthalmic drops 1 Drop 1 Drop Left Eye PRN - SEE INSTRUCTIONS Patient has no known allergies. Review of Systems Blurry vision Physical exam HEENT: Brightness Acuity Test medium 20/40 OS Heart: WNL Lungs: WNL Abdomen: WNL Weight 206 lb (93.4 kg). Bleeding tendencies: No Pertinent Lab Data: HGB (g/dL) Date Value 07/04/2023 13.6 Pertinent physical abnormalities: None Impression/Diagnosis: Visually significant Nuclear sclerotic and Cortical cataract OS Treatment Plan/Procedure: Phacoemulsification with SN60WF IOL OS Risks, benefits, and alternatives discussed with patient who voices understanding and wishes to proceed. Consent obtained: Written consent was obtained from patient Physician: Sherri Yadav MD [facility] 2023-12-31 14:00:00 Outpatient Surgery History & Physical Mark Pascual 1950, 73 year old, /White, male [id number] Admit type: DSU Attending Surgeon: Sherri Yadav Resident Surgeon: Boris Beeper/Cell: None Chief Complaint: Blurry vision: OS with glare History of Present Illness: Causing difficulty Driving, Reading, Watching TV Past Medical History: Diagnosis Date Asperger syndrome Essential (primary) hypertension History of hypercholesterolemia Hypogonadism in male Schizoaffective disorder, bipolar type Type 2 diabetes mellitus without complications Past Surgical History: Procedure Laterality Date HAND/FINGER SURGERY UNLISTED Family History Problem Relation Age of Onset Hypertension Mother Hypertension Father Prostate Cancer Father Social History Socioeconomic History Marital status: Single Tobacco Use Smoking status: Former Types: Cigarettes Smokeless tobacco: Never Substance and Sexual Activity Alcohol use: Not Currently Current Outpatient Medications Medication Sig Dispense Refill Nitrofurantoin&Nit. Macrocryst (MACROBID) 100 mg capsule Take 1 capsule by mouth in the morning and 1 capsule in the evening. Do all this for 7 days. 14 capsule 0 peg-electrolyte soln 236-22.74-6.74 -5.86 gram solution Take as directed before colonoscopy 8000 mL 0 lidocaine 5 % (700 mg/patch) patch Apply 1 Patch to area(s) in the morning. 28 Patch 0 tiZANidine 2 mg tablet Take 1 tablet by mouth every 6 (six) hours as needed for Pain (scale 4-6). 42 tablet 0 acetaminophen 325 mg Cap Take 1 tablet by mouth in the morning. NON-FORMULARY MEDICATION Take 4 tablets by mouth in the morning. Antronex ARIPiprazole 10 mg tbsp Take by mouth. CBD oil (BRIE'S HOPE) 20:1 with safflower FLUoxetine 40 mg capsule Take 1 capsule by mouth weekly. glipiZIDE 10 mg tablet Take 1 tablet by mouth 2 (two) times daily before breakfast and dinner. ashwagandha extract 120 mg Cap Take 480 mg by mouth in the morning. HAWTHORN SNYDER ORAL Take 8,000 mg by mouth in the morning. Lactobacillus acidophilus (PROBIOTIC) 10 billion cell capsule Take 1 capsule by mouth in the morning. pumpkin seed extract (AZO MEN ORAL) Take 1 tablet by mouth as needed. VALERIAN ORAL Take 2,400 mg by mouth in the morning and 2,400 mg at noon and 2,400 mg in the evening. vit A/vit C/vit E/zinc/copper (PRESERVISION AREDS ORAL) Take 1 tablet by mouth in the morning. Apple Cider Vinegar 300 mg Tab Take 3 tablets by mouth in the morning. ofloxacin 0.3 % otic drops Place 1 Drop in right ear in the morning and 1 Drop in the evening. pumpkin seed oil/saw palmetto (SAW PALMETTO-PUMPKIN SEED OIL ORAL) Take 500 mg by mouth in the morning. nystatin 100,000 unit/gram cream Apply to area(s) 2 (two) times daily. 30 g 0 metFORMIN 1,000 mg tablet TAKE ONE TABLET BY MOUTH EVERY MORNING AND TAKE ONE TABLET BY MOUTH EVERY EVENING WITH MEALS 180 tablet 1 carbamide peroxide (DEBROX) 6.5 % otic solution Place 5 Drops in both ears in the morning and 5 Drops in the evening. 15 mL 1 blood sugar diagnostic (ACCU-CHEK GUIDE TEST STRIPS) strip Check blood sugar twice daily E11.9 200 Strip 5 lithium 150 mg capsule Take 1 capsule by mouth in the morning. mupirocin 2 % ointment Apply to area(s) 3 (three) times daily. 22 g 0 Magnesium 250 mg Tab Take 2,500 mg by mouth in the morning. No current facility-administered medications for this visit. Patient has no known allergies. Review of Systems Blurry vision Physical exam HEENT: Brightness Acuity Test medium 20/40 OS Heart: WNL Lungs: WNL Abdomen: WNL Blood pressure (!) 157/99, pulse 81, weight 206 lb (93.4 kg). Bleeding tendencies: No Pertinent Lab Data: HGB (g/dL) Date Value 07/04/2023 13.6 Pertinent physical abnormalities: None Impression/Diagnosis: Visually significant Nuclear sclerotic and Cortical cataract OS Treatment Plan/Procedure: Phacoemulsification with SN60WF IOL OS Risks, benefits, and alternatives discussed with patient who voices understanding and wishes to proceed. 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 Matt Clareon CNA0T0 16.5D, SN: [id number] 2. Capsular Tension Ring 13.0 mm CN: [id number] Procedure: After appropriate intravenous lines and monitors were placed, the patient was brought to the operating room. The patient's eye was then prepped and draped in the usual sterile ophthalmologic fashion. After placing a lid speculum in the eye, 2% lidocaine jelly was placed on the eye. A paracentesis placed near the limbus. Intracameral lidocaine was placed in the anterior chamber. The anterior chamber was then filled with Viscoelastic. A keratome was then used to fashion a standard, clear cornea incision near the limbus. An anterior curvilinear capsulorrhexis was performed using a cystotome and Utrata forceps. The lens was then hydrodissected without difficulty. 2 clock hours of zxonular dehiscence was noted between 7 and 9 o'clock. The lens nucleus was quartered and removed with the phacoemulsification device. Any remaining cortex was removed using the irrigation/aspiration device. The anterior chamber and capsular bag were filled with viscoelastic and a capsular tension ring was placed in the eye. The folded 16.5 diopter CNA0T0 posterior chamber intraocular lens was inserted into the capsular bag and rotated into position using the sinskey hook. Any remaining viscoelastic was removed using the irrigation/aspiration device. The wounds were checked. Intracameral vigamox was injected into the anterior chamber. The wounds were again checked and found to be water tight. The lid speculum was removed. Vigamox, pred forte, and timolol drops were placed on the eye and the eye was shielded. Complications: None The patient tolerated the procedure well and left the operating room in stable condition. T [facility] Notes Date/Time Note Provider Source 2025-07-28 16:37:03 Dangelo Khan, I reached out to Mrs. Pascual. I have provided her with information for provider services. She is also interested in home health but patient has not been seen since April. I have directed Ms. Pascual to make an appointment with Dr. Morin so I can set up home health. Thank you, Isabel Cain [facility] Meteorologist Liaison ambulatory clinics [facility] [phone] Isabel Cain [facility] 2025-07-28 12:36:57 Copied from [facility] #[id number]. Topic: Clinical - Medical Advice >> Jul 28, 2025 12:35 PM Patient Account Service Associate wrote: Mark Pascual is a 74 year old male PT spouse calling requesting to speak with case advocate at PCP office. Wanting to discuss PT care. Please call back [facility], Thank you! T Erin Paiz [facility] 2025-07-26 11:28:12 Referral for home health was closed due to no return calls. Patient is ready for the HH services. Meteorologist Liaison information given to patient and spouse. [facility] 2025-07-26 11:04:17 Mark Pascual is a 74 year old male Pt spouse checking status of information, pt also states that she received a text message from [facility] for hh orders however she claims now that she can no longer find the message, pt had a lot of confusion in regards to prior orders and if there are any currently. Please advise Hamzah Toney [facility] 2025-07-22 16:35:04 Copied from [facility] #[id number]. Topic: Wax Pattern Assembler >> Jul 22, 2025 4:34 PM Patient Account Service Associate wrote: Pt request home health for the same agency he used in April of this year. Pt needs help with cleaning the house and laundry. He said he is healthy and does not need this for medical care. Please Advise. Tasia Gaitan [facility] 2025-05-27 09:40:11 Called left message for patient informing he has an appointment on 09/01/[address] Robison. He is also on a wait list. If he should need more information to call our office at [phone]. Destiny Daniels [facility] 2025-05-16 08:39:57 Pt is seen at PCP location. Routing to PCP PSS. Please review and assist. Thank you. Dayanara Santos RN [facility] 2025-05-14 10:02:27 Images from the original note were not included. Patient's was notified of the results below, she verbally understood and agreed to the plan. Thank you Kelly Person MD P Cardiology Nurse Holter--average heart rate 66. No concerning bradycardia. F/u PRN. Alysa Colmenares MA [facility] 2025-05-13 09:33:11 Copied from [facility] #[id number]. Topic: Clinical - Medical Advice >> May 13, 2025 9:30 AM Patient Account Service Associate wrote: Patient calling to speak with supervisor byproducts that she spoke with yesterday at office appointment. She is wanting to apologize due to the miscommunication with patient canceled appointment. She stated she thinks it was the hospital that called to cancel due to the patient being admitted and they did not know when the patient was going to be discharged. Please advise Hina Langley [facility] 2025-05-13 09:26:03 Mark Pascual is a 74 year old male Patient returning call from clinic in regards to results. Please call back at [phone] (home) Thank you Lumzaria Clark [facility] 2025-05-13 07:47:21 Images from the original note were not included. Attempted to contact patient with results/recommendations. LVM for patient to return call to [phone]. Kelly Person MD P Cardiology Nurse Holter--average heart rate 66. No concerning bradycardia. F/u PRN. [facility] 2025-05-12 17:15:00 Images from the original note were not included. Venipuncture collection performed by clean technique on the right anticubitus. Total of 1 attempts were made. Slight pressure and a bandage/dressing were applied to the site(s). The patient experienced no complications. The following specimens were processed according to instructions and sent to [facility] laboratories per lab order on 05/12/2025 LT BLUE SST 1 RST 1 LAV PPT DK GREEN (LiHep) 1 LT GREEN (LiHep) 1 ESCALANTE DK BLUE (K2) DK BLUE (S) ACD Blood Culture NIPT Urine Urine Culture [facility] 2025-05-12 14:11:01 Pt was scheduled today 05/12/25 at 3:30 w/Dr Robison Aster Kemp [facility] 2025-05-12 11:59:26 Copied from [facility] #[id number]. Topic: Clinical - Medical Advice >> May 12, 2025 11:58 AM Patient Account Service Associate wrote: Mark Pascual Pt's Genesis calling back from yesterdays encounter placed regarding his appointment . I warm transferred to Nurse Amalia Weldon Gloria Sibley [facility] 2025-05-11 16:27:35 Copied from [facility] #[id number]. Topic: Appointment - Bumped Appt Timeframe Concern >> May 11, 2025 4:26 PM Patient Account Service Associate wrote: Pt calling upset and wanting to speak with supervisor byproducts. She is wanting to know why patient apt was changed without her consent. She said she did not change it. Please advise Hnia Langley [facility] 2025-04-24 15:09:06 Contact was made with /ec-Genesis of Mark Pascual on 04/24/2025 15:09 and informed of lab results per Provider notes. Nallely Zhang LVN [facility] 2025-04-22 14:24:18 I will be contacting the insurance Anna Richter [facility] 2025-04-21 13:10:40 Please result on labs. Once done I will print out and let patients know ready for hand picker. I have already spoke with and advised that Dr. Morin is out and will be back tomorrow. [facility] 2025-04-21 13:00:18 Mark Pascual is a 74 year old male Patient's spouse is calling back to go over the lab results. Patient is wanting to get a paper copy of the results and would like to pick them up today if possible. Please advise. Salima Farfan [facility] 2025-04-21 12:41:37 Spouse of Mark Pascual is a 74 year old male is requesting most recent lab work be faxed to his Psychiatrist Please advise Dr Ly Rafal Pathak [facility] 2025-04-19 14:43:51 Mark Pascual is a 74 year old male pt says she would like the clinic to reach out to insurance. Pt say is not in network with uriel Kanwal Garcia [facility] 2025-04-19 14:12:47 Spoke with pt in regards to PCP HMO provider and pt stated that they received a letter with confirmation and I mentioned we would need a reference number if they could call their insurance and give me reference number pt then stated they would try to look for letter they received and call us back. Michelle Adams [facility] 2025-04-19 12:00:00 Images from the original note were not included. Venipuncture collection performed by clean technique on the left anticubitus. Total of 1 attempts were made. Slight pressure and a bandage/dressing were applied to the site(s). The patient experienced no complications. The following specimens were processed according to instructions and sent to [facility] laboratories per lab order on 04/19/2025 : LT BLUE SST 1 RED LAV 2 PPT DK GREEN (LiHep) DK GREEN (SodH) ESCALANTE DK BLUE (K2) DK BLUE (S) ACD Blood Culture NIPT/NTD Patient presented with specimen for drop-off and was identified by , name, and nurse. Collection information/ total volume were documented accordingly. The following specimens were sent to [facility] laboratories per lab order on 04/19/2025 : Urine brought to lab per nurse prior to lab visit. 24 hour urine Random urine [address] [facility] 2025-04-19 11:45:08 Mark Pascual is a 74 year old male Good morning, Patient was recently seen in your clinic and was not advised to update PCP with insurance. Please reach out to the patient and advise to [facility] and update PCP to Dr. Nolberto Morin. Thank you, [facility] [employer] Melinda Knox [facility] 2025-04-18 10:07:01 Genesis the pts spouse is calling stating that the pt has been more forgetful and showing confusion on daily task for the past 2 weeks. Genesis declined a nurse triage and wanted to schedule the soonest appt with Dr. Morin for tomorrow 03/19/25 at 8:[address] [facility] 2025-04-14 11:24:20 Spoke to patient's , she stated that patient has been experiencing confusion and intrusive thoughts for about 2 weeks. She was wanting for him to be seen by a provider today since his next appointment with psychiatrist and neurologist is not until May. She was advised to take pt to ER due to the sudden change in mental status. She verbalized understanding. Jessica Maens RN [facility] 2025-04-14 11:10:58 Called to speak to patient, per provider request, regarding appointment in clinic and symptoms experienced. Patient's spouse states that for the past 2 weeks, patient s very confused and getting worse. She states that he is on psychiatric meds and unsure if it is related to that. She states that when she asks patient, he states that he is feeling "hopeless" and he is unable to talk because it will not "come out". She states that she has been taking him with her everywhere to not leave him alone. She states he spoke with psychiatrist, he was not able to talk so they only prayed on the phone. Based on symptoms, I strongly advised patient be seen in ED. Patient is currently scheduled as acute visit and not with PCP. The spouse stated that they do not have the funds for the ED. I advised I could look for next available with PCP but the recommendation was for ED. She stated Dr. Morin's next available was on Friday. I stated due to symptoms, it is best for patient to be evaluated in ED. Patient's stated "ok" and ended the call. OS ENRIQUET Mckenzie Ceron RN [facility]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 CT ACUTE STROKE ANGIOGRAM HEAD Preliminary Result No aneurysm or high-grade, flow-limiting stenosis of the intracranial or extracranial vessels. Preliminary Report Dictated by Resident: Sai Mullins CT ACUTE STROKE ANGIOGRAM NECK Preliminary Result No aneurysm or high-grade, flow-limiting stenosis of the intracranial or extracranial vessels. Preliminary Report Dictated by Resident: Sai Mullins CT ANGIOGRAM CHEST Preliminary Result Limited evaluation of GI bleeding in the absence of venous and delayed phases. Possible extravasation at distal stomach may indicate active bleeding. Please consider GI consult and endoscopy. Otherwise no active extravasation to suggest acute bleeding. Hyperdense material within the stomach and a small bowel suggesting recent blood products. Cholelithiasis without cholecystitis. The findings of this study, including concern for possible gastric extravasation, have been discussed by Dr. Sai Mullins with and acknowledged by Dr. Romero, over the phone on 04/25/2024 at 8:30 AM with readback. Preliminary Report Dictated by Resident: Sai Mullins CT ANGIOGRAM ABDOMEN/PELVIS Preliminary Result Limited evaluation of GI bleeding in the absence of venous and delayed phases. Possible extravasation at distal stomach may indicate active bleeding. Please consider GI consult and endoscopy. Otherwise no active extravasation to suggest acute bleeding. Hyperdense material within the stomach and a small bowel suggesting recent blood products. Cholelithiasis without cholecystitis. The findings of this study, including concern for possible gastric extravasation, have been discussed by Dr. Sai Mullins with and acknowledged by Dr. Romero, over the phone on 04/25/2024 at 8:30 AM with readback. Preliminary Report Dictated by Resident: Sai Mullins CT ACUTE STROKE HEAD WO CONTRAST Final Result No acute intracranial abnormality. RL: 5252 STROKE CHEST 1 VW Final Result Endotracheal tube is well-positioned, with the tip 4 cm on the syed. There are no pulmonary infiltrates or pleural effusions. RL: 5252 Procedures: EKG-12 Lead ROUTINE ONCE Date/Time: 04/25/2024 8:43 AM Performed by: Garland Romero MD Authorized by: Addie Junior MD ECG interpreted by ED Physician in the absence of a senior microstrategy developer: yes Previous ECG: Previous ECG: Compared to current Comparison ECG info: Compared to EKG of 03/11/2021 no significant changes Interpretation: Interpretation: non-specific Rate: ECG rate: 59 ECG rate assessment: normal Rhythm: Rhythm: sinus rhythm Ectopy: Ectopy: none QRS: QRS axis: Normal (+41) ST segments: ST segments: Non-specific T waves: T waves: non-specific Comments: Qtc 498 Additional Notes: ED Course as of 04/25/24 0903 [place] Apr 25, 2024 0832 [facility] Transfer process initiated. [RK] [address] Romero at shift change in guarded condtion. Doing well on the vent. Awaiting imaging. [DN] ED Course User Index [DN] Addie Junior MD [RK] Garland Romero MD Diagnosis/Impression as of 04/25/24 0903 Unresponsive Hyponatremia Upper GI bleeding Left-sided weakness Endotracheally intubated Medical Decision Making Primary impression: left-sided weakness of uncertain etiology Secondary impression: altered mental status / unresponsive, upper gastrointestinal bleeding, intubated Differential Diagnoses, including but not limited to: electrolyte / glucose abnl, bianka, anemia, arrhythmia, acute coronary event, stroke, hemorrhage Problems Addressed: Endotracheally intubated: acute illness or injury Details: In ED Hyponatremia: acute illness or injury Details: 129 Left-sided weakness: acute illness or injury Details: Last known normal 0130 today Unresponsive: acute illness or injury Details: Obtunded / coma Upper GI bleeding: acute illness or injury Amount and/or Complexity of Data Reviewed Independent Historian: EMS Labs: ordered. Decision-making details documented in ED Course. Radiology: ordered. Decision-making details documented in ED Course. ECG/medicine tests: ordered and independent interpretation performed. Decision-making details documented in ED Course. Discussion of management or test interpretation with external provider(s): 1. CT findings discussed with Radiology. Possible gastric extravasation. (+) blood in stomach. 2. Case discussed with [facility] ICU including presentation, exam, findings, plan. Will follow in ICU as legal consultant service 3. Case discussed with [facility] including presentation, exam, findings, plan. Accepted for transfer to [facility] Risk Prescription drug management. Parenteral controlled substances. Decision regarding hospitalization. Risk Details: Findings and plan discussed with patient and daughter. Critical condition. Unclear etiology of left-sided weakness and obtunded mental status. (+) upper GI bleeding. Likely slow leak. Hemodynamically stable. Will benefit from further ICU-level care in the hospital. Accepted for transfer to [facility]. No Neurology, nor GI services at [facility]. AdmissionCare Guideline: Neurology, Inpatient Based on the indications selected for the patient, the bed status of Inpatient was determined to be MET The following indications were selected as present at the time of evaluation of the patient: - Clinical Indications for Admission to Inpatient Care - Hospital admission is needed for appropriate care of the patient because of 1 or more of the following: - Coma (ie, not arousable) - Inadequate airway protection (eg, intubation needed) AdmissionCare documentation entered by: Garland Romero [facility] [employer], 28th edition, Copyright ? 2023 [facility] [employer] [facility] All Rights Reserved. [id number] Disposition: Transfer: Resource limitation at current hospital: no Neurology services, No GI services Social Determinants of Health: None ED Disposition ED Disposition Transfer - [facility] to IP/Obs Condition -- Comment -- [facility] 2024-04-25 07:37:29 Problem: Restraint Use Goal: Absence of restraint indications Outcome: Progressing as expected Problem: Restraint Use Goal: Absence of restraint-related injury Outcome: Progressing as expected [facility] 2024-04-25 07:19:50 Hand off report to JASMINA Lora T [facility] 2024-04-25 07:07:00 Patient back in room from CT, Report received from Arlene FREEDMAN. is here. Wiped blood off of patient's face and covered with more blankets to make patient more presentable to . brought back to room. [facility] 2024-04-25 06:11:00 Stroke Symptoms Note Pt placed immediately into room from EMS stretcher for stroke symptoms, last seen normal: 0130. Stroke activation complete, Dr. Junior at bedside. EKG done on arrival to room. Patient taken to CT at 0636 with RN at bedside. Patient placed on continuous cardiac, blood pressure and oxygen saturation monitoring. PIV placed, labs drawn. Please see neuro assessment for details. Will continue to monitor. Janis Milton RN Janis Milton RN [facility] 2024-04-25 06:09:00 Associated Order(s): Critical Care EMERGENCY DEPARTMENT ENCOUNTER [facility] Patient Name: Mark Pascual Date of : 1950 73 year old Exam [facility] Primary Care Physician: Rosa Isela Castañeda Pre- Hospital Patient Escorted by: Self [9] Mode of Arrival: EMS - [facility] ([place]) [43] EMS Treatment Prior to ED Arrival: CHUTE TAPPER treatment: Saline lock ED Events Date/Time Event User Comments 04/25/24619 Medical Screening Begins ADDIE JUNIOR MD -- 04/25/24619 First Provider Evaluation ADDIE JUNIOR MD -- Chief Complaint Chief Complaint Patient presents with Altered mental status ED Triage Notes Arlene Sanz RN 04/25/2024 06:25 Pt arrived via [facility] for unresponsiveness. [id number] seen normal at 0130. found him on back porch in current state with coffee ground emesis covering himself. Pt with snoring respirations upon arrival, responsive to painful stimuli. Code stroke activated at 0612 HPI History provided by: EMS personnel Altered mental status Presenting symptoms: unresponsiveness Severity: Severe Most recent episode: Today Episode history: Single Duration: last normal 0130. Chronicity: New Past Medical History / Immunizations Past Medical History: Diagnosis Date Asperger syndrome Essential (primary) hypertension History of hypercholesterolemia Hypogonadism in male Schizoaffective disorder, bipolar type Type 2 diabetes mellitus without complications Tetanus received in last 5 years: Unknown Past Surgical History Past Surgical History: Procedure Laterality Date HAND/FINGER SURGERY UNLISTED PHACOEMULSIFICATION OF CATARACT WITH INTRAOCULAR LENS IMPLANT Left 01/27/2024 Surgeon: Sherri Yadav MD; Location: [facility] 2ND FLOOR OR LOCATION Allergies No Known Allergies Social History Tobacco Use Former; Types: Cigarettes Smokeless Tobacco: Never used smokeless tobacco. Alcohol Use Not Currently. Drug Use Comments: uses THC Review of Systems Review of Systems Unable to perform ROS: Mental status change Physical Exam ED Triage Vitals [04/25/24 0608] Weight 90.3 kg (199 lb) Actual or estimated Actual Height 1.854 m (6' 1") BP (!) 188/112 Pulse 99 Resp 14 Temp 34.4 ?C (94 ?F) Temp source Axillary SpO2 97 % Measured on Room air Physical Exam Vitals reviewed. Constitutional: Appearance: He is well-developed. HENT: Head: Normocephalic and atraumatic. Nose: Nose normal. Eyes: Conjunctiva/sclera: Conjunctivae normal. Neck: Trachea: No tracheal deviation. Cardiovascular: Rate and Rhythm: Normal rate and regular rhythm. Heart sounds: Normal heart sounds. No murmur heard. No friction rub. Pulmonary: Effort: Pulmonary effort is normal. No respiratory distress. Breath sounds: Normal breath sounds. No stridor. No wheezing or rales. Abdominal: General: Bowel sounds are normal. There is no distension. Palpations: Abdomen is soft. Tenderness: There is no abdominal tenderness. There is no guarding or rebound. Musculoskeletal: General: Normal range of motion. Cervical back: Normal range of motion and neck supple. Skin: General: Skin is warm and dry. Neurological: Mental Status: He is alert. Comments: Left sided extinction Psychiatric: Behavior: Behavior normal. Labs Lab Results POCT GLUCOSE(AGE >30DAYS) - Abnormal Result Value Ref Range POCT Glu (age>30days) 214 (*) 70 - 110 mg/dL ACTIVATED PARTIAL THRMPLAS GRACE - Abnormal APTT Patient 41 (*) 26 - 36 Seconds CBC WITHOUT DIFF - Abnormal WBC 7.44 4.20 - 10.70 10*3/?L RBC 4.27 4.26 - 5.52 10*6/?L HGB 12.1 (*) 12.2 - 16.4 g/dL HCT 36.5 (*) 38.4 - 49.3 % MCH 28.3 26.1 - 32.7 pg MCV 85.5 81.7 - 95.6 fL MCHC 33.2 31.2 - 35.0 g/dL PLT 262 150 - 328 10*3/?L MPV 10.5 9.8 - 13.0 fL RDW-CV 13.8 12.1 - 15.4 % RDW-SD 42.8 38.5 - 51.6 fL NRBC x10 3 <0.01 10*3/?L NRBC/100 WBC 0.0 0.0 - 10.0 /100 WBCs IPF % BASIC METABOLIC PANEL (NA, K, CL, CO2, GLUCOSE, BUN, CREATININE, CA) - Abnormal NA 129 (*) 135 - 145 mmol/L K 4.4 3.5 - 5.0 mmol/L CL 93 (*) 98 - 108 mmol/L CO2 TOTAL 29 23 - 31 mmol/L AGAP 7 2 - 16 BUN 20 7 - 23 mg/dL GLUCOSE 223 (*) 70 - 110 mg/dL CREATININE 0.87 0.60 - 1.25 mg/dL CALCIUM 9.5 8.6 - 10.6 mg/dL eGFR 91.1 mL/min/1.73m2 URINALYSIS - Abnormal APPEARANCE Hazy (*) Clear COLOR Yellow Yellow PH 5.0 4.8 - 8.0 SP GRAVITY 1.021 1.003 - 1.030 GLU U QUAL Normal Normal BLOOD Negative Negative KETONES 5 mg/dL (*) Negative PROTEIN 30 mg/dL (*) Negative UROBILIN Normal Normal BILIRUBIN 2 mg/dL (*) Negative NITRITE Negative Negative LEUK REBECCA Negative Negative RBC/HPF 4 (*) 0 - 3 HPF WBC/HPF 2 0 - 5 HPF BACTERIA Few (*) Negative MUCOUS Slight (*) Negative LPF POCT GLUCOSE (AUTOMATED) - Abnormal POCT GLU 214 (*) 70 - 110 mg/dL AC PANEL 20 + LACTIC ACID - Abnormal PH 7.34 (*) 7.35 - 7.45 PCO2 45 35 - 45 mmHg PO2 368 (*) 80 - 100 mmHg HCO3 24 22 - 26 mEq/L BE -2.0 -3.0 - 3.0 mEq/L THB 12.4 (*) 13.5 - 18.0 g/dL %O2HB 98.8 94.0 - 99.0 % %COHB ART 0.3 0.0 - 1.5 % %METHB ART 0.3 (*) 0.4 - 1.5 % VOL%O2 ART 18.2 15.0 - 23.0 % NA 127 (*) 135 - 145 mmol/L K+ 4.2 3.5 - 5.0 mmol/L AC CA IONZ 4.80 4.50 - 5.30 mg/dL GLUCOSE 207 (*) 70 - 110 mg/dL LACTIC ACID 1.70 0.50 - 2.20 mmol/L AMMONIA, PLASMA - Abnormal AMMONIA <9 (*) 9 - 33 umol/L PROTHROMBIN TIME / INR - Normal PROTIME PATIENT 12.1 10.1 - 12.6 Seconds INR 1.0 TROPONIN I - Normal TROPONIN I 0.004 <=0.034 ng/mL URINE DRUG (IMMUNOASSAY) - COMPREHENSIVE DRUG SCREEN W/O REFLEX - Normal AMPHET Negative Negative CHRIS U Negative Negative BENZO U Negative Negative Cocaine Metabolite Negative Negative METHADONE Negative Negative OPIATES Negative Negative PCP Negative Negative THC Negative Negative ETHANOL ALCOHOL <10 mg/dL ACUTE CARE ARTERIAL BLOOD GAS Imaging CT CERVICAL SPINE WO CONTRAST Preliminary Result EXAM: CT CERVICAL SPINE WO CONTRAST HISTORY: 73 years-old Male; Provided indication: No indication is provided. History obtained from [facility]: Patient found unconscious and covered in coffee-ground emesis. TECHNIQUE: Routine unenhanced CT of the cervical spine was performed. Coronal and sagittal reformats were obtained. COMPARISON: 03/11/2021. FINDINGS: No acute fracture or traumatic dislocation is visualized. The craniocervical junction is intact. Kyphotic reversal of cervical lordosis is centered at . The vertebral bodies are normal in height and in normal alignment. Multiple level loss of disc space. Moderate degenerative changes of the cervical spine with anterior joined osteophyte formation and posterior small osteophyte formation. The prevertebral soft tissues appear unremarkable. An ET tube and nasogastric tube are partially imaged. IMPRESSION No acute osseous abnormality. Preliminary Report Dictated by Resident: Sai Mullins CT ACUTE STROKE ANGIOGRAM HEAD Preliminary Result CT STROKE ANGIOGRAM HEAD, CT STROKE ANGIOGRAM NECK HISTORY: 73 years-old; Male; Neuro deficit, acute, stroke suspected TECHNIQUE: CTA of the head and neck with coronal, sagittal reformats, and MIPS reconstruction was performed. COMPARISON: 03/11/2021 FINDINGS: CTA NECK: Aortic arch and arch vessel origins: Standard three- vessel aortic arch. The ostia of the great neck vessels are free of significant stenosis. Innominate and subclavian arteries: Innominate and subclavian arteries are patent with normal course. Common and internal cervical carotids: The common carotid arteries, carotid bulbs and cervical internal carotid arteries are patent. Vertebral arteries: Vertebral arteries originate normally from the subclavian arteries and are patent along their course. There is atherosclerotic calcification at the origin of the right vertebral artery without significant stenosis. Cervical soft tissues: Unremarkable. The gastric tube is partially imaged. Lung apices: Unremarkable. An ET tube is visualized terminating between the thoracic inlet and the syed. Cervical spine: No acute bony abnormality. CTA HEAD: Right PICA origin is visualized. Left AICA-PICA variant is suspected. The basilar artery is normal in caliber. The superior cerebellar arteries are unremarkable. The posterior cerebral arteries are unremarkable. origin of the left RECRUITMENT SPECIALIST. A right P-comm is not definitively visualized. The distal cervical, petrous, cavernous and supraclinoid internal carotid arteries are unremarkable. The anterior and middle cerebral arteries are unremarkable. An anterior communicating artery is not visualized. The dural venous sinuses are grossly patent. IMPRESSION No aneurysm or high-grade, flow-limiting stenosis of the intracranial or extracranial vessels. Preliminary Report Dictated by Resident: Sai Mullins CT ACUTE STROKE ANGIOGRAM NECK Preliminary Result CT STROKE ANGIOGRAM HEAD, CT STROKE ANGIOGRAM NECK HISTORY: 73 years-old; Male; Neuro deficit, acute, stroke suspected TECHNIQUE: CTA of the head and neck with coronal, sagittal reformats, and MIPS reconstruction was performed. COMPARISON: 03/11/2021 FINDINGS: CTA NECK: Aortic arch and arch vessel origins: Standard three- vessel aortic arch. The ostia of the great neck vessels are free of significant stenosis. Innominate and subclavian arteries: Innominate and subclavian arteries are patent with normal course. Common and internal cervical carotids: The common carotid arteries, carotid bulbs and cervical internal carotid arteries are patent. Vertebral arteries: Vertebral arteries originate normally from the subclavian arteries and are patent along their course. There is atherosclerotic calcification at the origin of the right vertebral artery without significant stenosis. Cervical soft tissues: Unremarkable. The gastric tube is partially imaged. Lung apices: Unremarkable. An ET tube is visualized terminating between the thoracic inlet and the syed. Cervical spine: No acute bony abnormality. CTA HEAD: Right PICA origin is visualized. Left AICA-PICA variant is suspected. The basilar artery is normal in caliber. The superior cerebellar arteries are unremarkable. The posterior cerebral arteries are unremarkable. origin of the left RECRUITMENT SPECIALIST. A right P-comm is not definitively visualized. The distal cervical, petrous, cavernous and supraclinoid internal carotid arteries are unremarkable. The anterior and middle cerebral arteries are unremarkable. An anterior communicating artery is not visualized. The dural venous sinuses are grossly patent. IMPRESSION No aneurysm or high-grade, flow-limiting stenosis of the intracranial or extracranial vessels. Preliminary Report Dictated by Resident: Sai Mullins CT ACUTE STROKE HEAD WO CONTRAST Final Result CT HEAD WITHOUT ORDERING PHYSICIAN: ADDIE JUNIOR HISTORY: Neurological deficit COMPARISON: none TECHNIQUE: CT of the head without contrast The Technique was utilized with ALARA (as low as reasonably achievable) protocol. FINDINGS: There is no acute intracranial hemorrhage. No extra axial fluid collections.No midline shift. Ventricles are normal in size and symmetric. The escalante-white matter differentiation is preserved. The visualized paranasal sinuses and mastoid air cells are clear. Osseous structures are unremarkable. Aspects score 10. Findings were discussed with Dr. Junior at 7:05 AM. IMPRESSION No acute intracranial abnormality. RL: 5252 STROKE CHEST 1 VW Final Result ORDERING PHYSICIAN: ADDIE JUNIOR CLINICAL HISTORY: Neurological deficit TECHNIQUE: Frontal view of chest COMPARISON: 03/29/2022 FINDINGS: The cardiac silhouette is mildly enlarged, stable. Endotracheal tube is well-positioned, with the tip 4 cm on the syed. There are no pulmonary infiltrates or pleural effusions. Osseous structures are normal. IMPRESSION Endotracheal tube is well-positioned, with the tip 4 cm on the syed. There are no pulmonary infiltrates or pleural effusions. RL: 5252 Orders and Treatments Orders Placed This Encounter Procedures Critical Care Critical Care Critical Care Intubation CT ACUTE STROKE HEAD WO CONTRAST CT ACUTE STROKE ANGIOGRAM HEAD CT ACUTE STROKE ANGIOGRAM NECK XR STROKE CHEST [address] ANGIOGRAM CHEST CT ANGIOGRAM ABDOMEN/PELVIS CT CERVICAL SPINE WO CONTRAST POCT Glucose (Age >30 Days) - Code Stroke Prothrombin Time / INR - Code Stroke aPTT - Code Stroke CBC without Diff - Code Stroke Troponin I - Code Stroke Basic Metabolic Panel (NA, K, CL, CO2, Glucose, BUN, Creatinine, CA) - Code Stroke Urinalysis Ethanol URINE DRUG (IMMUNOASSAY) - COMPREHENSIVE DRUG SCREEN W/O REFLEX POCT GLUCOSE (AUTOMATED) AC Panel 20 + Lactic Acid Ammonia, Plasma Acute Care Arterial Blood Gas. 30 minutes post ventilation. O2 Nasal Cannula Ventilator Adult PRVC / AC (APVCMV) Orders Placed This Encounter Medications NaCl 0.9% (NS) injection 5 mL ondansetron (ZOFRAN (PF)) injection 4 mg pantoprazole (PROTONIX) 80 mg in NaCl 0.9% (NS) 20 mL syringe pantoprazole (PROTONIX) 80 mg in NaCl 0.9% (NS) 500 mL infusion propofoL IV infusion etomidate (AMIDATE) injection 20 mg succinylcholine (QUELICIN) injection 100 mg midazolam (VERSED) injection 4 mg rocuronium (ZEMURON) injection 100 mg chlorhexidine (PERIDEX) 0.12 % mouthwash 15 mL Nitrofurantoin&Nit. Macrocryst (MACROBID) 100 mg capsule iopamidol (ISOVUE 370-500 mL) injection 120 mL Procedures Critical Care Performed by: Addie Junior MD Authorized by: Addie Junior MD Critical care provider statement: Critical care time was exclusive of: Separately billable procedures and treating other patients and teaching time Critical care was time spent personally by me on the following activities: Development of treatment plan with patient or surrogate, evaluation of patient's response to treatment, examination of patient, obtaining history from patient or surrogate, ordering and performing treatments and interventions, ordering and review of laboratory studies, ordering and review of radiographic studies, pulse oximetry, re-evaluation of patient's condition, review of old charts and ventilator management Care discussed with: admitting provider Comments: Due to a high probability of clinically significant, life threatening deterioration, the patient required my highest level of preparedness to intervene emergently and I personally spent this critical care time directly and personally managing the patient. This critical care time included obtaining a history; examining the patient; pulse oximetry; ordering and review of studies; arranging urgent treatment with development of a management plan; evaluation of patient's response to treatment; frequent reassessment; and, discussions with other providers. This critical care time was performed to assess and manage the high probability of imminent, life-threatening deterioration that could result in multi-organ failure. It was exclusive of separately billable procedures and treating other patients. EKG Time 0611 Rate 90 First degree AV block Non specific ST T changes Colt normal Abnormal EKG MDM Patient was evaluated for an emergency medical condition related to Altered mental status Diagnoses considered but not limited to: ICH CVA Metabolic derangement Labs:were ordered, and resulted, any relevant abnormalities were considered. Abnormal Labs Reviewed POCT GLUCOSE(AGE >30DAYS) - Abnormal; Notable for the following components: Result Value POCT Glu (age>30days) 214 (*) All other components within normal limits ACTIVATED PARTIAL THRMPLAS GRACE - Abnormal; Notable for the following components: APTT Patient 41 (*) All other components within normal limits Narrative: The [facility] patient population mean normal value for aPTT is 30 seconds. CBC WITHOUT DIFF - Abnormal; Notable for the following components: HGB 12.1 (*) HCT 36.5 (*) All other components within normal limits BASIC METABOLIC PANEL (NA, K, CL, CO2, GLUCOSE, BUN, CREATININE, CA) - Abnormal; Notable for the following components: NA 129 (*) CL 93 (*) GLUCOSE 223 (*) All other components within normal limits URINALYSIS - Abnormal; Notable for the following components: APPEARANCE Hazy (*) KETONES 5 mg/dL (*) PROTEIN 30 mg/dL (*) BILIRUBIN 2 mg/dL (*) RBC/HPF 4 (*) BACTERIA Few (*) MUCOUS Slight (*) All other components within normal limits POCT GLUCOSE (AUTOMATED) - Abnormal; Notable for the following components: POCT GLU 214 (*) All other components within normal limits AC PANEL 20 + LACTIC ACID - Abnormal; Notable for the following components: PH 7.34 (*) PO2 368 (*) THB 12.4 (*) %METHB ART 0.3 (*) NA 127 (*) GLUCOSE 207 (*) All other components within normal limits AMMONIA, PLASMA - Abnormal; Notable for the following components: AMMONIA <9 (*) All other components within normal limits Imaging:This is a teaching institution and preliminary studies are read by physicians in training. A final read by a radiologist will be confirmatory of preliminary studies or may include addenda. A reasonable attempt will be made to contact the patient or family to communicate findings if necessary. ED Course as of 04/25/24 0838 Sun Apr 25, 2024 0832 PPC Transfer process initiated. [RK] [address] Romero at shift change in guarded condtion. Doing well on the vent. Awaiting imaging. [DN] ED Course User Index [DN] Addie Junior MD [RK] Garland Romero MD Diagnosis/Impression as of 04/25/24 0838 Unresponsive Hyponatremia Upper GI bleeding Left-sided weakness Endotracheally intubated Medical Decision Making Problems Addressed: Hyponatremia: acute illness or injury Unresponsive: acute illness or injury Amount and/or Complexity of Data Reviewed Labs: ordered. Decision-making details documented in ED Course. Radiology: ordered and independent interpretation performed. Decision-making details documented in ED Course. ECG/medicine tests: ordered and independent interpretation performed. Decision-making details documented in ED Course. Risk Prescription drug management. Parenteral controlled substances. Pulse Oximetry: is not hypoxic. Interpreted. Reassessment:unchanged Communication with legal consultant: Dr. Romero at shift change Limitations to patient care and compliance: none. and family not preset for history Plan & Summary: Mark Pascual is a 73 year old male presenting for complaint(s) listed within the note. . Transferred for higher level of care. History, physical exam findings, results of visit, diagnosis, medication regimens and plan of future care have been considered. Additional MDM may be found in the ED course. Vital signs were rechecked before final disposition and determined to be stable prior to transfer.. Disposition & Follow Up ED Disposition None Patient's Medications START taking these medications No medications on file CONTINUE taking these medications which have NOT CHANGED ACETAMINOPHEN 325 MG CAP Take 1 tablet by mouth in the morning. APPLE CIDER VINEGAR 300 MG TAB Take 3 tablets by mouth in the morning. ASHWAGANDHA EXTRACT 120 MG CAP Take 480 mg by mouth in the morning. BACLOFEN 10 MG TABLET Take 1 tablet by mouth in the morning and 1 tablet at noon and 1 tablet in the evening. BLOOD SUGAR DIAGNOSTIC (ACCU-CHEK GUIDE TEST STRIPS) STRIP USE TO CHECK BOLLD SUGARS TWO TIMES A DAY CBD OIL (Lucky [employer] HOPE) 20:1 WITH SAFFLOWER CHOLECALCIFEROL, VITD3,/VIT K2 (VITAMIN D3-VITAMIN K2 ORAL) Take 1 tablet by mouth in the morning. INSULIN DEGLUDEC (TRESIBA FLEXTOUCH U-100) 100 UNIT/ML (3 ML) INPN inject 55 Units under the skin at bedtime. Please take HALF dose if blood glucose 80 - 120 mg/dL, HOLD if less than 80. LACTOBACILLUS ACIDOPHILUS (PROBIOTIC) 10 BILLION CELL CAPSULE Take 1 capsule by mouth in the morning. LIDOCAINE 5 % (700 MG/PATCH) PATCH Apply 1 Patch to area(s) in the morning. MAGNESIUM 250 MG TAB Take 2,500 mg by mouth in the morning and 2,500 mg at noon and 2,500 mg in the evening. NITROFURANTOIN&NIT. MACROCRYST (MACROBID) 100 MG CAPSULE Take 1 capsule by mouth in the morning and 1 capsule in the evening. For UTI, patient self caths at home NON-FORMULARY MEDICATION Take 4 tablets by mouth in the morning. Antronex OMEGA-3 FATTY ACIDS-VITAMIN E 2,000-650-12 MG/2.5 GRAM ELPK Take 1 mg by mouth in the morning and 1 mg at noon and 1 mg in the evening. ONDANSETRON 8 MG DISINTEGRATING TABLET Take 1 tablet by mouth every 8 (eight) hours as needed for Nausea and Vomiting (N/V). PEG-ELECTROLYTE SOLN 236-22.74-6.74 -5.86 GRAM SOLUTION Take as directed before colonoscopy PUMPKIN SEED EXTRACT (AZO MEN ORAL) Take 1 tablet by mouth as needed. PUMPKIN SEED OIL/SAW PALMETTO (SAW PALMETTO-PUMPKIN SEED OIL ORAL) Take 500 mg by mouth in the morning. UBIDECARENONE (COQ-10 ORAL) Take 2 capsules by mouth in the morning. VALERIAN ORAL Take 2,400 mg by mouth in the morning and 2,400 mg at noon and 2,400 mg in the evening. VIT A/VIT C/VIT E/ZINC/COPPER (PRESERVISION AREDS ORAL) Take 1 tablet by mouth in the morning. START taking Modified Medications as Prescribed No medications on file STOP taking these medications No medications on file Future Appointments In 1 month [facility] 2 months Rosa Isela Castañeda MD [facility], [facility], MICKEY CASEY In 5 months Elías Floyd AGPCNP [facility], [facility], MICKEY Junior MD [employer] is used frequently and may produce errors. Promptly contact for obvious discrepancies. Addie Junior MD 04/25/24800 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 Critical Care Performed by: Addie Junior MD Authorized by: Addie Junior MD Critical care provider statement: Critical care time was exclusive of: Separately billable procedures and treating other patients and teaching time Critical care was time spent personally by me on the following activities: Development of treatment plan with patient or surrogate, evaluation of patient's response to treatment, examination of patient, obtaining history from patient or surrogate, ordering and performing treatments and interventions, ordering and review of laboratory studies, ordering and review of radiographic studies, pulse oximetry, re-evaluation of patient's condition, review of old charts, ventilator management and discussions with consultants Care discussed with: admitting provider Comments: Due to a high probability of clinically significant, life threatening deterioration, the patient required my highest level of preparedness to intervene emergently and I personally spent this critical care time directly and personally managing the patient. This critical care time included obtaining a history; examining the patient; pulse oximetry; ordering and review of studies; arranging urgent treatment with development of a management plan; evaluation of patient's response to treatment; frequent reassessment; and, discussions with other providers. This critical care time was performed to assess and manage the high probability of imminent, life-threatening deterioration that could result in multi-organ failure. It was exclusive of separately billable procedures and treating other patients. [facility] 2024-04-25 06:09:00 Associated Order(s): Intubation Intubation Date/Time: 04/25/2024 7:26 AM Performed by: Addie Junior MD Authorized by: Addie Junior MD Consent: Consent obtained: Emergent situation Campbell protocol: Patient identity confirmed: Arm band and hospital-assigned identification number Pre-procedure details: Patient status: Altered mental status Obstruction: none Pharmacologic strategy: RSI Induction agents: Etomidate Paralytics: Rocuronium Procedure details: Number of attempts: 1 Successful intubation attempt details: Intubation method: Oral Intubation technique: direct Tube size (mm): 7.5 Placement assessment: Tube secured with: ETT solis Placement verification: chest rise, colorimetric ETCO2, CXR verification, direct visualization, equal breath sounds and tube exhalation Post-procedure details: Procedure completion: Tolerated [facility] 2024-04-25 06:09:00 AdmissionCare Guideline: Neurology, Inpatient Based on the indications selected for the patient, the bed status of Inpatient was determined to be MET The following indications were selected as present at the time of evaluation of the patient: - Clinical Indications for Admission to Inpatient Care - Hospital admission is needed for appropriate care of the patient because of 1 or more of the following: - Coma (ie, not arousable) - Inadequate airway protection (eg, intubation needed) AdmissionCare documentation entered by: Garland Romero [facility], 28th edition, Copyright ? 2023 [facility] All Rights Reserved. [id number] [facility] 2024-04-25 06:08:00 Pt arrived via [facility] for unresponsiveness. [id number] seen normal at 0130. found him on back porch in current state with coffee ground emesis covering himself. Pt with snoring respirations upon arrival, responsive to painful stimuli. Code stroke activated at [address] [facility] 2024-04-21 16:46:25 Spoke with who stated patient thought he was still supposed to be using PA. Then spoke to patient. He describes the feeling as dryness. Asked them to throw away the PA, try AT's this evening, before bed and in the morning. If no improvement, call and we will schedule in tomorrow with any available doctor. Arlin San 04/21/2024 4:[address] [facility] 2024-04-21 16:28:56 Copied from [facility] #[id number]. Topic: Appointment - Schedule Appointment >> Apr 21, 2024 4:20 PM Patient Account Service Associate wrote: Mark Pascual is a 73 year old male Patient spouse states patient has eye pain and has been using prednisolone acetate 1% once a day, wants to know if he should discontinue Please advise [phone] (home) Susanna Ignacio [facility] 2024-04-19 14:14:34 Addended by: MARGUERITE MAYA RN on: 04/19/2024 02:14 PM Modules accepted: Orders [facility] 2024-04-19 14:12:18 Attempted to contact patient with no answer, Voicemail left at this time with clinic phone number and instructed patient to return call. Referral placed to Dr Bacon for UDS/ Cysto [facility] 2024-04-16 13:40:52 I recommend continue as they are doing, recurrent UTI is secondary to chronic urine retention. Needs to follow up with Dr Bacon for UDS and cystoscopy. T [facility] 2024-04-16 12:18:56 Patient and patients spouse notified of results/recommendations, understanding was verbalized via teach back. T [facility] 2024-04-16 12:12:40 UTI Oral abx sent 7 days Repeat Ucx RTC as scheduled [facility] 2024-04-13 15:45:00 Images from the original note were not included. Venipuncture collection performed by clean technique on the left anticubitus. Total of 1 attempts were made. Slight pressure and a bandage/dressing were applied to the site(s). The patient experienced no complications. The following specimens were processed according to instructions and sent to [facility] laboratories per lab order on today: LT BLUE SST RED LAV PPT LT GREEN (LiHep) 1 DK GREEN (SodH) ESCALANTE DK BLUE (K2) DK BLUE (S) ACD Blood Culture NIPT/NTD Patient has been identified by name and was provided with cup, antiseptic towelette, and clean catch instructions. 2 urine specimen(s) sent. Unpreserved 1 Urine Culture Aptima tube Other urine microalbumin [address] [facility] 2024-04-13 15:45:00 Sent abx for another 5 [address]RO-UROLOGY STAFF [facility] 2024-04-07 09:19:30 Images from the original note were not included. Previously prescribed by alternate provider. Requested Renewals Name from pharmacy: ACCU-CHEK GUIDE TEST STRIP Will file in chart as: ACCU-CHEK GUIDE TEST STRIPS strip Sig: USE TO CHECK BOLLD SUGARS TWO TIMES A DAY Disp: 200 Strip Refills: 5 (Pharmacy requested: Not specified) Start: 04/07/2024 Class: eRX Non-formulary For: Type 2 diabetes mellitus with hyperglycemia, with long-term current use of insulin Last ordered: 1 year ago (02/21/2023) by Lisset Sarabia MD Last refill: 01/09/2024 Rx #: [id number] To be filled at: [facility] [id number] [place] [id number] [facility] [address] Recent Visits Date Type Provider Dept 03/24/24 Office Visit Rosa sIela Castañeda MD [facility] 02/10/24 Office Visit Rosa Isela Castañeda MD [facility] 02/03/24 Office Visit Marah Carson MD [facility] 01/21/24 Office Visit Samantha Tinsley PA [facility] 12/15/23 Office Visit Mariangel Ruiz FNP [facility] 11/26/23 Office Visit Samantha Tinsley PA [facility] 10/10/23 Office Visit Elías Floyd AGPCNP [facility] 08/27/23 Office Visit Lisset Sarabia MD [facility] 08/27/23 Office Visit Lisset Sarabia MD [facility] 08/12/23 Office Visit Marsha Bustillos FNP [facility] Showing recent visits within past 540 days with a meds authorizing provider and meeting all other requirements Future Appointments Date Type Provider Dept 04/13/24 Appointment Elías Floyd AGPCNP [facility] 06/24/24 Appointment Rosa Isela Castañeda MD [facility] Showing future appointments within next 150 days with a meds authorizing provider and meeting all other requirements Italia Alvarez [facility] 2024-03-17 12:53:25 Clinical notes from 02/10/24 faxed to [phone] Italia Alvarez LVN 03/17/2024 12:55 PM Italia Alvarez [facility] 2024-03-17 11:19:43 Copied from [facility] #[id number]. Topic: Clinical - Paperwork/Forms >> March 17, 2024 11:18 AM Patient Account Service Associate wrote: dr bernabe office calling to get clinical notes from appt on 02/09 faxed to [phone] [facility] 2024-03-15 16:50:20 Copied from [facility] #[id number]. Topic: Appointment - Reschedule Appointment >> March 15, 2024 4:45 PM Patient Account Service Associate wrote: Mark Pascual is a 73 year old male Pt is requesting to reschedule for a later time on 03/17/24. Please call at [phone] [facility] 2024-03-01 05:13:09 Encounter closed as part of [facility] chart maintenance. Encounter has been open greater than 72 hours with no recent documentation. Savanna Padgett, MSN/Ed, RN, CV-BC Triage Nurse [facility] Savanna Padgett RN [facility] 2024-02-27 08:38:58 Patients spouse notified of results/recommendations, understanding was verbalized via teach back. [facility] 2024-02-27 08:32:02 ABT sent as " normal" prescription resent as ERX at this time. [facility] 2024-02-27 08:26:18 Attempted to contact patient with no answer, Voicemail left at this time with clinic phone number and instructed patient to return call. [facility] 2024-02-26 23:10:57 UTI Oral abx sent 7 days Repeat Ucx RTC as scheduled [facility] 2024-02-23 17:00:00 Images from the original note were not included. Patient has been identified by and name and was provided with cup, antiseptic towelette, and clean catch instructions. 1 urine specimen(s) sent. Unpreserved Urine Culture 1 Aptima tube Other urine [facility] 2024-02-23 14:41:06 Urine culture order placed and spouse notified. [facility] 2024-02-23 14:34:33 Pt is requesting an order be placed for a UCX as he just finished his abx for a UTI. Please assist. Lisa Adame [facility] 2024-02-17 14:14:10 Faxed DME order as requested by patient's . Sabrina Smith LVN [facility] 2024-02-17 12:01:42 Spoke with patient's Spouse/, followed up about call on 02/03/2024 in reference to an order being faxed for DME. Patient's Spouse Provided the following number, . [place] [facility] 2024-02-17 11:27:58 Copied from [facility] #[id number]. Topic: Clinical - Medical Advice >> Feb 17, 2024 11:24 AM Patient Account Service Associate wrote: Patient calling, states patient in severe pain Incoming assessment call Surgery Date (if applicable): No surgery found Surgical Procedure (if applicable): No surgery found Orthopedic Faculty:Roberto Cole DNP Follow up: Date: n/a Reason for call: Pain Documentation Family member/s is calling patient have pain and spasms and is requesting tens unit Patches. When did this start? 2 months Where? Back pain Patient Contact Information Work Phone Not on file. Genesis Weir [facility] 2024-02-17 09:29:38 LVM for pt to call and schedule cysto. Lisa Adame [facility] 2024-02-16 14:04:29 Please schedule patient for cystoscopy with faculty no need to repeat urine culture he will need to come into clinic while on ABXT. CUSTOM SHOEMAKER-NURSE PRACTITIONER MIDLEVEL PROVIDER [facility] 2024-02-13 16:22:41 Patient and spouse came into clinic today with questions about antibiotics. States she picked up ampicillin a few days ago then was contacted by pharmacy to hand picker nitrofurantoin. Instructed patient to take nitrofurantoin as ordered for positive urine culture. I am unsure why ampicillin was ordered, may have been based off of 01/23/24 urine culture results. Patient instructed to hold ampicillin for now and take macrobid. Patient and spouse verbalized understanding. [facility] 2024-02-13 11:18:57 Patient's called office to request for management to contact her regarding a poor experience with clinic staff. She stated that she was contacted by the office for test results and the staff making the call was very rude and unprofessional and scared the patient. Because of their experience they have decided to change their urology care to outside of [facility] and are going today to sign release of records consent at [facility]. I apologized to Ms. Pascual and ensured that I would speak directly to staff to educate on telephone etiquette and delivering sensitive medical information over the phone. She stated that she just wanted to make sure they were educated so noone else had the same experience. While on the phone she also shared that she had poor experiences at the emergency room and primary care office. I provided her with the [facility] Patient Services number [phone] and educated that she could contact them for assistance and request feedback. She verbalized understanding and was appreciative of the call. KAREN HEREDIA RN 02/13/2024 11:39 AM Karen Heredia RN [facility] 2024-02-13 10:19:39 Recent Visits Date Type Provider Dept 02/10/24 Office Visit Rosa Isela Castañeda MD [facility] 02/03/24 Office Visit Marah Carson MD [facility] 01/21/24 Office Visit Samantha Tinsley PA [facility] 12/15/23 Office Visit Mariangel Ruiz FNP [facility] 11/26/23 Office Visit Samantha Tinsley PA [facility] 08/27/23 Office Visit Lisset Sarabia MD [facility] 08/27/23 Office Visit Lisset Sarabia MD [facility] 10/18/22 Office Visit Lisset Sarabia MD [facility] Showing recent visits within past 540 days with a meds authorizing provider and meeting all other requirements Future Appointments Date Type Provider Dept 03/24/24 Appointment Rosa Isela Castañeda MD [facility] Showing future appointments within next 150 days with a meds authorizing provider and meeting all other requirements Last refill was traMADoL 50 mg tablet 28 tablet 0 02/03/2024 -- -- Sig: Take 1 tablet by mouth every 6 (six) hours as needed for Pain (scale 4-6). Indications: acute pain Beatrice Naqvi MA [facility] 2024-02-13 10:15:10 Mark Pascual is a 73 year old male and spouse is calling for a refill request on 2 medications and asking if they can be sent in for a 1 month supply please. traMADoL 50 mg tablet and methocarbamoL 500 mg Patient requesting a refill of: Medication: methocarbamoL Dose: 500 mg Route: Oral Quantity: 1 month supply please Pharmacy: [facility] [id number] - [place], [place] - [address] [facility] [id number] Last appt.: 02/10/24 Next appt.: 03/24/24 [facility] 2024-02-12 20:44:02 Persistent bacterial growth Abx for 7 days and RTC for cysto while on abx [facility] 2024-02-11 10:59:48 Mark Pascual is a 73 year old male Patients called stating she will be at the clinic to hand picker her husbands referral issued 02/02 for pain before noon. Morgan Saleh [facility] 2024-02-11 10:10:16 Recent Visits Date Type Provider Dept 02/10/24 Office Visit Rosa Isela Castañeda MD [facility] 02/03/24 Office Visit Marah Carson MD [facility] 01/21/24 Office Visit Samantha Tinsley PA [facility] 12/15/23 Office Visit Mariangel Ruiz FNP [facility] 11/26/23 Office Visit Samantha Tinsley PA [facility] 08/27/23 Office Visit Lisset Sarabia MD [facility] 08/27/23 Office Visit Lisset Sarabia MD [facility] 10/18/22 Office Visit Lisset Sarabia MD [facility] Showing recent visits within past 540 days with a meds authorizing provider and meeting all other requirements Future Appointments Date Type Provider Dept 03/24/24 Appointment Rosa Isela Castañeda MD [facility] Showing future appointments within next 150 days with a meds authorizing provider and meeting all other requirements Last refill was Disp Refills Start End CECIL naproxen 500 mg tablet 20 tablet 0 01/21/2024 -- -- Sig: Take 1 tablet by mouth in the morning and 1 tablet in the evening. Take with meals. Sent to pharmacy as: naproxen 500 mg tablet (NAPROSYN) Class: eRX Route: Oral Beatrice Naqvi MA [facility] 2024-02-11 08:49:37 Mark Pascual is a 73 year old male Pt is calling to request a refill for pt medications Naproxen 500 mg and MethocarbamoL 500 mg. Genesis states that the pt is completely out of the medication and is in pain. Please advise. [facility] [id number] [place] [id number] [facility] [address] [phone] [facility] 2024-02-10 17:12:18 Referral placed in OV today Rosa Isela Castañeda MD [facility] 2024-02-10 16:21:[address] referral thanks [facility] 2024-02-10 11:03:45 Do you approve referral Nancy Alexander MA [facility] 2024-02-10 10:45:08 Copied from [facility] #[id number]. Topic: Clinical - DME Request >> Feb 10, 2024 10:39 AM Patient Account Service Associate wrote: Spouse is Patient is requesting a referral to: Dept: [facility] Reason for referral: H61.23 (ICD-10-CM) - Bilateral impacted cerumen R42 (ICD-10-CM) - Vertigo Duration of problem: na Internal / External referral: external Name of provider / location patient requesting: [facility] Phone number: [phone] Fax number: [phone] Appt already scheduled?: n If yes, date of appt.: na Rafal Pathak [facility] 2024-02-09 08:45:00 Images from the original note were not included. Patient has been identified by and name and was provided with cup, antiseptic towelette, and clean catch instructions. 2 urine specimen(s) sent. Unpreserved 1 Urine Culture 1 Aptima tube Other urine [facility] 2024-02-05 13:54:03 Patient had appt with Dr. Yadav this morning , asked all questions in office. Closing encounter. Janet Grullon 02/05/2024 1:[address] [facility] 2024-02-05 08:21:08 Mark Pascual is a 73 year old male [phone] please call at this number Copied from [facility] #[id number]. Topic: Appointment - Reschedule Appointment >> Feb 05, 2024 8:19 AM Patient Account Service Associate wrote: of pt states that the pt.'s left eye is blurry. states pt had cataract surgery last week and is concerned. Please call and advise Sophie Mayo [facility] 2024-02-04 16:18:36 Pts is stating pt finished his antibiotics and went to the pharmacy and was told he has more medication ready for pickup (Ampicillin 500mg) that was prescribed by Dr Raphael. Would like to know what the medication was prescribed for. Please Assist Iron Rivas [facility] 2024-02-04 14:23:42 Referral placed. Notified patient via detailed, private voicemail. Italia Alvarez LVN 02/04/2024 2:[address] [facility] 2024-02-04 11:37:[address] the orders thanks FM-FAMILY MEDICINE STAFF [facility] 2024-02-04 11:29:44 Do you approve referral Nancy Alexander MA [facility] 2024-02-04 11:16:24 Mark Pascual is a 73 year old male Spouse calling in behalf of patient asking for an external referral for urology Dr. Lorrie Baldwin [phone] Fax Please advise [phone] (home) Elizabet Marx [facility] 2024-02-03 14:39:59 Addended by: CARLTON RAPHAEL on: 02/03/2024 02:39 PM Modules accepted: Orders T [facility] 2024-02-03 12:31:05 Spoke with patient's spouse. Informed her that DME order for a TENS unit. Provided feedback from Roberto Cole DNP as well. She verbalized understanding. Patient's spouse to call back with fax number to send DME order to. Sabrina Smith LVN [facility] 2024-02-03 10:06:09 Order placed. Insurance may not cover; they also may not accept DME request from a nurse practitioner. May also request order from PCP . T [facility] 2024-02-02 16:46:59 Mark Pascual is a 73 year old male Pt's is calling to request an order for Muscle STIMULATOR (TENS) recommended by the physical therapist.Please send the order. Alma Rosa Monge [facility] 2024-01-30 08:52:41 Images from the original note were not included. Order was not sent via eRx initially. Order has now been sent and confirmation received T [facility] 2024-01-28 09:59:51 Pt calling [facility] not [facility] the medication called in for pt on 01/25/24. Pt is also wanting to know what kind of bacteria he has in his bladder. Please assist. Lisa Adame [facility] 2024-01-28 08:54:59 Addended by: MAYA MARGUERITE FREEDMAN on: 01/28/2024 08:54 AM Modules accepted: Orders [facility] [employer] 2024-01-28 06:02:00 Regardin day post op-vomiting ----- Message from Juan Valadez sent at 01/28/2024 6:02 AM CDT ----- Mark Pascual is a 73 year old male pAryl Mitchell RN [facility] [employer] 2024-01-28 06:02:00 Adult Triage Assessment Last Clinic Visit: 01/27/2024 Phacoemulsification of cataract with intraocular lens implant Primary Symptom: vomiting Onset / Duration: threw up after supper Location / Description: has been throwing up, keeping fluids down, seems to be throwing up his supper Pain / Severity: "eye just bothers me", "feels like an eye lash is in the eye" - notes back and shoulder pain, not new - -01/17 Associated Symptoms: denies stomach swelling or bloating Fever / Method: denies Hydration: 1 glass of liquid; last void 15 minutes ago Treatment so far: none Effect on ADL's: has Zofran on hand and wants to know if she can give that LMP: NA Pre-existing condition / Immunocompromised: anxiety; mild major depression; primary insomnia; schizoaffective disorder, depressive type; dyslipidemia; type 2 diabetes mellitus without complication, with long-term use of insulin; extrapyramidal and movement disorder; overactive bladder; gastroesophageal reflux disease without esophagitis; essential hypertension; encounter for screening colonoscopy; chronic neck pain; degenerative spinal arthritis; combined forms of age-related cataract of left eye Advice given per Post-Op Symptoms and Questions Adult Protocol. advised to have patient seen at ER for further evaluation related to continued vomiting after surgery. Denies further needs or concerns at this time. Reason for Disposition [1] Vomiting AND [2] persists > 4 hours Protocols used: Post-Op Symptoms and Uvrtaxaiz-KSPFE-BH [facility] 2024-01-27 23:17:00 Regardin y m cataract surgery c/o vomited x 2 hours, seeking advice on eye drops ----- Message from Sapna Fall sent at 01/27/2024 11:17 PM CDT ----- Mark Pascual is a 73 year old male Cataract surgery today Pt vomited up dinner x 2 hours calling she misplaced the discharge summary She is seeking advice on when to give pt eye drops Angie Walters RN [facility] 2024-01-27 23:17:00 Access Center Mark Pascual is a 73 year old male Call back to patient's (patient is asleep), "cataract surgery, gave me instructions", but misplaced them. Went over eye medication discharge instructions per AVS: ketorolac 0.5 % ophthalmic solution Commonly known as: Acular If you are taking more prescriptions: Place 1 Drop in left eye 4 (four) times daily. moxifloxacin 0.5 % ophthalmic drops Commonly known as: Vigamox If you are taking more prescriptions: Place 1 Drop in left eye 4 (four) times daily. prednisoLONE acetate 1 % ophthalmic suspension drops Commonly known as: PRED-FORTE If you are taking more prescriptions: Place 1 Drop in left eye 4 (four) times daily Advised to wait 3 minutes in between doses Adult Triage Assessment Last Clinic Visit:today, 01/27/24 s/p Phacoemulsification with intraocular lens implant, Left Eye Primary Symptom: vomited X 1 Onset / Duration: 2000 tonight Location / Description: GI/post anesthesia/"wasn't very much" and has not vomited anymore, ate an omlet with a piece of toast after vomiting and has held it down Pain / Severity: "was screaming on the way home" from hospital due to neck pain, spouse applied ice on shoulders which did not help, the ice spilled down his back which caused more pain, "stopped at a [employer] store, saw they sold edibles and gave organic edibles real strong and gave him a whole one which was too strong made him real dizzy", but sleeping now Associated Symptoms: dizzy, but not faint; no nausea now Fever / Method: denies Hydration: drinking less and urinated X 1 prior to sleep- spouse will offer fluids at next eye drop instillation which is now(past due), last doses given at 1600 Treatment so far: none Effect on ADL's: unable to asess patient is currently sleeping Pre-existing condition / Immunocompromised: DM II, HTN, cataract left eye ROXANA Ramirez, RN [facility] Access Center Triage Nurse Reason for Disposition [1] Vomiting AND [2] present < 4 hours Protocols used: Post-Op Symptoms and Wbnnkegpi-TWSTA-MF [facility] 2024-01-26 16:46:04 Spoke with patient's : She states they went to ER due to horrible neck pain. They were given pain medication (Tramadol), a muscle relaxer, and an anti-inflammatory. She states we were not able to refill in clinic due to seeing the CUSTOM SHOEMAKER. She states that she has a new appointment with Dr. Castañeda on 02/02 but will run out of medication prior to then. She is asking for one more refill for him to get to the appointment. She is waiting to hear from pain management for an appointment as well. I told her I could not guarantee medication refill but I would send a refill request to Dr. Carson. I also notified her that I could not guarantee that Dr. Castañeda would refill these medications at visit, and she verbalized understanding. He is currently not needing refills until Tramadol: 01/31 Methocarbamol: 01/30 Naproxen: 01/30 Will send encounter when closer to due date. [facility] 2024-01-26 15:07:02 Please review. EC/spouse-Pauly would like a callback from you at your convenience. Nallely Zhang LVN [facility] 2024-01-26 14:16:57 Copied from [facility] #[id number]. Topic: Clinical - Medical Advice >> Jan 26, 2024 2:15 PM Patient Account Service Associate wrote: Pt's spouse Pauly is calling to speak with Mckenzie states having symptoms, declined further info. [phone] [facility] 2024-01-26 13:08:35 Mark Pascual is a 73 year old male Pt spouse is calling on behalf of the pt. Pts spouse states that pt has been on antibiotics for UTI and they have not helped. Pt spouse states pt now has E coli in bladder and wants to know if this will affect the pt. Surgery on 01/26. Please call back at [phone] (home) or Margaux Leonard [facility] 2024-01-26 08:54:31 Spoke with patient and patients and Name verified, patient verbalizes and understand results. Nicole Young MA [facility] 2024-01-26 08:11:20 Cysto is scheduled for 02/[address] [facility] 2024-01-25 17:23:30 UTI Needs to start oral abx for 5 days ( sent ) and repeat Ucx next week Still needs to RTC for cysto to assess JAQUEZ procedure ( hx of urine retention and foreskin adhesions ) [facility] 2024-01-23 08:45:00 Images from the original note were not included. Patient has been identified by and name and was provided with cup, antiseptic towelette, and clean catch instructions. 1 urine specimen(s) sent. Unpreserved Urine Culture 1 Aptima tube Other urine [facility] 2024-01-22 13:43:31 Patient was identified with name and date during prescreening call. Procedure was verified. Discussed preop instructions with pt. NPO instructions discussed with patient nothing by mouth after midnight night before surgery to include gum, mints, hard candy, sucker, cough drops. Pt advised clear liquids (water, sprite, gatorade only) are allowed up until 2 hours prior to arrival time. Pt was advised to have a responsible adult with them DOS, patient was advised that they will receive a call the day before surgery with arrival time between 1 pm and [address] DOS 01-27-24 was discussed with patient. Patient v/u. [facility] 2024-01-22 10:04:07 Spoke with patient; she does a referral on file. There is no need at this time. They are pending authorization from insurance. Mckenzie Ceron RN [facility] 2024-01-22 09:43:31 What do we need to do with this. -FAMILY MEDICINE STAFF [facility] 2024-01-21 17:12:35 Mark Pascual is a 73 year old male Spouse of patient called stating Pts appointment for PT tomorrow was cancelled due to needing a prior authorization and from the 's understanding, there should have been one in the chart. Patient of was speaking to a supervisor byproducts at the clinic who stated she would call her right back and it is now after hours and she never received a call back. of Pt is upset since her needed this appointment to aid in his pain. Please advise [phone] (home) [phone]() Erin Toro [facility] 2024-01-21 11:53:38 Referral to pain management entered. PT has also been ordered, recommend completing. [facility] 2024-01-21 11:48:18 Patient requesting refills on methocarbamol 500 mg QTY 20 Naproxen 500 mg QTY 20 Tramadol 50 mg QTY 28 Please review and sign if appropriate. Last Refilled: 02/01/24 Pharmacy: [facility] Roberta Sterling MA [facility] 2024-01-21 11:44:29 Patient requesting referral to pain management for his chronic neck pain. Roberta Sterling MA [facility] 2024-01-21 11:44:07 Patient came into office today for hospital follow up and refills on muscle relaxer, antiinflammatory and tramadol. Patient and told at check in that Samantha Tinsley does not refill these medications and they would have to schedule with MD. Patient states they did have an appointment scheduled with Dr. Carson but it was cancelled and they were told they could not see Dr. Carson. I explained that Dr. Carson is not seeing new patients and will see established patients of other providers for acute issues only. Patient is needing to be seen for Chronic back pain. Patient has seen central communications specialist and told they would not do surgery or prescribe medication. Samantha Tinsley states she will send in a pain management referral for patient. Refill request sent to Dr. Carson for review as they were last filled by him. Patient asks, "who are patients suppose to see when their provider is out on maternity leave?" I informed her again that two will see for acute issues and patient can make an appointment with Dr. Castañeda while Dr. Rudd is out. Patient and verbalize understanding. Geraldine to make appointment with Dr. Rudd, telephone encounter being sent to Samantha Tinsley for pain management referral and refill request for methocarbamol, naproxen and tramadol being sent to Dr. Carson. Patient then states management never addressed the concerns she was having with referrals. Informed Self Pay Collector, Mckenzie Ceron to speak with . Nancy Tejeda RN [facility] 2024-01-12 16:32:43 Patients significant other Genesis notified of results/recommendations, understanding was verbalized via teach back. Genesis states patient never took Macrobid and is wanting to know if he can start that. Instructed to hand picker bactrim and take as directed. Genesis verbalized understanding and patient will start bactrim and repeat urine culture next week. [facility] 2024-01-12 09:20:07 I will see him. [facility]-FAMILY MEDICINE STAFF [facility] 2024-01-12 09:03:59 Patient has not seen Flakita in over 3 years. Is he approved to be seen? CB scheduled pt for this 01/14/[address] [facility] 2024-01-12 08:14:08 Mark Pascual is a 73 year old male Pt states that he will be out of medication on Friday 01/12 that hospital prescribed him. Pt has hospital follow up appointment 01/13 and would like to know if he can get enough to last until appointment. Please advise. Naproxen 500 mg tablet methocarbamoL 500 mg tablet Tramadol 50 mg tablet. [facility] [id number] [place] [address] [facility] [address] [facility] 2024-01-12 07:54:44 I am out of town then anyway, so they should stay with Flakita. ET MAKER FM-FAMILY MEDICINE STAFF [facility] 2024-01-09 17:00:49 Copied from [facility] #[id number]. Topic: Appointment - Appointment Request >> Jan 09, 2024 4:58 PM Patient Account Service Associate wrote: Spouse of patient called stating they currently have an appt for her for 01/13 for post Hosp for flakita she is wanting to switch appt for to see if that will get approved she would like a call back to speak to the clinic I did notify the spouse that dyan does not see patients unless they have been established with them from new visit previously Please advise Cabezas [facility] 2024-01-08 15:30:00 Images from the original note were not included. Patient has been identified by and name and was provided with cup, antiseptic towelette, and clean catch instructions. 1 urine specimen(s) sent. Unpreserved Urine Culture 1 Aptima tube Other urine [facility] 2024-01-08 14:22:33 I agree Thanks ET MAKER URO-UROLOGY STAFF [facility] 2024-01-08 13:38:16 Patient s/p Macrobid treatment 12/26/23 and with cloudy urine. Patient denies any other symptoms of UTI at this time. ER precautions given (fever, n/v , difficulty urinating, hematuria) patient will report to the lab today for urine culture. Will route to provider for notification. [facility] 2024-01-07 14:37:24 Patient is stating he just took antibiotic for a UTI a couple of weeks ago. He is stating his urine is cloudy again so he thinks he might have another UTI. He has previous antibiotic at home so he would like to know if he takes it or what does he need to do. Please advise. Wray [facility] 2024-01-04 10:31:56 Patient given discharge instructions on cervical nerve root disorder. Pt given prescriptions for robaxin, naproxen and tramadol. Advised to follow up with pcp. Pt left ER ambulatory with adult. No signs of distress. Bonds RN [facility] 2024-01-04 09:34:00 Patient states: "I've been having neck pain for about a year and since a couple of months now it has been severe. The pain is from the left side of my neck down to my left shoulder. My doctor won't give me anything stronger than Tylenol. I took Tylenol around 0730 or 8AM but no relief." Aragon RN [facility] 2023-12-23 12:00:00 Images from the original note were not included. Patient has been identified by and name and was provided with cup, antiseptic towelette, and clean catch instructions. 1 urine specimen(s) sent. Unpreserved Urine Culture 1 Aptima tube Other urine [facility] 2023-12-16 11:10:14 RX send 12/15 ER [facility] 2023-12-15 08:36:52 Patients significant other notified of results/recommendations, understanding was verbalized via teach back. [facility] 2023-12-15 07:13:27 Please review and close. Nickerson [facility] 2023-12-12 16:33:20 Addended by: CARLTON RAPHAEL on: 12/12/2023 04:33 PM Modules accepted: Orders [facility] 2023-12-12 16:32:32 Ucx order placed [facility] 2023-12-12 15:08:42 EC/Spouse-Genesis of Mark Pascual is requesting to have an order for a UA/UC placed to r/o infection. All s/s of UTI were denied at this time. Please contact patient/EC if further info is needed and/or lab collection is required. Thank you ET MAKER Nallely Zhang LVN [facility] 2023-12-12 09:59:50 Attempted to contact patient with no answer, Voicemail left at this time with clinic phone number and instructed patient to return call. Urine culture resulted on 11/28/23 was negative for infection. [facility] 2023-12-12 08:17:00 Regarding: Pain of neck,red, and swollen x this morning ----- Message from Corina Medina sent at 12/12/2023 8:16 AM PUPPET MAKER ----- Mark Pascual is a 73 year old male Spouse of pt is calling stating pt is having pain on neck & its red & swollen Pain of neck,red, and swollen x this morning Declined UC ET MAKER Apryl Mitchell RN [facility] 2023-12-12 08:17:00 Adult Triage Assessment Last Clinic Visit: 11/26/2023 Urinary tract infection without hematuria, site unspecified Primary Symptom: neck pain Onset / Duration: on going, worse today Location / Description: patient has been complaining of neck pain - schedule for appt on Dec 18 or - notes neck red, wrinkled - may be due to sleeping with heating pad - notes both side of neck with muscle spasm going up into his head Pain / Severity: 08/19 EC notes pain lever "15, he's crying" Associated Symptoms: see above Fever / Method: denies Hydration: drinks a lot water; voiding without issue Treatment so far: CBD oils topical and oral, to neck, ibuprofen 1 at first then if still hurts I give him an extra one, EC giving her muscle relaxer to patient; also using her lidocaine patches on the patient Effect on ADL's: concerned, notes ER or UC is not an option as they do not have the money to cover it LMP: NA Pre-existing condition / Immunocompromised: anxiety; mild major depression; primary insomnia; schizoaffective disorder, depressive type; dyslipidemia; type 2 diabetes mellitus without complication, with long-term current use of insulin; extrapyramidal and movement disorder; overactive bladder; gastroesophageal reflux disease without esophagitis; essential hypertension; encounter for screening colonoscopy Advice given per Neck Injury Adult Protocol. EC advised to follow up with ER, declines and notes ER and UC are not options as they do not have the money to cover it. She is asking for lidocaine cream and lidocaine patches 5 mg for the patient. RN will forward to clinic nurse and provider for follow up. Reason for Disposition Sounds like a serious injury to the triager Protocols used: Neck Irfpge-BRWDY-VB ET MAKER [facility] 2023-12-12 08:17:00 He saw CUSTOM SHOEMAKER Sara yesterday regarding, started on medicine and referred to PT. BHATT-PHYSICIAN DRIVER EDUCATION INSTRUCTOR MIDLEVEL PROVIDER [facility] 2023-12-11 15:26:56 Pt is wanting to go to the lab and do a urine sample to check to see if he still has a UTI. Order in chart has . Please assist. Adame [facility] 2023-12-09 15:33:21 Mark Pascual is a 73 year old male that is requesting pain patches due to neck/back pain. [facility] [id number] - [place], [place] - [address] [place] [address] [facility] 2023-12-02 12:51:07 Patient cancelled colonoscopy due to URI symptoms and on antibiotics. Per email from Dr. Miranda on 12.02.23 patient will need to be seen in clinic either by her or clinic CUSTOM SHOEMAKER prior to rescheduling his colonoscopy; this is due to rescheduling his procedure twice in 3 months. KAREN HEREDIA RN 12/02/2023 12:52 PM [facility] Karen Heredia RN [facility] 2023-12-01 09:36:49 Patient needing to cancel and reschedule Colonoscopy procedure that is scheduled for 12/03/23. Please advise [facility] Hina Langley [facility] 2023-11-26 16:33:53 Patient present at cystoscopy appointment. Closing encounter. [facility] 2023-11-25 16:40:28 He can continue with amp, and RTC to clinic tomorrow to assess UA , if WNL can proceed with cysto, otherwise will repeat UCx and reschedule Thanks [facility] 2023-11-25 14:49:19 Patient notified of results/recommendations, understanding was verbalized via teach back. Patient did not take ampicillin as ordered on 11/17/23. States he still has 10 tablets left, was not taking q 6 hrs as ordered due to it making him "sick". Will route to provider for recommendations. [facility] 2023-11-25 11:40:19 Sent oral abx to start today RTC as scheduled for cysto, will check UA pre procedure [facility] 2023-11-17 16:02:59 Patient rescheduled to 12/03/23. [facility] Cristine Santos [facility] 2023-11-17 14:24:46 Received phone call from Genesis Merritt, States Patient wanting to reschedule colonoscopy due to currently having urinary tract infection. Will route to [facility] to cancel/ reschedule. [facility] 2023-11-13 09:00:00 Images from the original note were not included. Patient has been identified by and name and was provided with cup, antiseptic towelette, and clean catch instructions. 2 urine specimen(s) sent. Unpreserved 1 Urine Culture 1 Aptima tube Other urine [facility] 2023-11-06 08:34:51 Urine culture for cyst schedule on 11/26/2023 [facility] 2023-07-29 14:47:52 Formatting of this n ote is different from the original. Images from the original note were not included. Spoke to patient and significant other regarding below lab results. Understanding was verbalized via teach back. KAREN HEREDIA RN 07/29/2023 2:49 PM Result Care Coordination Result Notes Argentina Mao MA 07/14/2023 10:32 AM CDT Back to Top Attempted to contact patient, no answer, LVM Marsha Morales MA 07/08/2023 10:57 AM CDT Voicemail left for patient to return call. Boy Salmeron MD 07/05/2023 2:19 PM CDT Thyroid function within normal limit. CBC- concerning for leukocytosis. No acute illness during visit. F/u with PCP and ER precaution recommended. Will monitor. Will f/u on the CT scan of abdoment Lipid panel- shows decreased cholesterol level. No concerns at this time CMP - wnl except high glu , has hx of DM. Sees endocrinology Karen Heredia RN [facility] 2023-07-22 04:59:04 Addended by: BOY PATEL on: 07/22/2023 04:59 AM Modules accepted: Orders [facility] 2023-07-22 04:57:26 Formatting of this n ote might be different from the original. Referral placed [facility] 2023-07-21 16:35:45 Formatting of this n ote is different from the original. Images from the original note were not included. Verified and discussed the following results with pt: Boy Salmeron MD 07/11/2023 8:[address] concerning for nothing acute but noted abdominal wall separation in the middle and umbilical hernia . Has gallstones and hiatal hernia Also, noted was some stool burden ( verify if any constipation) , will consider Gen surgery referral if he is okay with that . Pt is interested in surgery referral. Routed to provider to place referral. Apologized to pt for the delay in response in returning phone call. Cristine Dior RN [facility] 2023-07-21 15:09:12 Formatting of this n ote might be different from the original. Pt calling back to see when some one will be getting back to them in regards to this pt result. She wants to know why it is taking this long for results Kanwal Garcia [facility] 2023-07-21 10:50:58 Formatting of this n ote might be different from the original. NOV: 10/10/23 CARLEY: 06/24/23 Refill sent Michelle Greene RN [facility] 2023-07-17 15:27:04 Formatting of this n ote might be different from the original. Spouse calling to see if there an update on results Nini Daniels [facility] 2023-07-16 15:26:57 Formatting of this n ote might be different from the original. Patient is calling for his lab and radiology results, please call him at [phone] [facility] 2023-07-04 09:45:00 Formatting of this n ote is different from the original. Images from the original note were not included. Venipuncture collection performed by clean technique on the left anticubitus. Total of 1 attempts were made. Slight pressure and a bandage/dressing were applied to the site(s). The patient experienced no complications. The following specimens were processed according to instructions and sent to [facility] laboratories per lab order on 07/04/2023 : LT BLUE SST 1 RED LAV 1 PPT DK GREEN (LiHep) DK GREEN (SodH) ESCALANTE DK BLUE (K2) DK BLUE (S) ACD Blood Culture NIPT/NTD Patient has been identified by and was provided with cup, antiseptic towelette, and clean catch instructions. 1 urine specimen(s) sent. Unpreserved 1 Urine Culture Aptima tube Other urine T [facility] 2023-06-30 17:35:43 Formatting of this n ote might be different from the original. Called patient and was unable to leave a voice message about his concern for being on Glimepiride and Glipizide by 2 different providers. I have stopped his Glimepiride, so if he calls back please relay to him that he should be on Glipizide 10 mg tablet with breakfast and dinner. He should stop taking the 4mg of Glimepiride. [facility] 2023-06-30 11:12:09 Formatting of this n ote might be different from the original. NOV: 10/10/23 CARLEY: 06/24/23 Refill sent [facility] 2023-06-24 10:30:00 Addended by: ELÍAS CUELLAR on: 06/30/2023 05:31 PM Modules accepted: Orders T [facility] 2023-06-04 14:31:58 Formatting of this n ote might be different from the original. Referral faxed to Dr. Bernabe, T Nancy Landers RN [facility] 2023-06-02 16:00:56 Formatting of this n ote might be different from the original. Dr. Bernabe office calling to make sure referral was sent they're not able to schedule appt until referral has been sent. Phone:[phone] Michelle Reinoso [facility] 2023-06-01 17:44:59 Formatting of this n ote might be different from the original. NOV: none CARLEY: 06/17/22 Refill denied Michelle Greene RN [facility] 2023-05-31 09:19:02 Formatting of this n ote might be different from the original. Referral printed and faxed to Dr. Harrington at [phone]. Patient notified and verbalized understanding. Italia Alvarez LVN 05/31/2023 9:19 AM Italia Alvarez BARREL BUILDER [facility] 2023-05-31 09:07:00 Formatting of this n ote might be different from the original. Contacted patient and notified him a podiatry referral has been placed. Advised [facility] Referral Dept will get authorization through insurance and contact him to schedule an appointment. Patient verbalized understanding. Italia Alvarez LVN 05/31/2023 9:07 AM Italia Alvarez BARREL BUILDER [facility] 2023-05-30 16:43:08 Formatting of this n ote might be different from the original. Patient is requesting the referral to Dr. Harrington be re-faxed. Magali Rodgers [facility] 2023-05-30 15:53:55 Formatting of this n ote might be different from the original. Referral/Consult Comprehensive diabetic foot examination, type 2 DM, encounter for - CONSULT/REFERRAL PODIATRY [facility] 2023-05-28 17:12:10 Formatting of this n ote might be different from the original. Mark Pascual is a 72 year old male Insurance is asking for a referral for podiatry Dr Linus Bernbae [phone] Didn't provide a fax Please follow up with the pt Santiago Elliott [facility] 2023-05-28 10:56:43 Formatting of this n ote might be different from the original. Sending refill approval to pharmacy for this time only. Patient was seen for diabetes/chronic conditions follow up in October by PCP but has not been seen by endo since 07/01. Let patient know via vm that we have pen needles in clinic for patient to hand picker if he wishes to do so. They will be left up front. Ivy Cedillo LVN [facility] 2023-05-27 16:35:44 Formatting of this n ote might be different from the original. Per pt needs a rx for needles. Please advise. Mckenzie Car [facility] 2023-05-26 15:55:04 Formatting of this n ote might be different from the original. Dr. Harrington's office has not received referral for patient. Please refax. Marsha Melgoza [facility] 2023-05-26 15:51:58 Formatting of this n ote might be different from the original. Patient is requesting a referral to podiatry Dr. Bernabe. Toe nail trim every other month. Marsha Melgoza [facility]
[2025-08-10] MEDS ORDERED: ACETAMINOPHEN 325 MG TABLET ONE (18:28)
[2025-08-10 18:47] LABS: Absolute Lymphocytes (CBC) 0.5 K/uL (0.7-4.9); Hematocrit 38.7 % (39.6-49.0); Hemoglobin 12.7 g/dL (13.6-17.9); MCH 27.6 pg (27.0-35.0); MCHC 32.8 g/dL (32.0-36.0); MCV 84.2 fL (80-100); MPV 8.7 fL (7.6-11.3); Nucleated RBC Absolute Count 0.0 (0-0); Nucleated Red Blood Cells % 0.0 % (0-0); RBC Red Blood Cell Count 4.59 M/uL (4.33-5.43); White Blood Count 16.30 thou/uL (4.3-10.9)
--- NOTE | 2025-08-10 18:55 | RAD REPORT ---
EXAMINATION: ONE VIEW CHEST XR CLINICAL INDICATION: Male, 74 years old.,FEVER TECHNIQUE: Frontal chest projection is submitted. Examination is limited by patient positioning and t echnique. COMPARISON: 04/16/2012 FINDINGS: The lungs are well inflated and clear. No pneumothorax or sizable effusion. The heart is normal in s ize. Mediastinal contours are unremarkable. IMPRESSION: No acute intrathoracic abnormalities.
[2025-08-10 18:57] LABS: PT Prothrombin Time 12.5 SECONDS (10-13.0); PTT, Activated Partial Thromb 31.7 SECONDS (27.2-37.4); Protime INR 1.11
[2025-08-10 19:03] LABS: ALT/SGPT 16.0 U/L (16-61); AST/SGOT 19.0 U/L (15-37); Albumin 4.2 g/dL (3.4-5.0); Albumin/Globulin Ratio 1.2 (1.1-1.8); Alkaline Phosphatase 119.0 U/L (45-117); Anion Gap 9.3 mEq/L (5.0-15.0); BUN Blood Urea Nitrogen 17.0 mg/dL (7-18); Globulin 3.5 g/dL (2.3-3.5); Glucose Level 278.0 mg/dL (74-106); Potassium 4.3 mEq/L (3.5-5.1)
[2025-08-10 19:27] LABS: Influenza A Ag Negative; Influenza B Ag Negative; SARS-CoV-2 Antigen Rapid Res Negative (Negative)
[2025-08-10 20:51] LABS: Blood Morphology Comment NOT SEEN (NOT SEEN); White Blood Cell Scan OK (OK)
[2025-08-10 21:16] LABS: Sqamous Epithelial None Seen /HPF (None Seen); Urine Crystals Unidentified Few /HPF (None Seen); Urine Culture Reflex Order REFLEXED; Urine Microscopic Reflex YN ORDER UMIC
--- NOTE | 2025-08-10 22:17 | EDPHYS ---
Physician Documentation [facility] Name: Aakash Pascual Age: 74 yrs Sex: Male : 1950 Arrival Date: 08/10/2025 Time: 17:45 Bed 13 Private MD: ED Physician Adrian Heart HPI: 08/10 18:43 This 74 yrs old Male presents to ER via Wheelchair with complaints of General Weakness, kb Shaky, Confused. 18:43 Pt is a 74 year old male who presents for not feeling well that started at 1600. States kb he started feeling anxious and shaky. Pt thought it was his BGL, but that was normal. States he has since developed chills and bodyaches. . 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 - Infectious Disease History:: Denies. - Social history:: Smoking status: Patient denies any tobacco usage or history of. ROS: 18:42 Constitutional: As per HPI kb Exam: 18:42 Constitutional: This is a well developed, well nourished patient who is awake, alert, kb and in no acute distress. Head/Face: Normocephalic, atraumatic. ENT: Moist Mucous membranes Cardiovascular: Regular rate Respiratory: Respirations even and unlabored. No increased work of breathing. Talking in full sentences Abdomen/GI: Soft, non-tender. No distention Skin: Warm, dry with normal turgor. Normal color. MS/ Extremity: Pulses equal, no cyanosis. Neurovascular intact. Full, normal range of motion. Neuro: Awake and alert, GCS 15, oriented to person, place, time, and situation. 18:42 ECG was reviewed by the Attending Physician. Vital Signs: 17:56 BP 161 / 69; Pulse 95; Resp 19; Temp 99.2; Pulse Ox 98% on R/A; dd2 19:07 BP 162 / 89; Pulse 90; Resp 18; Pulse Ox 100% on R/A; mb9 20:12 BP 148 / 69; Pulse 95; Resp 25; Pulse Ox 100% on R/A; cc6 22:00 BP 150 / 81; Pulse 93; Resp 20; Pulse Ox 97% ; vc1 08/11 01:00 Pulse 93; Resp 20; Pulse Ox 98% ; vc1 01:33 BP 115 / 70; vc1 MDM: 10 17:48 Medical Screening Exam initiated kb 18:42 Data reviewed: vital signs, nurses notes. kb 22:13 Differential diagnosis: covid, flu, pneumonia, uti. Consideration of kb Admission/Observation Patient was admitted/placed on observation. Escalation of care including admission/observation considered. Management of patient was discussed with the following: Hospitalist: DEMI Ashley accepts pt for admission under Dr Lindsay. Historians other than the Patient: Spouse/Significant Other: . Counseling: I had a detailed discussion with the patient and/or guardian regarding the historical points, exam findings, and any diagnostic results supporting the discharge/admit diagnosis, lab results, radiology results, the need for further work-up and treatment in the hospital. 08/10 17:59 Order name: Blood Culture Adult (2) kb 08/10 17:59 Order name: CBC with Diff; Complete Time: 20:51 kb 08/10 17:59 Order name: CMP; Complete Time: 19:05 kb 08/10 17:59 Order name: Lactate w/ 2H reflex if indic.; Complete Time: 19:07 kb 08/10 17:59 Order name: Protime (+inr); Complete Time: 18:59 kb 08/10 17:59 Order name: Ptt, Activated; Complete Time: 18:59 kb 08/10 17:59 Order name: COVID-19 Ag + Flu A+B Ag; Complete Time: 19:28 kb 08/10 18:50 Order name: Glucose, Ancillary Testing; Complete Time: 18:52 EDMS 08/10 19:28 Order name: UA Rfx [place] Cult if indicated; Complete Time: 21:35 kb 08/10 20:51 Order name: CBC Smear Scan; Complete Time: 20:51 EDMS 08/10 21:19 Order name: Urine Culture EDMS 08/10 17:59 Order name: Chest Single View XRAY; Complete Time: 18:59 kb 08/10 17:59 Order name: Accucheck; Complete Time: 18:35 kb 08/10 17:59 Order name: Cardiac monitoring; Complete Time: 18:35 kb 08/10 17:59 Order name: EKG - Nurse/Tech; Complete Time: 18:35 kb 08/10 17:59 Order name: IV Saline Lock - Large Bore; Complete Time: 18:34 kb 08/10 17:59 Order name: Labs collected and sent; Complete Time: 18:34 kb 08/10 17:59 Order name: O2 Per Protocol; Complete Time: 18:34 kb 08/10 17:59 Order name: O2 Sat Monitoring; Complete Time: 18:34 kb 08/10 17:59 Order name: Vital Signs; Complete Time: 18:34 kb EC:42 Rate is 99 beats/min. Rhythm is regular. QRS [place] is Normal. SD interval is prolonged kb at 230 msec. QRS interval is normal at 96 msec. QT interval is normal at 446 msec. Administered Medications: 18:41 Drug: Acetaminophen PO 650 mg PO once Route: PO; mb9 19:07 Follow up: Response: No adverse reaction mb9 22:32 Drug: Rocephin IV 1 grams IV at calculated rate once; Given slow IV push per pharmacy cc6 instructions Route: IV; Rate: calculated rate; Site: left antecubital; 22:54 Follow up: Response: No adverse reaction; IV Status: Completed infusion cc6 08/11 00:50 Drug: Mirtazapine PO 7.5 mg PO once Route: PO; vc1 00:51 Drug: LaMICtal PO 150 mg PO once Route: PO; vc1 00:51 Drug: Haloperidol PO 2 mg PO once Route: PO; vc1 Disposition: 08/10 18:54 I was immediately available on-site in the Emergency Department for consultation in the ms3 care of the patient. Disposition Summary: 08/10/25 22:16 Hospitalization Ordered Notes: Hospitalization Status: Inpatient Admission kb Provider: Hipolito Lindsay Location: Telemetry/MedSurg (Inpatient) kb Condition: Stable kb Problem: new kb Symptoms: are unchanged kb Bed/Room Type: Standard Room Assignment: 202(08/11/25 03:23) rv1 Diagnosis - UTI/ Urinary tract infection, site not specified kb - Sepsis, unspecified organism kb Forms: - Medication Reconciliation Form kb - SBAR form kb - Leadership Thank You Letter kb Signatures: Dispatcher [employer] Shelby Davis FNP-C FNP-May Capone RN RN kl Adrian Heart, DO DO ms3 Mckenzie Teixeira, RN RN vc1 Shayy, Elizabet Castorena, RN RN mb9 Ayana Wade rv1 Neeru Arteaga, RN RN cc6 FLORIN CHEUNG RN RN dd2 Corrections: (The following items were deleted from the chart) 18:00 17:59 BLOOD CULTURE*+BA.LAB.BRZ ordered. EDMS EDMS 18:00 17:59 CBC+H.LAB.BRZ ordered. EDMS EDMS 18:00 17:59 COMPREHENSIVE METABOLIC PANEL+C.LAB.BRZ ordered. EDMS EDMS 18:00 17:59 LACTATE+C.LAB.BRZ ordered. EDMS EDMS 18:00 17:59 PROTIME (+INR)+COAG.LAB.BRZ ordered. EDMS EDMS 18:00 17:59 PTT, ACTIVATED+COAG.LAB.BRZ ordered. EDMS EDMS 18:00 17:59 COVID-19 Ag + Flu A+B Ag+I.LAB.BRZ ordered. EDMS EDMS 18:00 18:00 Chest Single View+RAD.RAD.BRZ ordered. EDMS EDMS 08/11 02:40 08/10 22:16 kb kl 08/11 03:23 02:40 203 kl rv1
--- NOTE | 2025-08-10 22:17 | ER ---
Nurse's Notes [facility] Name: Aakash Pascual Age: 74 yrs Sex: Male : 1950 Arrival Date: 08/10/2025 Time: 17:45 Bed 13 Private MD: Diagnosis: UTI/ Urinary tract infection, site not specified;Sepsis, unspecified organism Presentation: 08/10 17:56 Chief complaint: Patient states: BEGAN FEELING SHAKY, NERVOUS, BODY ACHES AND CHILLS AT dd2 4 PM. PT REPORTS CHECKING BGS 172. Coronavirus screen: chills, muscle pain, shaking with chills. Ebola Screen: No symptoms or risks identified at this time. Initial Sepsis Screen: Does the patient meet any 2 criteria? No. Patient's initial sepsis screen is negative. Does the patient have a suspected source of infection? No. Patient's initial sepsis screen is negative. Risk Assessment: Do you want to hurt yourself or someone else? Patient reports no desire to harm self or others. Onset of symptoms was August 10, 2025 at 16:00. 17:56 Method Of Arrival: Wheelchair dd2 17:56 Acuity: [place] 3 dd2 Triage Assessment: 17:58 General: Appears in no apparent distress. uncomfortable, Behavior is cooperative, dd2 appropriate for age, anxious. Pain: Complains of pain in GENERALIZED. Respiratory: No deficits noted. Airway is patent Respiratory effort is even, unlabored, Respiratory pattern is regular, symmetrical. 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 - Infectious Disease History:: Denies. - Social history:: Smoking status: Patient denies any tobacco usage or history of. Screenin:34 [facility] ED Fall Risk Assessment (Adult) History of falling in the last 3 months, mb9 including since admission No falls in past 3 months (0 pts) Confusion or Disorientation No (0 pts) Intoxicated or Sedated No (0 pts) Impaired Gait No (0 pts) Mobility Assist Device Used No (0 pt) Altered Elimination No (0 pt) Score/Fall Risk Level 0 - 2 = Low Risk Oriented to surroundings, Maintained a safe environment, Educated pt \T\ family on fall prevention, incl call for assistance when getting out of bed. Abuse screen: Denies threats or abuse. Nutritional screening: No deficits noted. Tuberculosis screening: No symptoms or risk factors identified. Assessment: 18:44 General: Appears uncomfortable, Behavior is calm, cooperative. Pain: Denies pain. mb9 Neuro: Hernandez Agitation-Sedation Scale (RASS): 0 - Alert and Calm Level of Consciousness is awake, alert, obeys commands, Oriented to person, place, time, situation, Appropriate for age. Neuro: Reports weakness. Cardiovascular: Heart tones S1 S2 present Patient's skin is warm and dry. Respiratory: Breath sounds are clear bilaterally. GI: No signs and/or symptoms were reported involving the gastrointestinal system. : No signs and/or symptoms were reported regarding the genitourinary system. EENT: No signs and/or symptoms were reported regarding the EENT system. Derm: Skin is intact, Skin is dry, Skin is pale, Skin temperature is warm. Musculoskeletal: Range of motion: intact in all extremities. 19:00 Reassessment: Report received from Martina FREEDMAN. cc6 19:15 General: Appears in no apparent distress. uncomfortable, Behavior is calm, cooperative. cc6 Pain: Denies pain. Neuro: Level of Consciousness is awake, alert, obeys commands, Oriented to person, place, time, situation, Appropriate for age Reports weakness. Cardiovascular: Heart tones S1 S2 present Patient's skin is warm and dry. Respiratory: Airway is patent Respiratory effort is even, unlabored, Respiratory pattern is regular, symmetrical. GI: No signs and/or symptoms were reported involving the gastrointestinal system. : No signs and/or symptoms were reported regarding the genitourinary system. EENT: No signs and/or symptoms were reported regarding the EENT system. Derm: No signs and/or symptoms reported regarding the dermatologic system. Musculoskeletal: Circulation, motion, and sensation intact. Range of motion: intact in all extremities. 20:12 Reassessment: No changes from previously documented assessment. Patient and/or family cc6 updated on plan of care and expected duration. Pain level reassessed. Patient is alert, oriented x 3, equal unlabored respirations, skin warm/dry/pink. 08/11 01:30 Reassessment: Patient appears in no apparent distress at this time. No changes from vc1 previously documented assessment. Patient and/or family updated on plan of care and expected duration. Pain level reassessed. Patient is alert, oriented x 3, equal unlabored respirations, skin warm/dry/pink. Vital Signs: 08/10 17:56 BP 161 / 69; Pulse 95; Resp 19; Temp 99.2; Pulse Ox 98% on R/A; dd2 19:07 BP 162 / 89; Pulse 90; Resp 18; Pulse Ox 100% on R/A; mb9 20:12 BP 148 / 69; Pulse 95; Resp 25; Pulse Ox 100% on R/A; cc6 22:00 BP 150 / 81; Pulse 93; Resp 20; Pulse Ox 97% ; vc1 08/11 01:00 Pulse 93; Resp 20; Pulse Ox 98% ; vc1 01:33 BP 115 / 70; vc1 ED Course: 08/10 17:47 Patient arrived in ED. im 17:48 Shelby Johnston FNP-C [facility]. kb 17:48 Adrian Heart DO is Attending Physician. kb 17:58 Triage completed. dd2 17:58 Arm band placed on right wrist. dd2 18:26 Initial lab(s) drawn, by me, sent to lab. First set of blood cultures drawn. Inserted iw saline lock: 20 gauge in left antecubital area, using aseptic technique. Blood collected. Flushed with 10 mL NS. 18:33 Elizabet Lucas, RN is Primary Nurse. mb9 18:34 Bed in low position. Call light in reach. Side rails up X 1. Provided Education on: mb9 press call light if needing anything. Client placed on continuous cardiac and pulse oximetry monitoring. NIBP monitoring applied. 18:34 COVID-19 Ag + Flu A+B Ag Sent. iw 18:34 No provider procedures requiring assistance completed. mb9 18:39 EKG done, by career technical supervisor. reviewed by Shelby APONTE. ts3 18:40 Chest Single View XRAY In Process Unspecified. EDMS 20:56 Urine collected: clean catch specimen, sent to lab. ts3 22:16 Hipolito Lindsay MD is Hospitalizing Provider. kb 08/11 04:02 Patient admitted, IV remains in place. cc6 Administered Medications: 08/10 18:41 Drug: Acetaminophen PO 650 mg PO once Route: PO; mb9 19:07 Follow up: Response: No adverse reaction 9 22:32 Drug: Rocephin IV 1 grams IV at calculated rate once; Given slow IV push per pharmacy cc6 instructions Route: IV; Rate: calculated rate; Site: left antecubital; 22:54 Follow up: Response: No adverse reaction; IV Status: Completed infusion cc6 08/11 00:50 Drug: Mirtazapine PO 7.5 mg PO once Route: PO; vc1 00:51 Drug: LaMICtal PO 150 mg PO once Route: PO; vc1 00:51 Drug: Haloperidol PO 2 mg PO once Route: PO; vc1 Medication: 08/10 19:51 VIS not applicable for this client. vc1 Outcome: 22:16 Decision to Hospitalize by Provider. kb 08/11 04:01 Admitted to Med/surg accompanied by nurse, accompanied by tech, via wheelchair, room cc6 202, with chart, Condition: stable Instructed on the need for admit, 04:02 Patient left the ED. cc6 Signatures: Dispatcher [employer] EDMS Shelby Johnston, CLERK-C CLERK-Ckb Emma Reinoso RN JASMINA iw Mckenzie Teixeira RN RN 1 Elizabet Lucas RN RN Sabine Garcia Cassandra, RN RN cc6 FLORIN CHEUNG RN RN dd2 Lorrie Orozco 3
[2025-08-10] MEDS ORDERED: CEFTRIAXONE 1000 MG/VIAL ONE (22:19)
[2025-08-11] MEDS: lamoTRIgine 100 MG TAB ONE (00:25)
[2025-08-11] MEDS ORDERED: MIRTAZAPINE 15 MG TAB ONE (00:36)
[2025-08-11] MEDS ORDERED: ONDANSETRON 4 MG/2 ML VIAL IV PRN (00:49)
[2025-08-11] MEDS ORDERED: ACETAMINOPHEN 325 MG TABLET PO PRN (00:49)
--- NOTE | 2025-08-11 00:52 | P.HP ---
Certification for Inpatient Patient admitted to: Inpatient With expected LOS: >2 Midnights Patient will require the following post-hospital care: None Practitioner: I am a practitioner with admitting privileges, knowledge of patient current condition, hospital course, and medical plan of care. Services: Services provided to patient in accordance with Admission requirements found in Title 42 Section 412.3 of the Code of Federal Regulations Patient History Date of Service: 08/11/25 Reason for admission: Sepsis due to UTI, EMI. History of Present Illness: Patient is a 74-year-old male with past medical history of autism, scoliosis, BPH, and does self-catheterization 3 times a day at home due to BPH, type 2 diabetes mellitus, depressive disorder, brought to the ER today due to urinary symptoms including frequent urinations, chills, weakness, fatigue. According to significant other present at bedside, she states patient started having severe chills, weakness, and tiredness today, states patient was so weak until he almost passed out, states she took the patient to urgent care, and urgent care requested for her to go to ER for further treatment, which then prompted her to bring the patient to ER. Patient workup in the ER, has sepsis due to UTI, and EMI. Patient WBC 16.30, left shift with 90.9, creatinine 1.45, GFR 51, and glucose of 278. Patient denies having associated chest pain, shortness of breath, nausea or vomiting, headaches, dizziness, blurred vision, or abdominal pain. Allergies corn Allergy (Verified 08/10/25 23:47) Itching/Hives/Rash lactase [From [employer]] Allergy (Verified 08/10/25 23:47) Itching/Hives/Rash wheat Allergy (Verified 08/10/25 23:47) Itching/Hives/Rash sugar Allergy (Uncoded 08/10/25 23:47) Itching/Hives/Rash Home Medications: Fluoxetine HCl [Prozac] 20 mg PO DAILY 08/10/25 Insulin Degludec [Tresiba Flextouch U-100] See Protocol SQ DAILY 08/10/25 Mirtazapine 1 tab PO BEDTIME 08/10/25 haloperidoL [Haldol*] 2 mg PO BEDTIME 08/10/25 lamoTRIgine [Lamotrigine] 150 mg PO BEDTIME 08/10/25 haloperidoL [Haldol] 1 mg PO DAILY 08/11/25 - Past Medical/Surgical History Diabetic: Yes -: Type 2 diabetes mellitus. -: Self-catheterization 3 times daily/BPH. -: Scoliosis. -: Depressive disorder. -: States he does not with a past surgical history. - Family History Mother -: Lung disease (COPD) Father -: Heart disease (CHF.), Diabetes (Type 2 diabetes mellitus.) - Social History Smoking Status: Former smoker Alcohol use: Yes CD- Drugs: No Caffeine use: Yes Place of Residence: Home Review of Systems 10-point ROS is otherwise unremarkable General: Fever, Chills, Weakness Physical Examination - Physical Exam General: Alert, In no apparent distress, Oriented x3, Cooperative HEENT: Atraumatic, Normocephalic, PERRLA, Mucous membr. moist/pink, Sclerae nonicteric Neck: Supple, 2+ carotid pulse no bruit, JVD not distended, No Thyromegaly, No LAD, Without JVD or thyroid abnormality Respiratory: Clear to auscultation bilaterally, Normal air movement Cardiovascular: No edema, Normal pulses, Regular rate/rhythm, Normal S1 S2, Abnormal S3, No gallops, No rubs, No murmurs Capillary refill: <2 Seconds Gastrointestinal: Normal bowel sounds, Hypoactive, Soft and benign, Non- distended, W/out hepatomegaly, No ascites, No tenderness, No masses, No rebound, No guarding Musculoskeletal: No clubbing, No swelling, No contractures, No erythema, No tenderness, No warmth Integumentary: No rashes, No breakdown, No significant lesion, No tenderness/swelling, No erythema, No warmth, No cyanosis Neurological: Normal gait, Normal speech, Normal tone, Normal affect, Other (Autism, and extreme hard of hearing.) Lymphatics: No axilla or inguinal lymphadenopathy - Studies Laboratory Data (last 24 hrs) 08/10/25 08/10/25 08/10/25 18:21 18:21 18:21 WBC 16.30 H Hgb 12.7 L Hct 38.7 L Plt Count 290 PT 12.5 INR 1.11 APTT 31.7 Sodium 129 L Potassium 4.3 BUN 17 Creatinine 1.45 H Glucose 278 H Total Bilirubin 0.9 AST 19 ALT 16 Alkaline Phosphatase 119 H Male Exam - Male Exam Inguinal exam: No hernias Assessment and Plan - Plan Patient brought to the ER due to generalized body weakness, chills, fatigue, patient work up in the ER with diagnosis of sepsis due to UTI, and EMI. (1)Sepsis due to UTI, anD EMI. -Meropenem 500 mg IV every 8 hours. Broaden patient antibiotic coverage with meropenem, patient states he does self catheterization 3 times a day. -IV 1/2 NS at 75ml/ hr -Order follow-up CMP. (2)Chronic type 2 diabetes mellitus. -Order an A1c to evaluate patient current diabetic status. -ACHS with moderate sliding scale coverage. (3)Patient home medications to be resumed after reconciled. (4)Explained the entire treatment plan to the patient and significant other present at bedside, solicited questions answered and voiced understanding. Discharge Plan: Home Plan to discharge in: Greater than 2 days - Advance Directives Does patient have a Living Will: No Does patient have a Durable POA for Healthcare: No - Code Status/Comfort Care Code Status Assessed: Yes Code Status: Full Code Critical Care: No Time Spent Managing Pts Care (In Minutes): 55
[2025-08-11] MEDS ORDERED: NA CHLORIDE 0.9% 100 ML ONE (01:48)
[2025-08-11] MEDS ORDERED: HEPARIN 5000 UNIT/ML 1 ML VIAL ONE (01:48)
[2025-08-11] MEDS ORDERED: NACHLORIDE 0.45% 1,000 ML IV ONE (01:48)
[2025-08-11] MEDS: Meropenem 500 MG in NA CHLORIDE 0.9% 100 ML IV SCH (02:23)
[2025-08-11] MEDS: HEPARIN 5000 UNIT/ML 1 ML VIAL SQ SCH (02:23)
[2025-08-11] MEDS: NACHLORIDE 0.45% 1,000 ML IV SCH (02:23)
[2025-08-11 04:30] VITALS: O2SAT 98
[2025-08-11] MEDS: INSULIN REGULAR (HUMAN) 100 UNIT/ML SQ SCH (07:30)
[2025-08-11 07:42] VITALS: BMI 25.5
[2025-08-11] MEDS ORDERED: FLU (Fluarix) 25-26 (6MOS UP)/PF 45 MCG/0.5 ML Syringe IM ONE (07:45)
[2025-08-11] MEDS ORDERED: PNEUMOCOCCAL VACCINE 0.5 ML IMVAC ONE (08:00)
[2025-08-11 13:57] LABS: Absolute Lymphocytes (CBC) 2.3 K/uL (0.7-4.9); Hematocrit 35.0 % (39.6-49.0); Hemoglobin 11.5 g/dL (13.6-17.9); MCH 27.6 pg (27.0-35.0); MCHC 32.7 g/dL (32.0-36.0); MCV 84.2 fL (80-100); MPV 8.8 fL (7.6-11.3); Nucleated RBC Absolute Count 0.0 (0-0); Nucleated Red Blood Cells % 0.0 % (0-0); RBC Red Blood Cell Count 4.16 M/uL (4.33-5.43); White Blood Count 17.60 thou/uL (4.3-10.9)
[2025-08-11 14:05] LABS: AST/SGOT 12 U/L (15-37); Albumin 3.5 g/dL (3.4-5.0); Albumin/Globulin Ratio 1.1 (1.1-1.8); Alkaline Phosphatase 93 U/L (45-117); Anion Gap 7.7 mEq/L (5.0-15.0); BUN Blood Urea Nitrogen 21 mg/dL (7-18); Globulin 3.3 g/dL (2.3-3.5); Glucose Level 92 mg/dL (74-106); Potassium 3.7 mEq/L (3.5-5.1)
[2025-08-11 14:07] LABS: ALT/SGPT < 14 U/L (16-61)
[2025-08-11] MEDS ORDERED: HALOPERIDOL 1 MG PO SCH (15:59)
[2025-08-11] MEDS: FLUOXETINE 20 MG CAP PO SCH (17:07)
[2025-08-11] MEDS ORDERED: HOME MED 1 EA UNK (Mirtazapine [Mirtazapine] 7.5 MG Tablet) PO SCH (21:00)
[2025-08-11] MEDS: MIRTAZAPINE 15 MG TAB PO SCH (21:01)
[2025-08-12 05:23] LABS: Absolute Lymphocytes (CBC) 2.6 K/uL (0.7-4.9); Hematocrit 34.5 % (39.6-49.0); Hemoglobin 11.7 g/dL (13.6-17.9); MCH 28.3 pg (27.0-35.0); MCHC 33.9 g/dL (32.0-36.0); MCV 83.5 fL (80-100); MPV 8.7 fL (7.6-11.3); Nucleated RBC Absolute Count 0.0 (0-0); Nucleated Red Blood Cells % 0.0 % (0-0); RBC Red Blood Cell Count 4.12 M/uL (4.33-5.43); White Blood Count 13.30 thou/uL (4.3-10.9)
[2025-08-12 05:50] LABS: ALT/SGPT 15.0 U/L (16-61); AST/SGOT 17.0 U/L (15-37); Albumin 3.3 g/dL (3.4-5.0); Albumin/Globulin Ratio 1.0 (1.1-1.8); Alkaline Phosphatase 91.0 U/L (45-117); Anion Gap 5.5 mEq/L (5.0-15.0); BUN Blood Urea Nitrogen 22.0 mg/dL (7-18); Globulin 3.3 g/dL (2.3-3.5); Glucose Level 150.0 mg/dL (74-106); Magnesium 2.4 mg/dL (1.6-2.4); Potassium 4.5 mEq/L (3.5-5.1)
[2025-08-12 11:44] VITALS: BP 143/68; TEMP 97.7
== END 2025-08-12 14:38 | disposition home or self-care (01) | DRG 872 ==
LOC: ER 17:45 → ERHOLD 08-11 00:43 → 2ND 08-11 03:55
PROVIDERS: ADMIT Hospitalist; ATTEND Hospitalist
PROC: 0T9B70Z Drainage of Bladder with Drainage Device, Via Natural or Artificial Opening (ICD-10-PCS; principal; 2025-08-12)
DX: A41.9 Sepsis, unspecified organism (principal); N39.0 Urinary tract infection, site not specified; F84.0 Autistic disorder; N17.9 Acute kidney failure, unspecified; M41.9 Scoliosis, unspecified; F41.9 Anxiety disorder, unspecified; E11.9 Type 2 diabetes mellitus without complications; N40.0 Benign prostatic hyperplasia without lower urinary tract symptoms; Z91.018 Allergy to other foods; Z79.4 Long term (current) use of insulin; Z79.899 Other long term (current) drug therapy; Z87.891 Personal history of nicotine dependence; Z11.52 Encounter for screening for COVID-19
CPT/HCPCS: 36415; 71045; 80053; 81001; 82947; 83605; 83735; 85025; 85610; 85730; 87040; 87077; 87086; 87088; 87186; 87428; 93005; 96365; 99285; J0696; J1644; J1815